=== PATIENT | male | born 1965 | race Hispanic/Latino ===

== ENCOUNTER 2024-10-16 14:11 | Inpatient (IN) | payer SELFPAY ==
[~2024-10-16] VITALS: Ht 177.8 cm; Wt 71.8 kg
[2024-10-16 16:45] VITALS: BP 117/76; PULSE 96; RESP 18; TEMP 100.4
[2024-10-16] MEDS: HEParin 25,000 UNITS/250ML D5W 250 ML IV ONE (16:57)
[2024-10-16] MEDS ORDERED: ondanSETRON 4MG INJ IVP PRN (17:30)
[2024-10-16] MEDS ORDERED: ALBUTEROL 0.083% 2.5 MG/3 ML INH IH PRN (18:00)
[2024-10-16 18:49] VITALS: O2SAT 92
[2024-10-16 19:17] VITALS: PULSE 97; RESP 18; O2SAT 94
[2024-10-16] MEDS: HEParin 25,000 UNITS/250ML D5W 250 ML IV SCH (19:33)
--- NOTE | 2024-10-16 19:49 | HP ---
[facility] HISTORY AND PHYSICAL Date of Service: Oct 16, 2024 Time of Service: 19:49 PCP: Jaci Jung HISTORY OF PRESENT ILLNESS: This is a 58-year-old Austrian-speaking male with past medical history of diabetes, hypertension and hyperlipidemia who was transferred from [facility] with NSTEMI and multivessel CAD for a possible surgical revascularization and patient is on heparin drip.Patient showed up at [facility] for complaints of shortness of breath and fatigue as per patient an he was found to have NSTEMI and underwent a left heart cath via right radial artery as per daughter where he was found to have multiple CAD.As per patient he stopped taking all his medications 1 month ago because he was feeling better already he said.Daughter Paula was at bedside during my evaluation and states patient smoke 2 packs per week and denies alcohol and recreational drug use. Seen and examined patient in room 203,awake,alert and coherent.Patient denies fever,chills,cough,chest pain,palpitation and shortness of breath. Latest vital signs temperature 98.4, heart rate 101, blood pressure 135/66 saturation 90% on 3 L nasal cannula. We will admit patient for further medical management. REVIEW OF SYSTEMS CONSTITUTIONAL: Denies fevers, chills, or night sweats. No unintentional weight loss reported. NEUROLOGICAL: Denies headache, amaurosis fugax, motor weakness, sensory deficit, vertigo/spinning sensation, gait abnormalities, or tremors. ENT: No hearing loss, otalgia, otorrhea, rhinitis, rhinorrhea, hoarseness, or sore throat. CARDIOVASCULAR: Denies any exertional angina, dyspnea on exertion, orthopnea, paroxysmal nocturnal dyspnea, palpitations, life-threatening arrhythmias, claudication. PULMONARY: Positive shortness of breaths Denies cough, phlegm/sputum, hemoptysis, pleuritic chest pain. SLEEP: Denies morning headaches, daytime somnolence or napping. Denies difficulty falling asleep, staying asleep, waking from sleep. Denies knowledge of snoring. GASTROINTESTINAL: Denies any type of dysphagia to either liquids or solids. Denies nausea, vomiting, pyrosis, early satiety, abdominal pain, diarrhea, constipation, or changes in stool consistency or caliber. Denies coffee-ground emesis, hematemesis, hematochezia, or melanotic stools. GENITOURINARY: Denies frequency, urgency, nocturia, hematuria or incontinence (Storage/Irritative symptoms.) Low urinary stream, straining to void, urinary intermittency or hesitancy, splitting of the voiding stream, terminal dribbling. ENDOCRINOLOGIC: Denies polyuria, polydipsia, polyphagia or heat/cold intolerances. HEMATOLOGIC: Denies thrombophilia/previous clots, or coagulopathy/bleeding disorders. ONCOLOGIC: Denies personal history of malignancy. DERMATOLOGIC: Denies rashes or pruritus. PSYCHIATRIC: Denies any suicidal or homicidal ideation. Denies hallucinations. PAST MEDICAL HISTORY: [Diabetes hypertension and hyperlipidemia ] PAST SURGICAL HISTORY: [Patient denies ] PAST SOCIAL HISTORY: [Patient admits to smoking two packs of cigarettes per every week. Denies alcohol and recreational drug use ] FAMILY HISTORY: [ Diabetes and cardiovascular disease ] Coded Allergies: No Known Drug Allergies (Unverified Allergy, Unknown, 10/16/24) PHYSICAL EXAM GENERAL APPEARANCE: The patient is awake, alert, and oriented, in no acute cardiopulmonary distress. NEUROLOGICAL: Cranial nerves II-XII grossly intact. Motor is 5/5 in bilateral upper and lower extremities proximal to distal. No sensory deficits. HEENT: Face is symmetric. Pupils are equal and reactive. Extraocular movements are intact. NECK: Supple. No JVD. No thyromegaly. No submental, submandibular, pre-/ postauricular, occipital or supraclavicular lymphadenopathy. CHEST: Normal chest expansion. No Telemetry. LUNGS: Absence of any rales, rhonchi or any wheezing. CARDIOVASCULAR: Regular. S1 and S2 normal. No appreciable rubs, murmurs or gallops. ABDOMEN: Soft, nontender, and nondistended. There is no rebound, voluntary guarding, or rigidity. : Deferred. No Henao. EXTREMITIES: Non-edematous and not cyanotic. No clubbing. Good capillary refill. SKIN: No skin breakdown. Vital Sign (Last 24 Hours) 10/16/24 10/16/24 10/16/24 16:45 18:49 19:17 Temp 100.4 Pulse 97 Resp 18 B/P (MAP) 117/76 Pulse Ox 92 O2 Delivery N/A Room Air O2 Flow Rate 0.0 FiO2 21 LABS: Laboratory: Test 10/16/24 18:24 Range/Units Activated Partial Thromboplast Time 39.5 H 26.3-35.5 SEC Current Medications Medications (Trade) Dose Ordered Sig/Meagan Route PRN Reason Start Time Stop Time Status Last Admin Dose Admin Acetaminophen (TYLenol 325MG TAB) 650 mg Q6H PRN PO MILD PAIN (1-3) 10/16/24 17:30 11/15/24 17:29 Albuterol Sulfate (Proventil 0.083% 2.5mg/3ml) 0.63 mg Q6H6 PRN IH SHORTNESS OF BREATH 10/16/24 18:00 11/15/24 17:59 Aspirin (Aspirin 81mg Ec Tab) 81 mg DAILY PO 10/17/24 09:00 11/16/24 08:59 Azithromycin 250 ml @ 250 mls/hr Q24H IVPB 10/16/24 21:00 10/26/24 20:59 Ceftriaxone Sodium (Rocephin 2gm Inj) 2 gm Q24H IVPB 10/17/24 09:30 10/27/24 09:29 Heparin Sodium (Porcine) (HEParin 5,000 UNIT VIAL) *calculation based on ACTUAL B... AD PRN IV HEPARIN PROTOCOL 10/16/24 18:00 11/15/24 17:59 Heparin Sodium/ Dextrose 250 ml @ 0 mls/hr Q6H IV 10/16/24 18:00 11/15/24 17:59 10/16/24 19:33 12.8 MLS/HR Hydroxyzine HCl (ATArax 25MG TAB) 12.5 mg TID PRN PO ITCHING 10/16/24 17:30 11/15/24 17:29 Insulin Glargine (LANtus 100 UNITS/ML 10 ML VIAL) 15 units HS SQ 10/16/24 21:00 11/15/24 20:59 Insulin Human Lispro (HumaLOG LISpro 100 UNIT/ML 3ML) 5 unit TIDAC SQ 10/17/24 07:30 11/16/24 07:29 Insulin Human Lispro (HumaLOG LISpro 100 UNIT/ML 3ML) INSULIN SLIDING SCAL... ACHS SQ 10/16/24 21:00 11/15/24 20:59 Lidocaine (Lidocaine Patch 4%) 1 each DAILY TP 10/17/24 09:00 11/16/24 08:59 Lisinopril (Prinivil 5mg) 5 mg DAILY PO 10/17/24 09:00 11/16/24 08:59 Metoprolol Tartrate (loprESSOR) 12.5 mg BID PO 10/16/24 21:00 11/15/24 20:59 Ondansetron HCl (zoFRAN 4MG INJ) 4 mg Q12H PRN IVP NAUSEA/VOMITING 10/16/24 17:30 11/15/24 17:29 DIAGNOSTICS / RADIOLOGY: [ ] ASSESSMENT: NSTEMI POA Multivessel Coronary artery disease POA Chronic pulmonary edema POA Acute respiratory failure POA Hypertension POA Uncontrolled diabetes POA Nicotine dependence POA Hyperlipidemia POA Obesity POA Bilateral pneumonia POA PLAN: We will admit patient in PCCU We will start on heart healthy diet and keep NPO post midnight Continue on heparin drip per ACS protocol Start on famotidine 20 mg IV daily for GI prophylaxis Continue on aspirin 81 mg p.o. daily and metoprolol 12.5 mg p.o. b.i.d. We will start patient on Rocephin 2 g IV and azithromycin IV for broad-spectrum coverage We will replace electrolytes as needed per protocol Continue oxygen supplementation to keep saturation above 92% Continue on DuoNeb treatment q.6 hours as needed for shortness of breaths We will start on insulin sliding scale AC & HS with hypoglycemia protocol We will add prn medication for fever,pain,cough and nausea We will reconcile home meds once medlist available Counseled on smoking cessation We will seek cardiovascular consultation We will seek Cardiology consultation We will request labs in am Further orders to follow depending on above results Case discussed with attending physician and came up with above treatment and plan of care. ADVANCED CARE PLANNING 1. Which of the following were discussed? Hospice Care - No Therapeutic options - Yes Advance Directives - No Other discussions - 2. Discussed with who? Patient and daughter Paula 3. Voluntary nature of this service was explained to the patient? Yes 4. Amount of time spent - 25 5. Reviewed by Physician? (if this service was performed by NPP) Yes ADDENDUM: ATTENDING PHYSICIAN ATTESTATION: I have reviewed the midlevel's plan. I have independently seen, reviewed the chart and made my own assessment of the patient. See my addendum for updates to the midlevel's medical plan MD MATTHEW Garrett [facility] Oct 16, 2024 19:49 FLAKITA BENNETT MD Oct 17, 2024 15:41
[2024-10-16 19:55] VITALS: BP 135/66; PULSE 101; RESP 18; TEMP 98.5
[2024-10-16] MEDS ORDERED: acetaMINOPHEN 325 MG TAB PO PRN ×2 (20:00)
[2024-10-16] MEDS ORDERED: ondanSETRON 4MG INJ IV PRN (20:00)
[2024-10-16] MEDS ORDERED: NITROGLYCERIN 0.4 MG SL TAB SL PRN (20:00)
[2024-10-16 20:30] VITALS: O2SAT 87
[2024-10-16] MEDS: AZITHROMYCIN 500MG+NS 250ML 250 ML IVPB SCH (20:43)
[2024-10-16] MEDS: metoPROLOL tartRATE 25 MG TAB PO SCH (20:44)
[2024-10-16] MEDS: INSULIN LISpro 100 UNIT/ML 3ML SQ SCH (20:45)
[2024-10-16] MEDS: INSULIN GLARgine 100 UNITS/ML 10 ML VIAL SQ SCH (20:47)
[2024-10-16] MEDS: LIDOCAINE 4% ADH..PATCH TP SCH (21:30)
[2024-10-16] MEDS: acetaMINOPHEN 325 MG TAB PO PRN (21:31)
[2024-10-16] MEDS: ceFAZolin SODIUM 2 GM VIAL IVP SCH (23:21)
[2024-10-16 23:51] VITALS: BP 95/51; PULSE 85; RESP 18; TEMP 99.5
[2024-10-17] VITALS (10 sets, daily range): BP systolic 111–128; BP diastolic 61–72; PULSE 67–99; RESP 18–21; TEMP 98–99; O2SAT 92–95
[2024-10-17 01:38] LABS: HEMOGLOBIN A1C 8.4 % (4.0-6.0)
[2024-10-17 04:20] LABS: ABG BASE EXCESS 4.6 mmol/L (-2.0-3.0); ABG HCO3 28.1 mmol/L (21.0-28.0); ABG OXYGEN SATURATION 88.1 % (94.0-98.0); ABG PCO2 38 mmHg (35-48); ABG PH 7.489 (7.350-7.450); CARBON MONOXIDE 0.3 % (0.5-1.5); HHb 11.8; VENT MODE, BG RA,21 (ROOM AIR)
[2024-10-17 04:57] LABS: BASOPHILS # (AUTO) 0.03 K/uL (0.00-0.20); BASOPHILS % (AUTO) 0.3 % (0.0-5.0); EOSINOPHILS # (AUTO) 0.25 K/uL (0.00-0.70); EOSINOPHILS % (AUTO) 2.8 % (0.0-8.0); IMMATURE GRANULOCYTE ABSOLUTE 0.06 K/uL (0-1); LYMPHOCYTES # (AUTO) 1.9 K/uL (1.0-4.8); LYMPHOCYTES % (AUTO) 20.6 % (21.0-51.0); MEAN CORPUSCULAR HEMOGLOBIN 28.9 pg (27.0-33.0); MEAN CORPUSCULAR HGB CONC 33.1 g/dL (32.0-36.0); MEAN CORPUSCULAR VOLUME 87.1 fL (79-99); MONOCYTES # (AUTO) 1.1 K/uL (0.1-1.0); NEUTROPHILS # (AUTO) 5.8 K/uL (1.8-7.7); NEUTROPHILS % (AUTO) 63.6 % (40.0-77.0); PLATELET COUNT (AUTO) 270 K/uL (130-400); RED BLOOD CELL COUNT(AUTO) 4.02 MIL/uL (4.50-6.20); RED CELL DISTRIBUTION WIDTH 12.6 % (11.0-15.5); WHITE BLOOD COUNT (AUTO) 9.1 K/uL (4.8-10.8)
[2024-10-17 05:06] LABS: INR 1.13 (0.85-1.15); PROTHROMBIN TIME 11.8 SEC (9.6-11.6)
[2024-10-17 05:07] LABS: CREATININE 0.8 mg/dL (0.5-1.3); PARTIAL THROMBOPLASTIN TIME 58.9 SEC (26.3-35.5)
[2024-10-17 05:11] LABS: ALBUMIN 2.2 g/dL (3.5-5.0); BILIRUBIN,TOTAL 0.5 mg/dL (0.2-1.0); TOTAL PROTEIN, SERUM 6.5 g/dL (6.0-8.3)
[2024-10-17 05:55] LABS: B-TYPE NATRIURETIC PEPTIDE 691 pg/mL (0-100)
--- NOTE | 2024-10-17 06:54 | EKG ---
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
[2024-10-17] MEDS ORDERED: aminoCAProic ACID 5,000MG VIAL 15,000 MG in 0.9% NACL 500ML IV.SOLN 420 ML IV PRN (07:00)
[2024-10-17] MEDS ORDERED: EPINEPHrine PF 1MG (1:1,000) 10 MG in 0.9% NACL 250ML 240 ML IV PRN (07:00)
[2024-10-17] MEDS ORDERED: NOREPINEPHRIN 8MG/250ML NS 250 ML IV PRN (07:00)
[2024-10-17] MEDS: INSULIN LISpro 100 UNIT/ML 3ML SQ SCH (07:30)
[2024-10-17 08:13] LABS: INR 1.09 (0.85-1.15); PROTHROMBIN TIME 11.5 SEC (9.6-11.6)
[2024-10-17 08:14] LABS: PARTIAL THROMBOPLASTIN TIME 41.2 SEC (26.3-35.5)
[2024-10-17] MEDS: ASPIRIN 81 MG EC TAB PO SCH (09:00)
[2024-10-17] MEDS: LISINOPRIL 5 MG TABLET PO SCH (09:00)
[2024-10-17] MEDS: FAMOTIDINE 20MG VIAL IV SCH (10:33)
[2024-10-17] MEDS: CEFTRIAXONE 2GM VIAL IVPB SCH (10:33)
--- NOTE | 2024-10-17 11:07 | HMCIMG ---
Exam Type: CHEST 1VW Clinical Information: preop CABG Comparison: None Findings: Ill-defined infiltrates of both lungs are seen consistent with bilateral pneumonia. . The heart is normal in size. The bony and soft tissue structures show no worrisome pathology. IMPRESSION: Findings consistent with pneumonia. Follow-up is advised.
--- NOTE | 2024-10-17 11:34 | HMCIMG ---
Exam Type: US CAROTID DUPLEX Clinical Information: preop CABG Comparison: None Findings: The right side shows plaque of carotid bulb and origin of internal carotid. There is stenosis of right internal carotid, over 70 %, by both size calculation and velocity criteria. The flow velocities are normal elsewhere on the right side. Antegrade flow of right vertebral artery is seen. The left side shows calcific plaque of carotid bulb and origin of internal carotid. There is stenosis of left internal carotid, over 70 %, by both size calculation and velocity criteria. The flow velocities are normal elsewhere on the left side. Antegrade flow left vertebral artery. Impression: Bilateral carotid plaques. Stenosis as noted above.
[2024-10-17] MEDS ORDERED: NITROGLYCERIN 50MG/D5W 250ML 1 BOT ONE (12:23)
--- NOTE | 2024-10-17 12:39 | CONS ---
Cardiology Consult Note Attending Archivist: Dr. Ketan Naylor Primary Archivist: Dr. Hilario Ward ([place], [place]) Consulting Physician: Hospitalist Date of Service: 10/17/2024 Reason for Consult: ACS-NSTEMI, pending CABG HPI: This is a 58y/o male with a past medical history of HTN, HLP, DM2, and tobacco abuse who was originally presented to [facility] on 10/13/2024 with shortness of breath. While on the inpatient service he was diagnosed with CAP and ACS-NSTEMI. He underwent an ischemic cardiac workup including a 2D echocardiogram (10/13/2024) which identified normal LV systolic function with an estimated LVEF of 60-65% and moderate MR. He also underwent a C/coronary angiogram on 10/16/2024 which identified severe 3V CAD (LAD, LCx, RCA). The decision was made to transfer the patient to [facility] for a higher level of care so he could be kirstie luated by CTS and undergo CABG. He has been evaluated by CT surgery, Dr. Vargas, and is tentatively scheduled to undergo CABG later today. Cardiology was consulted to assist in the patient's postoperative care. PMH: Listed above PSH: Listed above FH: Noncontributory. SH: Positive for tobacco abuse. Denies alcohol or illicit drug use. Allergies: Coded Allergies: No Known Drug Allergies (Unverified Allergy, Unknown, 10/16/24) Review of systems: General: Denies fever or chills HEENT: Denies changes in vision, earache or sore throat Neck: Denies pain or stiffness Cardio: Denies chest pain, chest pressure, palpitations, or edema. Pulm: As per the HPI GI: Denies abdominal pain, nausea, vomiting, diarrhea, or constipation. MSK: Denies decreased ROM or joint pain. Heme: Denies anemia, easy bruising, or bleeding. Neuro: Denies headache, dizziness, or syncope. Psyche: Denies anxiety, depression, or suicidal ideation. Physical Exam: Vital Signs Date Time Temp Pulse Resp B/P (MAP) Pulse Ox O2 Delivery O2 Flow Rate FiO2 10/17/24 08:00 99.0 94 18 121/64 94 Nasal Cannula 2.0 10/17/24 07:41 40 General: Alert and oriented x 3. NAD. Chronically ill appearing. HEENT: NC/AT. Oral mucosa is moist. Neck: No masses, JVD, or carotid bruits Lungs: NRD. SCM. Bilateral air entry. Cardio: Regular rate. Normal S1 and S2. +S4. PMI was not displaced. Abdomen: Soft. NT. ND. Normal active bowel sounds x 4 quadrants. Extremities: Diminished throughout. Neuro: CN II-XII were grossly intact. No focal deficits. Labs: Laboratory Tests Test 10/16/24 18:24 10/16/24 20:04 10/16/24 23:00 10/17/24 00:52 Range/Units Activated Partial Thromboplast Time 39.5 H 55.5 #H 26.3-35.5 SEC Whole Blood Glucose 297 H 70-110 MG/DL Hemoglobin A1c 8.4 H 4.0-6.0 % Estimated Average Glucose (eAG) 194 H 70-126 mg/dL Test 10/17/24 04:18 10/17/24 04:42 10/17/24 05:23 10/17/24 07:28 Range/Units Blood Gas Specimen Type Arterial Arterial Blood pH 7.489 H 7.350-7.450 Arterial Blood Partial Pressure CO2 38 35-48 mmHg Arterial Blood Partial Pressure O2 53.0 *L 83.0-108.0 mmHg Arterial Blood HCO3 28.1 H 21.0-28.0 mmol/L Arterial Blood Oxygen Saturation 88.1 L 94.0-98.0 % Arterial Blood Base Excess 4.6 H -2.0-3.0 mmol/L Hemoglobin (Blood Gas) 12.6 L 13.5-17.5 g/dL Sodium (Blood Gas) 133 L 136-145 MMOL/L Bedside Potassium (Blood Gas) 4.1 3.4-4.5 MMOL/L Bedside Chloride (Blood Gas) 99 98-107 MMOL/L Bedside Glucose (Blood Gas) 107 H 65-95 MG/DL Bedside Ionized Calcium (Blood Gas) 1.17 1.15-1.33 MMOL/L Bedside Lactic Acid (Blood Gas) 0.83 H 0.36-0.75 MMOL/L Blood Gas Temperature 37.0 35.5-37.0 CELSIUS Blood Gas Vent Mode RA,21 ROOM AIR FiO2 21.0 % Blood Gas Specimen Comment RR,RN POLY White Blood Count 9.1 4.8-10.8 K/uL Red Blood Count 4.02 L 4.50-6.20 MIL/uL Hemoglobin 11.6 L 14.0-18.0 g/dL Hematocrit 35.0 L 42-54 % Mean Corpuscular Volume 87.1 79-99 fL Mean Corpuscular Hemoglobin 28.9 27.0-33.0 pg Mean Corpuscular Hemoglobin Concent 33.1 32.0-36.0 g/dL Red Cell Distribution Width 12.6 11.0-15.5 % Platelet Count 270 130-400 K/uL Mean Platelet Volume 10.5 7.5-10.5 fL Immature Granulocyte % (Auto) 0.7 0-1 % Neutrophils (%) (Auto) 63.6 40.0-77.0 % Lymphocytes (%) (Auto) 20.6 L 21.0-51.0 % Monocytes (%) (Auto) 12.0 3.0-13.0 % Eosinophils (%) (Auto) 2.8 0.0-8.0 % Basophils (%) (Auto) 0.3 0.0-5.0 % Neutrophils # (Auto) 5.8 1.8-7.7 K/uL Lymphocytes # (Auto) 1.9 1.0-4.8 K/uL Monocytes # (Auto) 1.1 H 0.1-1.0 K/uL Eosinophils # (Auto) 0.25 0.00-0.70 K/uL Basophils # (Auto) 0.03 0.00-0.20 K/uL Absolute Immature Granulocyte (auto 0.06 0-1 K/uL Nucleated Red Blood Cells 0.0 0.0-0.19 % Prothrombin Time 11.8 H 11.5 9.6-11.6 SEC Prothromb Time International Ratio 1.13 1.09 0.85-1.15 Activated Partial Thromboplast Time 58.9 H 41.2 #H 26.3-35.5 SEC Sodium Level 135 L 136-145 mmol/L Potassium Level 4.0 3.5-5.1 mmol/L Chloride Level 99 L 101-111 mmol/L Carbon Dioxide Level 28 21-32 mmol/L Blood Urea Nitrogen 14 7-18 mg/dL Creatinine 0.8 0.5-1.3 mg/dL Glomerular Filtration Rate Calc 102 >90 mL/min Random Glucose 103 70-105 mg/dL Total Calcium 8.6 8.5-10.1 mg/dL Magnesium Level 2.00 1.80-2.40 mg/dL Total Bilirubin 0.5 0.2-1.0 mg/dL Aspartate Amino Transf (AST/SGOT) 30 10-37 U/L Alanine Aminotransferase (ALT/SGPT) 43 12-78 U/L Alkaline Phosphatase 187 H 50-136 U/L B-Type Natriuretic Peptide 691 H 0-100 pg/mL Total Protein 6.5 6.0-8.3 g/dL Albumin 2.2 L 3.5-5.0 g/dL Triglycerides Level 121 30-200 mg/dL Cholesterol Level 140 <200 mg/dL LDL Cholesterol 86 0-99 mg/dL HDL Cholesterol 37 29-71 mg/dL Whole Blood Glucose 102 # 70-110 MG/DL Test 10/17/24 11:46 Range/Units Whole Blood Glucose 104 70-110 MG/DL Assessment: -ACS-NSTEMI s/p LHC/coronary angiogram done on 10/16/[address] Hilario Ward which identified severe 3V CAD (LAD, LCx, RCA), pending CABG -HFpEF (LVEF: 60-65% by echo done 10/13/2024) -Moderate mitral regurgitation by echo done 10/13/2024 -Bilateral CAP -Bilateral ICA stenosis (>70% by Doppler done 10/17/2024) -HTN -HLP -DM2 -Tobacco abuse Plan: 1. ACS-NSTEMI s/p LHC/coronary angiogram done on 10/16/[address] Hilario Ward which identified severe 3V CAD (LAD, LCx, RCA), pending CABG -Stable -The patient has been evaluated by CT surgery, Dr. Vargas, and is tentatively pending CABG later today. -In the meantime, he will continue on conservative goal directed ACS therapy which includes aspirin 81 mg daily, IV heparin infusion (ACS protocol), metoprolol tartrate 12.5 mg BID, and atorvastatin 80 mg QHS. -Post CABG, once the patient's chest tubes and lines have been removed and his hemoglobin remains stable, he should be started on DAPT as per ACS guidelines. -Further management per CTS. 2. HFpEF (LVEF: 60-65% by echo done 10/13/2024) -Stable -BNP: 691 -In order to address the patient's volume status, we recommend starting the patient on furosemide 20 mg IV BID. -In the meantime, he will continue on metoprolol tartrate 12.5 mg BID and lisinopril 5 mg daily. -Please record strict I/O's, daily weights, and restrict fluids to less than 2.0L/day. Thank you for this interesting consult and allowing us to participate in the care of your patient. This consult was seen and discussed with my Supervising Physician, Dr. Ketan Naylor, and the above mentioned plan was formulated and agreed upon. -Consult Note written by Damaris Goncalves, MSN, [employer] SERVER, AGACNP-BC DAMARIS GONCALVES STORY READER Oct 17, 2024 12:39
--- NOTE | 2024-10-17 14:20 | NUR ---
DCP: home Pt claims to currently live alone in a trailer. Pt denies having any DME, provider, or home health services. Pt does not currently have DME. PCP is Jaci Oliver in [place] and uses the clinic for RX needs. For DC pt voiced wanting to go to a rehab however pt does not currently have insurance. Pt stated that he could also go home with his son Earnest Pantoja [phone]. Addendum: 10/17/24 at 1429 by RODO CHEW SS Amended: Links added.
--- NOTE | 2024-10-17 14:57 | NUR ---
PT held for surgery
--- NOTE | 2024-10-17 15:38 | PN ---
[facility] PROGRESS NOTE Date of Service: Oct 17, 2024 Time of Service: 15:30 SUBJECTIVE: 10/17 patient seen at bedside, no acute events overnight. He has been afebrile, hemodynamically stable saturating well on 5 L nasal cannula. Echocardiogram pending, we will follow up. Bilateral carotid Dopplers showing severe stenosis in both internal carotid arteries, we will follow up with CV surgery. Patient initially transferred for CABG, chest x-ray showing bilateral infiltrates, we will continue with diuresis and continue antibiotics to treat for possible underlying pneumonia. REVIEW OF SYSTEMS 12 point review of systems negative unless noted in HPI PHYSICAL EXAM GENERAL APPEARANCE: The patient is awake, alert, and oriented, in no acute cardiopulmonary distress. NEUROLOGICAL: Cranial nerves II-XII grossly intact. Motor is 5/5 in bilateral upper and lower extremities proximal to distal. No sensory deficits. HEENT: Face is symmetric. Pupils are equal and reactive. Extraocular movements are intact. NECK: Supple. No JVD. No thyromegaly. No submental, submandibular, pre- /postauricular, occipital or supraclavicular lymphadenopathy. CHEST: Normal chest expansion. No Telemetry. LUNGS: Absence of any rales, rhonchi or any wheezing. CARDIOVASCULAR: Regular. S1 and S2 normal. No appreciable rubs, murmurs or gallops. ABDOMEN: Soft, nontender, and nondistended. There is no rebound, voluntary guarding, or rigidity. : Deferred. No Henao. EXTREMITIES: Non-edematous and not cyanotic. No clubbing. Good capillary refill. SKIN: No skin breakdown. Vital Signs (last 8hr) Date Time Temp Pulse Resp B/P (MAP) Pulse Ox O2 Delivery O2 Flow Rate FiO2 10/17/24 12:00 98.4 89 18 128/61 95 Nasal Cannula 5.0 10/17/24 08:00 99.0 94 18 121/64 94 Nasal Cannula 2.0 10/17/24 08:00 95 Nasal Cannula* 3 32 10/17/24 07:41 72 20 N/Cannula Low lpm 5.0 40 LABS: Laboratory: Test 10/17/24 15:05 10/17/24 11:46 10/17/24 07:28 10/17/24 04:42 Range/Units Activated Partial Thromboplast Time 36.5 H 26.3-35.5 SEC Whole Blood Glucose 104 70-110 MG/DL Prothrombin Time 11.5 9.6-11.6 SEC Prothromb Time International Ratio 1.09 0.85-1.15 White Blood Count 9.1 4.8-10.8 K/uL Red Blood Count 4.02 L 4.50-6.20 MIL/uL Hemoglobin 11.6 L 14.0-18.0 g/dL Hematocrit 35.0 L 42-54 % Mean Corpuscular Volume 87.1 79-99 fL Mean Corpuscular Hemoglobin 28.9 27.0-33.0 pg Mean Corpuscular Hemoglobin Concent 33.1 32.0-36.0 g/dL Red Cell Distribution Width 12.6 11.0-15.5 % Platelet Count 270 130-400 K/uL Mean Platelet Volume 10.5 7.5-10.5 fL Immature Granulocyte % (Auto) 0.7 0-1 % Neutrophils (%) (Auto) 63.6 40.0-77.0 % Lymphocytes (%) (Auto) 20.6 L 21.0-51.0 % Monocytes (%) (Auto) 12.0 3.0-13.0 % Eosinophils (%) (Auto) 2.8 0.0-8.0 % Basophils (%) (Auto) 0.3 0.0-5.0 % Neutrophils # (Auto) 5.8 1.8-7.7 K/uL Lymphocytes # (Auto) 1.9 1.0-4.8 K/uL Monocytes # (Auto) 1.1 H 0.1-1.0 K/uL Eosinophils # (Auto) 0.25 0.00-0.70 K/uL Basophils # (Auto) 0.03 0.00-0.20 K/uL Absolute Immature Granulocyte (auto 0.06 0-1 K/uL Nucleated Red Blood Cells 0.0 0.0-0.19 % Sodium Level 135 L 136-145 mmol/L Potassium Level 4.0 3.5-5.1 mmol/L Chloride Level 99 L 101-111 mmol/L Carbon Dioxide Level 28 21-32 mmol/L Blood Urea Nitrogen 14 7-18 mg/dL Creatinine 0.8 0.5-1.3 mg/dL Glomerular Filtration Rate Calc 102 >90 mL/min Random Glucose 103 70-105 mg/dL Total Calcium 8.6 8.5-10.1 mg/dL Magnesium Level 2.00 1.80-2.40 mg/dL Total Bilirubin 0.5 0.2-1.0 mg/dL Aspartate Amino Transf (AST/SGOT) 30 10-37 U/L Alanine Aminotransferase (ALT/SGPT) 43 12-78 U/L Alkaline Phosphatase 187 H 50-136 U/L B-Type Natriuretic Peptide 691 H 0-100 pg/mL Total Protein 6.5 6.0-8.3 g/dL Albumin 2.2 L 3.5-5.0 g/dL Triglycerides Level 121 30-200 mg/dL Cholesterol Level 140 <200 mg/dL LDL Cholesterol 86 0-99 mg/dL HDL Cholesterol 37 29-71 mg/dL Test 10/17/24 04:18 10/16/24 23:00 Range/Units Blood Gas Specimen Type Arterial Arterial Blood pH 7.489 H 7.350-7.450 Arterial Blood Partial Pressure CO2 38 35-48 mmHg Arterial Blood Partial Pressure O2 53.0 *L 83.0-108.0 mmHg Arterial Blood HCO3 28.1 H 21.0-28.0 mmol/L Arterial Blood Oxygen Saturation 88.1 L 94.0-98.0 % Arterial Blood Base Excess 4.6 H -2.0-3.0 mmol/L Hemoglobin (Blood Gas) 12.6 L 13.5-17.5 g/dL Sodium (Blood Gas) 133 L 136-145 MMOL/L Bedside Potassium (Blood Gas) 4.1 3.4-4.5 MMOL/L Bedside Chloride (Blood Gas) 99 98-107 MMOL/L Bedside Glucose (Blood Gas) 107 H 65-95 MG/DL Bedside Ionized Calcium (Blood Gas) 1.17 1.15-1.33 MMOL/L Bedside Lactic Acid (Blood Gas) 0.83 H 0.36-0.75 MMOL/L Blood Gas Temperature 37.0 35.5-37.0 CELSIUS Blood Gas Vent Mode RA,21 ROOM AIR FiO2 21.0 % Blood Gas Specimen Comment RR,RN POLY Hemoglobin A1c 8.4 H 4.0-6.0 % Estimated Average Glucose (eAG) 194 H 70-126 mg/dL Current Medications Medications (Trade) Dose Ordered Sig/Meagan Route PRN Reason Start Time Stop Time Status Last Admin Dose Admin Acetaminophen (TYLenol 325MG TAB) 650 mg Q4H PRN PO MILD PAIN (1-3) 10/16/24 20:00 10/17/24 08:13 DC Acetaminophen (TYLenol 325MG TAB) 650 mg Q6H PRN PO MILD PAIN (1-3) 10/16/24 17:30 11/15/24 17:29 10/16/24 21:31 650 MG Acetaminophen (TYLenol 325MG TAB) 650 mg Q6H PRN PO TEMPERATURE GREATER THAN 101.5 10/16/24 20:00 11/15/24 19:59 Albuterol Sulfate (Proventil 0.083% 2.5mg/3ml) 0.63 mg Q6H6 PRN IH SHORTNESS OF BREATH 10/16/24 18:00 11/15/24 17:59 Aminocaproic Acid 05410 mg/Sodium Chloride 480 ml @ 0 mls/hr AD PRN IV BLEEDING CONTROL 10/17/24 07:00 11/16/24 06:59 Aspirin (Aspirin 81mg Ec Tab) 81 mg DAILY PO 10/17/24 09:00 11/16/24 08:59 Atorvastatin Calcium (LIPItor 40MG) 80 mg HS PO 10/17/24 21:00 11/16/24 20:59 Azithromycin 250 ml @ 250 mls/hr Q24H IVPB 10/16/24 21:00 10/26/24 20:59 10/16/24 20:43 250 MLS/HR Cefazolin Sodium (Ancef) 2 gm ONCALL IVP 10/16/24 23:00 10/18/24 22:59 10/16/24 23:21 2 GM Ceftriaxone Sodium (Rocephin 2gm Inj) 2 gm Q24H IVPB 10/17/24 09:30 10/27/24 09:29 10/17/24 10:33 2 GM Epinephrine HCl 10 mg/Sodium Chloride 250 ml @ 0 mls/hr AD PRN IV TITRATE 10/17/24 07:00 11/16/24 06:59 Famotidine (Pepcid 20mg Vial) 20 mg DAILY IV 10/17/24 09:00 11/16/24 08:59 10/17/24 10:33 20 MG Furosemide (LASix 20MG VIAL) 20 mg BID IV 10/17/24 13:00 11/16/24 12:59 Heparin Sodium (Porcine) (HEParin 5,000 UNIT VIAL) *calculation based on ACTUAL B... AD PRN IV HEPARIN PROTOCOL 10/16/24 18:00 11/15/24 17:59 Heparin Sodium/ Dextrose 250 ml @ 0 mls/hr Q6H IV 10/16/24 18:00 11/15/24 17:59 10/16/24 19:33 12.8 MLS/HR Hydroxyzine HCl (ATArax 25MG TAB) 12.5 mg TID PRN PO ITCHING 10/16/24 17:30 11/15/24 17:29 Insulin Glargine (LANtus 100 UNITS/ML 10 ML VIAL) 15 units HS SQ 10/16/24 21:00 11/15/24 20:59 10/16/24 20:47 15 UNITS Insulin Human Lispro (HumaLOG LISpro 100 UNIT/ML 3ML) 5 unit TIDAC SQ 10/17/24 07:30 11/16/24 07:29 Insulin Human Lispro (HumaLOG LISpro 100 UNIT/ML 3ML) INSULIN SLIDING SCAL... ACHS SQ 10/16/24 21:00 11/15/24 20:59 10/16/24 20:45 6 UNIT Lidocaine (Lidocaine Patch 4%) 1 each DAILY TP 10/16/24 21:20 11/15/24 21:19 10/17/24 10:33 1 EACH Lisinopril (Prinivil 5mg) 5 mg DAILY PO 10/17/24 09:00 11/16/24 08:59 Metoprolol Tartrate (loprESSOR) 12.5 mg BID PO 10/16/24 21:00 11/15/24 20:59 10/17/24 09:30 12.5 MG Nitroglycerin (Nitrostat) 0.4 mg PROTOCOL PRN SL CHEST PAIN 10/16/24 20:00 11/15/24 19:59 Norepinephrine Bitartrate 250 ml @ 0 mls/hr AD PRN IV TITRATE 10/17/24 07:00 11/16/24 06:59 Ondansetron HCl (zoFRAN 4MG INJ) 4 mg Q12H PRN IVP NAUSEA/VOMITING 10/16/24 17:30 10/17/24 08:13 DC Ondansetron HCl (zoFRAN 4MG INJ) 4 mg Q6H PRN IV NAUSEA/VOMITING 10/16/24 20:00 11/15/24 19:59 DIAGNOSTICS / RADIOLOGY: [ ] ASSESSMENT: NSTEMI POA Multivessel Coronary artery disease POA Chronic pulmonary edema POA Acute respiratory failure POA Bilateral carotid stenosis > 70%, POA Hypertension POA Uncontrolled diabetes POA Nicotine dependence POA Hyperlipidemia POA Obesity POA Bilateral pneumonia POA PLAN: Continue NPO Continue on heparin drip per ACS protocol Continue famotidine 20 mg IV daily for GI prophylaxis Continue aspirin 81 mg p.o. daily and metoprolol 12.5 mg p.o. b.i.d. Continue Rocephin 2 g IV and azithromycin IV for broad-spectrum coverage Continue oxygen supplementation to keep saturation between 88-92% Continue insulin sliding scale AC & HS with hypoglycemia protocol CV surgery consulted, appreciate recommendations Cardiology consulted, appreciate recommendations Disposition: Pending improvement in clinical status, CABG, possible endarterectomy FLAKITA BENNETT MD Oct 17, 2024 15:38
[2024-10-17] MEDS: HEParin 5,000 UNIT VIAL IV PRN (16:00)
[2024-10-17] MEDS: furoSEMIDE 20MG VIAL IV SCH (16:04)
--- NOTE | 2024-10-17 16:50 | NUR ---
CALL PLACED TO [facility] AND SPOKE WITH PHARMACY C[facility]TER [facility] AND HE STATED THIS PATIENT HASN'T FILLED ANY PRESCRIPTIONS SINCE MAY 2024. NO CURRENT MEDICATION LIST COULD BE PROVIDED. FAMILY WILL BRING BY MEDICATIONS FROM HOME IN [place], [place] TOMORROW.
[2024-10-17] MEDS: atorVAStatin 40 MG TABLET PO SCH (21:16)
--- NOTE | 2024-10-17 21:37 | HP ---
PREOPERATIVE EVALUATION HISTORY OF PRESENT ILLNESS: This is a 58-year-old gentleman who presents with previous coronary artery disease. I have had the opportunity to review the films and discussed the case with Dr. Silverio. We both agreed surgery as indicated and we have recommended. ASSESSMENT AND PLAN: I have also discussed the indications for surgery as well as the potential complications of the operation including, but not limited to postoperative bleeding, infection, stroke and/or . He understands this as well as associated morbidity and mortality of the procedure as it relates to external comorbidities and wishes to proceed with surgery. Plan for coronary revascularization by means of an off-pump CABG. TID: [id number] RECEIPT: [id number]
--- NOTE | 2024-10-17 23:17 | HMCSR ---
APPROVED REPORT EXAM: Two-dimensional and M-mode echocardiogram with Doppler and color Doppler. INDICATION ICD: Pre-OP CABG 2D Dimensions RVDd3.7 cmLVEF(%)55.7 (>50%)LVED Vol(simp.)103.0 mL IVSd1.1 (0.7-1.1cm)FS(%)29 %LVES Vol(simp.)51.0 mL LVDd5.2 (3.8-5.6cm)LA (2D)4.4 (1.6-4.0cm)LVEF(%, simp.)50 % PWd1.0 (0.7-1.1cm)Ao Root(2D)2.8 (2.0-3.7cm)LA ESV INDEX (BP)23.47 mL/m2 IVSs1.4 cmLVOT diam2.0 (1.8-2.4cm) LVDs3.6 (2.5-4.0cm)IVC diam1.5 cm PWs1.4 cm Deformation Strain Apical 4-14.2 % Apical 2-13.2 % Apical 3-12.2 % Global Strain-13.2 % M-Mode Dimensions EPSS0.8 cm LA (MM)4.2 (1.6-4.0cm) Ao Root(MM)2.8 (2.0-3.7cm) Aortic Valve AoV Vmax1.1 m/Alden Peak GR4.7 mmHgLVOT Vmax0.7 m/s AoV VTI0.2 mAo Mean GR2.8 mmHgLVOT VTI0.13 m MISAEL (VMAX)2.10 cm2AVA (VTI) 2.1 cm2 Mitral Valve MV E Vmax96.6 cm/sDECEL Cbbj223 ms MV A Vmax62.0 cm/sP 1/2 T40 ms E/A ratio1.6MVA (PHT)5.5 cm2 TDI E/E' Gtqajf00.6E/E' Pjbhvtl26.1 Medial E' Peak V4.94 cm/sLateral E' Peak V8.00 cm/s Pulmonary Valve PV Vmax0.9 m/sPV Mean GR2.4 mmHg PV Peak GR3.5 mmHg Tricuspid Valve RAP (EST) 3 mmHg Left Ventricle The left ventricle is normal size. The mid/apical anterolateral and inferolateral payton are akinetic. The basal/mid/apical septal, anterior and inferior payton are grossly normal in function. Mild concen tric left ventricular hypertrophy. Left ventricle systolic function is mildly depressed, estimated LV EF 45%. Grade 2 diastolic dysfunction. Right Ventricle The right ventricle is normal size. The right ventricular systolic function is normal. Atria The left atrium size is normal. The right atrium size is normal Aortic Valve Aortic valve is trileaflet. The leaflets are moderately thickened and calcified. Trace aortic regurgi tation. There is no aortic valvular stenosis. Mitral Valve Mild mitral annular calcification is noted. The leaflets are mildly thickened and calcified. Mild hermila ral regurgitation. There is no mitral valve stenosis. Tricuspid Valve The tricuspid valve is normal in structure. Trace tricuspid regurgitation. RVSP is normal. Pulmonic Valve Pulmonic valve is not well visualized. Great Vessels The aortic root is normal in size. The IVC is normal in size and collapses >50% with inspiration. Pericardium There is no pericardial effusion. Other Information Quality : Technically difficult study due to body habitus Conclusion The cardiac chambers are normal in size. Mild concentric left ventricular hypertrophy. The mid/apical anterolateral and inferolateral payton are akinetic. The basal/mid/apical septal, ante rior and inferior payton are grossly normal in function. Left ventricle systolic function is mildly depressed, estimated LVEF 45%. Grade 2 diastolic dysfunction. Trace aortic regurgitation. Mild mitral regurgitation. Trace tricuspid regurgitation. PASP is normal. There is no pericardial effusion.
[2024-10-18] VITALS (10 sets, daily range): BP systolic 100–125; BP diastolic 60–71; PULSE 74–94; RESP 18–21; TEMP 97.9–99.3; O2SAT 92–98
--- NOTE | 2024-10-18 10:07 | HMCIMG ---
Exam Type: CHEST 1VW Clinical Information: respiratory insufficiency Comparison : None Findings and impression: significant clearance of the lungs bilaterally when compared with prior examination. No other interval changes
--- NOTE | 2024-10-18 12:22 | PN ---
[facility] PROGRESS NOTE Date of Service: Oct 18, 2024 Time of Service: 12:18 SUBJECTIVE: 10/17 patient seen at bedside, no acute events overnight. He has been afebrile, hemodynamically stable saturating well on 5 L nasal cannula. Echocardiogram pending, we will follow up. Bilateral carotid Dopplers showing severe stenosis in both internal carotid arteries, we will follow up with CV surgery. Patient initially transferred for CABG, chest x-ray showing bilateral infiltrates, we will continue with diuresis and continue antibiotics to treat for possible underlying pneumonia. 10/18 patient seen at bedside, no acute events overnight. Patient has no complaints today at bedside. CABG is on hold while patient being treated for pneumonia. He was given a lab holiday today, we will repeat labs tomorrow . Repeat chest x-ray shows improvement in infiltrates bilaterally, we will continue with antibiotics and diuresis. Proximally 4 L urine output in the last 24 hours. REVIEW OF SYSTEMS 12 point review of systems negative unless noted in HPI PHYSICAL EXAM GENERAL APPEARANCE: The patient is awake, alert, and oriented, in no acute cardiopulmonary distress. NEUROLOGICAL: Cranial nerves II-XII grossly intact. Motor is 5/5 in bilateral upper and lower extremities proximal to distal. No sensory deficits. HEENT: Face is symmetric. Pupils are equal and reactive. Extraocular movements are intact. NECK: Supple. No JVD. No thyromegaly. No submental, submandibular, pre- /postauricular, occipital or supraclavicular lymphadenopathy. CHEST: Normal chest expansion. No Telemetry. LUNGS: Absence of any rales, rhonchi or any wheezing. CARDIOVASCULAR: Regular. S1 and S2 normal. No appreciable rubs, murmurs or gallops. ABDOMEN: Soft, nontender, and nondistended. There is no rebound, voluntary guarding, or rigidity. : Deferred. No Henao. EXTREMITIES: Non-edematous and not cyanotic. No clubbing. Good capillary refill. SKIN: No skin breakdown. Vital Signs (last 8hr) Date Time Temp Pulse Resp B/P (MAP) Pulse Ox O2 Delivery O2 Flow Rate FiO2 10/18/24 12:07 97.9 74 20 108/66 98 Nasal Cannula 4.0 10/18/24 10:06 85 125/71 10/18/24 07:50 98.8 78 20 112/60 98 Nasal Cannula 4.0 10/18/24 06:47 87 18 N/Cannula Low lpm 4.0 38 LABS: Laboratory: Test 10/18/24 11:42 10/18/24 03:45 10/17/24 07:28 10/17/24 04:42 Range/Units Whole Blood Glucose 137 H 70-110 MG/DL Activated Partial Thromboplast Time 62.2 #H 26.3-35.5 SEC Prothrombin Time 11.5 9.6-11.6 SEC Prothromb Time International Ratio 1.09 0.85-1.15 White Blood Count 9.1 4.8-10.8 K/uL Red Blood Count 4.02 L 4.50-6.20 MIL/uL Hemoglobin 11.6 L 14.0-18.0 g/dL Hematocrit 35.0 L 42-54 % Mean Corpuscular Volume 87.1 79-99 fL Mean Corpuscular Hemoglobin 28.9 27.0-33.0 pg Mean Corpuscular Hemoglobin Concent 33.1 32.0-36.0 g/dL Red Cell Distribution Width 12.6 11.0-15.5 % Platelet Count 270 130-400 K/uL Mean Platelet Volume 10.5 7.5-10.5 fL Immature Granulocyte % (Auto) 0.7 0-1 % Neutrophils (%) (Auto) 63.6 40.0-77.0 % Lymphocytes (%) (Auto) 20.6 L 21.0-51.0 % Monocytes (%) (Auto) 12.0 3.0-13.0 % Eosinophils (%) (Auto) 2.8 0.0-8.0 % Basophils (%) (Auto) 0.3 0.0-5.0 % Neutrophils # (Auto) 5.8 1.8-7.7 K/uL Lymphocytes # (Auto) 1.9 1.0-4.8 K/uL Monocytes # (Auto) 1.1 H 0.1-1.0 K/uL Eosinophils # (Auto) 0.25 0.00-0.70 K/uL Basophils # (Auto) 0.03 0.00-0.20 K/uL Absolute Immature Granulocyte (auto 0.06 0-1 K/uL Nucleated Red Blood Cells 0.0 0.0-0.19 % Sodium Level 135 L 136-145 mmol/L Potassium Level 4.0 3.5-5.1 mmol/L Chloride Level 99 L 101-111 mmol/L Carbon Dioxide Level 28 21-32 mmol/L Blood Urea Nitrogen 14 7-18 mg/dL Creatinine 0.8 0.5-1.3 mg/dL Glomerular Filtration Rate Calc 102 >90 mL/min Random Glucose 103 70-105 mg/dL Total Calcium 8.6 8.5-10.1 mg/dL Magnesium Level 2.00 1.80-2.40 mg/dL Total Bilirubin 0.5 0.2-1.0 mg/dL Aspartate Amino Transf (AST/SGOT) 30 10-37 U/L Alanine Aminotransferase (ALT/SGPT) 43 12-78 U/L Alkaline Phosphatase 187 H 50-136 U/L B-Type Natriuretic Peptide 691 H 0-100 pg/mL Total Protein 6.5 6.0-8.3 g/dL Albumin 2.2 L 3.5-5.0 g/dL Triglycerides Level 121 30-200 mg/dL Cholesterol Level 140 <200 mg/dL LDL Cholesterol 86 0-99 mg/dL HDL Cholesterol 37 29-71 mg/dL Test 10/17/24 04:18 10/16/24 23:00 Range/Units Blood Gas Specimen Type Arterial Arterial Blood pH 7.489 H 7.350-7.450 Arterial Blood Partial Pressure CO2 38 35-48 mmHg Arterial Blood Partial Pressure O2 53.0 *L 83.0-108.0 mmHg Arterial Blood HCO3 28.1 H 21.0-28.0 mmol/L Arterial Blood Oxygen Saturation 88.1 L 94.0-98.0 % Arterial Blood Base Excess 4.6 H -2.0-3.0 mmol/L Hemoglobin (Blood Gas) 12.6 L 13.5-17.5 g/dL Sodium (Blood Gas) 133 L 136-145 MMOL/L Bedside Potassium (Blood Gas) 4.1 3.4-4.5 MMOL/L Bedside Chloride (Blood Gas) 99 98-107 MMOL/L Bedside Glucose (Blood Gas) 107 H 65-95 MG/DL Bedside Ionized Calcium (Blood Gas) 1.17 1.15-1.33 MMOL/L Bedside Lactic Acid (Blood Gas) 0.83 H 0.36-0.75 MMOL/L Blood Gas Temperature 37.0 35.5-37.0 CELSIUS Blood Gas Vent Mode RA,21 ROOM AIR FiO2 21.0 % Blood Gas Specimen Comment RR,RN POLY Hemoglobin A1c 8.4 H 4.0-6.0 % Estimated Average Glucose (eAG) 194 H 70-126 mg/dL Current Medications Medications (Trade) Dose Ordered Sig/Meagan Route PRN Reason Start Time Stop Time Status Last Admin Dose Admin Acetaminophen (TYLenol 325MG TAB) 650 mg Q4H PRN PO MILD PAIN (1-3) 10/16/24 20:00 10/17/24 08:13 DC Acetaminophen (TYLenol 325MG TAB) 650 mg Q6H PRN PO MILD PAIN (1-3) 10/16/24 17:30 11/15/24 17:29 10/16/24 21:31 650 MG Acetaminophen (TYLenol 325MG TAB) 650 mg Q6H PRN PO TEMPERATURE GREATER THAN 101.5 10/16/24 20:00 11/15/24 19:59 Albuterol Sulfate (Proventil 0.083% 2.5mg/3ml) 0.63 mg Q6H6 PRN IH SHORTNESS OF BREATH 10/16/24 18:00 11/15/24 17:59 Aminocaproic Acid 27678 mg/Sodium Chloride 480 ml @ 0 mls/hr AD PRN IV BLEEDING CONTROL 10/17/24 07:00 11/16/24 06:59 Aspirin (Aspirin 81mg Ec Tab) 81 mg DAILY PO 10/17/24 09:00 11/16/24 08:59 10/18/24 08:15 81 MG Atorvastatin Calcium (LIPItor 40MG) 80 mg HS PO 10/17/24 21:00 11/16/24 20:59 10/17/24 21:16 80 MG Azithromycin 250 ml @ 250 mls/hr Q24H IVPB 10/16/24 21:00 10/26/24 20:59 10/17/24 21:16 250 MLS/HR Cefazolin Sodium (Ancef) 2 gm ONCALL IVP 10/16/24 23:00 10/18/24 22:59 10/16/24 23:21 2 GM Ceftriaxone Sodium (Rocephin 2gm Inj) 2 gm Q24H IVPB 10/17/24 09:30 10/27/24 09:29 10/18/24 10:07 2 GM Epinephrine HCl 10 mg/Sodium Chloride 250 ml @ 0 mls/hr AD PRN IV TITRATE 10/17/24 07:00 11/16/24 06:59 Famotidine (Pepcid 20mg Vial) 20 mg DAILY IV 10/17/24 09:00 11/16/24 08:59 10/18/24 08:16 20 MG Furosemide (LASix 20MG VIAL) 20 mg BID IV 10/17/24 13:00 11/16/24 12:59 10/18/24 08:15 20 MG Heparin Sodium (Porcine) (HEParin 5,000 UNIT VIAL) *calculation based on ACTUAL B... AD PRN IV HEPARIN PROTOCOL 10/16/24 18:00 11/15/24 17:59 10/17/24 16:00 3,000 UNIT Heparin Sodium/ Dextrose 250 ml @ 0 mls/hr Q6H IV 10/16/24 18:00 11/15/24 17:59 10/17/24 18:30 14.4 MLS/HR Hydroxyzine HCl (ATArax 25MG TAB) 12.5 mg TID PRN PO ITCHING 10/16/24 17:30 11/15/24 17:29 Insulin Glargine (LANtus 100 UNITS/ML 10 ML VIAL) 15 units HS SQ 10/16/24 21:00 11/15/24 20:59 10/17/24 21:31 15 UNITS Insulin Human Lispro (HumaLOG LISpro 100 UNIT/ML 3ML) 5 unit TIDAC SQ 10/17/24 07:30 11/16/24 07:29 10/18/24 08:16 5 UNIT Insulin Human Lispro (HumaLOG LISpro 100 UNIT/ML 3ML) INSULIN SLIDING SCAL... ACHS SQ 10/16/24 21:00 11/15/24 20:59 10/17/24 21:34 3 UNIT Lidocaine (Lidocaine Patch 4%) 1 each DAILY TP 10/16/24 21:20 11/15/24 21:19 10/18/24 08:17 1 EACH Lisinopril (Prinivil 5mg) 5 mg DAILY PO 10/17/24 09:00 11/16/24 08:59 10/18/24 10:07 5 MG Metoprolol Tartrate (loprESSOR) 12.5 mg BID PO 10/16/24 21:00 11/15/24 20:59 10/18/24 08:15 12.5 MG Nitroglycerin (Nitrostat) 0.4 mg PROTOCOL PRN SL CHEST PAIN 10/16/24 20:00 11/15/24 19:59 Norepinephrine Bitartrate 250 ml @ 0 mls/hr AD PRN IV TITRATE 10/17/24 07:00 11/16/24 06:59 Ondansetron HCl (zoFRAN 4MG INJ) 4 mg Q12H PRN IVP NAUSEA/VOMITING 10/16/24 17:30 10/17/24 08:13 DC Ondansetron HCl (zoFRAN 4MG INJ) 4 mg Q6H PRN IV NAUSEA/VOMITING 10/16/24 20:00 11/15/24 19:59 DIAGNOSTICS / RADIOLOGY: [ ] ASSESSMENT: NSTEMI POA Multivessel Coronary artery disease POA Chronic pulmonary edema POA Acute respiratory failure POA Bilateral carotid stenosis > 70%, POA Hypertension POA Uncontrolled diabetes POA Nicotine dependence POA Hyperlipidemia POA Obesity POA Bilateral pneumonia POA PLAN: Continue on heparin drip per ACS protocol Continue famotidine 20 mg IV daily for GI prophylaxis Continue aspirin 81 mg p.o. daily and metoprolol 12.5 mg p.o. b.i.d. Continue Rocephin 2 g IV and azithromycin IV for broad-spectrum coverage Continue furosemide 20mg BID Continue lisinopril 5mg q24h Continue oxygen supplementation to keep saturation between 88-92% Continue insulin sliding scale AC & HS with hypoglycemia protocol CV surgery consulted, appreciate recommendations Cardiology consulted, appreciate recommendations Disposition: Pending improvement in clinical status, CABG, possible endarterectomy FLAKITA BENNETT MD Oct 18, 2024 12:22
--- NOTE | 2024-10-18 12:53 | PN ---
Cardiology Progress Note Date of Service: 10/18/2024 Attending Billing Spec: Dr. Ketan Naylor Primary Billing Spec: Dr. Hilario Ward ([place], [place]) Reason for Consult: NSTEMI, pending CABG Problem List: -ACS-NSTEMI s/p LHC/coronary angiogram done on 10/16/[address] 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 The patient denies any active complaints including chest pain, chest pressure, palpitations, or shortness of breath. As per the nurse, there were no overnight events. Vitals/Labs Vital Signs Date Time Temp Pulse Resp B/P (MAP) Pulse Ox O2 Delivery O2 Flow Rate FiO2 10/18/24 12:07 97.9 74 20 108/66 98 Nasal Cannula 4.0 10/18/24 06:47 38 General: Alert and oriented x 3. NAD. Chronically ill appearing. HEENT: NC/AT. Oral mucosa is moist. Neck: No masses or JVD. Lungs: NRD. SCM. Bilateral air entry. Fine crackles noted to the bilateral lower lung shi. Cardio: Regular rate. Normal S1 and S2. +S4. No obvious murmurs, gallops, or rubs noted. Abdomen: Soft. NT. ND. Normal active bowel sounds x 4 quadrants. Extremities: Diminished throughout. No edema, clubbing, or cyanosis. Neuro: CN II-XII were grossly intact. No obvious focal deficits. Assessment: -ACS-NSTEMI s/p LHC/coronary angiogram done on 10/16/[address] Hilario Ward which identified severe 3V CAD (LAD, LCx, RCA), pending CABG -HFmrEF (LVEF: 45% by echo done 10/17/2024) -Bilateral CAP -Bilateral ICA stenosis (>70% by Doppler done 10/17/2024) -HTN -HLP -DM2 -Tobacco abuse Plan: 1. ACS-NSTEMI s/p LHC/coronary angiogram done on 10/16/[address] Hilario Ward which identified severe 3V CAD (LAD, LCx, RCA), pending CABG -Stable -The patient has been evaluated by CT surgery, Dr. Vargas, and is tentatively pending CABG later this week. -In the meantime, he will continue on conservative goal directed ACS therapy which includes aspirin 81 mg daily, IV heparin infusion (ACS protocol), metoprolol tartrate 12.5 mg BID, and atorvastatin 80 mg QHS. -Post CABG, once the patient's chest tubes and lines have been removed and his hemoglobin remains stable, he should be started on DAPT as per ACS guidelines. -Further management per CTS. 2. HFmrEF (LVEF: 45% by echo done 10/17/2024) -Stable -24H urine output: 4000 mL -The patient will continue on furosemide 20 mg IV BID in order to target a 2X increase in the BUN, 30% rise in the creatinine, or a BNP less than half of what it was upon admission. -In the meantime, he will continue on metoprolol tartrate 12.5 mg BID and lisinopril 5 mg daily. -Please record strict I/O's, daily weights, and restrict fluids to less than 2.0L/day. 3. Bilateral ICA stenosis (>70% by Doppler done 10/17/2024) -Continue aspirin 81 mg daily and atorvastatin 80 mg QHS. This consult was seen and discussed with my Supervising Physician, Dr. Ketan Naylor, and the above mentioned plan was formulated and agreed upon. -Progress Note written by Damaris Goncalves, MSN, HEAT TREATMENT TECHNICIAN, AGACNP-BC DAMARIS GONCALVES NP Oct 18, 2024 12:53
--- NOTE | 2024-10-18 14:50 | NUR ---
Order received for Sternal precautions training. Patient educated on post surgical sternal precautions. Pt presents with good verbal understanding and good return demonstration. Education completed with all questions answer to patient satisfaction. Addendum: 10/18/24 at 1457 by CHARLEE CERNA PT PT Amended: Links added.
--- NOTE | 2024-10-18 16:25 | NUR ---
PT eval pending clinical improvement or surgery >PT following
--- NOTE | 2024-10-18 20:37 | PN ---
SUBJECTIVE: This is a 58-year-old gentleman who was admitted to the hospital with coronary artery disease. He was transferred from Dr. Johnson for admission and he was scheduled for surgery. He was found to have some fever and further workup demonstrated beginnings of pneumonia, therefore, the patient was placed on antibiotics and the surgery is postponed. We have preop the patient and the patient is ready for surgical revascularization once he gets over the pneumonia. We will follow with you. TID: [id number] RECEIPT: [id number]
[2024-10-19] VITALS (11 sets, daily range): BP systolic 101–111; BP diastolic 57–71; PULSE 76–92; RESP 16–20; TEMP 98.5–99.3; O2SAT 93–96
[2024-10-19 03:42] LABS: BASOPHILS # (AUTO) 0.04 K/uL (0.00-0.20); BASOPHILS % (AUTO) 0.4 % (0.0-5.0); EOSINOPHILS # (AUTO) 0.34 K/uL (0.00-0.70); EOSINOPHILS % (AUTO) 3.6 % (0.0-8.0); HEMATOCRIT 39.1 % (42-54); IMMATURE GRANULOCYTE ABSOLUTE 0.05 K/uL (0-1); LYMPHOCYTES # (AUTO) 1.7 K/uL (1.0-4.8); MEAN CORPUSCULAR HEMOGLOBIN 28.6 pg (27.0-33.0); MEAN CORPUSCULAR HGB CONC 33.8 g/dL (32.0-36.0); MEAN CORPUSCULAR VOLUME 84.8 fL (79-99); MONOCYTES % (AUTO) 10.5 % (3.0-13.0); NEUTROPHILS # (AUTO) 6.3 K/uL (1.8-7.7); PLATELET COUNT (AUTO) 318 K/uL (130-400); RED BLOOD CELL COUNT(AUTO) 4.61 MIL/uL (4.50-6.20); RED CELL DISTRIBUTION WIDTH 12.6 % (11.0-15.5); WHITE BLOOD COUNT (AUTO) 9.4 K/uL (4.8-10.8)
[2024-10-19 03:59] LABS: MAGNESIUM 1.9 mg/dL (1.80-2.40); PHOSPHORUS 3.8 mg/dL (2.5-4.9); POTASSIUM 3.9 mmol/L (3.5-5.1)
[2024-10-19 04:26] LABS: B-TYPE NATRIURETIC PEPTIDE 644 pg/mL (0-100)
--- NOTE | 2024-10-19 09:35 | HMCIMG ---
CHEST 1VW HISTORY: Infiltrates COMPARISON: None FINDINGS: A frontal projection of the chest was obtained. There are bilateral pulmonary infiltrates suggestive of pulmonary vascular congestion with possible superimposed pneumonitis. The heart is borderline enlarged. Degenerative changes are seen. No evidence of aortic calcification is seen. IMPRESSION: 1. Bilateral pulmonary infiltrates are seen suggestive of pulmonary vascular congestion with possible superimposed pneumonitis. Mild interval worsening is seen.
--- NOTE | 2024-10-19 11:25 | PN ---
Cardiology Progress Note Date of Service: 10/19/2024 Attending Diplomatic Courier: Dr. Ketan Naylor Primary Diplomatic Courier: Dr. Hilario Ward ([place], [place]) Reason for Consult: NSTEMI, pending CABG Problem List: -ACS-NSTEMI s/p LHC/coronary angiogram done on 10/16/[address] 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 The patient denies any active complaints including chest pain, chest pressure, palpitations, or shortness of breath. As per the nurse, there were no overnight events. Vitals/Labs Vital Signs Date Time Temp Pulse Resp B/P (MAP) Pulse Ox O2 Delivery O2 Flow Rate FiO2 10/19/24 07:53 98.8 77 16 102/61 96 Nasal Cannula 4.0 10/19/24 07:28 38 General: Alert and oriented x 3. NAD. Chronically ill appearing. HEENT: NC/AT. Oral mucosa is moist. Neck: No masses or JVD. Lungs: NRD. SCM. Bilateral air entry. Diminished breath sounds noted to the bilateral lower lung shi. Cardio: Regular rate. Normal S1 and S2. +S4. No obvious murmurs, gallops, or rubs noted. Abdomen: Soft. NT. ND. Normal active bowel sounds x 4 quadrants. Extremities: Diminished throughout. No edema, clubbing, or cyanosis. Neuro: CN II-XII were grossly intact. No obvious focal deficits. Laboratory Tests 10/19/24 03:36 Assessment: -ACS-NSTEMI s/p LHC/coronary angiogram done on 10/16/[address] Hilario Ward which identified severe 3V CAD (LAD, LCx, RCA), pending CABG -HFmrEF (LVEF: 45% by echo done 10/17/2024) -Bilateral CAP -Bilateral ICA stenosis (>70% by Doppler done 10/17/2024) -HTN -HLP -DM2 -Tobacco abuse Plan: 1. ACS-NSTEMI s/p LHC/coronary angiogram done on 10/16/[address] Hilario Ward which identified severe 3V CAD (LAD, LCx, RCA), pending CABG -Stable -The patient has been evaluated by CT surgery, Dr. Vargas, and is tentatively pending CABG later this week. -Continue conservative goal directed ACS therapy which includes aspirin 81 mg daily, IV heparin infusion (ACS protocol), metoprolol tartrate 12.5 mg BID, and atorvastatin 80 mg QHS. -Post CABG, once the patient's chest tubes and lines have been removed and his hemoglobin remains stable, he should be started on DAPT as per ACS guidelines. -Further management per CTS. 2. HFmrEF (LVEF: 45% by echo done 10/17/2024) -Stable -Continue furosemide 20 mg IV BID in order to target a 2X increase in the BUN, 30% rise in the creatinine, or a BNP less than half of what it was upon admission. -In addition, he will continue on metoprolol tartrate 12.5 mg BID and lisinopril 5 mg daily. -Please record strict I/O's, daily weights, and restrict fluids to less than 2.0L/day. 3. Bilateral ICA stenosis (>70% by Doppler done 10/17/2024) -Continue aspirin 81 mg daily and atorvastatin 80 mg QHS. This consult was seen and discussed with my Supervising Physician, Dr. Ketan Naylor, and the above mentioned plan was formulated and agreed upon. -Progress Note written by Damaris Goncalves, MSN, MACHINE CARTON MARKER, AGACNP-BC DAMARIS GONCALVES NP Oct 19, 2024 11:24
--- NOTE | 2024-10-19 11:38 | PN ---
[facility] PROGRESS NOTE Date of Service: Oct 19, 2024 Time of Service: 11:22 SUBJECTIVE: 10/17 patient seen at bedside, no acute events overnight. He has been afebrile, hemodynamically stable saturating well on 5 L nasal cannula. Echocardiogram pending, we will follow up. Bilateral carotid Dopplers showing severe stenosis in both internal carotid arteries, we will follow up with CV surgery. Patient initially transferred for CABG, chest x-ray showing bilateral infiltrates, we will continue with diuresis and continue antibiotics to treat for possible underlying pneumonia. 10/18 patient seen at bedside, no acute events overnight. Patient has no complaints today at bedside. CABG is on hold while patient being treated for pneumonia. He was given a lab holiday today, we will repeat labs tomorrow . Repeat chest x-ray shows improvement in infiltrates bilaterally, we will continue with antibiotics and diuresis. Proximally 4 L urine output in the last 24 hours. 10/19 patient seen at bedside, no acute events overnight. His chest x-ray windows continue to improve with further diuresis. He has been afebrile, hemodynamically stable saturating 96% on 4 L nasal cannula. We will follow up with CV surgery on optimal timing for CABG. Proximally 2.9 L urine output in the last 24 hours. Labs are relatively unremarkable. REVIEW OF SYSTEMS 12 point review of systems negative unless noted in HPI PHYSICAL EXAM GENERAL APPEARANCE: The patient is awake, alert, and oriented, in no acute cardiopulmonary distress. NEUROLOGICAL: Cranial nerves II-XII grossly intact. Motor is 5/5 in bilateral upper and lower extremities proximal to distal. No sensory deficits. HEENT: Face is symmetric. Pupils are equal and reactive. Extraocular movements are intact. NECK: Supple. No JVD. No thyromegaly. No submental, submandibular, pre- /postauricular, occipital or supraclavicular lymphadenopathy. CHEST: Normal chest expansion. No Telemetry. LUNGS: Absence of any rales, rhonchi or any wheezing. CARDIOVASCULAR: Regular. S1 and S2 normal. No appreciable rubs, murmurs or gallops. ABDOMEN: Soft, nontender, and nondistended. There is no rebound, voluntary guarding, or rigidity. : Deferred. No [place]. EXTREMITIES: Non-edematous and not cyanotic. No clubbing. Good capillary refill. SKIN: No skin breakdown. Vital Signs (last 8hr) Date Time Temp Pulse Resp B/P (MAP) Pulse Ox O2 Delivery O2 Flow Rate FiO2 10/19/24 07:53 98.8 77 16 102/61 96 Nasal Cannula 4.0 10/19/24 07:28 81 18 N/Cannula Low lpm 4.0 38 10/19/24 03:39 99.0 81 20 109/61 96 Nasal Cannula LABS: Laboratory: Test 10/19/24 11:09 10/19/24 03:36 Range/Units Whole Blood Glucose 312 #H 70-110 MG/DL White Blood Count 9.4 4.8-10.8 K/uL Red Blood Count 4.61 4.50-6.20 MIL/uL Hemoglobin 13.2 L 14.0-18.0 g/dL Hematocrit 39.1 L 42-54 % Mean Corpuscular Volume 84.8 79-99 fL Mean Corpuscular Hemoglobin 28.6 27.0-33.0 pg Mean Corpuscular Hemoglobin Concent 33.8 32.0-36.0 g/dL Red Cell Distribution Width 12.6 11.0-15.5 % Platelet Count 318 130-400 K/uL Mean Platelet Volume 9.6 7.5-10.5 fL Immature Granulocyte % (Auto) 0.5 0-1 % Neutrophils (%) (Auto) 67.0 40.0-77.0 % Lymphocytes (%) (Auto) 18.0 L 21.0-51.0 % Monocytes (%) (Auto) 10.5 3.0-13.0 % Eosinophils (%) (Auto) 3.6 0.0-8.0 % Basophils (%) (Auto) 0.4 0.0-5.0 % Neutrophils # (Auto) 6.3 1.8-7.7 K/uL Lymphocytes # (Auto) 1.7 1.0-4.8 K/uL Monocytes # (Auto) 1.0 0.1-1.0 K/uL Eosinophils # (Auto) 0.34 0.00-0.70 K/uL Basophils # (Auto) 0.04 0.00-0.20 K/uL Absolute Immature Granulocyte (auto 0.05 0-1 K/uL Nucleated Red Blood Cells 0.0 0.0-0.19 % Activated Partial Thromboplast Time 68.4 H 26.3-35.5 SEC Sodium Level 130 L 136-145 mmol/L Potassium Level 3.9 3.5-5.1 mmol/L Chloride Level 95 L 101-111 mmol/L Carbon Dioxide Level 33 H 21-32 mmol/L Blood Urea Nitrogen 18 7-18 mg/dL Creatinine 1.0 0.5-1.3 mg/dL Glomerular Filtration Rate Calc 87 >90 mL/min Random Glucose 156 H 70-105 mg/dL Total Calcium 9.1 8.5-10.1 mg/dL Phosphorus Level 3.8 2.5-4.9 mg/dL Magnesium Level 1.90 1.80-2.40 mg/dL B-Type Natriuretic Peptide 644 H 0-100 pg/mL Current Medications Medications (Trade) Dose Ordered Sig/Meagan Route PRN Reason Start Time Stop Time Status Last Admin Dose Admin Acetaminophen (TYLenol 325MG TAB) 650 mg Q4H PRN PO MILD PAIN (1-3) 10/16/24 20:00 10/17/24 08:13 DC Acetaminophen (TYLenol 325MG TAB) 650 mg Q6H PRN PO MILD PAIN (1-3) 10/16/24 17:30 11/15/24 17:29 10/16/24 21:31 650 MG Acetaminophen (TYLenol 325MG TAB) 650 mg Q6H PRN PO TEMPERATURE GREATER THAN 101.5 10/16/24 20:00 11/15/24 19:59 Albuterol Sulfate (Proventil 0.083% 2.5mg/3ml) 0.63 mg Q6H6 PRN IH SHORTNESS OF BREATH 10/16/24 18:00 11/15/24 17:59 Aminocaproic Acid 13396 mg/Sodium Chloride 480 ml @ 0 mls/hr AD PRN IV BLEEDING CONTROL 10/17/24 07:00 11/16/24 06:59 Aspirin (Aspirin 81mg Ec Tab) 81 mg DAILY PO 10/17/24 09:00 11/16/24 08:59 10/19/24 10:22 81 MG Atorvastatin Calcium (LIPItor 40MG) 80 mg HS PO 10/17/24 21:00 11/16/24 20:59 10/18/24 22:00 80 MG Azithromycin 250 ml @ 250 mls/hr Q24H IVPB 10/16/24 21:00 10/26/24 20:59 10/18/24 22:00 250 MLS/HR Cefazolin Sodium (Ancef) 2 gm ONCALL IVP 10/16/24 23:00 10/18/24 22:59 DC 10/16/24 23:21 2 GM Ceftriaxone Sodium (Rocephin 2gm Inj) 2 gm Q24H IVPB 10/17/24 09:30 10/27/24 09:29 10/19/24 10:23 2 GM Epinephrine HCl 10 mg/Sodium Chloride 250 ml @ 0 mls/hr AD PRN IV TITRATE 10/17/24 07:00 11/16/24 06:59 Famotidine (Pepcid 20mg Vial) 20 mg DAILY IV 10/17/24 09:00 11/16/24 08:59 10/19/24 10:23 20 MG Furosemide (LASix 20MG VIAL) 20 mg BID IV 10/17/24 13:00 11/16/24 12:59 10/19/24 10:23 20 MG Heparin Sodium (Porcine) (HEParin 5,000 UNIT VIAL) *calculation based on ACTUAL B... AD PRN IV HEPARIN PROTOCOL 10/16/24 18:00 11/15/24 17:59 10/17/24 16:00 3,000 UNIT Heparin Sodium/ Dextrose 250 ml @ 0 mls/hr Q6H IV 10/16/24 18:00 11/15/24 17:59 10/19/24 06:56 15.7 MLS/HR Hydroxyzine HCl (ATArax 25MG TAB) 12.5 mg TID PRN PO ITCHING 10/16/24 17:30 11/15/24 17:29 Insulin Glargine (LANtus 100 UNITS/ML 10 ML VIAL) 15 units HS SQ 10/16/24 21:00 11/15/24 20:59 10/18/24 22:55 15 UNITS Insulin Human Lispro (HumaLOG LISpro 100 UNIT/ML 3ML) 5 unit TIDAC SQ 10/17/24 07:30 11/16/24 07:29 10/19/24 10:26 5 UNIT Insulin Human Lispro (HumaLOG LISpro 100 UNIT/ML 3ML) INSULIN SLIDING SCAL... ACHS SQ 10/16/24 21:00 11/15/24 20:59 10/18/24 16:32 4 UNIT Lidocaine (Lidocaine Patch 4%) 1 each DAILY TP 10/16/24 21:20 11/15/24 21:19 10/19/24 10:23 1 EACH Lisinopril (Prinivil 5mg) 5 mg DAILY PO 10/17/24 09:00 11/16/24 08:59 10/19/24 10:23 5 MG Metoprolol Tartrate (loprESSOR) 12.5 mg BID PO 10/16/24 21:00 11/15/24 20:59 10/19/24 10:23 12.5 MG Nitroglycerin (Nitrostat) 0.4 mg PROTOCOL PRN SL CHEST PAIN 10/16/24 20:00 11/15/24 19:59 Norepinephrine Bitartrate 250 ml @ 0 mls/hr AD PRN IV TITRATE 10/17/24 07:00 11/16/24 06:59 Ondansetron HCl (zoFRAN 4MG INJ) 4 mg Q12H PRN IVP NAUSEA/VOMITING 10/16/24 17:30 10/17/24 08:13 DC Ondansetron HCl (zoFRAN 4MG INJ) 4 mg Q6H PRN IV NAUSEA/VOMITING 10/16/24 20:00 11/15/24 19:59 DIAGNOSTICS / RADIOLOGY: [ ] ASSESSMENT: NSTEMI POA Multivessel Coronary artery disease POA Chronic pulmonary edema POA Acute respiratory failure POA Bilateral carotid stenosis > 70%, POA Hypertension POA Uncontrolled diabetes POA Nicotine dependence POA Hyperlipidemia POA Obesity POA Bilateral pneumonia POA PLAN: Continue on heparin drip per ACS protocol Continue famotidine 20 mg IV daily for GI prophylaxis Continue aspirin 81 mg p.o. daily and metoprolol 12.5 mg p.o. b.i.d. Continue Rocephin 2 g IV and azithromycin IV for broad-spectrum coverage Continue furosemide 20mg BID Continue lisinopril 5mg q24h Continue oxygen supplementation to keep saturation between 88-92% Continue insulin sliding scale AC & HS with hypoglycemia protocol CV surgery consulted, appreciate recommendations Cardiology consulted, appreciate recommendations Disposition: Pending improvement in clinical status, CABG, possible endarterectomy FLAKITA BENNETT MD Oct 19, 2024 11:38
[2024-10-19] MEDS: hydrOXYzine 25 MG TABLET PO PRN (21:18)
[2024-10-20] VITALS (10 sets, daily range): BP systolic 104–131; BP diastolic 56–64; PULSE 78–93; RESP 16–18; TEMP 98.7–99.6; O2SAT 93–98
[2024-10-20 04:13] LABS: BASOPHILS # (AUTO) 0.04 K/uL (0.00-0.20); BASOPHILS % (AUTO) 0.4 % (0.0-5.0); EOSINOPHILS # (AUTO) 0.36 K/uL (0.00-0.70); EOSINOPHILS % (AUTO) 3.9 % (0.0-8.0); HEMATOCRIT 35.7 % (42-54); IMMATURE GRANULOCYTE ABSOLUTE 0.06 K/uL (0-1); LYMPHOCYTES # (AUTO) 2.1 K/uL (1.0-4.8); LYMPHOCYTES % (AUTO) 22.7 % (21.0-51.0); MEAN CORPUSCULAR HEMOGLOBIN 28.6 pg (27.0-33.0); MEAN CORPUSCULAR HGB CONC 33.9 g/dL (32.0-36.0); MEAN CORPUSCULAR VOLUME 84.4 fL (79-99); MONOCYTES % (AUTO) 10.7 % (3.0-13.0); NEUTROPHILS # (AUTO) 5.7 K/uL (1.8-7.7); NEUTROPHILS % (AUTO) 61.7 % (40.0-77.0); PLATELET COUNT (AUTO) 370 K/uL (130-400); RED BLOOD CELL COUNT(AUTO) 4.23 MIL/uL (4.50-6.20); RED CELL DISTRIBUTION WIDTH 12.6 % (11.0-15.5); WHITE BLOOD COUNT (AUTO) 9.2 K/uL (4.8-10.8)
[2024-10-20 04:25] LABS: POTASSIUM 3.7 mmol/L (3.5-5.1)
--- NOTE | 2024-10-20 12:16 | PN ---
Cardiology Progress Note Date of Service: 10/20/2024 Attending [employer] Sales Consultant: Dr. Ketan Naylor Primary [employer] Sales Consultant: Dr. Hilario Ward ([place], [place]) Reason for Consult: NSTEMI, pending CABG Problem List: -ACS-NSTEMI s/p LHC/coronary angiogram done on 10/16/[address] 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 The patient continues denies any active complaints including chest pain, chest pressure, palpitations, or shortness of breath. As per the nurse, there were no overnight events. Vitals/Labs Vital Signs Date Time Temp Pulse Resp B/P (MAP) Pulse Ox O2 Delivery O2 Flow Rate FiO2 10/20/24 08:20 80 18 N/Cannula Low lpm 1.0 24 10/20/24 08:00 99.0 106/57 95 General: Alert and oriented x 3. NAD. Chronically ill appearing. HEENT: NC/AT. Oral mucosa is moist. Neck: No masses or JVD. Lungs: NRD. SCM. Bilateral air entry. Clear breath sounds noted throughout. No obvious wheezing, rales, or rhonchi noted. Cardio: Regular rate. Normal S1 and S2. +S4. No obvious murmurs, gallops, or rubs noted. Abdomen: Soft. NT. ND. Normal active bowel sounds x 4 quadrants. Extremities: Diminished throughout. No edema, clubbing, or cyanosis. Neuro: CN II-XII were grossly intact. No obvious focal deficits. Laboratory Tests 10/20/24 03:40 Assessment: -ACS-NSTEMI s/p LHC/coronary angiogram done on 10/16/[address] Hilario Ward which identified severe 3V CAD (LAD, LCx, RCA), pending CABG -HFmrEF (LVEF: 45% by echo done 10/17/2024) -Bilateral CAP -Bilateral ICA stenosis (>70% by Doppler done 10/17/2024) -HTN -HLP -DM2 -Tobacco abuse Plan: 1. ACS-NSTEMI s/p LHC/coronary angiogram done on 10/16/[address] Hilario Ward which identified severe 3V CAD (LAD, LCx, RCA), pending CABG -Stable -The patient has been evaluated by CT surgery, Dr. Vargas, and is tentatively pending CABG later this week. -Continue conservative goal directed ACS therapy which includes aspirin 81 mg daily, IV heparin infusion (ACS protocol), metoprolol tartrate 12.5 mg BID, and atorvastatin 80 mg QHS. -Post CABG, once the patient's chest tubes and lines have been removed and his hemoglobin remains stable, he should be started on DAPT as per ACS guidelines. -Further management per CTS. 2. HFmrEF (LVEF: 45% by echo done 10/17/2024) -Stable -Continue furosemide 20 mg IV BID in order to target a 2X increase in the BUN, 30% rise in the creatinine, or a BNP less than half of what it was upon admission. -In the meantime, he will continue on metoprolol tartrate 12.5 mg BID and lisinopril 5 mg daily. -Please record strict I/O's, daily weights, and restrict fluids to less than 2.0L/day. 3. Bilateral ICA stenosis (>70% by Doppler done 10/17/2024) -Continue aspirin 81 mg daily and atorvastatin 80 mg QHS. This consult was seen and discussed with my Supervising Physician, Dr. Ketan Naylor, and the above mentioned plan was formulated and agreed upon. -Progress Note written by Damaris Goncalves, MSN, ASSISTANT COMMUNITY DIRECTOR, AGACNP-BC DAMARIS GONCALVES NP Oct 20, 2024 12:16
--- NOTE | 2024-10-20 14:58 | PN ---
[facility] PROGRESS NOTE Date of Service: Oct 20, 2024 Time of Service: 14:57 SUBJECTIVE: 10/17 patient seen at bedside, no acute events overnight. He has been afebrile, hemodynamically stable saturating well on 5 L nasal cannula. Echocardiogram pending, we will follow up. Bilateral carotid Dopplers showing severe stenosis in both internal carotid arteries, we will follow up with CV surgery. Patient initially transferred for CABG, chest x-ray showing bilateral infiltrates, we will continue with diuresis and continue antibiotics to treat for possible underlying pneumonia. 10/18 patient seen at bedside, no acute events overnight. Patient has no complaints today at bedside. CABG is on hold while patient being treated for pneumonia. He was given a lab holiday today, we will repeat labs tomorrow . Repeat chest x-ray shows improvement in infiltrates bilaterally, we will continue with antibiotics and diuresis. Proximally 4 L urine output in the last 24 hours. 10/19 patient seen at bedside, no acute events overnight. His chest x-ray windows continue to improve with further diuresis. He has been afebrile, hemodynamically stable saturating 96% on 4 L nasal cannula. We will follow up with CV surgery on optimal timing for CABG. Proximally 2.9 L urine output in the last 24 hours. Labs are relatively unremarkable. 10/20 patient seen at bedside, no acute events overnight. CABG is still pending, we will follow up with CV surgery on timing. Vitals and labs relatively unremarkable. REVIEW OF SYSTEMS 12 point review of systems negative unless noted in HPI PHYSICAL EXAM GENERAL APPEARANCE: The patient is awake, alert, and oriented, in no acute cardiopulmonary distress. NEUROLOGICAL: Cranial nerves II-XII grossly intact. Motor is 5/5 in bilateral upper and lower extremities proximal to distal. No sensory deficits. HEENT: Face is symmetric. Pupils are equal and reactive. Extraocular movements are intact. NECK: Supple. No JVD. No thyromegaly. No submental, submandibular, pre- /postauricular, occipital or supraclavicular lymphadenopathy. CHEST: Normal chest expansion. No Telemetry. LUNGS: Absence of any rales, rhonchi or any wheezing. CARDIOVASCULAR: Regular. S1 and S2 normal. No appreciable rubs, murmurs or gallops. ABDOMEN: Soft, nontender, and nondistended. There is no rebound, voluntary guarding, or rigidity. : Deferred. No Henao. EXTREMITIES: Non-edematous and not cyanotic. No clubbing. Good capillary refill. SKIN: No skin breakdown. Vital Signs (last 8hr) Date Time Temp Pulse Resp B/P (MAP) Pulse Ox O2 Delivery O2 Flow Rate FiO2 10/20/24 11:58 99.7 78 16 104/63 98 Room Air 10/20/24 09:00 93 Nasal Cannula* 1 10/20/24 08:20 80 18 N/Cannula Low lpm 1.0 10/20/24 08:00 99.0 82 18 106/57 95 Room Air LABS: Laboratory: Test 10/20/24 11:29 10/20/24 10:16 10/20/24 03:40 10/19/24 03:36 Range/Units Whole Blood Glucose 185 #H 70-110 MG/DL Activated Partial Thromboplast Time 68.0 H 26.3-35.5 SEC Magnesium Level 2.20 1.80-2.40 mg/dL White Blood Count 9.2 4.8-10.8 K/uL Red Blood Count 4.23 L 4.50-6.20 MIL/uL Hemoglobin 12.1 L 14.0-18.0 g/dL Hematocrit 35.7 L 42-54 % Mean Corpuscular Volume 84.4 79-99 fL Mean Corpuscular Hemoglobin 28.6 27.0-33.0 pg Mean Corpuscular Hemoglobin Concent 33.9 32.0-36.0 g/dL Red Cell Distribution Width 12.6 11.0-15.5 % Platelet Count 370 130-400 K/uL Mean Platelet Volume 10.2 7.5-10.5 fL Immature Granulocyte % (Auto) 0.6 0-1 % Neutrophils (%) (Auto) 61.7 40.0-77.0 % Lymphocytes (%) (Auto) 22.7 21.0-51.0 % Monocytes (%) (Auto) 10.7 3.0-13.0 % Eosinophils (%) (Auto) 3.9 0.0-8.0 % Basophils (%) (Auto) 0.4 0.0-5.0 % Neutrophils # (Auto) 5.7 1.8-7.7 K/uL Lymphocytes # (Auto) 2.1 1.0-4.8 K/uL Monocytes # (Auto) 1.0 0.1-1.0 K/uL Eosinophils # (Auto) 0.36 0.00-0.70 K/uL Basophils # (Auto) 0.04 0.00-0.20 K/uL Absolute Immature Granulocyte (auto 0.06 0-1 K/uL Nucleated Red Blood Cells 0.0 0.0-0.19 % Sodium Level 133 L 136-145 mmol/L Potassium Level 3.7 3.5-5.1 mmol/L Chloride Level 96 L 101-111 mmol/L Carbon Dioxide Level 33 H 21-32 mmol/L Blood Urea Nitrogen 19 H 7-18 mg/dL Creatinine 1.0 0.5-1.3 mg/dL Glomerular Filtration Rate Calc 87 >90 mL/min Random Glucose 120 H 70-105 mg/dL Total Calcium 8.8 8.5-10.1 mg/dL B-Type Natriuretic Peptide 620 H 0-100 pg/mL Phosphorus Level 3.8 2.5-4.9 mg/dL Current Medications Medications (Trade) Dose Ordered Sig/Meagan Route PRN Reason Start Time Stop Time Status Last Admin Dose Admin Acetaminophen (TYLenol 325MG TAB) 650 mg Q4H PRN PO MILD PAIN (1-3) 10/16/24 20:00 10/17/24 08:13 DC Acetaminophen (TYLenol 325MG TAB) 650 mg Q6H PRN PO MILD PAIN (1-3) 10/16/24 17:30 11/15/24 17:29 10/16/24 21:31 650 MG Acetaminophen (TYLenol 325MG TAB) 650 mg Q6H PRN PO TEMPERATURE GREATER THAN 101.5 10/16/24 20:00 11/15/24 19:59 Albuterol Sulfate (Proventil 0.083% 2.5mg/3ml) 0.63 mg Q6H6 PRN IH SHORTNESS OF BREATH 10/16/24 18:00 11/15/24 17:59 Aminocaproic Acid 73851 mg/Sodium Chloride 480 ml @ 0 mls/hr AD PRN IV BLEEDING CONTROL 10/17/24 07:00 11/16/24 06:59 Aspirin (Aspirin 81mg Ec Tab) 81 mg DAILY PO 10/17/24 09:00 11/16/24 08:59 10/20/24 09:33 81 MG Atorvastatin Calcium (LIPItor 40MG) 80 mg HS PO 10/17/24 21:00 11/16/24 20:59 10/19/24 21:01 80 MG Azithromycin 250 ml @ 250 mls/hr Q24H IVPB 10/16/24 21:00 10/26/24 20:59 10/19/24 21:03 250 MLS/HR Cefazolin Sodium (Ancef) 2 gm ONCALL IVP 10/16/24 23:00 10/18/24 22:59 DC 10/16/24 23:21 2 GM Ceftriaxone Sodium (Rocephin 2gm Inj) 2 gm Q24H IVPB 10/17/24 09:30 10/27/24 09:29 10/20/24 09:33 2 GM Epinephrine HCl 10 mg/Sodium Chloride 250 ml @ 0 mls/hr AD PRN IV TITRATE 10/17/24 07:00 11/16/24 06:59 Famotidine (Pepcid 20mg Vial) 20 mg DAILY IV 10/17/24 09:00 11/16/24 08:59 10/20/24 09:33 20 MG Furosemide (LASix 20MG VIAL) 20 mg BID IV 10/17/24 13:00 11/16/24 12:59 10/20/24 09:37 20 MG Heparin Sodium (Porcine) (HEParin 5,000 UNIT VIAL) *calculation based on ACTUAL B... AD PRN IV HEPARIN PROTOCOL 10/16/24 18:00 11/15/24 17:59 10/17/24 16:00 3,000 UNIT Heparin Sodium/ Dextrose 250 ml @ 0 mls/hr Q6H IV 10/16/24 18:00 11/15/24 17:59 10/19/24 23:59 15.7 MLS/HR Hydroxyzine HCl (ATArax 25MG TAB) 12.5 mg TID PRN PO ITCHING 10/16/24 17:30 11/15/24 17:29 10/19/24 21:18 12.5 MG Insulin Glargine (LANtus 100 UNITS/ML 10 ML VIAL) 15 units HS SQ 10/16/24 21:00 11/15/24 20:59 10/19/24 21:03 15 UNITS Insulin Human Lispro (HumaLOG LISpro 100 UNIT/ML 3ML) 5 unit TIDAC SQ 10/17/24 07:30 11/16/24 07:29 10/20/24 11:56 5 UNIT Insulin Human Lispro (HumaLOG LISpro 100 UNIT/ML 3ML) INSULIN SLIDING SCAL... ACHS SQ 10/16/24 21:00 11/15/24 20:59 10/20/24 12:04 2 UNIT Lidocaine (Lidocaine Patch 4%) 1 each DAILY TP 10/16/24 21:20 11/15/24 21:19 10/20/24 09:33 1 EACH Lisinopril (Prinivil 5mg) 5 mg DAILY PO 10/17/24 09:00 11/16/24 08:59 10/19/24 10:23 5 MG Metoprolol Tartrate (loprESSOR) 12.5 mg BID PO 10/16/24 21:00 11/15/24 20:59 10/20/24 09:33 12.5 MG Nitroglycerin (Nitrostat) 0.4 mg PROTOCOL PRN SL CHEST PAIN 10/16/24 20:00 11/15/24 19:59 Norepinephrine Bitartrate 250 ml @ 0 mls/hr AD PRN IV TITRATE 10/17/24 07:00 11/16/24 06:59 Ondansetron HCl (zoFRAN 4MG INJ) 4 mg Q12H PRN IVP NAUSEA/VOMITING 10/16/24 17:30 10/17/24 08:13 DC Ondansetron HCl (zoFRAN 4MG INJ) 4 mg Q6H PRN IV NAUSEA/VOMITING 10/16/24 20:00 11/15/24 19:59 DIAGNOSTICS / RADIOLOGY: [ ] ASSESSMENT: NSTEMI POA Multivessel Coronary artery disease POA Chronic pulmonary edema, resolved POA Acute respiratory failure, resolved POA Bilateral carotid stenosis > 70%, POA Hypertension POA Uncontrolled diabetes POA Nicotine dependence POA Hyperlipidemia POA Obesity POA Bilateral pneumonia POA PLAN: Continue on heparin drip per ACS protocol Continue famotidine 20 mg IV daily for GI prophylaxis Continue aspirin 81 mg p.o. daily and metoprolol 12.5 mg p.o. b.i.d. Continue Rocephin 2 g IV and azithromycin IV for broad-spectrum coverage Continue furosemide 20mg BID Continue lisinopril 5mg q24h Continue oxygen supplementation to keep saturation between 88-92% Continue insulin sliding scale AC & HS with hypoglycemia protocol CV surgery consulted, appreciate recommendations Cardiology consulted, appreciate recommendations Disposition: Pending improvement in clinical status, CABG, possible endarterectomy FLAKITA BENNETT MD Oct 20, 2024 14:58
[2024-10-20] MEDS: furoSEMIDE 20MG VIAL IV SCH (20:56)
[2024-10-21] VITALS (8 sets, daily range): BP systolic 105–138; BP diastolic 56–73; PULSE 78–90; RESP 17–18; TEMP 98.6–99; O2SAT 95–97
--- NOTE | 2024-10-21 02:35 | PN ---
SUBJECTIVE: This gentleman is 58 years of age who was admitted to the hospital with coronary artery disease, non-Q-wave myocardial infarction, referred for surgery. He was scheduled for surgery and he was noted to have a subacute pneumonia. He has been under treatment for 3-4 days. We will continue to treat over the weekend and plan for surgery next week. TID: [id number] RECEIPT: [id number]
[2024-10-21 04:32] LABS: BASOPHILS # (AUTO) 0.06 K/uL (0.00-0.20); BASOPHILS % (AUTO) 0.7 % (0.0-5.0); EOSINOPHILS # (AUTO) 0.41 K/uL (0.00-0.70); EOSINOPHILS % (AUTO) 4.7 % (0.0-8.0); HEMATOCRIT 36.2 % (42-54); IMMATURE GRANULOCYTE ABSOLUTE 0.06 K/uL (0-1); LYMPHOCYTES # (AUTO) 1.9 K/uL (1.0-4.8); LYMPHOCYTES % (AUTO) 21.8 % (21.0-51.0); MEAN CORPUSCULAR HEMOGLOBIN 28.7 pg (27.0-33.0); MEAN CORPUSCULAR VOLUME 84.6 fL (79-99); MONOCYTES # (AUTO) 0.8 K/uL (0.1-1.0); MONOCYTES % (AUTO) 8.6 % (3.0-13.0); NEUTROPHILS # (AUTO) 5.6 K/uL (1.8-7.7); NEUTROPHILS % (AUTO) 63.5 % (40.0-77.0); PLATELET COUNT (AUTO) 391 K/uL (130-400); RED BLOOD CELL COUNT(AUTO) 4.28 MIL/uL (4.50-6.20); RED CELL DISTRIBUTION WIDTH 12.4 % (11.0-15.5); WHITE BLOOD COUNT (AUTO) 8.8 K/uL (4.8-10.8)
--- NOTE | 2024-10-21 14:37 | PN ---
[facility] PROGRESS NOTE Date of Service: Oct 21, 2024 Time of Service: 14:34 SUBJECTIVE: 10/17 patient seen at bedside, no acute events overnight. He has been afebrile, hemodynamically stable saturating well on 5 L nasal cannula. Echocardiogram pending, we will follow up. Bilateral carotid Dopplers showing severe stenosis in both internal carotid arteries, we will follow up with CV surgery. Patient initially transferred for CABG, chest x-ray showing bilateral infiltrates, we will continue with diuresis and continue antibiotics to treat for possible underlying pneumonia. 10/18 patient seen at bedside, no acute events overnight. Patient has no complaints today at bedside. CABG is on hold while patient being treated for pneumonia. He was given a lab holiday today, we will repeat labs tomorrow . Repeat chest x-ray shows improvement in infiltrates bilaterally, we will continue with antibiotics and diuresis. Proximally 4 L urine output in the last 24 hours. 10/19 patient seen at bedside, no acute events overnight. His chest x-ray windows continue to improve with further diuresis. He has been afebrile, hemodynamically stable saturating 96% on 4 L nasal cannula. We will follow up with CV surgery on optimal timing for CABG. Proximally 2.9 L urine output in the last 24 hours. Labs are relatively unremarkable. 10/20 patient seen at bedside, no acute events overnight. CABG is still pending, we will follow up with CV surgery on timing. Vitals and labs relatively unremarkable. 10/21 patient seen at bedside, no acute events overnight. CABG is still pending, CV surgery planning on next week. Vitals and labs relatively unremarkable. REVIEW OF SYSTEMS 12 point review of systems negative unless noted in HPI PHYSICAL EXAM GENERAL APPEARANCE: The patient is awake, alert, and oriented, in no acute cardiopulmonary distress. NEUROLOGICAL: Cranial nerves II-XII grossly intact. Motor is 5/5 in bilateral upper and lower extremities proximal to distal. No sensory deficits. HEENT: Face is symmetric. Pupils are equal and reactive. Extraocular movements are intact. NECK: Supple. No JVD. No thyromegaly. No submental, submandibular, pre- /postauricular, occipital or supraclavicular lymphadenopathy. CHEST: Normal chest expansion. No Telemetry. LUNGS: Absence of any rales, rhonchi or any wheezing. CARDIOVASCULAR: Regular. S1 and S2 normal. No appreciable rubs, murmurs or gallops. ABDOMEN: Soft, nontender, and nondistended. There is no rebound, voluntary guarding, or rigidity. : Deferred. No Henao. EXTREMITIES: Non-edematous and not cyanotic. No clubbing. Good capillary refill. SKIN: No skin breakdown. Vital Signs (last 8hr) Date Time Temp Pulse Resp B/P (MAP) Pulse Ox O2 Delivery O2 Flow Rate FiO2 10/21/24 11:00 99.0 89 18 111/62 95 Room Air 10/21/24 08:16 80 18 N/Cannula Low lpm 21 10/21/24 08:00 95 Room Air* 0 21 10/21/24 07:00 99.0 78 17 105/59 95 Room Air LABS: Laboratory: Test 10/21/24 11:09 10/21/24 04:15 10/20/24 16:15 10/20/24 10:16 Range/Units Whole Blood Glucose 161 H 70-110 MG/DL White Blood Count 8.8 4.8-10.8 K/uL Red Blood Count 4.28 L 4.50-6.20 MIL/uL Hemoglobin 12.3 L 14.0-18.0 g/dL Hematocrit 36.2 L 42-54 % Mean Corpuscular Volume 84.6 79-99 fL Mean Corpuscular Hemoglobin 28.7 27.0-33.0 pg Mean Corpuscular Hemoglobin Concent 34.0 32.0-36.0 g/dL Red Cell Distribution Width 12.4 11.0-15.5 % Platelet Count 391 130-400 K/uL Mean Platelet Volume 10.0 7.5-10.5 fL Immature Granulocyte % (Auto) 0.7 0-1 % Neutrophils (%) (Auto) 63.5 40.0-77.0 % Lymphocytes (%) (Auto) 21.8 21.0-51.0 % Monocytes (%) (Auto) 8.6 3.0-13.0 % Eosinophils (%) (Auto) 4.7 0.0-8.0 % Basophils (%) (Auto) 0.7 0.0-5.0 % Neutrophils # (Auto) 5.6 1.8-7.7 K/uL Lymphocytes # (Auto) 1.9 1.0-4.8 K/uL Monocytes # (Auto) 0.8 0.1-1.0 K/uL Eosinophils # (Auto) 0.41 0.00-0.70 K/uL Basophils # (Auto) 0.06 0.00-0.20 K/uL Absolute Immature Granulocyte (auto 0.06 0-1 K/uL Nucleated Red Blood Cells 0.0 0.0-0.19 % Sodium Level 132 L 136-145 mmol/L Potassium Level 4.0 3.5-5.1 mmol/L Chloride Level 95 L 101-111 mmol/L Carbon Dioxide Level 31 21-32 mmol/L Blood Urea Nitrogen 19 H 7-18 mg/dL Creatinine 1.0 0.5-1.3 mg/dL Glomerular Filtration Rate Calc 87 >90 mL/min Random Glucose 129 H 70-105 mg/dL Total Calcium 8.9 8.5-10.1 mg/dL Activated Partial Thromboplast Time 58.3 H 26.3-35.5 SEC Magnesium Level 2.20 1.80-2.40 mg/dL Test 10/20/24 03:40 Range/Units B-Type Natriuretic Peptide 620 H 0-100 pg/mL Current Medications Medications (Trade) Dose Ordered Sig/Emagan Route PRN Reason Start Time Stop Time Status Last Admin Dose Admin Acetaminophen (TYLenol 325MG TAB) 650 mg Q4H PRN PO MILD PAIN (1-3) 10/16/24 20:00 10/17/24 08:13 DC Acetaminophen (TYLenol 325MG TAB) 650 mg Q6H PRN PO MILD PAIN (1-3) 10/16/24 17:30 11/15/24 17:29 10/16/24 21:31 650 MG Acetaminophen (TYLenol 325MG TAB) 650 mg Q6H PRN PO TEMPERATURE GREATER THAN 101.5 10/16/24 20:00 11/15/24 19:59 Albuterol Sulfate (Proventil 0.083% 2.5mg/3ml) 0.63 mg Q6H6 PRN IH SHORTNESS OF BREATH 10/16/24 18:00 11/15/24 17:59 Aminocaproic Acid 84448 mg/Sodium Chloride 480 ml @ 0 mls/hr AD PRN IV BLEEDING CONTROL 10/17/24 07:00 11/16/24 06:59 Aspirin (Aspirin 81mg Ec Tab) 81 mg DAILY PO 10/17/24 09:00 11/16/24 08:59 10/21/24 08:05 81 MG Atorvastatin Calcium (LIPItor 40MG) 80 mg HS PO 10/17/24 21:00 11/16/24 20:59 10/20/24 20:53 80 MG Azithromycin 250 ml @ 250 mls/hr Q24H IVPB 10/16/24 21:00 10/26/24 20:59 10/20/24 20:57 250 MLS/HR Cefazolin Sodium (Ancef) 2 gm ONCALL IVP 10/16/24 23:00 10/18/24 22:59 DC 10/16/24 23:21 2 GM Ceftriaxone Sodium (Rocephin 2gm Inj) 2 gm Q24H IVPB 10/17/24 09:30 10/27/24 09:29 10/21/24 08:04 2 GM Epinephrine HCl 10 mg/Sodium Chloride 250 ml @ 0 mls/hr AD PRN IV TITRATE 10/17/24 07:00 11/16/24 06:59 Famotidine (Pepcid 20mg Vial) 20 mg DAILY IV 10/17/24 09:00 11/16/24 08:59 10/21/24 08:05 20 MG Furosemide (LASix 20MG VIAL) 20 mg BID IV 10/17/24 13:00 10/20/24 15:34 DC 10/20/24 09:37 20 MG Furosemide (LASix 20MG VIAL) 40 mg BID IV 10/20/24 21:00 11/19/24 20:59 10/21/24 08:05 40 MG Heparin Sodium (Porcine) (HEParin 5,000 UNIT VIAL) *calculation based on ACTUAL B... AD PRN IV HEPARIN PROTOCOL 10/16/24 18:00 11/15/24 17:59 10/17/24 16:00 3,000 UNIT Heparin Sodium/ Dextrose 250 ml @ 0 mls/hr Q6H IV 10/16/24 18:00 11/15/24 17:59 10/21/24 11:49 14.19 MLS/HR Hydroxyzine HCl (ATArax 25MG TAB) 12.5 mg TID PRN PO ITCHING 10/16/24 17:30 11/15/24 17:29 10/20/24 20:54 12.5 MG Insulin Glargine (LANtus 100 UNITS/ML 10 ML VIAL) 15 units HS SQ 10/16/24 21:00 11/15/24 20:59 10/20/24 20:59 15 UNITS Insulin Human Lispro (HumaLOG LISpro 100 UNIT/ML 3ML) 5 unit TIDAC SQ 10/17/24 07:30 11/16/24 07:29 10/21/24 11:46 5 UNIT Insulin Human Lispro (HumaLOG LISpro 100 UNIT/ML 3ML) INSULIN SLIDING SCAL... ACHS SQ 10/16/24 21:00 11/15/24 20:59 10/20/24 20:58 3 UNIT Lidocaine (Lidocaine Patch 4%) 1 each DAILY TP 10/16/24 21:20 11/15/24 21:19 10/21/24 08:05 1 EACH Lisinopril (Prinivil 5mg) 5 mg DAILY PO 10/17/24 09:00 11/16/24 08:59 10/19/24 10:23 5 MG Metoprolol Tartrate (loprESSOR) 12.5 mg BID PO 10/16/24 21:00 11/15/24 20:59 10/21/24 08:05 12.5 MG Nitroglycerin (Nitrostat) 0.4 mg PROTOCOL PRN SL CHEST PAIN 10/16/24 20:00 11/15/24 19:59 Norepinephrine Bitartrate 250 ml @ 0 mls/hr AD PRN IV TITRATE 10/17/24 07:00 11/16/24 06:59 Ondansetron HCl (zoFRAN 4MG INJ) 4 mg Q12H PRN IVP NAUSEA/VOMITING 10/16/24 17:30 10/17/24 08:13 DC Ondansetron HCl (zoFRAN 4MG INJ) 4 mg Q6H PRN IV NAUSEA/VOMITING 10/16/24 20:00 11/15/24 19:59 DIAGNOSTICS / RADIOLOGY: [ ] ASSESSMENT: NSTEMI POA Multivessel Coronary artery disease POA Chronic pulmonary edema, resolved POA Acute respiratory failure, resolved POA Bilateral carotid stenosis > 70%, POA Hypertension POA Uncontrolled diabetes POA Nicotine dependence POA Hyperlipidemia POA Obesity POA Bilateral pneumonia POA PLAN: Continue on heparin drip per ACS protocol Continue famotidine 20 mg IV daily for GI prophylaxis Continue aspirin 81 mg p.o. daily and metoprolol 12.5 mg p.o. b.i.d. Continue Rocephin 2 g IV and azithromycin IV for broad-spectrum coverage Continue furosemide 20mg BID Continue lisinopril 5mg q24h Continue oxygen supplementation to keep saturation between 88-92% Continue insulin sliding scale AC & HS with hypoglycemia protocol CV surgery consulted, appreciate recommendations Cardiology consulted, appreciate recommendations Disposition: Pending improvement in clinical status, CABG, possible endarterectomy FLAKITA BENNETT MD Oct 21, 2024 14:37
--- NOTE | 2024-10-21 16:20 | PN ---
Cardiology Progress Note Date of Service: 10/21/2024 Problem list: -ACS-NSTEMI s/p LHC/coronary angiogram done on 10/16/[address] 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 The patient denies any active complaints including chest pain, chest pressure, palpitations, or shortness for breath. As per the nurse the patient was seen by CT surgery yesterday in the ER planning on performing CABG early next week. Vitals/Labs Vital Signs Date Time Temp Pulse Resp B/P (MAP) Pulse Ox O2 Delivery O2 Flow Rate FiO2 10/21/24 11:00 99.0 89 18 111/62 95 Room Air 10/21/24 08:16 21 10/21/24 08:00 0 General: Alert and oriented x 3. NAD. Chronically ill appearing. HEENT: NC/AT. Oral mucosa is moist. Neck: No masses or JVD. Lungs: NRD. SCM. Bilateral air entry. Clear breath sounds noted throughout. No obvious wheezing, rales, or rhonchi noted. Cardio: Regular rate. Normal S1 and S2. +S4. No obvious murmurs, gallops, or rubs noted. Abdomen: Soft. NT. ND. Normal active bowel sounds x 4 quadrants. Extremities: Diminished throughout. No edema, clubbing, or cyanosis. Neuro: CN II-XII were grossly intact. No obvious focal deficits. Laboratory Tests 10/21/24 04:15 Assessment: -ACS-NSTEMI s/p LHC/coronary angiogram done on 10/16/[address] Hilario Ward which identified severe 3V CAD (LAD, LCx, RCA), pending CABG -HFmrEF (LVEF: 45% by echo done 10/17/2024) -Bilateral CAP -Bilateral ICA stenosis (>70% by Doppler done 10/17/2024) -HTN -HLP -DM2 -Tobacco abuse Plan: 1. ACS-NSTEMI s/p LHC/coronary angiogram done on 10/16/[address] Hilario Ward which identified severe 3V CAD (LAD, LCx, RCA), pending CABG -Stable -The patient has been evaluated by CT surgery, Dr. Vargas, and is tentatively s cheduled to undergo CABG early next week -in the meantime we will continue goal directed ACS therapy which includes aspirin 81 mg daily, IV heparin infusion (ACS protocol), metoprolol tartrate 12.5 mg BID, and atorvastatin 80 mg QHS. -Post CABG, once the patient's chest tubes and lines have been removed and his hemoglobin remains stable, we will start him on DAPT. -Further management per CTS. 2. 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 -In the meantime, he will continue on metoprolol tartrate 12.5 mg BID and lisinopril 5 mg daily. -Please record strict I/O's, daily weights, and restrict fluids to less than 2.0L/day. 3. Bilateral ICA stenosis (>70% by Doppler done 10/17/2024) -Continue aspirin 81 mg daily and atorvastatin 80 mg QHS. RYAN PATRICK MD Oct 21, 2024 16:20
[2024-10-22] VITALS (12 sets, daily range): BP systolic 99–121; BP diastolic 55–90; PULSE 76–97; RESP 16–20; TEMP 98.2–99.7; O2SAT 76–99
--- NOTE | 2024-10-22 10:00 | NUR ---
LAST BM ON 10/18/24, GIVEN LACTULOSE 30 MLS PO. WILL CONTINUE TO MONITOR.
[2024-10-22] MEDS: LACTULOSE 20 GM/30 ML UDCUP PO PRN (11:41)
--- NOTE | 2024-10-22 12:08 | PN ---
[facility] PROGRESS NOTE Date of Service: Oct 22, 2024 Time of Service: 12:08 SUBJECTIVE: 10/17 patient seen at bedside, no acute events overnight. He has been afebrile, hemodynamically stable saturating well on 5 L nasal cannula. Echocardiogram pending, we will follow up. Bilateral carotid Dopplers showing severe stenosis in both internal carotid arteries, we will follow up with CV surgery. Patient initially transferred for CABG, chest x-ray showing bilateral infiltrates, we will continue with diuresis and continue antibiotics to treat for possible underlying pneumonia. 10/18 patient seen at bedside, no acute events overnight. Patient has no complaints today at bedside. CABG is on hold while patient being treated for pneumonia. He was given a lab holiday today, we will repeat labs tomorrow . Repeat chest x-ray shows improvement in infiltrates bilaterally, we will continue with antibiotics and diuresis. Proximally 4 L urine output in the last 24 hours. 10/19 patient seen at bedside, no acute events overnight. His chest x-ray windows continue to improve with further diuresis. He has been afebrile, hemodynamically stable saturating 96% on 4 L nasal cannula. We will follow up with CV surgery on optimal timing for CABG. Proximally 2.9 L urine output in the last 24 hours. Labs are relatively unremarkable. 10/20 patient seen at bedside, no acute events overnight. CABG is still pending, we will follow up with CV surgery on timing. Vitals and labs relatively unremarkable. 10/21 patient seen at bedside, no acute events overnight. CABG is still pending, CV surgery planning on next week. Vitals and labs relatively unremarkable. 10/22 patient seen at bedside, no acute events overnight. CABG is still pending, CV surgery planning on next week. Vitals and labs relatively unremarkable. REVIEW OF SYSTEMS 12 point review of systems negative unless noted in HPI PHYSICAL EXAM GENERAL APPEARANCE: The patient is awake, alert, and oriented, in no acute cardiopulmonary distress. NEUROLOGICAL: Cranial nerves II-XII grossly intact. Motor is 5/5 in bilateral upper and lower extremities proximal to distal. No sensory deficits. HEENT: Face is symmetric. Pupils are equal and reactive. Extraocular movements are intact. NECK: Supple. No JVD. No thyromegaly. No submental, submandibular, pre- /postauricular, occipital or supraclavicular lymphadenopathy. CHEST: Normal chest expansion. No Telemetry. LUNGS: Absence of any rales, rhonchi or any wheezing. CARDIOVASCULAR: Regular. S1 and S2 normal. No appreciable rubs, murmurs or gallops. ABDOMEN: Soft, nontender, and nondistended. There is no rebound, voluntary guarding, or rigidity. : Deferred. No H[place]o. EXTREMITIES: Non-edematous and not cyanotic. No clubbing. Good capillary refill. SKIN: No skin breakdown. Vital Signs (last 8hr) Date Time Temp Pulse Resp B/P (MAP) Pulse Ox O2 Delivery O2 Flow Rate FiO2 10/22/24 11:00 99.7 80 20 103/58 96 Room Air 10/22/24 07:27 77 18 N/Cannula Low lpm 21 10/22/24 07:00 98.8 77 16 121/65 97 Room Air 10/22/24 05:03 97 18 N/Cannula Low lpm 21 10/22/24 04:15 98.4 76 18 105/67 97 Room Air LABS: Laboratory: Test 10/22/24 11:06 10/21/24 16:03 10/21/24 04:15 Range/Units Whole Blood Glucose 293 #H 70-110 MG/DL Bedside Glucose Comment Notified Nurse Activated Partial Thromboplast Time 59.5 H 26.3-35.5 SEC White Blood Count 8.8 4.8-10.8 K/uL Red Blood Count 4.28 L 4.50-6.20 MIL/uL Hemoglobin 12.3 L 14.0-18.0 g/dL Hematocrit 36.2 L 42-54 % Mean Corpuscular Volume 84.6 79-99 fL Mean Corpuscular Hemoglobin 28.7 27.0-33.0 pg Mean Corpuscular Hemoglobin Concent 34.0 32.0-36.0 g/dL Red Cell Distribution Width 12.4 11.0-15.5 % Platelet Count 391 130-400 K/uL Mean Platelet Volume 10.0 7.5-10.5 fL Immature Granulocyte % (Auto) 0.7 0-1 % Neutrophils (%) (Auto) 63.5 40.0-77.0 % Lymphocytes (%) (Auto) 21.8 21.0-51.0 % Monocytes (%) (Auto) 8.6 3.0-13.0 % Eosinophils (%) (Auto) 4.7 0.0-8.0 % Basophils (%) (Auto) 0.7 0.0-5.0 % Neutrophils # (Auto) 5.6 1.8-7.7 K/uL Lymphocytes # (Auto) 1.9 1.0-4.8 K/uL Monocytes # (Auto) 0.8 0.1-1.0 K/uL Eosinophils # (Auto) 0.41 0.00-0.70 K/uL Basophils # (Auto) 0.06 0.00-0.20 K/uL Absolute Immature Granulocyte (auto 0.06 0-1 K/uL Nucleated Red Blood Cells 0.0 0.0-0.19 % Sodium Level 132 L 136-145 mmol/L Potassium Level 4.0 3.5-5.1 mmol/L Chloride Level 95 L 101-111 mmol/L Carbon Dioxide Level 31 21-32 mmol/L Blood Urea Nitrogen 19 H 7-18 mg/dL Creatinine 1.0 0.5-1.3 mg/dL Glomerular Filtration Rate Calc 87 >90 mL/min Random Glucose 129 H 70-105 mg/dL Total Calcium 8.9 8.5-10.1 mg/dL Current Medications Medications (Trade) Dose Ordered Sig/Meagan Route PRN Reason Start Time Stop Time Status Last Admin Dose Admin Acetaminophen (TYLenol 325MG TAB) 650 mg Q4H PRN PO MILD PAIN (1-3) 10/16/24 20:00 10/17/24 08:13 DC Acetaminophen (TYLenol 325MG TAB) 650 mg Q6H PRN PO MILD PAIN (1-3) 10/16/24 17:30 11/15/24 17:29 10/16/24 21:31 650 MG Acetaminophen (TYLenol 325MG TAB) 650 mg Q6H PRN PO TEMPERATURE GREATER THAN 101.5 10/16/24 20:00 11/15/24 19:59 Albuterol Sulfate (Proventil 0.083% 2.5mg/3ml) 0.63 mg Q6H6 PRN IH SHORTNESS OF BREATH 10/16/24 18:00 11/15/24 17:59 Aminocaproic Acid 49924 mg/Sodium Chloride 480 ml @ 0 mls/hr AD PRN IV BLEEDING CONTROL 10/17/24 07:00 11/16/24 06:59 Aspirin (Aspirin 81mg Ec Tab) 81 mg DAILY PO 10/17/24 09:00 11/16/24 08:59 10/22/24 09:48 81 MG Atorvastatin Calcium (LIPItor 40MG) 80 mg HS PO 10/17/24 21:00 11/16/24 20:59 10/21/24 21:28 80 MG Azithromycin 250 ml @ 250 mls/hr Q24H IVPB 10/16/24 21:00 10/26/24 20:59 10/21/24 21:29 250 MLS/HR Cefazolin Sodium (Ancef) 2 gm ONCALL IVP 10/16/24 23:00 10/18/24 22:59 DC 10/16/24 23:21 2 GM Ceftriaxone Sodium (Rocephin 2gm Inj) 2 gm Q24H IVPB 10/17/24 09:30 10/27/24 09:29 10/22/24 09:49 2 GM Epinephrine HCl 10 mg/Sodium Chloride 250 ml @ 0 mls/hr AD PRN IV TITRATE 10/17/24 07:00 11/16/24 06:59 Famotidine (Pepcid 20mg Vial) 20 mg DAILY IV 10/17/24 09:00 11/16/24 08:59 10/22/24 09:48 20 MG Furosemide (LASix 20MG VIAL) 20 mg BID IV 10/17/24 13:00 10/20/24 15:34 DC 10/20/24 09:37 20 MG Furosemide (LASix 20MG VIAL) 40 mg BID IV 10/20/24 21:00 11/19/24 20:59 10/22/24 09:49 40 MG Heparin Sodium (Porcine) (HEParin 5,000 UNIT VIAL) *calculation based on ACTUAL B... AD PRN IV HEPARIN PROTOCOL 10/16/24 18:00 11/15/24 17:59 10/17/24 16:00 3,000 UNIT Heparin Sodium/ Dextrose 250 ml @ 0 mls/hr Q6H IV 10/16/24 18:00 11/15/24 17:59 10/22/24 11:41 14.9 MLS/HR Hydroxyzine HCl (ATArax 25MG TAB) 12.5 mg TID PRN PO ITCHING 10/16/24 17:30 11/15/24 17:29 10/20/24 20:54 12.5 MG Insulin Glargine (LANtus 100 UNITS/ML 10 ML VIAL) 15 units HS SQ 10/16/24 21:00 11/15/24 20:59 10/21/24 21:34 15 UNITS Insulin Human Lispro (HumaLOG LISpro 100 UNIT/ML 3ML) 5 unit TIDAC SQ 10/17/24 07:30 11/16/24 07:29 10/22/24 11:40 5 UNIT Insulin Human Lispro (HumaLOG LISpro 100 UNIT/ML 3ML) INSULIN SLIDING SCAL... ACHS SQ 10/16/24 21:00 11/15/24 20:59 10/22/24 11:41 6 UNIT Lactulose (Constulose 20gm/ 30ml Udcup) 20 gm BID PRN PO CONSTIPATION 10/22/24 10:00 11/21/24 09:59 10/22/24 11:41 20 GM Lidocaine (Lidocaine Patch 4%) 1 each DAILY TP 10/16/24 21:20 11/15/24 21:19 10/22/24 09:49 1 EACH Lisinopril (Prinivil 5mg) 5 mg DAILY PO 10/17/24 09:00 11/16/24 08:59 10/22/24 09:48 5 MG Metoprolol Tartrate (loprESSOR) 12.5 mg BID PO 10/16/24 21:00 11/15/24 20:59 10/22/24 09:49 12.5 MG Nitroglycerin (Nitrostat) 0.4 mg PROTOCOL PRN SL CHEST PAIN 10/16/24 20:00 11/15/24 19:59 Norepinephrine Bitartrate 250 ml @ 0 mls/hr AD PRN IV TITRATE 10/17/24 07:00 11/16/24 06:59 Ondansetron HCl (zoFRAN 4MG INJ) 4 mg Q12H PRN IVP NAUSEA/VOMITING 10/16/24 17:30 10/17/24 08:13 DC Ondansetron HCl (zoFRAN 4MG INJ) 4 mg Q6H PRN IV NAUSEA/VOMITING 10/16/24 20:00 11/15/24 19:59 DIAGNOSTICS / RADIOLOGY: [ ] ASSESSMENT: NSTEMI POA Multivessel Coronary artery disease POA Chronic pulmonary edema, resolved POA Acute respiratory failure, resolved POA Bilateral carotid stenosis > 70%, POA Hypertension POA Uncontrolled diabetes POA Nicotine dependence POA Hyperlipidemia POA Obesity POA Bilateral pneumonia POA PLAN: Continue on heparin drip per ACS protocol Continue famotidine 20 mg IV daily for GI prophylaxis Continue aspirin 81 mg p.o. daily and metoprolol 12.5 mg p.o. b.i.d. Continue Rocephin 2 g IV and azithromycin IV for broad-spectrum coverage Continue furosemide 20mg BID Continue lisinopril 5mg q24h Continue oxygen supplementation to keep saturation between 88-92% Continue insulin sliding scale AC & HS with hypoglycemia protocol CV surgery consulted, appreciate recommendations Cardiology consulted, appreciate recommendations Disposition: Pending improvement in clinical status, CABG, possible endarterectomy FLAKITA BENNETT MD Oct 22, 2024 12:08
[2024-10-22] MEDS: CALCIUM CARB 500MG CHEW TAB PO SCH (12:56)
--- NOTE | 2024-10-22 14:00 | NUR ---
GIVEN PRE AND POST HEART SURGERY BOOKLETS IN [place]. STATES HE WILL READ THEM. WILL FOLLOW UP.
--- NOTE | 2024-10-22 15:00 | NUR ---
HAD BOWEL MOVEMENT AFTER LACTULOSE GIVEN EARLIER.
--- NOTE | 2024-10-22 15:40 | PN ---
Cardiology Progress Note Date of Service: 10/22/2024 Problem list: -ACS-NSTEMI s/p LHC/coronary angiogram done on 10/16/[address] 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 The patient denies any active complaints including chest pain, chest pressure, palpitations, or shortness for breath. As per the nurse there were no overnight events. Vitals/Labs Vital Signs Date Time Temp Pulse Resp B/P (MAP) Pulse Ox O2 Delivery O2 Flow Rate FiO2 10/22/24 11:00 99.7 80 20 103/58 96 Room Air 10/22/24 08:00 0 21 General: Alert and oriented x 3. NAD. Chronically ill appearing. HEENT: NC/AT. Oral mucosa is moist. Neck: No masses or JVD. Lungs: NRD. SCM. Bilateral air entry. Clear breath sounds noted throughout. No obvious wheezing, rales, or rhonchi noted. Cardio: Regular rate. Normal S1 and S2. +S4. No obvious murmurs, gallops, or rubs noted. Abdomen: Soft. NT. ND. Normal active bowel sounds x 4 quadrants. Extremities: Diminished throughout. No edema, clubbing, or cyanosis. Neuro: CN II-XII were grossly intact. No obvious focal deficits. Assessment: -ACS-NSTEMI s/p LHC/coronary angiogram done on 10/16/[address] Hilario Ward which identified severe 3V CAD (LAD, LCx, RCA), pending CABG -HFmrEF (LVEF: 45% by echo done 10/17/2024) -Bilateral CAP -Bilateral ICA stenosis (>70% by Doppler done 10/17/2024) -HTN -HLP -DM2 -Tobacco abuse Plan: 1. ACS-NSTEMI s/p LHC/coronary angiogram done on 10/16/[address] Hilario Ward which identified severe 3V CAD (LAD, LCx, RCA), pending CABG -Stable -The patient has been evaluated by CT surgery, Dr. Vargas, and is tentatively scheduled to undergo CABG early next week -in the meantime we will continue goal directed ACS therapy which includes aspirin 81 mg daily, IV heparin infusion (ACS protocol), metoprolol tartrate 12.5 mg BID, and atorvastatin 80 mg QHS. -Post CABG, once the patient's chest tubes and lines have been removed and his hemoglobin remains stable, we will start him on DAPT. -Further management per CTS. 2. 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 Additionally the patient will continue on metoprolol tartrate 12.5 mg BID and lisinopril 5 mg daily. -Please record strict I/O's, daily weights, and restrict fluids to less than 2.0L/day. 3. Bilateral ICA stenosis (>70% by Doppler done 10/17/2024) -Continue aspirin 81 mg daily and atorvastatin 80 mg QHS. RYAN PATRICK MD Oct 22, 2024 15:40
--- NOTE | 2024-10-22 16:37 | NUR ---
STATES HE TAKE "MEDICATION FOR DIABETES. MY FAMILY CANNOT FIND BOTTLE SO I CANNOT TELL YOU WHAT IT IS." REACHED OUT TO DAUGHTER, ADRIANA, SHE STATED SHE WILL ATTEMPT TO RETRIEVE MED BOTTLE.
[2024-10-22] MEDS ORDERED: CALCIUM CARB 500MG CHEW TAB PO SCH (17:00)
[2024-10-22] MEDS: ceFAZolin SODIUM 2 GM VIAL IVP SCH (21:30)
[2024-10-23] VITALS (28 sets, daily range): BP systolic 69–187; BP diastolic 29–92; PULSE 70–134; RESP 11–18; TEMP 96–98.7; O2SAT 96–100
[2024-10-23 01:30] LABS: BASOPHILS # (AUTO) 0.06 K/uL (0.00-0.20); BASOPHILS % (AUTO) 0.6 % (0.0-5.0); EOSINOPHILS # (AUTO) 0.34 K/uL (0.00-0.70); EOSINOPHILS % (AUTO) 3.2 % (0.0-8.0); HEMATOCRIT 39.5 % (42-54); IMMATURE GRANULOCYTE ABSOLUTE 0.07 K/uL (0-1); LYMPHOCYTES # (AUTO) 2.2 K/uL (1.0-4.8); LYMPHOCYTES % (AUTO) 20.4 % (21.0-51.0); MEAN CORPUSCULAR HEMOGLOBIN 28.9 pg (27.0-33.0); MEAN CORPUSCULAR HGB CONC 33.7 g/dL (32.0-36.0); MEAN CORPUSCULAR VOLUME 85.9 fL (79-99); MONOCYTES # (AUTO) 0.8 K/uL (0.1-1.0); MONOCYTES % (AUTO) 7.8 % (3.0-13.0); NEUTROPHILS # (AUTO) 7.2 K/uL (1.8-7.7); NEUTROPHILS % (AUTO) 67.3 % (40.0-77.0); PLATELET COUNT (AUTO) 476 K/uL (130-400); RED CELL DISTRIBUTION WIDTH 12.5 % (11.0-15.5); WHITE BLOOD COUNT (AUTO) 10.7 K/uL (4.8-10.8)
[2024-10-23 01:41] LABS: CREATININE 1.2 mg/dL (0.5-1.3); POTASSIUM 3.7 mmol/L (3.5-5.1)
[2024-10-23 01:42] LABS: INR 1.13 (0.85-1.15); PROTHROMBIN TIME 11.8 SEC (9.6-11.6)
[2024-10-23 01:43] LABS: PARTIAL THROMBOPLASTIN TIME 55.5 SEC (26.3-35.5)
[2024-10-23 01:45] LABS: ALBUMIN 3.2 g/dL (3.5-5.0); BILIRUBIN,TOTAL 0.4 mg/dL (0.2-1.0); MAGNESIUM 2.1 mg/dL (1.80-2.40); PHOSPHORUS 4.5 mg/dL (2.5-4.9); TOTAL PROTEIN, SERUM 8.3 g/dL (6.0-8.3)
[2024-10-23 02:03] LABS: B-TYPE NATRIURETIC PEPTIDE 383 pg/mL (0-100)
--- NOTE | 2024-10-23 06:50 | EKG ---
[facility] Test Date: 2024-10-23 Test Time: 05:07:33 Pat Name: ADEEL CASPER Department: 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
--- NOTE | 2024-10-23 07:27 | CONS ---
PREOPERATIVE EVALUATION HISTORY OF PRESENT ILLNESS: The patient is gentleman who was admitted to the hospital last week from Dr. Johnson with previous coronary artery disease. The patient was found to have a pneumonic infiltrate. He was treated for pneumonia. Now that he is cleared from this, he is being cleared by Pulmonary for surgical revascularization. I have had the opportunity to review the case and discussed the case with Dr. Johnson, his care and Cardiology. We both agreed surgery as indicated and we have recommended. The patient understands the indications of the procedure as well as the potential complications of the operation including but not limited to postoperative bleeding, infection, stroke, and/or . He understands this as well as associated morbidity and mortality of the procedure as it relates to external comorbidities and wishes to proceed with surgery. Plan for surgery on Wednesday. TID: [id number] RECEIPT: [id number]
--- NOTE | 2024-10-23 08:16 | PN ---
[facility] CARDIOLOGY PROGRESS NOTE Date Patient Seen: Oct 23, 2024 Time of Visit: 08:15 Problem List: ACS NSTEMI MVCAD Interval History: Seen this AM, NPO pending surgery later today No acute complaints No overnight events per RN Physical Examination: GENERAL: [No acute distress.] HEAD: [Normal with no signs of head trauma.] LUNGS: [Clear breath sounds bilaterally. on room air. No wheezes, or rhonchi.] HEART: [Normal rate and rhythm. Normal S1 and S2 without murmurs, gallop or rub.] VASC: [Peripheral pulses +2 bilaterally.] EXT: [No clubbing, cyanosis or edema.] SKIN: [No rashes or lesions noted.] NEURO: [Awake, alert, and oriented x3. No focal sensory or strength deficits noted.] Laboratory: [ ] Hematology Labs: Test 10/23/24 01:04 Range/Units White Blood Count 10.7 4.8-10.8 K/uL Red Blood Count 4.60 4.50-6.20 MIL/uL Hemoglobin 13.3 L 14.0-18.0 g/dL Hematocrit 39.5 L 42-54 % Mean Corpuscular Volume 85.9 79-99 fL Mean Corpuscular Hemoglobin 28.9 27.0-33.0 pg Mean Corpuscular Hemoglobin Concent 33.7 32.0-36.0 g/dL Red Cell Distribution Width 12.5 11.0-15.5 % Platelet Count 476 H 130-400 K/uL Mean Platelet Volume 9.5 7.5-10.5 fL Immature Granulocyte % (Auto) 0.7 0-1 % Neutrophils (%) (Auto) 67.3 40.0-77.0 % Lymphocytes (%) (Auto) 20.4 L 21.0-51.0 % Monocytes (%) (Auto) 7.8 3.0-13.0 % Eosinophils (%) (Auto) 3.2 0.0-8.0 % Basophils (%) (Auto) 0.6 0.0-5.0 % Neutrophils # (Auto) 7.2 1.8-7.7 K/uL Lymphocytes # (Auto) 2.2 1.0-4.8 K/uL Monocytes # (Auto) 0.8 0.1-1.0 K/uL Eosinophils # (Auto) 0.34 0.00-0.70 K/uL Basophils # (Auto) 0.06 0.00-0.20 K/uL Absolute Immature Granulocyte (auto 0.07 0-1 K/uL Nucleated Red Blood Cells 0.0 0.0-0.19 % Chemistry Labs: Test 10/23/24 05:39 10/23/24 01:04 10/22/24 16:17 Range/Units Whole Blood Glucose 97 # 70-110 MG/DL Sodium Level 131 L 136-145 mmol/L Potassium Level 3.7 3.5-5.1 mmol/L Chloride Level 93 L 101-111 mmol/L Carbon Dioxide Level 32 21-32 mmol/L Blood Urea Nitrogen 28 H 7-18 mg/dL Creatinine 1.2 0.5-1.3 mg/dL Glomerular Filtration Rate Calc 70 >90 mL/min Random Glucose 75 70-105 mg/dL Total Calcium 9.4 8.5-10.1 mg/dL Phosphorus Level 4.5 2.5-4.9 mg/dL Magnesium Level 2.10 1.80-2.40 mg/dL Total Bilirubin 0.4 0.2-1.0 mg/dL Aspartate Amino Transf (AST/SGOT) 51 H 10-37 U/L Alanine Aminotransferase (ALT/SGPT) 88 H 12-78 U/L Alkaline Phosphatase 159 H 50-136 U/L B-Type Natriuretic Peptide 383 H 0-100 pg/mL Total Protein 8.3 6.0-8.3 g/dL Albumin 3.2 L 3.5-5.0 g/dL Bedside Glucose Comment Notified Nurse Coagulation Labs: Test 10/23/24 01:04 Range/Units Prothrombin Time 11.8 H 9.6-11.6 SEC Prothromb Time International Ratio 1.13 0.85-1.15 Activated Partial Thromboplast Time 55.5 H 26.3-35.5 SEC Impression and Plan: -ACS-NSTEMI s/p LHC/coronary angiogram done on 10/16/[address] 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
--- NOTE | 2024-10-23 09:00 | NUR ---
STOP HEPARIN DRIP AT 0900, CABG AT 1500 TODAY 0900 HEPARIN GTT STOPPED
[2024-10-23] MEDS ORDERED: NOREPINEPHRIN 8MG/250ML NS 250 ML IV PRN (10:30)
[2024-10-23] MEDS ORDERED: aminoCAProic ACID 5,000MG VIAL 15,000 MG in 0.9% NACL 500ML IV.SOLN 420 ML IV PRN (10:30)
[2024-10-23] MEDS ORDERED: EPINEPHrine PF 1MG (1:1,000) 10 MG in 0.9% NACL 250ML 240 ML IV PRN ×2 (10:30→17:00)
[2024-10-23] MEDS ORDERED: PAPAVERINE HCL 30 MG/ML 2ML VIAL ONE (11:25)
[2024-10-23] MEDS ORDERED: HEParin-NS 1,000 UNIT/500 ML 500 ML IV ONE (11:25)
[2024-10-23] MEDS ORDERED: NITROGLYCERIN 50MG/D5W 250ML 1 BOT ONE (12:35)
[2024-10-23] MEDS ORDERED: LIDOCAINE 2G/250ML 250 ML IV ONE (12:35)
--- NOTE | 2024-10-23 13:02 | HMCIMG ---
CHEST 1VW HISTORY: Preop CABG COMPARISON: 10/19/2024 FINDINGS: A frontal projection of the chest was obtained. Mild bilateral pulmonary infiltrates are seen may be related to mild pulmonary vascular congestion with possible superimposed pneumonitis. The heart is borderline enlarged. Degenerative changes are seen. No evidence of aortic calcification is seen. IMPRESSION: 1. Mild bilateral pulmonary infiltrates are seen may be related to mild pulmonary vascular congestion with possible superimposed pneumonitis. Slight interval improvement is seen.
[2024-10-23] MEDS ORDERED: proPOFol 10 MG/ML 20ML VIAL IV ONE ×2 (13:20→19:00)
[2024-10-23] MEDS ORDERED: LIDOCAINE PF 100MG/5ML (2%) SYRINGE 5ML ONE (13:20)
[2024-10-23] MEDS ORDERED: MIDAZOLAM HCL 1 MG/ML 2ML VIAL ONE (13:20)
[2024-10-23] MEDS ORDERED: FENTanyl CITRate PF 50 MCG/1 ML 20ML VIAL IJ ONE (13:20)
[2024-10-23] MEDS ORDERED: rocuRONium bROMide 10MG/1ML 5ML VL ONE ×2 (13:20→17:00)
--- NOTE | 2024-10-23 13:21 | PN ---
[facility] PROGRESS NOTE Date of Service: Oct 23, 2024 Time of Service: 13:19 SUBJECTIVE: 10/17 patient seen at bedside, no acute events overnight. He has been afebrile, hemodynamically stable saturating well on 5 L nasal cannula. Echocardiogram pending, we will follow up. Bilateral carotid Dopplers showing severe stenosis in both internal carotid arteries, we will follow up with CV surgery. Patient initially transferred for CABG, chest x-ray showing bilateral infiltrates, we will continue with diuresis and continue antibiotics to treat for possible underlying pneumonia. 10/18 patient seen at bedside, no acute events overnight. Patient has no complaints today at bedside. CABG is on hold while patient being treated for pneumonia. He was given a lab holiday today, we will repeat labs tomorrow . Repeat chest x-ray shows improvement in infiltrates bilaterally, we will continue with antibiotics and diuresis. Proximally 4 L urine output in the last 24 hours. 10/19 patient seen at bedside, no acute events overnight. His chest x-ray windows continue to improve with further diuresis. He has been afebrile, hemodynamically stable saturating 96% on 4 L nasal cannula. We will follow up with CV surgery on optimal timing for CABG. Proximally 2.9 L urine output in the last 24 hours. Labs are relatively unremarkable. 10/20 patient seen at bedside, no acute events overnight. CABG is still pending, we will follow up with CV surgery on timing. Vitals and labs relatively unremarkable. 10/21 patient seen at bedside, no acute events overnight. CABG is still pending, CV surgery planning on next week. Vitals and labs relatively unremarkable. 10/22 patient seen at bedside, no acute events overnight. CABG is still pending, CV surgery planning on next week. Vitals and labs relatively unremarkable. 10/23 patient seen at bedside, no acute events overnight. CABG is still pending, likely later tdoay. LFT mildly elevated, remainder of his labs are relatively unremarkable. REVIEW OF SYSTEMS 12 point review of systems negative unless noted in HPI PHYSICAL EXAM GENERAL APPEARANCE: The patient is awake, alert, and oriented, in no acute cardiopulmonary distress. NEUROLOGICAL: Cranial nerves II-XII grossly intact. Motor is 5/5 in bilateral upper and lower extremities proximal to distal. No sensory deficits. HEENT: Face is symmetric. Pupils are equal and reactive. Extraocular movements are intact. NECK: Supple. No JVD. No thyromegaly. No submental, submandibular, pre- /postauricular, occipital or supraclavicular lymphadenopathy. CHEST: Normal chest expansion. No Telemetry. LUNGS: Absence of any rales, rhonchi or any wheezing. CARDIOVASCULAR: Regular. S1 and S2 normal. No appreciable rubs, murmurs or gallops. ABDOMEN: Soft, nontender, and nondistended. There is no rebound, voluntary guarding, or rigidity. : Deferred. No Henao. EXTREMITIES: Non-edematous and not cyanotic. No clubbing. Good capillary refill. SKIN: No skin breakdown. Vital Signs (last 8hr) Date Time Temp Pulse Resp B/P (MAP) Pulse Ox O2 Delivery O2 Flow Rate FiO2 10/23/24 12:24 98.2 70 16 117/68 99 Room Air 10/23/24 08:00 98 Room Air* 0 21 10/23/24 07:51 98.8 73 16 114/62 96 Room Air 10/23/24 07:34 78 16 N/A Room Air 21 LABS: Laboratory: Test 10/23/24 11:54 10/23/24 01:04 10/22/24 16:17 Range/Units Whole Blood Glucose 113 H 70-110 MG/DL White Blood Count 10.7 4.8-10.8 K/uL Red Blood Count 4.60 4.50-6.20 MIL/uL Hemoglobin 13.3 L 14.0-18.0 g/dL Hematocrit 39.5 L 42-54 % Mean Corpuscular Volume 85.9 79-99 fL Mean Corpuscular Hemoglobin 28.9 27.0-33.0 pg Mean Corpuscular Hemoglobin Concent 33.7 32.0-36.0 g/dL Red Cell Distribution Width 12.5 11.0-15.5 % Platelet Count 476 H 130-400 K/uL Mean Platelet Volume 9.5 7.5-10.5 fL Immature Granulocyte % (Auto) 0.7 0-1 % Neutrophils (%) (Auto) 67.3 40.0-77.0 % Lymphocytes (%) (Auto) 20.4 L 21.0-51.0 % Monocytes (%) (Auto) 7.8 3.0-13.0 % Eosinophils (%) (Auto) 3.2 0.0-8.0 % Basophils (%) (Auto) 0.6 0.0-5.0 % Neutrophils # (Auto) 7.2 1.8-7.7 K/uL Lymphocytes # (Auto) 2.2 1.0-4.8 K/uL Monocytes # (Auto) 0.8 0.1-1.0 K/uL Eosinophils # (Auto) 0.34 0.00-0.70 K/uL Basophils # (Auto) 0.06 0.00-0.20 K/uL Absolute Immature Granulocyte (auto 0.07 0-1 K/uL Nucleated Red Blood Cells 0.0 0.0-0.19 % Prothrombin Time 11.8 H 9.6-11.6 SEC Prothromb Time International Ratio 1.13 0.85-1.15 Activated Partial Thromboplast Time 55.5 H 26.3-35.5 SEC Sodium Level 131 L 136-145 mmol/L Potassium Level 3.7 3.5-5.1 mmol/L Chloride Level 93 L 101-111 mmol/L Carbon Dioxide Level 32 21-32 mmol/L Blood Urea Nitrogen 28 H 7-18 mg/dL Creatinine 1.2 0.5-1.3 mg/dL Glomerular Filtration Rate Calc 70 >90 mL/min Random Glucose 75 70-105 mg/dL Total Calcium 9.4 8.5-10.1 mg/dL Phosphorus Level 4.5 2.5-4.9 mg/dL Magnesium Level 2.10 1.80-2.40 mg/dL Total Bilirubin 0.4 0.2-1.0 mg/dL Aspartate Amino Transf (AST/SGOT) 51 H 10-37 U/L Alanine Aminotransferase (ALT/SGPT) 88 H 12-78 U/L Alkaline Phosphatase 159 H 50-136 U/L B-Type Natriuretic Peptide 383 H 0-100 pg/mL Total Protein 8.3 6.0-8.3 g/dL Albumin 3.2 L 3.5-5.0 g/dL Bedside Glucose Comment Notified Nurse Current Medications Medications (Trade) Dose Ordered Sig/Meagan Route PRN Reason Start Time Stop Time Status Last Admin Dose Admin Acetaminophen (TYLenol 325MG TAB) 650 mg Q4H PRN PO MILD PAIN (1-3) 10/16/24 20:00 10/17/24 08:13 DC Acetaminophen (TYLenol 325MG TAB) 650 mg Q6H PRN PO MILD PAIN (1-3) 10/16/24 17:30 11/15/24 17:29 10/16/24 21:31 650 MG Acetaminophen (TYLenol 325MG TAB) 650 mg Q6H PRN PO TEMPERATURE GREATER THAN 101.5 10/16/24 20:00 11/15/24 19:59 Albuterol Sulfate (Proventil 0.083% 2.5mg/3ml) 0.63 mg Q6H6 PRN IH SHORTNESS OF BREATH 10/16/24 18:00 11/15/24 17:59 Aminocaproic Acid 77282 mg/Sodium Chloride 480 ml @ 0 mls/hr AD PRN IV BLEEDING CONTROL 10/17/24 07:00 10/23/24 10:13 DC Aminocaproic Acid 67335 mg/Sodium Chloride 480 ml @ 0 mls/hr AD PRN IV BLEEDING CONTROL 10/23/24 10:30 11/22/24 10:29 Aspirin (Aspirin 81mg Ec Tab) 81 mg DAILY PO 10/17/24 09:00 11/16/24 08:59 10/22/24 09:48 81 MG Atorvastatin Calcium (LIPItor 40MG) 80 mg HS PO 10/17/24 21:00 11/16/24 20:59 10/22/24 22:05 80 MG Azithromycin 250 ml @ 250 mls/hr Q24H IVPB 10/16/24 21:00 10/26/24 20:59 10/22/24 22:05 250 MLS/HR Calcium Carbonate (Tums 500 Mg Chew Tab) 500 tab ONCE PO 10/22/24 13:00 11/21/24 12:59 10/22/24 12:56 500 TAB Calcium Carbonate (Tums 500 Mg Chew Tab) 500 tab TIDAC PO 10/22/24 17:00 10/22/24 12:57 DC Cefazolin Sodium (Ancef) 2 gm ONCALL IVP 10/16/24 23:00 10/18/24 22:59 DC 10/16/24 23:21 2 GM Cefazolin Sodium (Ancef) 2 gm ONCALL IVP 10/22/24 21:30 10/24/24 21:29 Ceftriaxone Sodium (Rocephin 2gm Inj) 2 gm Q24H IVPB 10/17/24 09:30 10/27/24 09:29 10/23/24 09:43 2 GM Epinephrine HCl 10 mg/Sodium Chloride 250 ml @ 0 mls/hr AD PRN IV TITRATE 10/17/24 07:00 10/23/24 10:13 DC Epinephrine HCl 10 mg/Sodium Chloride 250 ml @ 0 mls/hr AD PRN IV TITRATE 10/23/24 10:30 11/22/24 10:29 Famotidine (Pepcid 20mg Vial) 20 mg DAILY IV 10/17/24 09:00 11/16/24 08:59 10/23/24 11:19 20 MG Furosemide (LASix 20MG VIAL) 20 mg BID IV 10/17/24 13:00 10/20/24 15:34 DC 10/20/24 09:37 20 MG Furosemide (LASix 20MG VIAL) 40 mg BID IV 10/20/24 21:00 10/23/24 09:51 DC 10/22/24 22:06 40 MG Furosemide (LASix 40MG VIAL) 40 mg BID IV 10/23/24 21:00 11/19/24 20:59 Heparin Sodium (Porcine) (HEParin 5,000 UNIT VIAL) *calculation based on ACTUAL B... AD PRN IV HEPARIN PROTOCOL 10/16/24 18:00 11/15/24 17:59 10/17/24 16:00 3,000 UNIT Heparin Sodium/ Dextrose 250 ml @ 0 mls/hr Q6H IV 10/16/24 18:00 10/23/24 09:45 DC 10/22/24 11:41 14.9 MLS/HR Hydroxyzine HCl (ATArax 25MG TAB) 12.5 mg TID PRN PO ITCHING 10/16/24 17:30 11/15/24 17:29 10/20/24 20:54 12.5 MG Insulin Glargine (LANtus 100 UNITS/ML 10 ML VIAL) 15 units HS SQ 10/16/24 21:00 11/15/24 20:59 10/22/24 22:09 15 UNITS Insulin Human Lispro (HumaLOG LISpro 100 UNIT/ML 3ML) 5 unit TIDAC SQ 10/17/24 07:30 11/16/24 07:29 10/22/24 16:47 5 UNIT Insulin Human Lispro (HumaLOG LISpro 100 UNIT/ML 3ML) INSULIN SLIDING SCAL... ACHS SQ 10/16/24 21:00 11/15/24 20:59 10/22/24 22:08 5 UNIT Lactulose (Constulose 20gm/ 30ml Udcup) 20 gm BID PRN PO CONSTIPATION 10/22/24 10:00 11/21/24 09:59 10/22/24 11:41 20 GM Lidocaine (Lidocaine Patch 4%) 1 each DAILY TP 10/16/24 21:20 11/15/24 21:19 10/23/24 11:19 1 EACH Lisinopril (Prinivil 5mg) 5 mg DAILY PO 10/17/24 09:00 11/16/24 08:59 10/22/24 09:48 5 MG Metoprolol Tartrate (loprESSOR) 12.5 mg BID PO 10/16/24 21:00 11/15/24 20:59 10/23/24 09:43 12.5 MG Nitroglycerin (Nitrostat) 0.4 mg PROTOCOL PRN SL CHEST PAIN 10/16/24 20:00 11/15/24 19:59 Norepinephrine Bitartrate 250 ml @ 0 mls/hr AD PRN IV TITRATE 10/17/24 07:00 10/23/24 10:13 DC Norepinephrine Bitartrate 250 ml @ 0 mls/hr AD PRN IV TITRATE 10/23/24 10:30 11/22/24 10:29 Ondansetron HCl (zoFRAN 4MG INJ) 4 mg Q12H PRN IVP NAUSEA/VOMITING 10/16/24 17:30 10/17/24 08:13 DC Ondansetron HCl (zoFRAN 4MG INJ) 4 mg Q6H PRN IV NAUSEA/VOMITING 10/16/24 20:00 11/15/24 19:59 DIAGNOSTICS / RADIOLOGY: [ ] ASSESSMENT: NSTEMI POA Multivessel Coronary artery disease POA Chronic pulmonary edema, resolved POA Acute respiratory failure, resolved POA Bilateral carotid stenosis > 70%, POA Hypertension POA Uncontrolled diabetes POA Nicotine dependence POA Hyperlipidemia POA Obesity POA Bilateral pneumonia POA PLAN: Continue on heparin drip per ACS protocol Continue famotidine 20 mg IV daily for GI prophylaxis Continue aspirin 81 mg p.o. daily and metoprolol 12.5 mg p.o. b.i.d. Continue Rocephin 2 g IV and azithromycin IV for broad-spectrum coverage Continue furosemide 20mg BID Continue lisinopril 5mg q24h Continue oxygen supplementation to keep saturation between 88-92% Continue insulin sliding scale AC & HS with hypoglycemia protocol CV surgery consulted, appreciate recommendations Cardiology consulted, appreciate recommendations Disposition: Pending CABG and post op course FLAKITA BENNETT MD Oct 23, 2024 13:21
--- NOTE | 2024-10-23 14:08 | NUR ---
PATIENT OFF THE FLOOR FOR CABG SURGERY
[2024-10-23] MEDS: 0.9%NACL 1000ML 1,000 ML IV ONE (14:18)
[2024-10-23] MEDS: ceFAZolin SODIUM 2 GM VIAL ONE (14:18)
[2024-10-23] MEDS: ceFAZolin SODIUM 2 GM VIAL IVPB ONE (15:57)
[2024-10-23 16:35] LABS: ABG BASE EXCESS -0.6 mmol/L (-2.0-3.0); ABG HCO3 24.5 mmol/L (21.0-28.0); ABG OXYGEN SATURATION 99.8 % (94.0-98.0); ABG PCO2 42 mmHg (35-48); ABG PH 7.385 (7.350-7.450); CARBON MONOXIDE 0.3 % (0.5-1.5); DEVICE COMMENT 1; HHb 0.2; PO2, ARTERIAL BG > 500.0 mmHg (83.0-108.0)
[2024-10-23] MEDS ORDERED: HEParin 10,000 UNIT/10ML (1,000 UNIT/ML) VIAL ONE ×4 (16:58→18:18)
[2024-10-23] MEDS ORDERED: GLUCAGON 1MG KIT 1 MG ML IM PRN (17:00)
[2024-10-23] MEDS ORDERED: proPOFol 1000 MG/100 ML 100 ML IV PRN (17:00)
[2024-10-23] MEDS ORDERED: acetaMINOPHEN 325 MG TAB PO PRN (17:00)
[2024-10-23] MEDS ORDERED: MAGNESIUM HYDROXIDE 30 ML/UDCUP PO PRN (17:00)
[2024-10-23] MEDS ORDERED: morPHINE 2 MG SYG IV PRN ×2 (17:00)
[2024-10-23] MEDS ORDERED: aminoCAProic ACID 5,000MG VIAL 15,000 MG in 0.9% NACL 250ML 250 ML IV SCH (17:00)
[2024-10-23] MEDS ORDERED: 0.9% NACL 500ML IV.SOLN 500 ML IV SCH (17:00)
[2024-10-23] MEDS ORDERED: dexmedeTOMIDine 400MCG/NS100ML IV SCH (17:00)
[2024-10-23] MEDS ORDERED: traMADol HCL 50 MG TABLET PO PRN (17:00)
[2024-10-23] MEDS ORDERED: NITROGLYCERIN 50MG/D5W 250ML 250 BOT IV SCH (17:00)
[2024-10-23] MEDS ORDERED: NOREPINEPHRINE BITARTRATE 8 MG in DEXTROSE 5%-WATER 250 ML IV PRN (17:00)
[2024-10-23] MEDS ORDERED: CALCIUM GLUC 1GM 1 GM in 0.9%NACL 50ML 50 ML IV PRN (17:00)
[2024-10-23] MEDS ORDERED: acetaMINOPHEN 650 MG SUPPOSITORY RC PRN (17:00)
[2024-10-23] MEDS ORDERED: DEXTROSE 50%-WATER 50 ML DISP.SYRIN IV PRN (17:00)
[2024-10-23] MEDS ORDERED: 0.9%NACL 10ML VIAL IVP PRN (17:00)
[2024-10-23 17:16] LABS: ABG BASE EXCESS 0.2 mmol/L (-2.0-3.0); ABG HCO3 25.6 mmol/L (21.0-28.0); ABG OXYGEN SATURATION 99.8 % (94.0-98.0); ABG PCO2 44 mmHg (35-48); ABG PH 7.379 (7.350-7.450); CARBON MONOXIDE 0.3 % (0.5-1.5); DEVICE COMMENT 2; HHb 0.2; PO2, ARTERIAL BG 475.8 mmHg (83.0-108.0)
[2024-10-23 17:55] LABS: ABG BASE EXCESS -2.2 mmol/L (-2.0-3.0); ABG HCO3 21.4 mmol/L (21.0-28.0); ABG OXYGEN SATURATION 99.6 % (94.0-98.0); ABG PCO2 33 mmHg (35-48); ABG PH 7.431 (7.350-7.450); CARBON MONOXIDE 0.3 % (0.5-1.5); DEVICE COMMENT 2; HHb 0.4; PO2, ARTERIAL BG 449.5 mmHg (83.0-108.0)
[2024-10-23] MEDS ORDERED: COMPOUND IV MISC 1 EACH IVSOLN MISC PRN (18:00)
[2024-10-23] MEDS ORDERED: PROTamine SULFate 10 MG/ML 25ML VIAL IV ONE (18:18)
[2024-10-23] MEDS ORDERED: MAGNESIUM SULFATE 4.06 MEQ/ML ***TPN USE ONLY IJ ONE (18:18)
[2024-10-23 18:23] LABS: ABG BASE EXCESS 0.4 mmol/L (-2.0-3.0); ABG HCO3 23.7 mmol/L (21.0-28.0); ABG OXYGEN SATURATION 99.6 % (94.0-98.0); ABG PCO2 34 mmHg (35-48); ABG PH 7.468 (7.350-7.450); CARBON MONOXIDE 0.3 % (0.5-1.5); DEVICE COMMENT 4; HHb 0.4
[2024-10-23 19:16] LABS: ABG BASE EXCESS -0.8 mmol/L (-2.0-3.0); ABG OXYGEN SATURATION 99.1 % (94.0-98.0); ABG PCO2 35 mmHg (35-48); ABG PH 7.435 (7.350-7.450); CARBON MONOXIDE 0.3 % (0.5-1.5); HHb 0.9; PO2, ARTERIAL BG 241.1 mmHg (83.0-108.0); VENT MODE, BG SIMV PS 10 (ROOM AIR)
[2024-10-23] MEDS: INSULIN REGULAR, HUMAN 3ML 100 UNIT in 0.9%NACL 100ML 99 ML IV SCH (19:16)
[2024-10-23] MEDS: 0.9%NACL 1000ML 1,000 ML IV SCH (19:36)
[2024-10-23] MEDS: FAMOTIDINE 20MG VIAL IV SCH (19:39)
[2024-10-23] MEDS: ASPIRIN 81MG CHEW TAB NG ONE (19:39)
[2024-10-23] MEDS: doCUSate SODIUM 100 MG CAP PO SCH (19:39)
[2024-10-23] MEDS: acetaMINOPHEN 1,000 MG/100 ML VIAL IV SCH (19:40)
[2024-10-23 19:49] LABS: HEMATOCRIT 32.6 % (42-54); MEAN CORPUSCULAR HEMOGLOBIN 28.8 pg (27.0-33.0); MEAN CORPUSCULAR HGB CONC 33.1 g/dL (32.0-36.0); MEAN CORPUSCULAR VOLUME 86.9 fL (79-99); RED BLOOD CELL COUNT(AUTO) 3.75 MIL/uL (4.50-6.20); RED CELL DISTRIBUTION WIDTH 12.5 % (11.0-15.5)
--- NOTE | 2024-10-23 19:51 | HMCIMG ---
CHEST 1VW HISTORY: Post CABG COMPARISON: 10/23/2024 FINDINGS: A frontal projection of the chest was obtained. Mild bilateral pulmonary infiltrates are seen may be related to mild pulmonary vascular congestion with possible superimposed pneumonitis. Poststernotomy changes are seen. The heart is enlarged. Degenerative changes of the thoracolumbar spine are present. All the lines and tubes are again seen in place. No evidence of aortic calcification is seen. IMPRESSION: 1. Mild bilateral pulmonary infiltrates are seen may be related to mild pulmonary vascular congestion with possible superimposed pneumonitis. No change is seen.
[2024-10-23 19:56] LABS: INR 1.34 (0.85-1.15); PROTHROMBIN TIME 13.8 SEC (9.6-11.6)
[2024-10-23 19:58] LABS: PARTIAL THROMBOPLASTIN TIME 29.3 SEC (26.3-35.5)
[2024-10-23 19:59] LABS: MAGNESIUM 2.6 mg/dL (1.80-2.40)
[2024-10-23 20:11] LABS: ABG BASE EXCESS -3.6 mmol/L (-2.0-3.0); ABG HCO3 20.8 mmol/L (21.0-28.0); ABG OXYGEN SATURATION 97.6 % (94.0-98.0); ABG PCO2 35 mmHg (35-48); ABG PH 7.389 (7.350-7.450); CARBON MONOXIDE 0.3 % (0.5-1.5); DEVICE COMMENT CARLA RN ,AL; HHb 2.4; PO2, ARTERIAL BG 112.5 mmHg (83.0-108.0); VENT MODE, BG SIMV PS 10 (ROOM AIR)
[2024-10-23] MEDS: SODIUM BICARB 50MEQ 50ML VIAL IV PRN (20:17)
[2024-10-23] MEDS: PoTASSium chloRIDE 20MEQ/100ML 100 ML IV PRN (20:17)
[2024-10-23] MEDS: ALBUMIN (HUMAN) 5% 250 ML IV PRN (20:24)
[2024-10-23] MEDS ORDERED: furoSEMIDE 40MG VIAL IV SCH (21:00)
--- NOTE | 2024-10-23 21:31 | OP ---
DATE OF PROCEDURE: 10/23/2024 PREOPERATIVE DIAGNOSIS: Three-system coronary artery disease. POSTOPERATIVE DIAGNOSIS: Three-system coronary artery disease. PROCEDURES PERFORMED: * Off-pump coronary artery bypass grafting x 3 vessels (left internal mammary artery to the LAD, reverse saphenous vein graft from the aorta to the obtuse marginal artery, reverse saphenous vein graft from the aorta to the posterior descending artery). * Placement of a left atrial clip. * Rigid sternal fixation with the VIVIENNE sternal plating system. OPERATING SURGEON: Hesham Caballero MD CHEMICAL SUPERVISOR: Huong Luna. ANESTHESIOLOGIST: Dr. Persaud. TYPE OF ANESTHESIA: General endotracheal anesthesia. BRIEF HISTORY: The patient is a 58-year-old male with a history of diabetes mellitus, hypertension and hyperlipidemia, who had been complaining of shortness of breath. He was evaluated at [facility] and ruled in for a non-ST elevation MS. He underwent a workup by Cardiology including a heart catheterization, which revealed 3-system coronary artery disease. The patient presents now for surgical revascularization. FINDINGS: The patient did not have any clot in his left atrial appendage. His left anterior descending artery was small to moderate in size. He had multiple skip lesions within his coronary arteries. He did tolerate the procedure being performed off-pump. DESCRIPTION OF PROCEDURE: The patient was brought to the operating room and placed on the operating room table in the supine position. He was given general endotracheal anesthesia. After placing lines and catheters, his chest, abdomen and legs were prepped and draped in the usual sterile fashion. His left greater saphenous vein was harvested endoscopically and simultaneously, a median sternotomy was performed and the left internal mammary artery was taken down. The patient was given a total of 25,000 units of IV heparin. The left internal mammary artery was clamped and pulled out proximally and divided distally. The pericardium was opened in the midline and the distal LAD was stabilized with an Acrobat EpiCardial retractor. A 5-0 plain snare was placed proximal to the target site, which was opened longitudinally. The distal end of the left internal mammary artery was anastomosed to the side of the LAD over a 1-mm shunt using a running 7-0 Prolene suture. The Bulldog clamp and the snares were released and the LAD was perfused for maintenance procedure. We then turned our attention to clipping the left atrial appendage. This received a 45-mm AtriCure clip. Transesophageal echocardiogram revealed complete exclusion of the left atrial appendage. We then returned to the bypass procedure and the next vessel will be bypassed was second obtuse marginal coronary artery. This received the distal end of a reverse saphenous vein graft. An end-to-side anastomosis was performed over a 1-mm shunt using running 7-0 Prolene suture. This vein graft was draped under the left internal mammary artery and cut to appropriate length through each aorta. The final target was the posterior descending artery. This received the distal end of a second segment of the reverse saphenous vein graft. An end-to-side anastomosis was performed over a 1-mm shunt using running 7-0 Prolene suture and this vein graft was draped along the right side of the heart and cut to appropriate length through each aorta. A partial occlusion clamp was placed on the ascending aorta and two 4.0-mm aortotomy holes were made in the proximal ends of the vein grafts were anastomosed to the side of the aorta using a running 6-0 Prolene suture. The vein grafts were de-aired. Partial occlusion clamp removed and all three systems were revascularized. The patient was given protamine. The mediastinal and left chest were drained with a 24-Polish Benjamin drain, secured to the skin with silk sutures. The pericardium was loosely approximated to the heart and graft with several separate Ethibond sutures. The sternum was reapproximated with a combination of stainless sterile wires and VIVIENNE sternal plating system. The presternal fascia and subcutaneous tissues were closed with running layers of Vicryl suture. The skin was closed using a running intracuticular Monocryl stitch. The wounds were cleaned and dried, covered with bandages and the patient was undraped and taken intubated to the ICU in critical but stable condition. TID: [id number] RECEIPT: [id number] cc: COLUMBA GIBSON MD(User), Huong Luna,
[2024-10-23 21:46] LABS: ABG BASE EXCESS -5.6 mmol/L (-2.0-3.0); ABG HCO3 20.4 mmol/L (21.0-28.0); ABG OXYGEN SATURATION 98.2 % (94.0-98.0); ABG PCO2 42 mmHg (35-48); ABG PH 7.306 (7.350-7.450); CARBON MONOXIDE 0.3 % (0.5-1.5); DEVICE COMMENT ALINE ISAMAR; HHb 1.8; PO2, ARTERIAL BG 145.8 mmHg (83.0-108.0); VENT MODE, BG SIMV PS10 (ROOM AIR)
[2024-10-23] MEDS: ondanSETRON 4MG INJ IV PRN (22:07)
[2024-10-23] MEDS: ceFAZolin SODIUM 2 GM VIAL IVPB SCH (22:50)
[2024-10-23 22:57] LABS: ABG BASE EXCESS 0.8 mmol/L (-2.0-3.0); ABG HCO3 25.4 mmol/L (21.0-28.0); ABG PCO2 40 mmHg (35-48); ABG PH 7.419 (7.350-7.450); CARBON MONOXIDE 0.2 % (0.5-1.5); PO2, ARTERIAL BG 143.9 mmHg (83.0-108.0); VENT MODE, BG SIMV PS 10 (ROOM AIR)
[2024-10-24] VITALS (104 sets, daily range): BP systolic 97–163; BP diastolic 36–89; PULSE 92–126; RESP 11–42; TEMP 98.1–100.1; O2SAT 95–100
[2024-10-24 00:08] LABS: ABG BASE EXCESS -0.1 mmol/L (-2.0-3.0); ABG HCO3 24.4 mmol/L (21.0-28.0); ABG OXYGEN SATURATION 98.4 % (94.0-98.0); ABG PCO2 39 mmHg (35-48); ABG PH 7.415 (7.350-7.450); CARBON MONOXIDE 0.3 % (0.5-1.5); HHb 1.6; PO2, ARTERIAL BG 144.9 mmHg (83.0-108.0); VENT MODE, BG AC (ROOM AIR)
[2024-10-24 01:07] LABS: ABG HCO3 24.5 mmol/L (21.0-28.0); ABG OXYGEN SATURATION 97.9 % (94.0-98.0); ABG PCO2 39 mmHg (35-48); ABG PH 7.415 (7.350-7.450); CARBON MONOXIDE 0.2 % (0.5-1.5); HHb 2.1; PO2, ARTERIAL BG 139.7 mmHg (83.0-108.0); VENT MODE, BG SIMV PS 10 (ROOM AIR)
[2024-10-24 02:14] LABS: ABG BASE EXCESS 1.6 mmol/L (-2.0-3.0); ABG OXYGEN SATURATION 97.5 % (94.0-98.0); ABG PCO2 40 mmHg (35-48); CARBON MONOXIDE 0.2 % (0.5-1.5); HHb 2.5; PO2, ARTERIAL BG 122.7 mmHg (83.0-108.0); VENT MODE, BG CAFM (ROOM AIR)
[2024-10-24 04:22] LABS: BASOPHILS # (AUTO) 0.03 K/uL (0.00-0.20); BASOPHILS % (AUTO) 0.2 % (0.0-5.0); HEMATOCRIT 27.6 % (42-54); IMMATURE GRANULOCYTE ABSOLUTE 0.14 K/uL (0-1); LYMPHOCYTES # (AUTO) 0.4 K/uL (1.0-4.8); LYMPHOCYTES % (AUTO) 2.5 % (21.0-51.0); MEAN CORPUSCULAR HEMOGLOBIN 28.5 pg (27.0-33.0); MEAN CORPUSCULAR HGB CONC 32.6 g/dL (32.0-36.0); MEAN CORPUSCULAR VOLUME 87.3 fL (79-99); MONOCYTES # (AUTO) 1.4 K/uL (0.1-1.0); NEUTROPHILS # (AUTO) 13.7 K/uL (1.8-7.7); NEUTROPHILS % (AUTO) 87.4 % (40.0-77.0); PLATELET COUNT (AUTO) 469 K/uL (130-400); RED BLOOD CELL COUNT(AUTO) 3.16 MIL/uL (4.50-6.20); RED CELL DISTRIBUTION WIDTH 12.5 % (11.0-15.5); WHITE BLOOD COUNT (AUTO) 15.7 K/uL (4.8-10.8)
[2024-10-24 04:34] LABS: INR 1.25 (0.85-1.15)
[2024-10-24 04:36] LABS: PARTIAL THROMBOPLASTIN TIME 30.2 SEC (26.3-35.5)
[2024-10-24 04:38] LABS: CREATININE 1.3 mg/dL (0.5-1.3); MAGNESIUM 1.8 mg/dL (1.80-2.40); PHOSPHORUS 1.4 mg/dL (2.5-4.9); POTASSIUM 4.1 mmol/L (3.5-5.1)
[2024-10-24] MEDS: MAGNESIUM 2GM PREMIX 50ML 50 ML IV PRN (04:52)
[2024-10-24] MEDS: poTASSium PHOS 15 mMOL+NS250ML 250 ML IV PRN (04:58)
[2024-10-24 05:11] LABS: ABG BASE EXCESS 4.1 mmol/L (-2.0-3.0); ABG HCO3 28.1 mmol/L (21.0-28.0); ABG OXYGEN SATURATION 97.6 % (94.0-98.0); ABG PCO2 40 mmHg (35-48); ABG PH 7.462 (7.350-7.450); CARBON MONOXIDE 0.3 % (0.5-1.5); HHb 2.4; PO2, ARTERIAL BG 112.9 mmHg (83.0-108.0); VENT MODE, BG NC (ROOM AIR)
--- NOTE | 2024-10-24 07:34 | EKG ---
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 : 1965 Requested By: AICHA SALGADO Order Number: [id number] Reading MD: Syed Balderrama Measurements Intervals [place] Rate: 87 P: 82 W[place]: 147 QRS: 233 QRSD: 103 T: -58 QT: 406 QTc: 489 Interpretive Statements Sinus rhythm Low voltage with right axis deviation Posterior infarct, old Compared to ECG 10/23/2024 05:07:33 Right-axis deviation now present Low QRS voltage now present Myocardial infarct finding now present Left anterior fascicular block no longer present Incomplete right bundle-branch block no longer present Right bundle-branch block no longer present T-wave abnormality no longer present Possible ischemia no longer present Electronically Signed On 10-24-2024 13:38:30 CDT by Syed Balderrama Please click the below link to view image of tracing.
--- NOTE | 2024-10-24 08:26 | PN ---
[facility] CARDIOLOGY PROGRESS NOTE Date Patient Seen: Oct 24, 2024 Time of Visit: 08:25 Problem List: ACS NSTEMI MVCAD Interval History: POD 1 CABG with LA clipping Physical Examination: GENERAL: [No acute distress.] HEAD: [Normal with no signs of head trauma.] LUNGS: [Clear breath sounds bilaterally. diminished inspiraotry effort. on room air. No wheezes, or rhonchi.] HEART: [Normal rate and rhythm. Normal S1 and S2 without murmurs, gallop or rub.] VASC: [Peripheral pulses +2 bilaterally.] EXT: [No clubbing, cyanosis or edema.] SKIN: [No rashes or lesions noted.] NEURO: [Awake, alert, and oriented x3. No focal sensory or strength deficits noted.] Laboratory: [ ] Hematology Labs: Test 10/24/24 04:02 Range/Units White Blood Count 15.7 #H 4.8-10.8 K/uL Red Blood Count 3.16 L 4.50-6.20 MIL/uL Hemoglobin 9.0 L 14.0-18.0 g/dL Hematocrit 27.6 L 42-54 % Mean Corpuscular Volume 87.3 79-99 fL Mean Corpuscular Hemoglobin 28.5 27.0-33.0 pg Mean Corpuscular Hemoglobin Concent 32.6 32.0-36.0 g/dL Red Cell Distribution Width 12.5 11.0-15.5 % Platelet Count 469 H 130-400 K/uL Mean Platelet Volume 10.2 7.5-10.5 fL Immature Granulocyte % (Auto) 0.9 0-1 % Neutrophils (%) (Auto) 87.4 H 40.0-77.0 % Lymphocytes (%) (Auto) 2.5 L 21.0-51.0 % Monocytes (%) (Auto) 9.0 3.0-13.0 % Eosinophils (%) (Auto) 0.0 0.0-8.0 % Basophils (%) (Auto) 0.2 0.0-5.0 % Neutrophils # (Auto) 13.7 H 1.8-7.7 K/uL Lymphocytes # (Auto) 0.4 L 1.0-4.8 K/uL Monocytes # (Auto) 1.4 H 0.1-1.0 K/uL Eosinophils # (Auto) 0.00 0.00-0.70 K/uL Basophils # (Auto) 0.03 0.00-0.20 K/uL Absolute Immature Granulocyte (auto 0.14 0-1 K/uL Nucleated Red Blood Cells 0.0 0.0-0.19 % White Cell Morphology Comment See comments Chemistry Labs: Test 10/24/24 06:58 10/24/24 04:02 10/23/24 01:04 10/22/24 16:17 Range/Units Whole Blood Glucose 145 H 70-110 MG/DL Sodium Level 141 136-145 mmol/L Potassium Level 4.1 3.5-5.1 mmol/L Chloride Level 105 101-111 mmol/L Carbon Dioxide Level 31 21-32 mmol/L Blood Urea Nitrogen 19 H 7-18 mg/dL Creatinine 1.3 0.5-1.3 mg/dL Glomerular Filtration Rate Calc 63 >90 mL/min Random Glucose 176 H 70-105 mg/dL Total Calcium 9.9 8.5-10.1 mg/dL Ionized Calcium 1.28 1.15-1.33 MMOL/L Phosphorus Level 1.4 #L 2.5-4.9 mg/dL Magnesium Level 1.80 1.80-2.40 mg/dL Total Bilirubin 0.4 0.2-1.0 mg/dL Aspartate Amino Transf (AST/SGOT) 51 H 10-37 U/L Alanine Aminotransferase (ALT/SGPT) 88 H 12-78 U/L Alkaline Phosphatase 159 H 50-136 U/L B-Type Natriuretic Peptide 383 H 0-100 pg/mL Total Protein 8.3 6.0-8.3 g/dL Albumin 3.2 L 3.5-5.0 g/dL Bedside Glucose Comment Notified Nurse Coagulation Labs: Test 10/24/24 04:02 Range/Units Prothrombin Time 13.0 H 9.6-11.6 SEC Prothromb Time International Ratio 1.25 H 0.85-1.15 Activated Partial Thromboplast Time 30.2 26.3-35.5 SEC Impression and Plan: -ACS-NSTEMI s/p LHC/coronary angiogram done on 10/16/[address] Hilario Ward which identified severe 3V CAD (LAD, LCx, RCA) * Off-pump coronary artery bypass grafting x 3 vessels (left internal mammary artery to the LAD, reverse saphenous vein graft from the aorta to the obtuse marginal artery, reverse saphenous vein graft from the aorta to the posterior descending artery). * Placement of a left atrial clip. with Dr Caballero -[facility] (LVEF: 45% by echo done 10/17/2024) -Bilateral CAP -Bilateral ICA stenosis (>70% by Doppler done 10/17/2024) -HTN -HLP -DM2 -Tobacco abuse ASA, statin. Hold beta juanita while patient on vasopressor support Will plan for DAPT prior to discharge due to NSTEMI on presentation on lidocaine gtt for reported ectopy - patient NSR with sinus tach overnight. ALBANIA HAMEED DO Oct 24, 2024 08:26
[2024-10-24] MEDS: furoSEMIDE 20MG VIAL IV SCH (08:42)
--- NOTE | 2024-10-24 09:10 | HMCIMG ---
CHEST 1VW HISTORY: Post CABG COMPARISON: 10/23/2024 FINDINGS: A frontal projection of the chest was obtained. Mild bilateral pulmonary infiltrates are seen may be related to mild pulmonary vascular congestion with possible superimposed pneumonitis. Poststernotomy changes are seen. The heart is enlarged. Degenerative changes of the thoracolumbar spine are present. Degenerative changes are seen. No evidence of aortic calcification is seen. IMPRESSION: 1. Mild bilateral pulmonary infiltrates are seen may be related to mild pulmonary vascular congestion with possible superimposed pneumonitis.
--- NOTE | 2024-10-24 13:15 | NUR ---
REPORT REPORT GIVEN TO LYUBOV NINO.
--- NOTE | 2024-10-24 16:58 | PN ---
[facility] PROGRESS NOTE Date of Service: Oct 24, 2024 Time of Service: 16:54 SUBJECTIVE: 10/17 patient seen at bedside, no acute events overnight. He has been afebrile, hemodynamically stable saturating well on 5 L nasal cannula. Echocardiogram pending, we will follow up. Bilateral carotid Dopplers showing severe stenosis in both internal carotid arteries, we will follow up with CV surgery. Patient initially transferred for CABG, chest x-ray showing bilateral infiltrates, we will continue with diuresis and continue antibiotics to treat for possible underlying pneumonia. 10/18 patient seen at bedside, no acute events overnight. Patient has no complaints today at bedside. CABG is on hold while patient being treated for pneumonia. He was given a lab holiday today, we will repeat labs tomorrow . Repeat chest x-ray shows improvement in infiltrates bilaterally, we will continue with antibiotics and diuresis. Proximally 4 L urine output in the last 24 hours. 10/19 patient seen at bedside, no acute events overnight. His chest x-ray windows continue to improve with further diuresis. He has been afebrile, hemodynamically stable saturating 96% on 4 L nasal cannula. We will follow up with CV surgery on optimal timing for CABG. Proximally 2.9 L urine output in the last 24 hours. Labs are relatively unremarkable. 10/20 patient seen at bedside, no acute events overnight. CABG is still pending, we will follow up with CV surgery on timing. Vitals and labs relatively unremarkable. 10/21 patient seen at bedside, no acute events overnight. CABG is still pending, CV surgery planning on next week. Vitals and labs relatively unremarkable. 10/22 patient seen at bedside, no acute events overnight. CABG is still pending, CV surgery planning on next week. Vitals and labs relatively unremarkable. 10/23 patient seen at bedside, no acute events overnight. CABG is still pending, likely later tdoay. LFT mildly elevated, remainder of his labs are relatively unremarkable. 10/24 patient seen at bedside, no acute events overnight. Status post CABG postop day one, he has been extubated. Cordis and chest tubes are in place, to be managed by CV surgery. Start aggressive incentive spirometry. Mildly tachycardic, heart rate ranging between 103 up to 126, WBC improved from 25.0 down to 15.7, hemoglobin decreased from 10.8 down to 9.0, platelets improved from 535 down to 469, remainder of his labs are relatively unremarkable. REVIEW OF SYSTEMS 12 point review of systems negative unless noted in HPI PHYSICAL EXAM GENERAL APPEARANCE: The patient is awake, alert, and oriented, in no acute cardiopulmonary distress. NEUROLOGICAL: Cranial nerves II-XII grossly intact. Motor is 5/5 in bilateral upper and lower extremities proximal to distal. No sensory deficits. HEENT: Face is symmetric. Pupils are equal and reactive. Extraocular movements are intact. NECK: Supple. No JVD. No thyromegaly. No submental, submandibular, pre- /postauricular, occipital or supraclavicular lymphadenopathy. CHEST: Normal chest expansion. No Telemetry. LUNGS: Absence of any rales, rhonchi or any wheezing. CARDIOVASCULAR: Regular. S1 and S2 normal. No appreciable rubs, murmurs or gallops. ABDOMEN: Soft, nontender, and nondistended. There is no rebound, voluntary guarding, or rigidity. : Deferred. No Henao. EXTREMITIES: Non-edematous and not cyanotic. No clubbing. Good capillary refill. SKIN: No skin breakdown. Vital Signs (last 8hr) Date Time Temp Pulse Resp B/P (MAP) Pulse Ox O2 Delivery O2 Flow Rate FiO2 10/24/24 16:00 96 Nasal Cannula* 3 32 10/24/24 14:45 103 34 133/55 (81) 96 120/70 (87) 10/24/24 14:30 104 35 146/57 (86) 95 125/68 (87) 10/24/24 14:15 104 35 146/57 (86) 95 125/68 (87) 10/24/24 14:00 104 42 144/59 (87) 96 130/76 (94) 10/24/24 13:45 126 31 163/89 (113) 94 138/73 (94) 10/24/24 13:30 101 24 128/49 (75) 96 118/61 (80) 10/24/24 13:15 101 24 128/49 (75) 96 118/61 (80) 10/24/24 13:00 100 27 128/48 (74) 95 117/59 (78) 10/24/24 12:45 102 26 147/54 (85) 97 125/66 (85) 10/24/24 12:30 103 29 131/53 (79) 97 112/66 (81) 10/24/24 12:15 102 27 138/53 (81) 95 112/66 (81) 10/24/24 12:00 98.1 105 32 131/53 (79) 93 117/60 (79) 10/24/24 12:00 98.1 10/24/24 12:00 95 Nasal Cannula* 3 32 10/24/24 11:45 103 22 139/56 (83) 94 10/24/24 11:30 104 28 150/56 (87) 97 132/65 (87) 10/24/24 11:15 101 28 138/54 (82) 97 131/68 (89) 10/24/24 11:00 100 26 142/52 (82) 98 129/64 (85) 10/24/24 10:45 99 17 124/48 (73) 96 110/60 (77) 10/24/24 10:30 99 28 138/52 (80) 97 114/63 (80) 10/24/24 10:15 98 24 125/49 (74) 97 120/56 (77) 10/24/24 10:00 98 24 125/49 (74) 98 119/62 (81) 10/24/24 09:45 97 11 122/47 (72) 98 106/58 (74) 10/24/24 09:30 98 25 140/50 (80) 97 119/59 (79) 10/24/24 09:15 96 28 132/51 (78) 98 10/24/24 09:00 101 28 162/57 (92) 96 130/70 (90) LABS: Laboratory: Test 10/24/24 16:14 10/24/24 05:09 10/24/24 04:02 10/24/24 01:05 Range/Units Whole Blood Glucose 110 70-110 MG/DL Blood Gas Specimen Type Arterial Arterial Blood pH 7.462 H 7.350-7.450 Arterial Blood Partial Pressure CO2 40 35-48 mmHg Arterial Blood Partial Pressure O2 112.9 H 83.0-108.0 mmHg Arterial Blood HCO3 28.1 H 21.0-28.0 mmol/L Arterial Blood Oxygen Saturation 97.6 94.0-98.0 % Arterial Blood Base Excess 4.1 H -2.0-3.0 mmol/L Hemoglobin (Blood Gas) 10.1 L 13.5-17.5 g/dL Sodium (Blood Gas) 140 136-145 MMOL/L Bedside Potassium (Blood Gas) 4.4 3.4-4.5 MMOL/L Bedside Chloride (Blood Gas) 106 98-107 MMOL/L Bedside Glucose (Blood Gas) 172 H 65-95 MG/DL Bedside Ionized Calcium (Blood Gas) 1.31 1.15-1.33 MMOL/L Bedside Lactic Acid (Blood Gas) 3.49 *H 0.36-0.75 MMOL/L Blood Gas Temperature 37.0 35.5-37.0 CELSIUS Blood Gas Flow-by 3.00 0.00-15.00 L/min Blood Gas Vent Mode NC ROOM AIR FiO2 32.0 % Blood Gas Specimen Comment WINSTON NINO,AL White Blood Count 15.7 #H 4.8-10.8 K/uL Red Blood Count 3.16 L 4.50-6.20 MIL/uL Hemoglobin 9.0 L 14.0-18.0 g/dL Hematocrit 27.6 L 42-54 % Mean Corpuscular Volume 87.3 79-99 fL Mean Corpuscular Hemoglobin 28.5 27.0-33.0 pg Mean Corpuscular Hemoglobin Concent 32.6 32.0-36.0 g/dL Red Cell Distribution Width 12.5 11.0-15.5 % Platelet Count 469 H 130-400 K/uL Mean Platelet Volume 10.2 7.5-10.5 fL Immature Granulocyte % (Auto) 0.9 0-1 % Neutrophils (%) (Auto) 87.4 H 40.0-77.0 % Lymphocytes (%) (Auto) 2.5 L 21.0-51.0 % Monocytes (%) (Auto) 9.0 3.0-13.0 % Eosinophils (%) (Auto) 0.0 0.0-8.0 % Basophils (%) (Auto) 0.2 0.0-5.0 % Neutrophils # (Auto) 13.7 H 1.8-7.7 K/uL Lymphocytes # (Auto) 0.4 L 1.0-4.8 K/uL Monocytes # (Auto) 1.4 H 0.1-1.0 K/uL Eosinophils # (Auto) 0.00 0.00-0.70 K/uL Basophils # (Auto) 0.03 0.00-0.20 K/uL Absolute Immature Granulocyte (auto 0.14 0-1 K/uL Nucleated Red Blood Cells 0.0 0.0-0.19 % White Cell Morphology Comment See comments Prothrombin Time 13.0 H 9.6-11.6 SEC Prothromb Time International Ratio 1.25 H 0.85-1.15 Activated Partial Thromboplast Time 30.2 26.3-35.5 SEC Sodium Level 141 136-145 mmol/L Potassium Level 4.1 3.5-5.1 mmol/L Chloride Level 105 101-111 mmol/L Carbon Dioxide Level 31 21-32 mmol/L Blood Urea Nitrogen 19 H 7-18 mg/dL Creatinine 1.3 0.5-1.3 mg/dL Glomerular Filtration Rate Calc 63 >90 mL/min Random Glucose 176 H 70-105 mg/dL Total Calcium 9.9 8.5-10.1 mg/dL Ionized Calcium 1.28 1.15-1.33 MMOL/L Phosphorus Level 1.4 #L 2.5-4.9 mg/dL Magnesium Level 1.80 1.80-2.40 mg/dL Blood Gas Respiration Rate 4.0 min. Blood Gas Tidal Volume 750 ml Blood Gas PEEP 5 cm H2O Test 10/23/24 01:04 Range/Units Total Bilirubin 0.4 0.2-1.0 mg/dL Aspartate Amino Transf (AST/SGOT) 51 H 10-37 U/L Alanine Aminotransferase (ALT/SGPT) 88 H 12-78 U/L Alkaline Phosphatase 159 H 50-136 U/L B-Type Natriuretic Peptide 383 H 0-100 pg/mL Total Protein 8.3 6.0-8.3 g/dL Albumin 3.2 L 3.5-5.0 g/dL Current Medications Medications (Trade) Dose Ordered Sig/Meagan Route PRN Reason Start Time Stop Time Status Last Admin Dose Admin Acetaminophen (TYLenol 325MG TAB) 650 mg Q4H PRN PO MILD PAIN (1-3) 10/16/24 20:00 10/17/24 08:13 DC Acetaminophen (TYLenol 325MG TAB) 650 mg Q4H PRN PO Temp >38.3C(AFTER EXTUBATION) 10/23/24 17:00 11/22/24 16:59 Acetaminophen (TYLenol 325MG TAB) 650 mg Q6H PRN PO MILD PAIN (1-3) 10/16/24 17:30 10/24/24 14:21 DC 10/16/24 21:31 650 MG Acetaminophen (TYLenol 325MG TAB) 650 mg Q6H PRN PO TEMPERATURE GREATER THAN 101.5 10/16/24 20:00 10/24/24 14:21 DC Acetaminophen (TYLenol 325MG TAB) 650 mg Q6H PRN PO MILD PAIN (1-3) 10/23/24 17:00 11/22/24 16:59 Acetaminophen (TYLenol 650MG SUPPOSITORY) 650 mg Q4H PRN RC Temp >38.3C WHILE INTUBATED 10/23/24 17:00 11/22/24 16:59 Acetaminophen (acetaMINOPHEN) 1,000 mg Q6H6 IV 10/23/24 20:00 10/24/24 19:59 10/24/24 14:43 1,000 MG Albumin Human 250 ml @ 0 mls/hr AD PRN IV IF HEMODYNAMICALLY UNSTABLE 10/23/24 17:00 10/23/24 20:25 DC 10/23/24 20:24 250 MLS/HR Albuterol Sulfate (Proventil 0.083% 2.5mg/3ml) 0.63 mg Q6H6 PRN IH SHORTNESS OF BREATH 10/16/24 18:00 11/15/24 17:59 Aminocaproic Acid 42893 mg/Sodium Chloride 310 ml @ 25 mls/hr AD IV 10/23/24 17:00 10/23/24 17:33 DC Aminocaproic Acid 85053 mg/Sodium Chloride 480 ml @ 0 mls/hr AD PRN IV BLEEDING CONTROL 10/17/24 07:00 10/23/24 10:13 DC Aminocaproic Acid 57525 mg/Sodium Chloride 480 ml @ 0 mls/hr AD PRN IV BLEEDING CONTROL 10/23/24 10:30 11/22/24 10:29 Aspirin (Aspirin 81mg Ec Tab) 81 mg DAILY PO 10/17/24 09:00 11/16/24 08:59 10/24/24 08:42 81 MG Atorvastatin Calcium (LIPItor 40MG) 80 mg HS PO 10/17/24 21:00 11/16/24 20:59 10/23/24 19:39 80 MG Azithromycin 250 ml @ 250 mls/hr Q24H IVPB 10/16/24 21:00 10/26/24 20:59 10/23/24 20:06 250 MLS/HR Calcium Carbonate (Tums 500 Mg Chew Tab) 500 tab ONCE PO 10/22/24 13:00 10/23/24 17:00 DC 10/22/24 12:56 500 TAB Calcium Carbonate (Tums 500 Mg Chew Tab) 500 tab TIDAC PO 10/22/24 17:00 10/22/24 12:57 DC Calcium Gluconate 1 gm/Sodium Chloride 60 ml @ 200 mls/hr AD PRN IV HYPOCALCEMIA 10/23/24 17:00 11/22/24 16:59 Cefazolin Sodium (Ancef) 2 gm ONCALL IVP 10/16/24 23:00 10/18/24 22:59 DC 10/16/24 23:21 2 GM Cefazolin Sodium (Ancef) 2 gm ONCALL IVP 10/22/24 21:30 10/24/24 09:22 DC Cefazolin Sodium (Ancef) 2 gm Q8H IVPB 10/23/24 22:00 10/24/24 14:01 DC 10/24/24 14:33 2 GM Ceftriaxone Sodium (Rocephin 2gm Inj) 2 gm Q24H IVPB 10/17/24 09:30 10/27/24 09:29 10/24/24 08:47 2 GM Dexmedetomidine/ Sodium Chloride (PRECEdex 400MCG/ 100ML-NS) 400 mcg PROTOCOL IV 10/23/24 17:00 10/24/24 16:59 Dextrose (D50w) 50 ml AD PRN IV HYPOGLYCEMIA PROTOCOL 10/23/24 17:00 11/22/24 16:59 Docusate Sodium (COLace 100MG CAP) 100 mg BID PO 10/23/24 21:00 11/22/24 20:59 10/24/24 08:42 100 MG Epinephrine HCl 10 mg/Sodium Chloride 250 ml @ 0 mls/hr AD PRN IV TITRATE 10/17/24 07:00 10/23/24 10:13 DC Epinephrine HCl 10 mg/Sodium Chloride 250 ml @ 0 mls/hr AD PRN IV TITRATE 10/23/24 10:30 11/22/24 10:29 Epinephrine HCl 10 mg/Sodium Chloride 250 ml @ 0 mls/hr AD PRN IV POST-OP CARDIOVASCULAR ORDERS 10/23/24 17:00 10/23/24 17:33 DC Famotidine (Pepcid 20mg Vial) 20 mg BID IV 10/23/24 21:00 11/22/24 20:59 10/24/24 08:42 20 MG Famotidine (Pepcid 20mg Vial) 20 mg DAILY IV 10/17/24 09:00 10/23/24 17:00 DC 10/23/24 11:19 20 MG Furosemide (LASix 20MG TAB) 20 mg Q12H PO 10/25/24 09:00 11/24/24 08:59 Furosemide (LASix 20MG VIAL) 20 mg BID IV 10/17/24 13:00 10/20/24 15:34 DC 10/20/24 09:37 20 MG Furosemide (LASix 20MG VIAL) 20 mg Q12H IV 10/24/24 09:00 10/25/24 08:59 10/24/24 08:42 20 MG Furosemide (LASix 20MG VIAL) 40 mg BID IV 10/20/24 21:00 10/23/24 09:51 DC 10/22/24 22:06 40 MG Furosemide (LASix 40MG VIAL) 40 mg BID IV 10/23/24 21:00 10/23/24 17:00 DC Glucagon (Glucagon 1mg Kit) 1 mg AD PRN IM HYPOGLYCEMIA PROTOCOL 10/23/24 17:00 11/22/24 16:59 Heparin Sodium (Porcine) (HEParin 5,000 UNIT VIAL) *calculation based on ACTUAL B... AD PRN IV HEPARIN PROTOCOL 10/16/24 18:00 10/23/24 17:00 DC 10/17/24 16:00 3,000 UNIT Heparin Sodium/ Dextrose 250 ml @ 0 mls/hr Q6H IV 10/16/24 18:00 10/23/24 09:45 DC 10/22/24 11:41 14.9 MLS/HR Hydroxyzine HCl (ATArax 25MG TAB) 12.5 mg TID PRN PO ITCHING 10/16/24 17:30 10/23/24 17:00 DC 10/20/24 20:54 12.5 MG Insulin Glargine (LANtus 100 UNITS/ML 10 ML VIAL) 15 units HS SQ 10/16/24 21:00 10/23/24 17:00 DC 10/22/24 22:09 15 UNITS Insulin Human Lispro (HumaLOG LISpro 100 UNIT/ML 3ML) 5 unit TIDAC SQ 10/17/24 07:30 10/23/24 17:00 DC 10/22/24 16:47 5 UNIT Insulin Human Lispro (HumaLOG LISpro 100 UNIT/ML 3ML) INSULIN SLIDING SCAL... ACHS SQ 10/16/24 21:00 10/23/24 17:00 DC 10/22/24 22:08 5 UNIT Insulin Human Regular 100 unit/ Sodium Chloride 100 ml @ 0 mls/hr AD IV 10/23/24 17:00 10/25/24 16:59 Lactulose (Constulose 20gm/ 30ml Udcup) 20 gm BID PRN PO CONSTIPATION 10/22/24 10:00 10/23/24 17:00 DC 10/22/24 11:41 20 GM Lactulose (Constulose 20gm/ 30ml Udcup) 20 gm BID PRN PO CONSTIPATION 10/23/24 17:00 11/22/24 16:59 Lidocaine (Lidocaine Patch 4%) 1 each DAILY TP 10/16/24 21:20 11/15/24 21:19 10/24/24 08:42 1 EACH Lisinopril (Prinivil 5mg) 5 mg DAILY PO 10/17/24 09:00 10/23/24 17:00 DC 10/22/24 09:48 5 MG Magnesium Hydroxide (Milk Of Magnesium 30ml) 30 ml DAILY PRN PO CONSTIPATION 10/23/24 17:00 11/22/24 16:59 Magnesium Sulfate 50 ml @ 12.5 mls/hr AD PRN IV MAG LEVEL LESS THAN 2.0 10/23/24 17:00 11/22/24 16:59 10/24/24 04:52 12.5 MLS/HR Metoprolol Tartrate (loprESSOR) 12.5 mg BID PO 10/16/24 21:00 10/23/24 17:00 DC 10/23/24 09:43 12.5 MG Morphine Sulfate (morPHINE 2MG SYG) 0.5 mg Q2H PRN IV MODERATE PAIN (4-6) 10/23/24 17:00 10/24/24 16:59 Morphine Sulfate (morPHINE 2MG SYG) 1 mg Q2H PRN IV SEVERE PAIN (7-10) 10/23/24 17:00 10/24/24 16:59 Nitroglycerin (Nitrostat) 0.4 mg PROTOCOL PRN SL CHEST PAIN 10/16/24 20:00 10/23/24 17:00 DC Nitroglycerin/ Dextrose 0 ml @ 0 mls/hr AD IV 10/23/24 17:00 10/26/24 16:59 Norepinephrine Bitartrate 250 ml @ 0 mls/hr AD PRN IV TITRATE 10/17/24 07:00 10/23/24 10:13 DC Norepinephrine Bitartrate 250 ml @ 0 mls/hr AD PRN IV TITRATE 10/23/24 10:30 11/22/24 10:29 Norepinephrine Bitartrate 8 mg/ Dextrose 250 ml @ 0 mls/hr AD PRN IV POST-OP CARDIOVASCULAR ORDERS 10/23/24 17:00 10/23/24 17:33 DC Ondansetron HCl (zoFRAN 4MG INJ) 4 mg Q12H PRN IVP NAUSEA/VOMITING 10/16/24 17:30 10/17/24 08:13 DC Ondansetron HCl (zoFRAN 4MG INJ) 4 mg Q6H PRN IV NAUSEA/VOMITING 10/16/24 20:00 10/23/24 17:00 DC Ondansetron HCl (zoFRAN 4MG INJ) 4 mg Q6H PRN IV NAUSEA/VOMITING 10/23/24 17:00 11/22/24 16:59 10/24/24 08:42 4 MG Potassium Phosphate 250 ml @ 42 mls/hr AD PRN IV LOW PHOS LEVEL 10/23/24 17:00 11/22/24 16:59 10/24/24 04:58 42 MLS/HR Potassium Chloride 100 ml @ 100 mls/hr AD PRN IV HYPOKALEMIA 10/23/24 17:00 11/22/24 16:59 10/24/24 00:12 100 MLS/HR Propofol 100 ml @ 0 mls/hr AD PRN IV SEDATION 10/23/24 17:00 10/27/24 16:59 Sodium Bicarbonate (Sodium Bicarb 50meq 50ml Vial) 50 meq AD PRN IV OTHER[SEE DOSING INSTRUCTIONS] 10/23/24 17:00 10/26/24 16:59 10/23/24 22:14 50 MEQ Sodium Chloride 500 ml @ 0 mls/hr AD IV 10/23/24 17:00 11/22/24 16:59 Sodium Chloride 1,000 ml @ 10 mls/hr ONCE IV 10/23/24 17:00 10/24/24 16:59 10/23/24 19:36 10 MLS/HR Sodium Chloride (NS Flush 10ml) 10 ml Q8H PRN IVP IV LINE FLUSH 10/23/24 17:00 11/22/24 16:59 Tramadol HCl (UltRAM) 25 mg Q6H PRN PO MODERATE PAIN (4-6) 10/23/24 17:00 10/28/24 16:59 Tramadol HCl (UltRAM) 50 mg Q6H PRN PO SEVERE PAIN (7-10) 10/23/24 17:00 10/28/24 16:59 DIAGNOSTICS / RADIOLOGY: [ ] ASSESSMENT: NSTEMI POA Multivessel Coronary artery disease, status post CABG (10/23/24) POA Chronic pulmonary edema, resolved POA Acute respiratory failure, resolved POA Bilateral carotid stenosis > 70%, POA Hypertension POA Uncontrolled diabetes POA Nicotine dependence POA Hyperlipidemia POA Obesity POA Bilateral pneumonia POA PLAN: Continue chest tube, management per CV surgery Continue famotidine 20 mg IV daily for GI prophylaxis Continue aspirin 81 mg p.o. daily and metoprolol 12.5 mg p.o. b.i.d. Continue Rocephin 2 g IV and azithromycin IV for broad-spectrum coverage Continue furosemide 20mg BID Continue lisinopril 5mg q24h Continue oxygen supplementation to keep saturation between 88-92% Continue insulin sliding scale AC & HS with hypoglycemia protocol CV surgery consulted, appreciate recommendations Cardiology consulted, appreciate recommendations Disposition: Pending post op course FLAKITA BENNETT MD Oct 24, 2024 16:58
[2024-10-25] VITALS (42 sets, daily range): BP systolic 95–147; BP diastolic 41–92; PULSE 94–109; RESP 16–34; TEMP 97.6–98.5; O2SAT 93–98
--- NOTE | 2024-10-25 00:06 | PN ---
SUBJECTIVE: The patient is postop day #1 from coronary artery bypass grafting. The patient is extubated and sitting up in a bedside chair. He is on a low dose of epinephrine and on a lidocaine drip at 1 mg/min. He has had no further arrhythmias. OBJECTIVE: VITAL SIGNS: Temperature 98.1, blood pressure 112/66, pulse 103, respirations 29, and oxygen saturation 97%. HEENT: Reveals normocephalic, atraumatic. Extraocular movements intact. HEART: S1 and S2 and tachycardic. CHEST: His sternal wound is bandaged. His chest tubes are in place with 330 mL of total output since the time of surgery yesterday. He has right cervical [place]-Trevor catheter reading a cardiac index of 4.9 beats per minute on an epinephrine drip at 0.04 mcg per kilo per minute. He is also wearing nasal cannula oxygen prongs under his nose. ABDOMEN: Reveals positive bowel sounds. GENITOURINARY: He has Henao catheter in his bladder. EXTREMITIES: He has SCDs and MITCHELL stockings on his lower extremities. He has left radial art line. LABORATORY DATA: Hemoglobin is 9.0, BUN is 19, and creatinine is 1.3. ASSESSMENT AND PLAN: * Status post coronary bypass grafting. We will discontinue his lidocaine drip. Wean off from the epinephrine drip. Once he is off the epinephrine drip, his [place]-Trevor catheter as outlined to be discontinued. Begin aspirin and Lasix. * Postoperative acute pulmonary insufficiency. Wean nasal cannula oxygen, maintain oxygen saturations greater than 90%. Encouraged incentive spirometry. * Hypercholesterolemia. Begin Lipitor 80 mg p.o. at bedtime and low cholesterol cardiac diet. * DVT prophylaxis. SCDs to lower extremities. TID: [id number] RECEIPT: [id number]
[2024-10-25 04:11] LABS: BASOPHILS # (AUTO) 0.03 K/uL (0.00-0.20); BASOPHILS % (AUTO) 0.2 % (0.0-5.0); EOSINOPHILS # (AUTO) 0.01 K/uL (0.00-0.70); EOSINOPHILS % (AUTO) 0.1 % (0.0-8.0); HEMATOCRIT 26.7 % (42-54); IMMATURE GRANULOCYTE ABSOLUTE 0.15 K/uL (0-1); LYMPHOCYTES % (AUTO) 6.7 % (21.0-51.0); MEAN CORPUSCULAR HEMOGLOBIN 28.8 pg (27.0-33.0); MEAN CORPUSCULAR HGB CONC 32.2 g/dL (32.0-36.0); MEAN CORPUSCULAR VOLUME 89.3 fL (79-99); MONOCYTES # (AUTO) 1.3 K/uL (0.1-1.0); MONOCYTES % (AUTO) 8.4 % (3.0-13.0); NEUTROPHILS # (AUTO) 12.7 K/uL (1.8-7.7); NEUTROPHILS % (AUTO) 83.6 % (40.0-77.0); PLATELET COUNT (AUTO) 324 K/uL (130-400); RED BLOOD CELL COUNT(AUTO) 2.99 MIL/uL (4.50-6.20); RED CELL DISTRIBUTION WIDTH 13.2 % (11.0-15.5); WHITE BLOOD COUNT (AUTO) 15.2 K/uL (4.8-10.8)
[2024-10-25 04:23] LABS: CREATININE 0.9 mg/dL (0.5-1.3); POTASSIUM 4.2 mmol/L (3.5-5.1)
[2024-10-25] MEDS: INSULIN humuLIN R 100 UNIT/ML 3ML SQ SCH (07:30)
[2024-10-25] MEDS: furoSEMIDE 20 MG TABLET PO SCH (08:33)
[2024-10-25] MEDS: acetaMINOPHEN 325 MG TAB PO PRN (08:57)
--- NOTE | 2024-10-25 11:53 | HMCIMG ---
CHEST 1VW HISTORY: Post CABG COMPARISON: 10/24/2024 FINDINGS: A frontal projection of the chest was obtained. Mild bilateral pulmonary infiltrates are seen may be related to mild pulmonary vascular congestion with possible superimposed pneumonitis. Poststernotomy changes are seen. The heart is enlarged. Degenerative changes of the thoracolumbar spine are present. All the lines and tubes are again seen in place. No evidence of aortic calcification is seen. IMPRESSION: 1. Mild bilateral pulmonary infiltrates are seen may be related to mild pulmonary vascular congestion with possible superimposed pneumonitis.
--- NOTE | 2024-10-25 14:33 | PN ---
[facility] PROGRESS NOTE Date of Service: Oct 25, 2024 Time of Service: 14:28 SUBJECTIVE: 10/17 patient seen at bedside, no acute events overnight. He has been afebrile, hemodynamically stable saturating well on 5 L nasal cannula. Echocardiogram pending, we will follow up. Bilateral carotid Dopplers showing severe stenosis in both internal carotid arteries, we will follow up with CV surgery. Patient initially transferred for CABG, chest x-ray showing bilateral infiltrates, we will continue with diuresis and continue antibiotics to treat for possible underlying pneumonia. 10/18 patient seen at bedside, no acute events overnight. Patient has no complaints today at bedside. CABG is on hold while patient being treated for pneumonia. He was given a lab holiday today, we will repeat labs tomorrow . Repeat chest x-ray shows improvement in infiltrates bilaterally, we will continue with antibiotics and diuresis. Proximally 4 L urine output in the last 24 hours. 10/19 patient seen at bedside, no acute events overnight. His chest x-ray windows continue to improve with further diuresis. He has been afebrile, hemodynamically stable saturating 96% on 4 L nasal cannula. We will follow up with CV surgery on optimal timing for CABG. Proximally 2.9 L urine output in the last 24 hours. Labs are relatively unremarkable. 10/20 patient seen at bedside, no acute events overnight. CABG is still pending, we will follow up with CV surgery on timing. Vitals and labs relatively unremarkable. 10/21 patient seen at bedside, no acute events overnight. CABG is still pending, CV surgery planning on next week. Vitals and labs relatively unremarkable. 10/22 patient seen at bedside, no acute events overnight. CABG is still pending, CV surgery planning on next week. Vitals and labs relatively unremarkable. 10/23 patient seen at bedside, no acute events overnight. CABG is still pending, likely later tdoay. LFT mildly elevated, remainder of his labs are relatively unremarkable. 10/24 patient seen at bedside, no acute events overnight. Status post CABG postop day one, he has been extubated. Cordis and chest tubes are in place, to be managed by CV surgery. Start aggressive incentive spirometry. Mildly tachycardic, heart rate ranging between 103 up to 126, WBC improved from 25.0 down to 15.7, hemoglobin decreased from 10.8 down to 9.0, platelets improved from 535 down to 469, remainder of his labs are relatively unremarkable. 10/25 patient seen at bedside, no acute events overnight. He is status post CABG postop day two, Cordis and chest tube are still in place, we will defer to CV surgery for management. Patient's only complaint is some nick-incisional pain, well controlled with current pain management. He has been mildly tachycardic with heart rate ranging from 101 up to 104, hemodynamically stable saturating well on 2 L nasal cannula. WBC improved from 15.7 down to 15.2, hemoglobin decreased from 9.0 down to 8.6, platelets decreased from 469 down to 324, remainder of his labs are relatively unremarkable. Continue with spirometry and physical therapy REVIEW OF SYSTEMS 12 point review of systems negative unless noted in HPI PHYSICAL EXAM GENERAL APPEARANCE: The patient is awake, alert, and oriented, in no acute cardiopulmonary distress. NEUROLOGICAL: Cranial nerves II-XII grossly intact. Motor is 5/5 in bilateral upper and lower extremities proximal to distal. No sensory deficits. HEENT: Face is symmetric. Pupils are equal and reactive. Extraocular movements are intact. NECK: Supple. No JVD. No thyromegaly. No submental, submandibular, pre- /postauricular, occipital or supraclavicular lymphadenopathy. CHEST: Normal chest expansion. No Telemetry. LUNGS: Absence of any rales, rhonchi or any wheezing. CARDIOVASCULAR: Regular. S1 and S2 normal. No appreciable rubs, murmurs or gallops. ABDOMEN: Soft, nontender, and nondistended. There is no rebound, voluntary guarding, or rigidity. : Deferred. No Henao. EXTREMITIES: Non-edematous and not cyanotic. No clubbing. Good capillary refill. SKIN: No skin breakdown. Vital Signs (last 8hr) Date Time Temp Pulse Resp B/P (MAP) Pulse Ox O2 Delivery O2 Flow Rate FiO2 10/25/24 14:00 102 31 112/61 95 Nasal Cannula 2.0 10/25/24 13:00 101 28 114/59 96 Nasal Cannula 2.0 10/25/24 12:04 93 Nasal Cannula* 2 28 10/25/24 12:00 104 22 126/67 94 Nasal Cannula 2.0 10/25/24 11:28 93 Nasal Cannula 2.0 10/25/24 11:23 85 Room Air 10/25/24 11:00 97.5 100 29 130/65 91 Room Air 10/25/24 10:25 97 Room Air 10/25/24 10:00 102 28 111/57 96 Nasal Cannula 3.0 10/25/24 09:00 104 34 115/60 95 Nasal Cannula 3.0 10/25/24 08:00 105 26 115/54 94 Nasal Cannula 3.0 10/25/24 07:00 102 26 115/59 97 Nasal Cannula 3.0 10/25/24 06:45 100 23 121/62 (81) 93 10/25/24 06:44 100 16 N/Cannula Low lpm 3.0 32 10/25/24 06:30 106 21 120/71 (87) 95 LABS: Laboratory: Test 10/25/24 11:48 10/25/24 03:46 10/24/24 05:09 10/24/24 04:02 Range/Units Whole Blood Glucose 141 H 70-110 MG/DL White Blood Count 15.2 H 4.8-10.8 K/uL Red Blood Count 2.99 L 4.50-6.20 MIL/uL Hemoglobin 8.6 L 14.0-18.0 g/dL Hematocrit 26.7 L 42-54 % Mean Corpuscular Volume 89.3 79-99 fL Mean Corpuscular Hemoglobin 28.8 27.0-33.0 pg Mean Corpuscular Hemoglobin Concent 32.2 32.0-36.0 g/dL Red Cell Distribution Width 13.2 11.0-15.5 % Platelet Count 324 # 130-400 K/uL Mean Platelet Volume 10.1 7.5-10.5 fL Immature Granulocyte % (Auto) 1.0 0-1 % Neutrophils (%) (Auto) 83.6 H 40.0-77.0 % Lymphocytes (%) (Auto) 6.7 L 21.0-51.0 % Monocytes (%) (Auto) 8.4 3.0-13.0 % Eosinophils (%) (Auto) 0.1 0.0-8.0 % Basophils (%) (Auto) 0.2 0.0-5.0 % Neutrophils # (Auto) 12.7 H 1.8-7.7 K/uL Lymphocytes # (Auto) 1.0 1.0-4.8 K/uL Monocytes # (Auto) 1.3 H 0.1-1.0 K/uL Eosinophils # (Auto) 0.01 0.00-0.70 K/uL Basophils # (Auto) 0.03 0.00-0.20 K/uL Absolute Immature Granulocyte (auto 0.15 0-1 K/uL Nucleated Red Blood Cells 0.0 0.0-0.19 % Sodium Level 138 136-145 mmol/L Potassium Level 4.2 3.5-5.1 mmol/L Chloride Level 103 101-111 mmol/L Carbon Dioxide Level 31 21-32 mmol/L Blood Urea Nitrogen 18 7-18 mg/dL Creatinine 0.9 0.5-1.3 mg/dL Glomerular Filtration Rate Calc 98 >90 mL/min Random Glucose 88 70-105 mg/dL Total Calcium 9.0 8.5-10.1 mg/dL Blood Gas Specimen Type Arterial Arterial Blood pH 7.462 H 7.350-7.450 Arterial Blood Partial Pressure CO2 40 35-48 mmHg Arterial Blood Partial Pressure O2 112.9 H 83.0-108.0 mmHg Arterial Blood HCO3 28.1 H 21.0-28.0 mmol/L Arterial Blood Oxygen Saturation 97.6 94.0-98.0 % Arterial Blood Base Excess 4.1 H -2.0-3.0 mmol/L Hemoglobin (Blood Gas) 10.1 L 13.5-17.5 g/dL Sodium (Blood Gas) 140 136-145 MMOL/L Bedside Potassium (Blood Gas) 4.4 3.4-4.5 MMOL/L Bedside Chloride (Blood Gas) 106 98-107 MMOL/L Bedside Glucose (Blood Gas) 172 H 65-95 MG/DL Bedside Ionized Calcium (Blood Gas) 1.31 1.15-1.33 MMOL/L Bedside Lactic Acid (Blood Gas) 3.49 *H 0.36-0.75 MMOL/L Blood Gas Temperature 37.0 35.5-37.0 CELSIUS Blood Gas Flow-by 3.00 0.00-15.00 L/min Blood Gas Vent Mode NC ROOM AIR FiO2 32.0 % Blood Gas Specimen Comment WINSTON NINO,AL White Cell Morphology Comment See comments Prothrombin Time 13.0 H 9.6-11.6 SEC Prothromb Time International Ratio 1.25 H 0.85-1.15 Activated Partial Thromboplast Time 30.2 26.3-35.5 SEC Ionized Calcium 1.28 1.15-1.33 MMOL/L Phosphorus Level 1.4 #L 2.5-4.9 mg/dL Magnesium Level 1.80 1.80-2.40 mg/dL Test 10/24/24 01:05 Range/Units Blood Gas Respiration Rate 4.0 min. Blood Gas Tidal Volume 750 ml Blood Gas PEEP 5 cm H2O Current Medications Medications (Trade) Dose Ordered Sig/Meagan Route PRN Reason Start Time Stop Time Status Last Admin Dose Admin Acetaminophen (TYLenol 325MG TAB) 650 mg Q4H PRN PO MILD PAIN (1-3) 10/16/24 20:00 10/17/24 08:13 DC Acetaminophen (TYLenol 325MG TAB) 650 mg Q4H PRN PO Temp >38.3C(AFTER EXTUBATION) 10/23/24 17:00 11/22/24 16:59 Acetaminophen (TYLenol 325MG TAB) 650 mg Q6H PRN PO MILD PAIN (1-3) 10/16/24 17:30 10/24/24 14:21 DC 10/16/24 21:31 650 MG Acetaminophen (TYLenol 325MG TAB) 650 mg Q6H PRN PO TEMPERATURE GREATER THAN 101.5 10/16/24 20:00 10/24/24 14:21 DC Acetaminophen (TYLenol 325MG TAB) 650 mg Q6H PRN PO MILD PAIN (1-3) 10/23/24 17:00 11/22/24 16:59 10/25/24 08:57 650 MG Acetaminophen (TYLenol 650MG SUPPOSITORY) 650 mg Q4H PRN RC Temp >38.3C WHILE INTUBATED 10/23/24 17:00 10/25/24 08:09 DC Acetaminophen (acetaMINOPHEN) 1,000 mg Q6H6 IV 10/23/24 20:00 10/24/24 19:59 DC 10/24/24 20:22 1,000 MG Albumin Human 250 ml @ 0 mls/hr AD PRN IV IF HEMODYNAMICALLY UNSTABLE 10/23/24 17:00 10/23/24 20:25 DC 10/23/24 20:24 250 MLS/HR Albuterol Sulfate (Proventil 0.083% 2.5mg/3ml) 0.63 mg Q6H6 PRN IH SHORTNESS OF BREATH 10/16/24 18:00 11/15/24 17:59 Aminocaproic Acid 28452 mg/Sodium Chloride 310 ml @ 25 mls/hr AD IV 10/23/24 17:00 10/23/24 17:33 DC Aminocaproic Acid 08592 mg/Sodium Chloride 480 ml @ 0 mls/hr AD PRN IV BLEEDING CONTROL 10/17/24 07:00 10/23/24 10:13 DC Aminocaproic Acid 76798 mg/Sodium Chloride 480 ml @ 0 mls/hr AD PRN IV BLEEDING CONTROL 10/23/24 10:30 10/25/24 08:09 DC Aspirin (Aspirin 81mg Ec Tab) 81 mg DAILY PO 10/17/24 09:00 11/16/24 08:59 10/25/24 08:33 81 MG Atorvastatin Calcium (LIPItor 40MG) 80 mg HS PO 10/17/24 21:00 11/16/24 20:59 10/24/24 20:23 80 MG Azithromycin 250 ml @ 250 mls/hr Q24H IVPB 10/16/24 21:00 10/26/24 20:59 10/24/24 20:23 250 MLS/HR Calcium Carbonate (Tums 500 Mg Chew Tab) 500 tab ONCE PO 10/22/24 13:00 10/23/24 17:00 DC 10/22/24 12:56 500 TAB Calcium Carbonate (Tums 500 Mg Chew Tab) 500 tab TIDAC PO 10/22/24 17:00 10/22/24 12:57 DC Calcium Gluconate 1 gm/Sodium Chloride 60 ml @ 200 mls/hr AD PRN IV HYPOCALCEMIA 10/23/24 17:00 11/22/24 16:59 Cefazolin Sodium (Ancef) 2 gm ONCALL IVP 10/16/24 23:00 10/18/24 22:59 DC 10/16/24 23:21 2 GM Cefazolin Sodium (Ancef) 2 gm ONCALL IVP 10/22/24 21:30 10/24/24 09:22 DC Cefazolin Sodium (Ancef) 2 gm Q8H IVPB 10/23/24 22:00 10/24/24 14:01 DC 10/24/24 14:33 2 GM Ceftriaxone Sodium (Rocephin 2gm Inj) 2 gm Q24H IVPB 10/17/24 09:30 10/27/24 09:29 10/25/24 08:33 2 GM Dexmedetomidine/ Sodium Chloride (PRECEdex 400MCG/ 100ML-NS) 400 mcg PROTOCOL IV 10/23/24 17:00 10/24/24 16:59 DC Dextrose (D50w) 50 ml AD PRN IV HYPOGLYCEMIA PROTOCOL 10/23/24 17:00 11/22/24 16:59 Docusate Sodium (COLace 100MG CAP) 100 mg BID PO 10/23/24 21:00 11/22/24 20:59 10/25/24 08:33 100 MG Epinephrine HCl 10 mg/Sodium Chloride 250 ml @ 0 mls/hr AD PRN IV TITRATE 10/17/24 07:00 10/23/24 10:13 DC Epinephrine HCl 10 mg/Sodium Chloride 250 ml @ 0 mls/hr AD PRN IV TITRATE 10/23/24 10:30 11/22/24 10:29 Epinephrine HCl 10 mg/Sodium Chloride 250 ml @ 0 mls/hr AD PRN IV POST-OP CARDIOVASCULAR ORDERS 10/23/24 17:00 10/23/24 17:33 DC Famotidine (Pepcid 20mg Vial) 20 mg BID IV 10/23/24 21:00 10/25/24 08:09 DC 10/24/24 20:23 20 MG Famotidine (Pepcid 20mg Vial) 20 mg DAILY IV 10/17/24 09:00 10/23/24 17:00 DC 10/23/24 11:19 20 MG Famotidine (Pepcid 20mg Tab) 20 mg HS PO 10/25/24 21:00 11/24/24 20:59 Furosemide (LASix 20MG TAB) 20 mg Q12H PO 10/25/24 09:00 11/24/24 08:59 10/25/24 08:33 20 MG Furosemide (LASix 20MG VIAL) 20 mg BID IV 10/17/24 13:00 10/20/24 15:34 DC 10/20/24 09:37 20 MG Furosemide (LASix 20MG VIAL) 20 mg Q12H IV 10/24/24 09:00 10/25/24 08:59 DC 10/24/24 20:23 20 MG Furosemide (LASix 20MG VIAL) 40 mg BID IV 10/20/24 21:00 10/23/24 09:51 DC 10/22/24 22:06 40 MG Furosemide (LASix 40MG VIAL) 40 mg BID IV 10/23/24 21:00 10/23/24 17:00 DC Glucagon (Glucagon 1mg Kit) 1 mg AD PRN IM HYPOGLYCEMIA PROTOCOL 10/23/24 17:00 11/22/24 16:59 Heparin Sodium (Porcine) (HEParin 5,000 UNIT VIAL) *calculation based on ACTUAL B... AD PRN IV HEPARIN PROTOCOL 10/16/24 18:00 10/23/24 17:00 DC 10/17/24 16:00 3,000 UNIT Heparin Sodium/ Dextrose 250 ml @ 0 mls/hr Q6H IV 10/16/24 18:00 10/23/24 09:45 DC 10/22/24 11:41 14.9 MLS/HR Hydroxyzine HCl (ATArax 25MG TAB) 12.5 mg TID PRN PO ITCHING 10/16/24 17:30 10/23/24 17:00 DC 10/20/24 20:54 12.5 MG Insulin Glargine (LANtus 100 UNITS/ML 10 ML VIAL) 15 units HS SQ 10/16/24 21:00 10/23/24 17:00 DC 10/22/24 22:09 15 UNITS Insulin Human Lispro (HumaLOG LISpro 100 UNIT/ML 3ML) 5 unit TIDAC SQ 10/17/24 07:30 10/23/24 17:00 DC 10/22/24 16:47 5 UNIT Insulin Human Lispro (HumaLOG LISpro 100 UNIT/ML 3ML) INSULIN SLIDING SCAL... ACHS SQ 10/16/24 21:00 10/23/24 17:00 DC 10/22/24 22:08 5 UNIT Insulin Human Regular (humuLIN R 100 UNIT/ML 3ML) INSULIN SLIDING SCAL... ACHS SQ 10/25/24 07:30 11/24/24 07:29 Insulin Human Regular 100 unit/ Sodium Chloride 100 ml @ 0 mls/hr AD IV 10/23/24 17:00 10/25/24 06:45 DC 10/23/24 19:16 5 MLS/HR Lactulose (Constulose 20gm/ 30ml Udcup) 20 gm BID PRN PO CONSTIPATION 10/22/24 10:00 10/23/24 17:00 DC 10/22/24 11:41 20 GM Lactulose (Constulose 20gm/ 30ml Udcup) 20 gm BID PRN PO CONSTIPATION 10/23/24 17:00 11/22/24 16:59 Lidocaine (Lidocaine Patch 4%) 1 each DAILY TP 10/16/24 21:20 11/15/24 21:19 10/25/24 08:33 1 EACH Lisinopril (Prinivil 5mg) 5 mg DAILY PO 10/17/24 09:00 10/23/24 17:00 DC 10/22/24 09:48 5 MG Magnesium Hydroxide (Milk Of Magnesium 30ml) 30 ml DAILY PRN PO CONSTIPATION 10/23/24 17:00 11/22/24 16:59 Magnesium Sulfate 50 ml @ 12.5 mls/hr AD PRN IV MAG LEVEL LESS THAN 2.0 10/23/24 17:00 11/22/24 16:59 10/24/24 04:52 12.5 MLS/HR Metoprolol Tartrate (loprESSOR) 12.5 mg BID PO 10/16/24 21:00 10/23/24 17:00 DC 10/23/24 09:43 12.5 MG Morphine Sulfate (morPHINE 2MG SYG) 0.5 mg Q2H PRN IV MODERATE PAIN (4-6) 10/23/24 17:00 10/24/24 16:59 DC Morphine Sulfate (morPHINE 2MG SYG) 1 mg Q2H PRN IV SEVERE PAIN (7-10) 10/23/24 17:00 10/24/24 16:59 DC Nitroglycerin (Nitrostat) 0.4 mg PROTOCOL PRN SL CHEST PAIN 10/16/24 20:00 10/23/24 17:00 DC Nitroglycerin/ Dextrose 0 ml @ 0 mls/hr AD IV 10/23/24 17:00 10/26/24 16:59 Norepinephrine Bitartrate 250 ml @ 0 mls/hr AD PRN IV TITRATE 10/17/24 07:00 10/23/24 10:13 DC Norepinephrine Bitartrate 250 ml @ 0 mls/hr AD PRN IV TITRATE 10/23/24 10:30 11/22/24 10:29 Norepinephrine Bitartrate 8 mg/ Dextrose 250 ml @ 0 mls/hr AD PRN IV POST-OP CARDIOVASCULAR ORDERS 10/23/24 17:00 10/23/24 17:33 DC Ondansetron HCl (zoFRAN 4MG INJ) 4 mg Q12H PRN IVP NAUSEA/VOMITING 10/16/24 17:30 10/17/24 08:13 DC Ondansetron HCl (zoFRAN 4MG INJ) 4 mg Q6H PRN IV NAUSEA/VOMITING 10/16/24 20:00 10/23/24 17:00 DC Ondansetron HCl (zoFRAN 4MG INJ) 4 mg Q6H PRN IV NAUSEA/VOMITING 10/23/24 17:00 11/22/24 16:59 10/24/24 08:42 4 MG Potassium Phosphate 250 ml @ 42 mls/hr AD PRN IV LOW PHOS LEVEL 10/23/24 17:00 11/22/24 16:59 10/24/24 04:58 42 MLS/HR Potassium Chloride 100 ml @ 100 mls/hr AD PRN IV HYPOKALEMIA 10/23/24 17:00 11/22/24 16:59 10/24/24 00:12 100 MLS/HR Propofol 100 ml @ 0 mls/hr AD PRN IV SEDATION 10/23/24 17:00 10/25/24 08:09 DC Sodium Bicarbonate (Sodium Bicarb 50meq 50ml Vial) 50 meq AD PRN IV OTHER[SEE DOSING INSTRUCTIONS] 10/23/24 17:00 10/26/24 16:59 10/23/24 22:14 50 MEQ Sodium Chloride 500 ml @ 0 mls/hr AD IV 10/23/24 17:00 11/22/24 16:59 Sodium Chloride 1,000 ml @ 10 mls/hr ONCE IV 10/23/24 17:00 10/24/24 16:59 DC 10/23/24 19:36 10 MLS/HR Sodium Chloride (NS Flush 10ml) 10 ml Q8H PRN IVP IV LINE FLUSH 10/23/24 17:00 11/22/24 16:59 Tramadol HCl (UltRAM) 25 mg Q6H PRN PO MODERATE PAIN (4-6) 10/23/24 17:00 5/3/25 16:59 Tramadol HCl (UltRAM) 50 mg Q6H PRN PO SEVERE PAIN (7-10) 10/23/24 17:00 10/28/24 16:59 DIAGNOSTICS / RADIOLOGY: [ ] ASSESSMENT: NSTEMI POA Multivessel Coronary artery disease, status post CABG (10/23/24) POA Chronic pulmonary edema, resolved POA Acute respiratory failure, resolved POA Bilateral carotid stenosis > 70%, POA Hypertension POA Uncontrolled diabetes last A1C 8.4, POA Nicotine dependence POA Hyperlipidemia POA Obesity POA Bilateral pneumonia POA PLAN: Continue chest tube, management per CV surgery Continue famotidine 20 mg IV daily for GI prophylaxis Continue aspirin 81 mg p.o. daily and metoprolol 12.5 mg p.o. b.i.d. Continue Rocephin 2 g IV and azithromycin IV for broad-spectrum coverage Continue furosemide 20mg BID Continue lisinopril 5mg q24h Continue oxygen supplementation to keep saturation between 88-92% Continue insulin sliding scale AC & HS with hypoglycemia protocol CV surgery consulted, appreciate recommendations Cardiology consulted, appreciate recommendations Disposition: Pending post op course Greater than 35 minutes ICU time spent in care of patient FLAKITA BENNETT MD Oct 25, 2024 14:33
--- NOTE | 2024-10-25 15:02 | PN ---
[facility] [address] CARDIOLOGY PROGRESS NOTE Date Patient Seen: Oct 25, 2024 Time of Visit: 15:02 Problem List: ACS NSTEMI MVCAD Interval History: POD 1 from CAB/CHRISTIAN clipping Patient denies pain Using IS however with resultant cough No significant ectopy Physical Examination: GENERAL: [No acute distress.] HEAD: [Normal with no signs of head trauma.] LUNGS: [Clear breath sounds bilaterally. diminished inspiratory effort. on room air. No wheezes, or rhonchi.] HEART: [Normal rate and rhythm. Normal S1 and S2 without murmurs, gallop or rub.] VASC: [Peripheral pulses +2 bilaterally.] EXT: [No clubbing, cyanosis or edema.] SKIN: [No rashes or lesions noted.] NEURO: [Awake, alert, and oriented x3. No focal sensory or strength deficits noted.] Laboratory: [ ] Hematology Labs: Test 10/25/24 03:46 10/24/24 04:02 Range/Units White Blood Count 15.2 H 4.8-10.8 K/uL Red Blood Count 2.99 L 4.50-6.20 MIL/uL Hemoglobin 8.6 L 14.0-18.0 g/dL Hematocrit 26.7 L 42-54 % Mean Corpuscular Volume 89.3 79-99 fL Mean Corpuscular Hemoglobin 28.8 27.0-33.0 pg Mean Corpuscular Hemoglobin Concent 32.2 32.0-36.0 g/dL Red Cell Distribution Width 13.2 11.0-15.5 % Platelet Count 324 # 130-400 K/uL Mean Platelet Volume 10.1 7.5-10.5 fL Immature Granulocyte % (Auto) 1.0 0-1 % Neutrophils (%) (Auto) 83.6 H 40.0-77.0 % Lymphocytes (%) (Auto) 6.7 L 21.0-51.0 % Monocytes (%) (Auto) 8.4 3.0-13.0 % Eosinophils (%) (Auto) 0.1 0.0-8.0 % Basophils (%) (Auto) 0.2 0.0-5.0 % Neutrophils # (Auto) 12.7 H 1.8-7.7 K/uL Lymphocytes # (Auto) 1.0 1.0-4.8 K/uL Monocytes # (Auto) 1.3 H 0.1-1.0 K/uL Eosinophils # (Auto) 0.01 0.00-0.70 K/uL Basophils # (Auto) 0.03 0.00-0.20 K/uL Absolute Immature Granulocyte (auto 0.15 0-1 K/uL Nucleated Red Blood Cells 0.0 0.0-0.19 % White Cell Morphology Comment See comments Chemistry Labs: Test 10/25/24 11:48 10/25/24 03:46 10/24/24 04:02 Range/Units Whole Blood Glucose 141 H 70-110 MG/DL Sodium Level 138 136-145 mmol/L Potassium Level 4.2 3.5-5.1 mmol/L Chloride Level 103 101-111 mmol/L Carbon Dioxide Level 31 21-32 mmol/L Blood Urea Nitrogen 18 7-18 mg/dL Creatinine 0.9 0.5-1.3 mg/dL Glomerular Filtration Rate Calc 98 >90 mL/min Random Glucose 88 70-105 mg/dL Total Calcium 9.0 8.5-10.1 mg/dL Ionized Calcium 1.28 1.15-1.33 MMOL/L Phosphorus Level 1.4 #L 2.5-4.9 mg/dL Magnesium Level 1.80 1.80-2.40 mg/dL Coagulation Labs: Test 10/24/24 04:02 Range/Units Prothrombin Time 13.0 H 9.6-11.6 SEC Prothromb Time International Ratio 1.25 H 0.85-1.15 Activated Partial Thromboplast Time 30.2 26.3-35.5 SEC Impression and Plan: -ACS-NSTEMI s/p C/coronary angiogram done on 10/16/[address] Hilario Ward which identified severe 3V CAD (LAD, LCx, RCA) * Off-pump coronary artery bypass grafting x 3 vessels (left internal mammary artery to the LAD, reverse saphenous vein graft from the aorta to the obtuse marginal artery, reverse saphenous vein graft from the aorta to the posterior descending artery). * Placement of a left atrial clip. with Dr Caballero [facility] (LVEF: 45% by echo done 10/17/2024) -Bilateral CAP -Bilateral ICA stenosis (>70% by Doppler done 10/17/2024) -HTN -HLP -DM2 -Tobacco abuse ASA, high intensity statin. Resume beta juanita when hemodynamics stable Will plan for DAPT prior to discharge due to NSTEMI on presentation [place] HAMEED DO Oct 25, 2024 15:02
--- NOTE | 2024-10-25 18:20 | NUR ---
PT CARE 1820 - 1850 Henao catheter discontinued. Pt assisted back to bed - positioned for comfort. CT's x2 discontinued per routine. Dry gauze drsg applied to CT sites. Right IJ CVP line discontinued per routine. Pressure applied x10 minutes - hemostasis achieved and dry gauze/tegaderm drsg applied to site. HOB maintained at 45-degrees. Pt to be maintained on bedrest for a minimum of one hour - explained to pt who voiced understanding. Pt tolerated above care with minimal discomfort. Pt positioned for comfort. Needed items, call light, urinal all placed within reach. Pt instructed to call for assistance - voiced understanding. Bed alarm remains active.
[2024-10-25] MEDS ORDERED: PoTASSium chl 10% ELIXIR 20MEQ 20 MEQ/15 ML UDCUP PO PRN (19:30)
[2024-10-25] MEDS: FAMOTIDINE 20MG TAB PO SCH (20:38)
[2024-10-25] MEDS: traMADol HCL 50 MG TABLET PO PRN (20:39)
--- NOTE | 2024-10-25 23:08 | PN ---
SUBJECTIVE: The patient is postop day #2 from a coronary artery bypass grafting. The patient remains in the ICU. OBJECTIVE: VITAL SIGNS: Reveal a pulse of 104, sinus tachycardia. Blood pressure is 121/62, respirations are 31 and oxygen saturation 97% on nasal cannula oxygen. HEENT: Normocephalic, atraumatic. Extraocular movements intact. He has nasal cannula oxygen prongs under his nose. He has a right cervical central venous line but is off of all pressors. HEART: S1 and S2 and tachycardic. LUNGS: Unlabored at rest on oxygen. CHEST: His sternum is bandaged. His chest tubes are in place with 140 mL of output over the last 24 hours. GENITOURINARY: He has a Henao catheter in his bladder. EXTREMITIES: He has SCDs on his lower extremities. ASSESSMENT AND PLAN: * Status post coronary artery bypass grafting. Continue aspirin and Lasix. We will discontinue his chest tubes, Henao catheter, and central venous line. Transfer the patient out of ICU to telemetry. Continue cardiac rehab. * Postoperative acute pulmonary insufficiency secondary to thoracic surgery. Encouraged incentive spirometry. Wean nasal cannula oxygen. Maintain oxygen saturations greater than 90% on room air. * Hypercholesterolemia. Lipitor 40 mg p.o. at bedtime, low cholesterol cardiac diet. * Anemia. We will continue to trend. Do not transfuse unless hemoglobin is less than 7. * DVT prophylaxis. We will begin Lovenox 30 mg subcutaneous daily. Time spent 30 minutes. The patient is critically ill in the ICU. TID: [id number] RECEIPT: [id number]
[2024-10-26] VITALS (9 sets, daily range): BP systolic 91–124; BP diastolic 48–70; PULSE 99–114; RESP 18; TEMP 98–99.3; O2SAT 96
[2024-10-26 04:58] LABS: HEMATOCRIT 26.8 % (42-54); MEAN CORPUSCULAR HGB CONC 31.3 g/dL (32.0-36.0); MEAN CORPUSCULAR VOLUME 92.4 fL (79-99); RED BLOOD CELL COUNT(AUTO) 2.9 MIL/uL (4.50-6.20); RED CELL DISTRIBUTION WIDTH 13.1 % (11.0-15.5); WHITE BLOOD COUNT (AUTO) 16.1 K/uL (4.8-10.8)
[2024-10-26 05:14] LABS: CREATININE 0.9 mg/dL (0.5-1.3); POTASSIUM 4.1 mmol/L (3.5-5.1)
[2024-10-26] MEDS: ENOXAPARIN SODIUM 30 MG/0.3 ML SQ ONE (09:18)
[2024-10-26] MEDS: metoPROLOL tartRATE 25 MG TAB ONE (09:18)
[2024-10-26] MEDS: ENOXAPARIN SODIUM 30 MG/0.3 ML SQ SCH (09:21)
[2024-10-26] MEDS: metoPROLOL tartRATE 25 MG TAB PO SCH (09:22)
[2024-10-26] MEDS: LACTULOSE 20 GM/30 ML UDCUP PO PRN (09:28)
--- NOTE | 2024-10-26 09:35 | PN ---
SUBJECTIVE: The patient is postop day #3 from coronary artery bypass grafting. The patient is doing well on the telemetry unit. He was transferred out of the ICU yesterday. OBJECTIVE: HEENT: Normocephalic and atraumatic. He has nasal cannula oxygen prongs under his nose. HEART: S1, S2, and regular. CHEST: Sternal wound is bandaged. His chest tubes are out. ABDOMEN: Nontender and soft. EXTREMITIES: He has MITCHELL stockings on his lower extremities. ASSESSMENT AND PLAN: * Status post coronary artery bypass grafting. Continue aspirin. Begin metoprolol and continue Lasix. Sternal precautions and cardiac rehab. * Postoperative acute pulmonary insufficiency secondary to thoracic surgery. Wean nasal cannula oxygen and maintain oxygen saturation greater than 90%. * Hypercholesterolemia. Lipitor at bedtime and low cholesterol cardiac diet. * DVT prophylaxis. Lovenox 30 mg subcutaneous daily. TID: [id number] RECEIPT: [id number]
--- NOTE | 2024-10-26 09:39 | HMCIMG ---
CHEST 1VW HISTORY: Post CABG COMPARISON: 10/25/2024 FINDINGS: A frontal projection of the chest was obtained. Left lung infiltrates and left pleural effusion are seen. Minimal right lower lung infiltrates are seen with no atelectasis. Poststernotomy changes are seen. The heart is enlarged. Degenerative changes of the thoracolumbar spine are present. Breast No evidence of aortic calcification is seen. IMPRESSION: 1. Mild left lung infiltrates and left pleural effusion. Minimal right lower lung infiltrates.
--- NOTE | 2024-10-26 10:43 | PN ---
[facility] CARDIOLOGY PROGRESS NOTE Cardiology progress note dictated for Pastora Arias MD Date Patient Seen: October 26, 2024 Problem List: ACS NSTEMI MVCAD Interval History: POD 3 from CAB/CHRISTIAN clipping Patient denies pain Using IS however with resultant cough Telemetry revealing NSR with hr in the 90's H/H 8.4/26.8 Physical Examination: GENERAL: No acute distress. HEAD: Normal with no signs of head trauma. EYES: PERRLA, EOMI, conjunctiva and sclera normal. NECK: Supple without JVD. There is no tenderness, lymphadenopathy, or masses. No thyromegaly. Normal carotid upstrokes without bruits. LUNGS: Diminished breath sounds bilaterally likely due to poor inspiratory effort. HEART: Normal rate and rhythm. Normal S1 and S2 without murmurs, gallop or rub. VASC: Peripheral pulses +2 bilaterally. BUE with trace edema EXT: No clubbing or cyanosis. Mediastinal incision is open to air. NEURO: Awake, alert, and oriented x3. No focal neurological deficits noted. Laboratory: Hematology Labs: Test 10/26/24 04:40 10/25/24 03:46 Range/Units White Blood Count 16.1 H 4.8-10.8 K/uL Red Blood Count 2.90 L 4.50-6.20 MIL/uL Hemoglobin 8.4 L 14.0-18.0 g/dL Hematocrit 26.8 L 42-54 % Mean Corpuscular Volume 92.4 79-99 fL Mean Corpuscular Hemoglobin 29.0 27.0-33.0 pg Mean Corpuscular Hemoglobin Concent 31.3 L 32.0-36.0 g/dL Red Cell Distribution Width 13.1 11.0-15.5 % Platelet Count 335 130-400 K/uL Mean Platelet Volume 10.0 7.5-10.5 fL Nucleated Red Blood Cells 0.0 0.0-0.19 % Immature Granulocyte % (Auto) 1.0 0-1 % Neutrophils (%) (Auto) 83.6 H 40.0-77.0 % Lymphocytes (%) (Auto) 6.7 L 21.0-51.0 % Monocytes (%) (Auto) 8.4 3.0-13.0 % Eosinophils (%) (Auto) 0.1 0.0-8.0 % Basophils (%) (Auto) 0.2 0.0-5.0 % Neutrophils # (Auto) 12.7 H 1.8-7.7 K/uL Lymphocytes # (Auto) 1.0 1.0-4.8 K/uL Monocytes # (Auto) 1.3 H 0.1-1.0 K/uL Eosinophils # (Auto) 0.01 0.00-0.70 K/uL Basophils # (Auto) 0.03 0.00-0.20 K/uL Absolute Immature Granulocyte (auto 0.15 0-1 K/uL Chemistry Labs: Test 10/26/24 05:28 10/26/24 04:40 Range/Units Whole Blood Glucose 139 H 70-110 MG/DL Sodium Level 136 136-145 mmol/L Potassium Level 4.1 3.5-5.1 mmol/L Chloride Level 98 L 101-111 mmol/L Carbon Dioxide Level 33 H 21-32 mmol/L Blood Urea Nitrogen 23 H 7-18 mg/dL Creatinine 0.9 0.5-1.3 mg/dL Glomerular Filtration Rate Calc 98 >90 mL/min Random Glucose 136 H 70-105 mg/dL Total Calcium 8.6 8.5-10.1 mg/dL Diagnostics / Radiology: Impression and Plan: -ACS-NSTEMI s/p LHC/coronary angiogram done on 10/16/[address] Hilario Ward which identified severe 3V CAD (LAD, LCx, RCA) * Off-pump coronary artery bypass grafting x 3 vessels (left internal mammary artery to the LAD, reverse saphenous vein graft from the aorta to the obtuse marginal artery, reverse saphenous vein graft from the aorta to the posterior descending artery). 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
--- NOTE | 2024-10-26 14:19 | PN ---
[facility] PROGRESS NOTE Date of Service: October 26, 2024 Time of Service: 14:16 SUBJECTIVE: 10/17 patient seen at bedside, no acute events overnight. He has been afebrile, hemodynamically stable saturating well on 5 L nasal cannula. Echocardiogram pending, we will follow up. Bilateral carotid Dopplers showing severe stenosis in both internal carotid arteries, we will follow up with CV surgery. Patient initially transferred for CABG, chest x-ray showing bilateral infiltrates, we will continue with diuresis and continue antibiotics to treat for possible underlying pneumonia. 10/18 patient seen at bedside, no acute events overnight. Patient has no complaints today at bedside. CABG is on hold while patient being treated for pneumonia. He was given a lab holiday today, we will repeat labs tomorrow . Repeat chest x-ray shows improvement in infiltrates bilaterally, we will continue with antibiotics and diuresis. Proximally 4 L urine output in the last 24 hours. 10/19 patient seen at bedside, no acute events overnight. His chest x-ray windows continue to improve with further diuresis. He has been afebrile, hemodynamically stable saturating 96% on 4 L nasal cannula. We will follow up with CV surgery on optimal timing for CABG. Proximally 2.9 L urine output in the last 24 hours. Labs are relatively unremarkable. 10/20 patient seen at bedside, no acute events overnight. CABG is still pending, we will follow up with CV surgery on timing. Vitals and labs relatively unremarkable. 10/21 patient seen at bedside, no acute events overnight. CABG is still pending, CV surgery planning on next week. Vitals and labs relatively unremarkable. 10/22 patient seen at bedside, no acute events overnight. CABG is still pending, CV surgery planning on next week. Vitals and labs relatively unremarkable. 10/23 patient seen at bedside, no acute events overnight. CABG is still pending, likely later tdoay. LFT mildly elevated, remainder of his labs are relatively unremarkable. 10/24 patient seen at bedside, no acute events overnight. Status post CABG postop day one, he has been extubated. Cordis and chest tubes are in place, to be managed by CV surgery. Start aggressive incentive spirometry. Mildly tachycardic, heart rate ranging between 103 up to 126, WBC improved from 25.0 down to 15.7, hemoglobin decreased from 10.8 down to 9.0, platelets improved from 535 down to 469, remainder of his labs are relatively unremarkable. 10/25 patient seen at bedside, no acute events overnight. He is status post CABG postop day two, Cordis and chest tube are still in place, we will defer to CV surgery for management. Patient's only complaint is some nick-incisional pain, well controlled with current pain management. He has been mildly tachycardic with heart rate ranging from 101 up to 104, hemodynamically stable saturating well on 2 L nasal cannula. WBC improved from 15.7 down to 15.2, hemoglobin decreased from 9.0 down to 8.6, platelets decreased from 469 down to 324, remainder of his labs are relatively unremarkable. Continue with spirometry and physical therapy 10/26 patient seen at bedside, no acute events overnight. He is status post CABG postop day three, chest tube and Cordis have been removed. CV surgery recommending transitioned to rehab, case management has been consulted for assistance. WBC increased from 15.2 up to 16.1, hemoglobin decreased from 8.6 down to 8.4, remainder of his labs are relatively unremarkable. Patient showing poor inspiratory effort with IS, he has been drained once again and encouraged to increase his use of the spirometry. He will continue to work with physical therapy. REVIEW OF SYSTEMS 12 point review of systems negative unless noted in HPI PHYSICAL EXAM GENERAL APPEARANCE: The patient is awake, alert, and oriented, in no acute cardiopulmonary distress. NEUROLOGICAL: Cranial nerves II-XII grossly intact. Motor is 5/5 in bilateral upper and lower extremities proximal to distal. No sensory deficits. HEENT: Face is symmetric. Pupils are equal and reactive. Extraocular movements are intact. NECK: Supple. No JVD. No thyromegaly. No submental, submandibular, pre- /postauricular, occipital or supraclavicular lymphadenopathy. CHEST: Normal chest expansion. No Telemetry. LUNGS: Absence of any rales, rhonchi or any wheezing. CARDIOVASCULAR: Regular. S1 and S2 normal. No appreciable rubs, murmurs or gallops. ABDOMEN: Soft, nontender, and nondistended. There is no rebound, voluntary guarding, or rigidity. : Deferred. No Henao. EXTREMITIES: Non-edematous and not cyanotic. No clubbing. Good capillary refill. SKIN: No skin breakdown. Vital Signs (last 8hr) Date Time Temp Pulse Resp B/P (MAP) Pulse Ox O2 Delivery O2 Flow Rate FiO2 10/26/24 12:00 98.8 100 18 111/64 96 Room Air 10/26/24 10:24 96 Nasal Cannula* 1 10/26/24 10:00 101 18 N/Cannula Low lpm 2.0 28 10/26/24 08:00 99.0 99 18 91/59 96 Room Air LABS: Laboratory: Test 10/26/24 11:27 10/26/24 04:40 10/25/24 03:46 Range/Units Whole Blood Glucose 204 H 70-110 MG/DL White Blood Count 16.1 H 4.8-10.8 K/uL Red Blood Count 2.90 L 4.50-6.20 MIL/uL Hemoglobin 8.4 L 14.0-18.0 g/dL Hematocrit 26.8 L 42-54 % Mean Corpuscular Volume 92.4 79-99 fL Mean Corpuscular Hemoglobin 29.0 27.0-33.0 pg Mean Corpuscular Hemoglobin Concent 31.3 L 32.0-36.0 g/dL Red Cell Distribution Width 13.1 11.0-15.5 % Platelet Count 335 130-400 K/uL Mean Platelet Volume 10.0 7.5-10.5 fL Nucleated Red Blood Cells 0.0 0.0-0.19 % Sodium Level 136 136-145 mmol/L Potassium Level 4.1 3.5-5.1 mmol/L Chloride Level 98 L 101-111 mmol/L Carbon Dioxide Level 33 H 21-32 mmol/L Blood Urea Nitrogen 23 H 7-18 mg/dL Creatinine 0.9 0.5-1.3 mg/dL Glomerular Filtration Rate Calc 98 >90 mL/min Random Glucose 136 H 70-105 mg/dL Total Calcium 8.6 8.5-10.1 mg/dL Immature Granulocyte % (Auto) 1.0 0-1 % Neutrophils (%) (Auto) 83.6 H 40.0-77.0 % Lymphocytes (%) (Auto) 6.7 L 21.0-51.0 % Monocytes (%) (Auto) 8.4 3.0-13.0 % Eosinophils (%) (Auto) 0.1 0.0-8.0 % Basophils (%) (Auto) 0.2 0.0-5.0 % Neutrophils # (Auto) 12.7 H 1.8-7.7 K/uL Lymphocytes # (Auto) 1.0 1.0-4.8 K/uL Monocytes # (Auto) 1.3 H 0.1-1.0 K/uL Eosinophils # (Auto) 0.01 0.00-0.70 K/uL Basophils # (Auto) 0.03 0.00-0.20 K/uL Absolute Immature Granulocyte (auto 0.15 0-1 K/uL Current Medications Medications (Trade) Dose Ordered Sig/Meagan Route PRN Reason Start Time Stop Time Status Last Admin Dose Admin Acetaminophen (TYLenol 325MG TAB) 650 mg Q4H PRN PO MILD PAIN (1-3) 10/16/24 20:00 10/17/24 08:13 DC Acetaminophen (TYLenol 325MG TAB) 650 mg Q4H PRN PO Temp >38.3C(AFTER EXTUBATION) 10/23/24 17:00 11/22/24 16:59 Acetaminophen (TYLenol 325MG TAB) 650 mg Q6H PRN PO MILD PAIN (1-3) 10/16/24 17:30 10/24/24 14:21 DC 10/16/24 21:31 650 MG Acetaminophen (TYLenol 325MG TAB) 650 mg Q6H PRN PO TEMPERATURE GREATER THAN 101.5 10/16/24 20:00 10/24/24 14:21 DC Acetaminophen (TYLenol 325MG TAB) 650 mg Q6H PRN PO MILD PAIN (1-3) 10/23/24 17:00 11/22/24 16:59 10/25/24 08:57 650 MG Acetaminophen (TYLenol 650MG SUPPOSITORY) 650 mg Q4H PRN RC Temp >38.3C WHILE INTUBATED 10/23/24 17:00 10/25/24 08:09 DC Acetaminophen (acetaMINOPHEN) 1,000 mg Q6H6 IV 10/23/24 20:00 10/24/24 19:59 DC 10/24/24 20:22 1,000 MG Albumin Human 250 ml @ 0 mls/hr AD PRN IV IF HEMODYNAMICALLY UNSTABLE 10/23/24 17:00 10/23/24 20:25 DC 10/23/24 20:24 250 MLS/HR Albuterol Sulfate (Proventil 0.083% 2.5mg/3ml) 0.63 mg Q6H6 PRN IH SHORTNESS OF BREATH 10/16/24 18:00 11/15/24 17:59 Aminocaproic Acid 16195 mg/Sodium Chloride 310 ml @ 25 mls/hr AD IV 10/23/24 17:00 10/23/24 17:33 DC Aminocaproic Acid 57944 mg/Sodium Chloride 480 ml @ 0 mls/hr AD PRN IV BLEEDING CONTROL 10/17/24 07:00 10/23/24 10:13 DC Aminocaproic Acid 62975 mg/Sodium Chloride 480 ml @ 0 mls/hr AD PRN IV BLEEDING CONTROL 10/23/24 10:30 10/25/24 08:09 DC Aspirin (Aspirin 81mg Ec Tab) 81 mg DAILY PO 10/17/24 09:00 11/16/24 08:59 10/26/24 09:21 81 MG Atorvastatin Calcium (LIPItor 40MG) 80 mg HS PO 10/17/24 21:00 11/16/24 20:59 10/25/24 20:39 80 MG Azithromycin 250 ml @ 250 mls/hr Q24H IVPB 10/16/24 21:00 10/25/24 23:59 DC 10/25/24 20:39 250 MLS/HR Calcium Carbonate (Tums 500 Mg Chew Tab) 500 tab ONCE PO 10/22/24 13:00 10/23/24 17:00 DC 10/22/24 12:56 500 TAB Calcium Carbonate (Tums 500 Mg Chew Tab) 500 tab TIDAC PO 10/22/24 17:00 10/22/24 12:57 DC Calcium Gluconate 1 gm/Sodium Chloride 60 ml @ 200 mls/hr AD PRN IV HYPOCALCEMIA 10/23/24 17:00 10/25/24 19:25 DC Cefazolin Sodium (Ancef) 2 gm ONCALL IVP 10/16/24 23:00 10/18/24 22:59 DC 10/16/24 23:21 2 GM Cefazolin Sodium (Ancef) 2 gm ONCALL IVP 10/22/24 21:30 10/24/24 09:22 DC Cefazolin Sodium (Ancef) 2 gm Q8H IVPB 10/23/24 22:00 10/24/24 14:01 DC 10/24/24 14:33 2 GM Ceftriaxone Sodium (Rocephin 2gm Inj) 2 gm Q24H IVPB 10/17/24 09:30 10/26/24 12:29 DC 10/26/24 09:23 2 GM Dexmedetomidine/ Sodium Chloride (PRECEdex 400MCG/ 100ML-NS) 400 mcg PROTOCOL IV 10/23/24 17:00 10/24/24 16:59 DC Dextrose (D50w) 50 ml AD PRN IV HYPOGLYCEMIA PROTOCOL 10/23/24 17:00 11/22/24 16:59 Docusate Sodium (COLace 100MG CAP) 100 mg BID PO 10/23/24 21:00 11/22/24 20:59 10/26/24 09:28 100 MG Enoxaparin Sodium (Lovenox) 30 mg DAILY SQ 10/26/24 09:00 11/25/24 08:59 10/26/24 09:21 30 MG Epinephrine HCl 10 mg/Sodium Chloride 250 ml @ 0 mls/hr AD PRN IV TITRATE 10/17/24 07:00 10/23/24 10:13 DC Epinephrine HCl 10 mg/Sodium Chloride 250 ml @ 0 mls/hr AD PRN IV TITRATE 10/23/24 10:30 10/25/24 19:25 DC Epinephrine HCl 10 mg/Sodium Chloride 250 ml @ 0 mls/hr AD PRN IV POST-OP CARDIOVASCULAR ORDERS 10/23/24 17:00 10/23/24 17:33 DC Famotidine (Pepcid 20mg Vial) 20 mg BID IV 10/23/24 21:00 10/25/24 08:09 DC 10/24/24 20:23 20 MG Famotidine (Pepcid 20mg Vial) 20 mg DAILY IV 10/17/24 09:00 10/23/24 17:00 DC 10/23/24 11:19 20 MG Famotidine (Pepcid 20mg Tab) 20 mg HS PO 10/25/24 21:00 11/24/24 20:59 10/25/24 20:38 20 MG Furosemide (LASix 20MG TAB) 20 mg Q12H PO 10/25/24 09:00 11/24/24 08:59 10/26/24 09:21 20 MG Furosemide (LASix 20MG VIAL) 20 mg BID IV 10/17/24 13:00 10/20/24 15:34 DC 10/20/24 09:37 20 MG Furosemide (LASix 20MG VIAL) 20 mg Q12H IV 10/24/24 09:00 10/25/24 08:59 DC 10/24/24 20:23 20 MG Furosemide (LASix 20MG VIAL) 40 mg BID IV 10/20/24 21:00 10/23/24 09:51 DC 10/22/24 22:06 40 MG Furosemide (LASix 40MG VIAL) 40 mg BID IV 10/23/24 21:00 10/23/24 17:00 DC Glucagon (Glucagon 1mg Kit) 1 mg AD PRN IM HYPOGLYCEMIA PROTOCOL 10/23/24 17:00 11/22/24 16:59 Heparin Sodium (Porcine) (HEParin 5,000 UNIT VIAL) *calculation based on ACTUAL B... AD PRN IV HEPARIN PROTOCOL 10/16/24 18:00 10/23/24 17:00 DC 10/17/24 16:00 3,000 UNIT Heparin Sodium/ Dextrose 250 ml @ 0 mls/hr Q6H IV 10/16/24 18:00 10/23/24 09:45 DC 10/22/24 11:41 14.9 MLS/HR Hydroxyzine HCl (ATArax 25MG TAB) 12.5 mg TID PRN PO ITCHING 10/16/24 17:30 10/23/24 17:00 DC 10/20/24 20:54 12.5 MG Insulin Glargine (LANtus 100 UNITS/ML 10 ML VIAL) 15 units HS SQ 10/16/24 21:00 10/23/24 17:00 DC 10/22/24 22:09 15 UNITS Insulin Human Lispro (HumaLOG LISpro 100 UNIT/ML 3ML) 5 unit TIDAC SQ 10/17/24 07:30 10/23/24 17:00 DC 10/22/24 16:47 5 UNIT Insulin Human Lispro (HumaLOG LISpro 100 UNIT/ML 3ML) INSULIN SLIDING SCAL... ACHS SQ 10/16/24 21:00 10/23/24 17:00 DC 10/22/24 22:08 5 UNIT Insulin Human Regular (humuLIN R 100 UNIT/ML 3ML) INSULIN SLIDING SCAL... ACHS SQ 10/25/24 07:30 11/24/24 07:29 10/26/24 12:48 3 UNIT Insulin Human Regular 100 unit/ Sodium Chloride 100 ml @ 0 mls/hr AD IV 10/23/24 17:00 10/25/24 06:45 DC 10/23/24 19:16 5 MLS/HR Lactulose (Constulose 20gm/ 30ml Udcup) 20 gm BID PRN PO CONSTIPATION 10/22/24 10:00 10/23/24 17:00 DC 10/22/24 11:41 20 GM Lactulose (Constulose 20gm/ 30ml Udcup) 20 gm BID PRN PO CONSTIPATION 10/23/24 17:00 11/22/24 16:59 10/26/24 09:28 20 GM Lidocaine (Lidocaine Patch 4%) 1 each DAILY TP 10/16/24 21:20 11/15/24 21:19 10/26/24 09:22 1 EACH Lisinopril (Prinivil 5mg) 5 mg DAILY PO 10/17/24 09:00 10/23/24 17:00 DC 10/22/24 09:48 5 MG Magnesium Hydroxide (Milk Of Magnesium 30ml) 30 ml DAILY PRN PO CONSTIPATION 10/23/24 17:00 11/22/24 16:59 Magnesium Sulfate 50 ml @ 12.5 mls/hr AD PRN IV MAG LEVEL LESS THAN 2.0 10/23/24 17:00 11/22/24 16:59 10/24/24 04:52 12.5 MLS/HR Metoprolol Tartrate (loprESSOR) 12.5 mg BID PO 10/16/24 21:00 10/23/24 17:00 DC 10/23/24 09:43 12.5 MG Metoprolol Tartrate (loprESSOR) 12.5 mg BID PO 10/26/24 09:00 11/25/24 08:59 10/26/24 09:22 12.5 MG Morphine Sulfate (morPHINE 2MG SYG) 0.5 mg Q2H PRN IV MODERATE PAIN (4-6) 10/23/24 17:00 10/24/24 16:59 DC Morphine Sulfate (morPHINE 2MG SYG) 1 mg Q2H PRN IV SEVERE PAIN (7-10) 10/23/24 17:00 10/24/24 16:59 DC Nitroglycerin (Nitrostat) 0.4 mg PROTOCOL PRN SL CHEST PAIN 10/16/24 20:00 10/23/24 17:00 DC Nitroglycerin/ Dextrose 0 ml @ 0 mls/hr AD IV 10/23/24 17:00 10/25/24 19:25 DC Norepinephrine Bitartrate 250 ml @ 0 mls/hr AD PRN IV TITRATE 10/17/24 07:00 10/23/24 10:13 DC Norepinephrine Bitartrate 250 ml @ 0 mls/hr AD PRN IV TITRATE 10/23/24 10:30 10/25/24 19:25 DC Norepinephrine Bitartrate 8 mg/ Dextrose 250 ml @ 0 mls/hr AD PRN IV POST-OP CARDIOVASCULAR ORDERS 10/23/24 17:00 10/23/24 17:33 DC Ondansetron HCl (zoFRAN 4MG INJ) 4 mg Q12H PRN IVP NAUSEA/VOMITING 10/16/24 17:30 10/17/24 08:13 DC Ondansetron HCl (zoFRAN 4MG INJ) 4 mg Q6H PRN IV NAUSEA/VOMITING 10/16/24 20:00 10/23/24 17:00 DC Ondansetron HCl (zoFRAN 4MG INJ) 4 mg Q6H PRN IV NAUSEA/VOMITING 10/23/24 17:00 11/22/24 16:59 10/24/24 08:42 4 MG Potassium Phosphate 250 ml @ 42 mls/hr AD PRN IV LOW PHOS LEVEL 10/23/24 17:00 11/22/24 16:59 10/24/24 04:58 42 MLS/HR Potassium Chloride 100 ml @ 100 mls/hr AD PRN IV HYPOKALEMIA 10/23/24 17:00 11/22/24 16:59 10/24/24 00:12 100 MLS/HR Potassium Chloride (K-Dur/Klor-Con 20meq) 20 meq AD PRN PO POTASSIUM PROTOCOL 10/25/24 19:30 11/24/24 19:29 Potassium Chloride (KCl 10% Elixir 20meq/15ml) 20 meq AD PRN PO POTASSIUM PROTOCOL 10/25/24 19:30 11/24/24 19:29 Propofol 100 ml @ 0 mls/hr AD PRN IV SEDATION 10/23/24 17:00 10/25/24 08:09 DC Sodium Bicarbonate (Sodium Bicarb 50meq 50ml Vial) 50 meq AD PRN IV OTHER[SEE DOSING INSTRUCTIONS] 10/23/24 17:00 10/26/24 16:59 10/23/24 22:14 50 MEQ Sodium Chloride 500 ml @ 0 mls/hr AD IV 10/23/24 17:00 10/25/24 19:25 DC Sodium Chloride 1,000 ml @ 10 mls/hr ONCE IV 10/23/24 17:00 10/24/24 16:59 DC 10/23/24 19:36 10 MLS/HR Sodium Chloride (NS Flush 10ml) 10 ml Q8H PRN IVP IV LINE FLUSH 10/23/24 17:00 11/22/24 16:59 Tramadol HCl (UltRAM) 25 mg Q6H PRN PO MODERATE PAIN (4-6) 10/23/24 17:00 10/28/24 16:59 Tramadol HCl (UltRAM) 50 mg Q6H PRN PO SEVERE PAIN (7-10) 10/23/24 17:00 10/28/24 16:59 10/26/24 12:27 50 MG DIAGNOSTICS / RADIOLOGY: [ ] ASSESSMENT: NSTEMI POA Multivessel Coronary artery disease, status post CABG (10/23/24) POA Chronic pulmonary edema, resolved POA Acute respiratory failure, resolved POA Bilateral carotid stenosis > 70%, POA Hypertension POA Uncontrolled diabetes last A1C 8.4, POA Nicotine dependence POA Hyperlipidemia POA Obesity POA Bilateral pneumonia POA PLAN: Continue famotidine 20 mg IV daily for GI prophylaxis Continue aspirin 81 mg p.o. daily and metoprolol 12.5 mg p.o. b.i.d. Continue Rocephin 2 g IV and azithromycin IV for broad-spectrum coverage Continue furosemide 20mg BID Continue lisinopril 5mg q24h Continue metoprolol 12.5 mg twice daily Continue Lovenox 30 mg Q 24 hours Aggressive incentive spirometry Physical therapy to work with the patient daily Continue oxygen supplementation to keep saturation between 88-92% Continue insulin sliding scale AC & HS with hypoglycemia protocol CV surgery consulted, appreciate recommendations Cardiology consulted, appreciate recommendations Disposition: Pending post op course, placement FLAKITA BENNETT MD October 26, 2024 14:19
[2024-10-27] VITALS (13 sets, daily range): BP systolic 96–127; BP diastolic 6–70; PULSE 64–110; RESP 18–20; TEMP 97.5–100; O2SAT 92–97
[2024-10-27 04:15] LABS: HEMATOCRIT 25.2 % (42-54); MEAN CORPUSCULAR HEMOGLOBIN 28.4 pg (27.0-33.0); MEAN CORPUSCULAR HGB CONC 31.7 g/dL (32.0-36.0); MEAN CORPUSCULAR VOLUME 89.4 fL (79-99); RED BLOOD CELL COUNT(AUTO) 2.82 MIL/uL (4.50-6.20); RED CELL DISTRIBUTION WIDTH 12.7 % (11.0-15.5); WHITE BLOOD COUNT (AUTO) 14.4 K/uL (4.8-10.8)
[2024-10-27 04:33] LABS: CREATININE 0.9 mg/dL (0.5-1.3); POTASSIUM 3.3 mmol/L (3.5-5.1)
[2024-10-27] MEDS: PoTASSium chloRIDE 20MEQ ER 20 MEQ ERTAB PO PRN (06:26)
--- NOTE | 2024-10-27 10:21 | NUR ---
RE: LEFT THORACENTESIS BY IR PATIENT RECEIVED LOVENOX 30MG THIS AM. DR Jennifer WHITE NOTIFIED AND RESCHEDULED PROCEDURE FOR WEDNESDAY. Sirena TIMMONS RN NOTIFIED OF PROCEDURE OUTCOME.
--- NOTE | 2024-10-27 10:30 | PN ---
[facility] CARDIOLOGY PROGRESS NOTE Date Patient Seen: October 27, 2024 Time of Visit: 10:30 Problem List: ACS NSTEMI MVCAD Interval History: No acute events overnight per primary RN Patient denies comlpaints. Physical Examination: GENERAL: [No acute distress.] HEAD: [Normal with no signs of head trauma.] LUNGS: [Clear breath sounds bilaterally. diminished inspiratory effort. on room air. No wheezes, or rhonchi.] HEART: [Normal rate and rhythm. Normal S1 and S2 without murmurs, gallop or rub.] VASC: [Peripheral pulses +2 bilaterally.] EXT: [No clubbing, cyanosis or edema.] SKIN: [No rashes or lesions noted.] NEURO: [Awake, alert, and oriented x3. No focal sensory or strength deficits noted.] Laboratory: [ ] Hematology Labs: Test 10/27/24 03:46 Range/Units White Blood Count 14.4 H 4.8-10.8 K/uL Red Blood Count 2.82 L 4.50-6.20 MIL/uL Hemoglobin 8.0 L 14.0-18.0 g/dL Hematocrit 25.2 L 42-54 % Mean Corpuscular Volume 89.4 79-99 fL Mean Corpuscular Hemoglobin 28.4 27.0-33.0 pg Mean Corpuscular Hemoglobin Concent 31.7 L 32.0-36.0 g/dL Red Cell Distribution Width 12.7 11.0-15.5 % Platelet Count 398 130-400 K/uL Mean Platelet Volume 10.2 7.5-10.5 fL Nucleated Red Blood Cells 0.0 0.0-0.19 % Chemistry Labs: Test 10/27/24 05:26 10/27/24 03:46 Range/Units Whole Blood Glucose 140 H 70-110 MG/DL Sodium Level 135 L 136-145 mmol/L Potassium Level 3.3 L 3.5-5.1 mmol/L Chloride Level 97 L 101-111 mmol/L Carbon Dioxide Level 36 H 21-32 mmol/L Blood Urea Nitrogen 20 H 7-18 mg/dL Creatinine 0.9 0.5-1.3 mg/dL Glomerular Filtration Rate Calc 98 >90 mL/min Random Glucose 136 H 70-105 mg/dL Total Calcium 8.3 L 8.5-10.1 mg/dL Impression and Plan: -ACS-NSTEMI s/p LHC/coronary angiogram done on 10/16/[address] Hilario Ward which identified severe 3V CAD (LAD, LCx, RCA) * Off-pump coronary artery bypass grafting x 3 vessels (left internal mammary artery to the LAD, reverse saphenous vein graft from the aorta to the obtuse marginal artery, reverse saphenous vein graft from the aorta to the posterior descending artery). * Placement of a left atrial clip. 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 [place]BAN[place] HAMEED DO October 27, 2024 10:30
--- NOTE | 2024-10-27 12:24 | HMCIMG ---
CHEST 1VW HISTORY: Post CABG COMPARISON: 10/26/2024 FINDINGS: A frontal projection of the chest was obtained. Bilateral pulmonary infiltrates are seen with left more than right with left pleural effusion grossly unchanged. Poststernotomy changes are seen. The heart is enlarged. Degenerative changes of the thoracolumbar spine are present. No evidence of aortic calcification is seen. IMPRESSION: 1. No interval change is seen.
--- NOTE | 2024-10-27 14:33 | PN ---
SUBJECTIVE: The patient's postop day #4 from a coronary artery bypass grafting. The patient has been doing well on telemetry. He was just taken off a nasal cannula oxygen this morning. Generally, he appears comfortable in bedside chair. OBJECTIVE: VITAL SIGNS: Reveal temperature 98.1. Blood pressure is 140/56, pulse 73, respirations 15, oxygen saturation 97%. CHEST: Sternal wound is clean, dry, and intact. Chest tubes are out. HEART: S1, S2 and tachycardic. LUNGS: Unlabored at rest with decreased breath sounds in the left base. ABDOMEN: Positive bowel sounds in the soft. EXTREMITIES: He has MITCHELL stockings on his lower extremities. LABORATORY DATA: Hemoglobin is 8.0, BUN 20, creatinine 0.9. IMAGING STUDIES: Chest x-ray shows a moderate-sized left-sided effusion. ASSESSMENT AND PLAN: * Status post coronary artery bypass grafting postop day #4. Continue aspirin ____ metoprolol, and Lasix. We will increase the metoprolol to 25 twice a day. * Left-sided effusion. We will ask Interventional Radiology to perform a thoracentesis. Continue Lasix to prevent recurrence. * Hypercholesterolemia. Lipitor at bedtime, low cholesterol cardiac diet. * DVT prophylaxis. Continue Lovenox subcutaneous daily. TID: [id number] RECEIPT: [id number]
--- NOTE | 2024-10-27 14:53 | PN ---
[facility] PROGRESS NOTE Date of Service: October 27, 2024 Time of Service: 14:50 SUBJECTIVE: 10/17 patient seen at bedside, no acute events overnight. He has been afebrile, hemodynamically stable saturating well on 5 L nasal cannula. Echocardiogram pending, we will follow up. Bilateral carotid Dopplers showing severe stenosis in both internal carotid arteries, we will follow up with CV surgery. Patient initially transferred for CABG, chest x-ray showing bilateral infiltrates, we will continue with diuresis and continue antibiotics to treat for possible underlying pneumonia. 10/18 patient seen at bedside, no acute events overnight. Patient has no complaints today at bedside. CABG is on hold while patient being treated for pneumonia. He was given a lab holiday today, we will repeat labs tomorrow . Repeat chest x-ray shows improvement in infiltrates bilaterally, we will continue with antibiotics and diuresis. Proximally 4 L urine output in the last 24 hours. 10/19 patient seen at bedside, no acute events overnight. His chest x-ray windows continue to improve with further diuresis. He has been afebrile, hemodynamically stable saturating 96% on 4 L nasal cannula. We will follow up with CV surgery on optimal timing for CABG. Proximally 2.9 L urine output in the last 24 hours. Labs are relatively unremarkable. 10/20 patient seen at bedside, no acute events overnight. CABG is still pending, we will follow up with CV surgery on timing. Vitals and labs relatively unremarkable. 10/21 patient seen at bedside, no acute events overnight. CABG is still pending, CV surgery planning on next week. Vitals and labs relatively unremarkable. 10/22 patient seen at bedside, no acute events overnight. CABG is still pending, CV surgery planning on next week. Vitals and labs relatively unremarkable. 10/23 patient seen at bedside, no acute events overnight. CABG is still pending, likely later tdoay. LFT mildly elevated, remainder of his labs are relatively unremarkable. 10/24 patient seen at bedside, no acute events overnight. Status post CABG postop day one, he has been extubated. Cordis and chest tubes are in place, to be managed by CV surgery. Start aggressive incentive spirometry. Mildly tachycardic, heart rate ranging between 103 up to 126, WBC improved from 25.0 down to 15.7, hemoglobin decreased from 10.8 down to 9.0, platelets improved from 535 down to 469, remainder of his labs are relatively unremarkable. 10/25 patient seen at bedside, no acute events overnight. He is status post CABG postop day two, Cordis and chest tube are still in place, we will defer to CV surgery for management. Patient's only complaint is some nick-incisional pain, well controlled with current pain management. He has been mildly tachycardic with heart rate ranging from 101 up to 104, hemodynamically stable saturating well on 2 L nasal cannula. WBC improved from 15.7 down to 15.2, hemoglobin decreased from 9.0 down to 8.6, platelets decreased from 469 down to 324, remainder of his labs are relatively unremarkable. Continue with spirometry and physical therapy 10/26 patient seen at bedside, no acute events overnight. He is status post CABG postop day three, chest tube and Cordis have been removed. CV surgery recommending transitioned to rehab, case management has been consulted for assistance. WBC increased from 15.2 up to 16.1, hemoglobin decreased from 8.6 down to 8.4, remainder of his labs are relatively unremarkable. Patient showing poor inspiratory effort with IS, he has been drained once again and encouraged to increase his use of the spirometry. He will continue to work with physical therapy. 10/27 patient seen at bedside, no acute events overnight. He is status post CABG postop day four, she is showing better effort with incentive spirometry. Patient has been scheduled for left-sided thoracentesis, it has been rescheduled to Wednesday by IR so that any blood thinners can be held for the procedure. WBC decreased from 16.1 down to 14.4, hemoglobin decreased from 8.4 down to 8.0, CO2 mildly elevated at 36, patient has been encouraged to increase his usage of spirometry, remainder of his labs are relatively unremarkable. Patient is pending placement once he has been optimized. REVIEW OF SYSTEMS 12 point review of systems negative unless noted in HPI PHYSICAL EXAM GENERAL APPEARANCE: The patient is awake, alert, and oriented, in no acute cardiopulmonary distress. NEUROLOGICAL: Cranial nerves II-XII grossly intact. Motor is 5/5 in bilateral upper and lower extremities proximal to distal. No sensory deficits. HEENT: Face is symmetric. Pupils are equal and reactive. Extraocular movements are intact. NECK: Supple. No JVD. No thyromegaly. No submental, submandibular, pre- /postauricular, occipital or supraclavicular lymphadenopathy. CHEST: Normal chest expansion. No Telemetry. LUNGS: Absence of any rales, rhonchi or any wheezing. CARDIOVASCULAR: Regular. S1 and S2 normal. No appreciable rubs, murmurs or gallops. ABDOMEN: Soft, nontender, and nondistended. There is no rebound, voluntary guarding, or rigidity. : Deferred. No Henao. EXTREMITIES: Non-edematous and not cyanotic. No clubbing. Good capillary refill. SKIN: No skin breakdown. Vital Signs (last 8hr) Date Time Temp Pulse Resp B/P (MAP) Pulse Ox O2 Delivery O2 Flow Rate FiO2 10/27/24 11:00 99.1 104 18 127/70 93 Room Air 10/27/24 09:02 92 Room Air* 0 21 10/27/24 07:00 97.5 105 18 105/43 99 Room Air 10/27/24 06:54 105 18 N/Cannula Low lpm 2.0 28 LABS: Laboratory: Test 10/27/24 11:20 10/27/24 03:46 Range/Units Whole Blood Glucose 210 H 70-110 MG/DL Bedside Glucose Comment Notified Nurse White Blood Count 14.4 H 4.8-10.8 K/uL Red Blood Count 2.82 L 4.50-6.20 MIL/uL Hemoglobin 8.0 L 14.0-18.0 g/dL Hematocrit 25.2 L 42-54 % Mean Corpuscular Volume 89.4 79-99 fL Mean Corpuscular Hemoglobin 28.4 27.0-33.0 pg Mean Corpuscular Hemoglobin Concent 31.7 L 32.0-36.0 g/dL Red Cell Distribution Width 12.7 11.0-15.5 % Platelet Count 398 130-400 K/uL Mean Platelet Volume 10.2 7.5-10.5 fL Nucleated Red Blood Cells 0.0 0.0-0.19 % Sodium Level 135 L 136-145 mmol/L Potassium Level 3.3 L 3.5-5.1 mmol/L Chloride Level 97 L 101-111 mmol/L Carbon Dioxide Level 36 H 21-32 mmol/L Blood Urea Nitrogen 20 H 7-18 mg/dL Creatinine 0.9 0.5-1.3 mg/dL Glomerular Filtration Rate Calc 98 >90 mL/min Random Glucose 136 H 70-105 mg/dL Total Calcium 8.3 L 8.5-10.1 mg/dL Current Medications Medications (Trade) Dose Ordered Sig/Meagan Route PRN Reason Start Time Stop Time Status Last Admin Dose Admin Acetaminophen (TYLenol 325MG TAB) 650 mg Q4H PRN PO MILD PAIN (1-3) 10/16/24 20:00 10/17/24 08:13 DC Acetaminophen (TYLenol 325MG TAB) 650 mg Q4H PRN PO Temp >38.3C(AFTER EXTUBATION) 10/23/24 17:00 11/22/24 16:59 Acetaminophen (TYLenol 325MG TAB) 650 mg Q6H PRN PO MILD PAIN (1-3) 10/16/24 17:30 10/24/24 14:21 DC 10/16/24 21:31 650 MG Acetaminophen (TYLenol 325MG TAB) 650 mg Q6H PRN PO TEMPERATURE GREATER THAN 101.5 10/16/24 20:00 10/24/24 14:21 DC Acetaminophen (TYLenol 325MG TAB) 650 mg Q6H PRN PO MILD PAIN (1-3) 10/23/24 17:00 11/22/24 16:59 10/25/24 08:57 650 MG Acetaminophen (TYLenol 650MG SUPPOSITORY) 650 mg Q4H PRN RC Temp >38.3C WHILE INTUBATED 10/23/24 17:00 10/25/24 08:09 DC Acetaminophen (acetaMINOPHEN) 1,000 mg Q6H6 IV 10/23/24 20:00 10/24/24 19:59 DC 10/24/24 20:22 1,000 MG Albumin Human 250 ml @ 0 mls/hr AD PRN IV IF HEMODYNAMICALLY UNSTABLE 10/23/24 17:00 10/23/24 20:25 DC 10/23/24 20:24 250 MLS/HR Albuterol Sulfate (Proventil 0.083% 2.5mg/3ml) 0.63 mg Q6H6 PRN IH SHORTNESS OF BREATH 10/16/24 18:00 11/15/24 17:59 Aminocaproic Acid 96085 mg/Sodium Chloride 310 ml @ 25 mls/hr AD IV 10/23/24 17:00 10/23/24 17:33 DC Aminocaproic Acid 42887 mg/Sodium Chloride 480 ml @ 0 mls/hr AD PRN IV BLEEDING CONTROL 10/17/24 07:00 10/23/24 10:13 DC Aminocaproic Acid 41527 mg/Sodium Chloride 480 ml @ 0 mls/hr AD PRN IV BLEEDING CONTROL 10/23/24 10:30 10/25/24 08:09 DC Aspirin (Aspirin 81mg Ec Tab) 81 mg DAILY PO 10/17/24 09:00 11/16/24 08:59 10/27/24 08:32 81 MG Atorvastatin Calcium (LIPItor 40MG) 80 mg HS PO 10/17/24 21:00 11/16/24 20:59 10/26/24 20:44 80 MG Azithromycin 250 ml @ 250 mls/hr Q24H IVPB 10/16/24 21:00 10/25/24 23:59 DC 10/25/24 20:39 250 MLS/HR Calcium Carbonate (Tums 500 Mg Chew Tab) 500 tab ONCE PO 10/22/24 13:00 10/23/24 17:00 DC 10/22/24 12:56 500 TAB Calcium Carbonate (Tums 500 Mg Chew Tab) 500 tab TIDAC PO 10/22/24 17:00 10/22/24 12:57 DC Calcium Gluconate 1 gm/Sodium Chloride 60 ml @ 200 mls/hr AD PRN IV HYPOCALCEMIA 10/23/24 17:00 10/25/24 19:25 DC Cefazolin Sodium (Ancef) 2 gm ONCALL IVP 10/16/24 23:00 10/18/24 22:59 DC 10/16/24 23:21 2 GM Cefazolin Sodium (Ancef) 2 gm ONCALL IVP 10/22/24 21:30 10/24/24 09:22 DC Cefazolin Sodium (Ancef) 2 gm Q8H IVPB 10/23/24 22:00 10/24/24 14:01 DC 10/24/24 14:33 2 GM Ceftriaxone Sodium (Rocephin 2gm Inj) 2 gm Q24H IVPB 10/17/24 09:30 10/26/24 12:29 DC 10/26/24 09:23 2 GM Dexmedetomidine/ Sodium Chloride (PRECEdex 400MCG/ 100ML-NS) 400 mcg PROTOCOL IV 10/23/24 17:00 10/24/24 16:59 DC Dextrose (D50w) 50 ml AD PRN IV HYPOGLYCEMIA PROTOCOL 10/23/24 17:00 11/22/24 16:59 Docusate Sodium (COLace 100MG CAP) 100 mg BID PO 10/23/24 21:00 11/22/24 20:59 10/27/24 08:32 100 MG Enoxaparin Sodium (Lovenox) 30 mg DAILY SQ 10/26/24 09:00 11/25/24 08:59 10/27/24 08:32 30 MG Epinephrine HCl 10 mg/Sodium Chloride 250 ml @ 0 mls/hr AD PRN IV TITRATE 10/17/24 07:00 10/23/24 10:13 DC Epinephrine HCl 10 mg/Sodium Chloride 250 ml @ 0 mls/hr AD PRN IV TITRATE 10/23/24 10:30 10/25/24 19:25 DC Epinephrine HCl 10 mg/Sodium Chloride 250 ml @ 0 mls/hr AD PRN IV POST-OP CARDIOVASCULAR ORDERS 10/23/24 17:00 10/23/24 17:33 DC Famotidine (Pepcid 20mg Vial) 20 mg BID IV 10/23/24 21:00 10/25/24 08:09 DC 10/24/24 20:23 20 MG Famotidine (Pepcid 20mg Vial) 20 mg DAILY IV 10/17/24 09:00 10/23/24 17:00 DC 10/23/24 11:19 20 MG Famotidine (Pepcid 20mg Tab) 20 mg HS PO 10/25/24 21:00 11/24/24 20:59 10/26/24 20:43 20 MG Furosemide (LASix 20MG TAB) 20 mg Q12H PO 10/25/24 09:00 10/27/24 13:45 DC 10/27/24 08:32 20 MG Furosemide (LASix 20MG VIAL) 20 mg BID IV 10/17/24 13:00 10/20/24 15:34 DC 10/20/24 09:37 20 MG Furosemide (LASix 20MG VIAL) 20 mg Q12H IV 10/24/24 09:00 10/25/24 08:59 DC 10/24/24 20:23 20 MG Furosemide (LASix 20MG VIAL) 40 mg BID IV 10/20/24 21:00 10/23/24 09:51 DC 10/22/24 22:06 40 MG Furosemide (LASix 40MG TAB) 40 mg Q12H PO 10/27/24 21:00 11/26/24 20:59 Furosemide (LASix 40MG VIAL) 40 mg BID IV 10/23/24 21:00 10/23/24 17:00 DC Glucagon (Glucagon 1mg Kit) 1 mg AD PRN IM HYPOGLYCEMIA PROTOCOL 10/23/24 17:00 11/22/24 16:59 Heparin Sodium (Porcine) (HEParin 5,000 UNIT VIAL) *calculation based on ACTUAL B... AD PRN IV HEPARIN PROTOCOL 10/16/24 18:00 10/23/24 17:00 DC 10/17/24 16:00 3,000 UNIT Heparin Sodium/ Dextrose 250 ml @ 0 mls/hr Q6H IV 10/16/24 18:00 10/23/24 09:45 DC 10/22/24 11:41 14.9 MLS/HR Hydroxyzine HCl (ATArax 25MG TAB) 12.5 mg TID PRN PO ITCHING 10/16/24 17:30 10/23/24 17:00 DC 10/20/24 20:54 12.5 MG Insulin Glargine (LANtus 100 UNITS/ML 10 ML VIAL) 15 units HS SQ 10/16/24 21:00 10/23/24 17:00 DC 10/22/24 22:09 15 UNITS Insulin Human Lispro (HumaLOG LISpro 100 UNIT/ML 3ML) 5 unit TIDAC SQ 10/17/24 07:30 10/23/24 17:00 DC 10/22/24 16:47 5 UNIT Insulin Human Lispro (HumaLOG LISpro 100 UNIT/ML 3ML) INSULIN SLIDING SCAL... ACHS SQ 10/16/24 21:00 10/23/24 17:00 DC 10/22/24 22:08 5 UNIT Insulin Human Regular (humuLIN R 100 UNIT/ML 3ML) INSULIN SLIDING SCAL... ACHS SQ 10/25/24 07:30 11/24/24 07:29 10/27/24 12:04 3 UNIT Insulin Human Regular 100 unit/ Sodium Chloride 100 ml @ 0 mls/hr AD IV 10/23/24 17:00 10/25/24 06:45 DC 10/23/24 19:16 5 MLS/HR Lactulose (Constulose 20gm/ 30ml Udcup) 20 gm BID PRN PO CONSTIPATION 10/22/24 10:00 10/23/24 17:00 DC 10/22/24 11:41 20 GM Lactulose (Constulose 20gm/ 30ml Udcup) 20 gm BID PRN PO CONSTIPATION 10/23/24 17:00 11/22/24 16:59 10/26/24 19:01 20 GM Lidocaine (Lidocaine Patch 4%) 1 each DAILY TP 10/16/24 21:20 11/15/24 21:19 10/26/24 09:22 1 EACH Lisinopril (Prinivil 5mg) 5 mg DAILY PO 10/17/24 09:00 10/23/24 17:00 DC 10/22/24 09:48 5 MG Magnesium Hydroxide (Milk Of Magnesium 30ml) 30 ml DAILY PRN PO CONSTIPATION 10/23/24 17:00 11/22/24 16:59 Magnesium Sulfate 50 ml @ 12.5 mls/hr AD PRN IV MAG LEVEL LESS THAN 2.0 10/23/24 17:00 11/22/24 16:59 10/24/24 04:52 12.5 MLS/HR Metoprolol Tartrate (loprESSOR) 12.5 mg BID PO 10/16/24 21:00 10/23/24 17:00 DC 10/23/24 09:43 12.5 MG Metoprolol Tartrate (loprESSOR) 12.5 mg BID PO 10/26/24 09:00 10/27/24 09:12 DC 10/27/24 08:32 12.5 MG Metoprolol Tartrate (loprESSOR) 25 mg BID PO 10/27/24 21:00 11/26/24 20:59 Morphine Sulfate (morPHINE 2MG SYG) 0.5 mg Q2H PRN IV MODERATE PAIN (4-6) 10/23/24 17:00 10/24/24 16:59 DC Morphine Sulfate (morPHINE 2MG SYG) 1 mg Q2H PRN IV SEVERE PAIN (7-10) 10/23/24 17:00 10/24/24 16:59 DC Nitroglycerin (Nitrostat) 0.4 mg PROTOCOL PRN SL CHEST PAIN 10/16/24 20:00 10/23/24 17:00 DC Nitroglycerin/ Dextrose 0 ml @ 0 mls/hr AD IV 10/23/24 17:00 10/25/24 19:25 DC Norepinephrine Bitartrate 250 ml @ 0 mls/hr AD PRN IV TITRATE 10/17/24 07:00 10/23/24 10:13 DC Norepinephrine Bitartrate 250 ml @ 0 mls/hr AD PRN IV TITRATE 10/23/24 10:30 10/25/24 19:25 DC Norepinephrine Bitartrate 8 mg/ Dextrose 250 ml @ 0 mls/hr AD PRN IV POST-OP CARDIOVASCULAR ORDERS 10/23/24 17:00 10/23/24 17:33 DC Ondansetron HCl (zoFRAN 4MG INJ) 4 mg Q12H PRN IVP NAUSEA/VOMITING 10/16/24 17:30 10/17/24 08:13 DC Ondansetron HCl (zoFRAN 4MG INJ) 4 mg Q6H PRN IV NAUSEA/VOMITING 10/16/24 20:00 10/23/24 17:00 DC Ondansetron HCl (zoFRAN 4MG INJ) 4 mg Q6H PRN IV NAUSEA/VOMITING 10/23/24 17:00 11/22/24 16:59 10/24/24 08:42 4 MG Potassium Phosphate 250 ml @ 42 mls/hr AD PRN IV LOW PHOS LEVEL 10/23/24 17:00 11/22/24 16:59 10/24/24 04:58 42 MLS/HR Potassium Chloride 100 ml @ 100 mls/hr AD PRN IV HYPOKALEMIA 10/23/24 17:00 11/22/24 16:59 10/24/24 00:12 100 MLS/HR Potassium Chloride (K-Dur/Klor-Con 20meq) 20 meq AD PRN PO POTASSIUM PROTOCOL 10/25/24 19:30 11/24/24 19:29 10/27/24 08:37 20 MEQ Potassium Chloride (KCl 10% Elixir 20meq/15ml) 20 meq AD PRN PO POTASSIUM PROTOCOL 10/25/24 19:30 11/24/24 19:29 Propofol 100 ml @ 0 mls/hr AD PRN IV SEDATION 10/23/24 17:00 10/25/24 08:09 DC Sodium Bicarbonate (Sodium Bicarb 50meq 50ml Vial) 50 meq AD PRN IV OTHER[SEE DOSING INSTRUCTIONS] 10/23/24 17:00 10/26/24 16:59 DC 10/23/24 22:14 50 MEQ Sodium Chloride 500 ml @ 0 mls/hr AD IV 10/23/24 17:00 10/25/24 19:25 DC Sodium Chloride 1,000 ml @ 10 mls/hr ONCE IV 10/23/24 17:00 10/24/24 16:59 DC 10/23/24 19:36 10 MLS/HR Sodium Chloride (NS Flush 10ml) 10 ml Q8H PRN IVP IV LINE FLUSH 10/23/24 17:00 11/22/24 16:59 Tramadol HCl (UltRAM) 25 mg Q6H PRN PO MODERATE PAIN (4-6) 10/23/24 17:00 10/28/24 16:59 Tramadol HCl (UltRAM) 50 mg Q6H PRN PO SEVERE PAIN (7-10) 10/23/24 17:00 10/28/24 16:59 10/26/24 20:48 50 MG DIAGNOSTICS / RADIOLOGY: [ ] ASSESSMENT: NSTEMI POA Multivessel Coronary artery disease, status post CABG (10/23/24) POA Chronic pulmonary edema, resolved POA Acute respiratory failure, resolved POA Bilateral carotid stenosis > 70%, POA Hypertension POA Uncontrolled diabetes last A1C 8.4, POA Nicotine dependence POA Hyperlipidemia POA Obesity POA Bilateral pneumonia POA PLAN: Continue famotidine 20 mg IV daily for GI prophylaxis Continue aspirin 81 mg p.o. daily and metoprolol 12.5 mg p.o. b.i.d. Continue Rocephin 2 g IV and azithromycin IV for broad-spectrum coverage Continue furosemide 20mg BID Continue lisinopril 5mg q24h Continue metoprolol 12.5 mg twice daily Continue Lovenox 30 mg Q 24 hours Aggressive incentive spirometry Physical therapy to work with the patient daily Continue oxygen supplementation to keep saturation between 88-92% Continue insulin sliding scale AC & HS with hypoglycemia protocol IR thoracentesis on Wednesday CV surgery consulted, appreciate recommendations Cardiology consulted, appreciate recommendations Disposition: Pending post op course, IR thoracentesis, PT/OT, placement FLAKITA BENNETT MD October 27, 2024 14:53
[2024-10-27] MEDS: BENZOCAINE/MENTH/CETYLPYRD CL 1 EACH LOZENGE MM PRN (15:44)
[2024-10-27] MEDS: BENZONATATE 100 MG CAPSULE PO PRN (18:48)
[2024-10-27] MEDS: metoPROLOL tartRATE 25 MG TAB PO SCH (20:40)
[2024-10-27] MEDS: furoSEMIDE 40 MG TABLET PO SCH (20:40)
--- NOTE | 2024-10-27 22:23 | CONS ---
[facility] CONSULTATION NOTE Date Patient Seen: October 27, 2024 Time of Visit: 22:19 Supervising Physician: Dr. Shaw Reason for Consultation: Left pleural effusion Primary Care Physician: Self referred Outpatient Specialists: [ ] Inpatient Consults: [ ] PROBLEM LIST: NSTEMI/multivessel CAD s/p LHC/coronary angiogram done on 10/16/[address] 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 Bilateral ICA stenosis (>70% by Doppler done 10/17/2024) POA. Concern for left-sided pleural effusion, no need for thoracentesis Hypertension POA Uncontrolled diabetes last A1C 8.4, POA Hyperlipidemia POA Bilateral pneumonia POA Tobacco abuse POA Obesity POA HPI: This is a 58-year-old Indonesian-speaking male with past medical history of diabetes, hypertension and hyperlipidemia who was transferred from [facility] with NSTEMI and multivessel CAD for a possible surgical revascularization and patient is on heparin drip. The patient initially presented to [facility] with complaint of shortness of breaths and fatigue. Per the patient report, about a month prior to come into the hospital he discontinued taking all his medications for chronic disease management as he was feeling much better. Of note, the patient is a two pack per week smoker and denies any recreational drugs or alcohol use. The patient was initially workup at [facility] where he underwent a heart catheterization radial access and was found to have multivessel CAD. Upon arrival to [facility], Cardiothoracic surgery evaluated the patient and on 10/23/2024, the patient underwent Off-pump coronary artery bypass grafting x 3 vessels, left internal mammary artery to the LAD, reverse saphenous vein graft from the aorta to the obtuse marginal artery, reverse saphenous vein graft from the aorta to the posterior descending artery and placement of a left atrial clip. with Dr Caballero. Chest imaging obtained today, showed concern for a left thoracentesis. IR was consulted for thoracentesis, but considering the patient was on prophylaxis dose Lovenox the procedure was deferred till Wednesday. Subsequently, pulmonology was consulted to carry out at bedside left thoracentesis. At the time my visit, the patient had no complaint. PAST MEDICAL HX: see above PAST SURGICAL HX: noncontributory SOCIAL HISTORY: No tobacco, ETOH, or illicit drug use Coded Allergies: No Known Drug Allergies (Unverified Allergy, Unknown, 10/16/24) REVIEW OF SYSTEMS: 12 point ROS reviewed with patient. Pertinent positives mentioned above. Otherw ise negative. PHYSICAL EXAM: GENERAL: alert, weak, awake oriented x 3 HEENT: EOMI, Sclera non icteric, moist mucosa NECK: Supple, no JVD, trachea midline LUNGS: Diminished breath sounds bilaterally. No wheezes HEART: Regular rate and rhythm. Normal S1 and S2, without murmurs ABD: Abdomen soft, nontender. Bowel sounds present EXT: No clubbing cyanosis or edema NEURO: Alert and oriented to person, follows commands Vital Signs (last 8hr) Date Time Temp Pulse Resp B/P (MAP) Pulse Ox O2 Delivery O2 Flow Rate FiO2 10/27/24 19:23 97 20 N/Cannula Low lpm 2.0 28 10/27/24 19:20 97 Nasal Cannula* 2 28 10/27/24 19:19 99.1 110 18 127/64 97 Nasal Cannula 2.0 10/27/24 16:38 99.0 10/27/24 15:30 100.0 110 18 127/64 92 Room Air LABS: Hematology Labs: Test 10/27/24 03:46 Range/Units White Blood Count 14.4 H 4.8-10.8 K/uL Red Blood Count 2.82 L 4.50-6.20 MIL/uL Hemoglobin 8.0 L 14.0-18.0 g/dL Hematocrit 25.2 L 42-54 % Mean Corpuscular Volume 89.4 79-99 fL Mean Corpuscular Hemoglobin 28.4 27.0-33.0 pg Mean Corpuscular Hemoglobin Concent 31.7 L 32.0-36.0 g/dL Red Cell Distribution Width 12.7 11.0-15.5 % Platelet Count 398 130-400 K/uL Mean Platelet Volume 10.2 7.5-10.5 fL Nucleated Red Blood Cells 0.0 0.0-0.19 % Chemistry Labs: Test 10/27/24 19:42 10/27/24 11:20 10/27/24 03:46 Range/Units Whole Blood Glucose 228 #H 70-110 MG/DL Bedside Glucose Comment Notified Nurse Sodium Level 135 L 136-145 mmol/L Potassium Level 3.3 L 3.5-5.1 mmol/L Chloride Level 97 L 101-111 mmol/L Carbon Dioxide Level 36 H 21-32 mmol/L Blood Urea Nitrogen 20 H 7-18 mg/dL Creatinine 0.9 0.5-1.3 mg/dL Glomerular Filtration Rate Calc 98 >90 mL/min Random Glucose 136 H 70-105 mg/dL Total Calcium 8.3 L 8.5-10.1 mg/dL DIAGNOSTICS / RADIOLOGY RESULTS: [ ] PLAN Pulmonology was consulted for assistance in the management of left pleural effusion and possible thoracentesis. POCUS was performed and minimal fluid was seen and with no safe window for thoracentesis. Recommend to continue with diuresis. We will continue following the patient with you and repeat chest imaging in a.m.. I appreciate the opportunity provided to participate in patient care. We will continue to provide general supportive care, GI and DVT prophylaxis. Further orders per attending MD and hospital course. NEURO: Minimize central acting medications as possible. Maintain fall precautions, adequate lighting during the day PULMONARY: Supplemental 02 as needed. Maintain aspiration precautions at all times CARDIOVASCULAR: Follow hemodynamics. Vital signs per facility protocol GI & NUTRITION: Continue with nutritional support. Continue stool softeners and laxatives as needed. KIDNEYS & ELECTROLYTES: Strict monitoring of intake, output and overall fluid balance. Avoid nephrotoxic medications to the extent possible. Medications to be dosed according to renal function. Monitor electrolytes and replace as needed ENDOCRINE: Maintain blood glucose between 100-180 at all times. Hypoglycemia protocol in place INFECTIOUS DISEASE: Trend temperature, WBC and procalcitonin level Follow cultures, deescalate antibiotics as soon as possible. Panculture if new onset fever ONCOLOGY/HEMATOLOGY/COAGULATION: Monitor for s/s of bleeding Monitor hemoglobin, coagulation studies as needed SKIN: Pressure ulcer prevention per facility protocol Specialty mattress ORTHO/REHAB: Continue PT/OT Prophylaxis: Continue GI and DVT prophylaxis Code Status: Full Resuscitation Disposition: TBD Other: Total patient care time exceeds 35 minutes excluding all procedures. IRAIDA ROQUE NP October 27, 2024 22:23
[2024-10-28] VITALS (10 sets, daily range): BP systolic 97–119; BP diastolic 55–68; PULSE 79–105; RESP 18–21; TEMP 98.1–99.6; O2SAT 93–94
[2024-10-28 05:32] LABS: HEMATOCRIT 26.9 % (42-54); MEAN CORPUSCULAR HEMOGLOBIN 28.8 pg (27.0-33.0); MEAN CORPUSCULAR HGB CONC 32.3 g/dL (32.0-36.0); MEAN CORPUSCULAR VOLUME 89.1 fL (79-99); RED BLOOD CELL COUNT(AUTO) 3.02 MIL/uL (4.50-6.20); RED CELL DISTRIBUTION WIDTH 12.4 % (11.0-15.5); WHITE BLOOD COUNT (AUTO) 10.2 K/uL (4.8-10.8)
[2024-10-28 05:38] LABS: CREATININE 0.8 mg/dL (0.5-1.3); POTASSIUM 3.5 mmol/L (3.5-5.1)
--- NOTE | 2024-10-28 08:30 | HMCIMG ---
CHEST 1VW HISTORY: Post CABG COMPARISON: None FINDINGS: A frontal projection of the chest was obtained. Left lung infiltrates and left pleural effusion are seen. Linear radiopaque density is seen in the plane of the mid thorax at midline of questionable etiology. The heart is borderline enlarged. Degenerative changes are seen. No evidence of aortic calcification is seen. IMPRESSION: 1. Left lung infiltrates with left pleural effusion.
[2024-10-28] MEDS: ASPIRIN 81 MG EC TAB PO ONE (12:01)
--- NOTE | 2024-10-28 12:26 | PN ---
SUBJECTIVE: The patient is postop day #5 from a coronary artery bypass grafting. He underwent an attempted thoracentesis yesterday; however, this was called off when the pre-procedure ultrasound did not show a significant enough effusion. The patient was off of oxygen yesterday, but this morning, I find him on nasal cannula oxygen. He does not appear short of breath. OBJECTIVE: VITAL SIGNS: Stable. Temperature 98.1, blood pressure 116/61, pulse 97, respirations 18, oxygen saturation 92% on nasal cannula oxygen prongs. HEENT: Reveals normocephalic and atraumatic. He has nasal cannula oxygen prongs under his nose. CHEST: His sternal wound is healing well. Chest tubes are out. HEART: S1 and S2 and regular. LUNGS: Unlabored at rest while sitting up in a chair. ABDOMEN: Reveals positive bowel sounds. IMAGING STUDIES: His chest x-ray shows a left moderate effusion. ASSESSMENT AND PLAN: * Status post coronary artery bypass grafting. Continue aspirin, metoprolol and Lasix 40 mg twice a day. * Postoperative acute pulmonary insufficiency secondary to effusion. We will attempt to wean off of nasal cannula as long as oxygen saturations are greater than or equal to 90%. Continue 40 mg of Lasix twice a day and trend x-rays. * Hypercholesterolemia. Lipitor at bedtime and low cholesterol, cardiac diet. * Deep venous thrombosis prophylaxis. Continue Lovenox subcutaneous daily. TID: [id number] RECEIPT: [id number]
--- NOTE | 2024-10-28 12:35 | PN ---
This is a 59-year-old male with a history of type 2 diabetes mellitus, hypertension, hyperlipidemia and tobacco use. He was transferred to [facility] 10/16/2024 due to a non-STEMI and community-acquired pneumonia. He underwent left heart catheterization 10/16/2024 which revealed severe three- vessel coronary artery disease. He is status post CABG x3 with COBOS to LAD, reverse saphenous vein graft to OM and reverse saphenous vein graft to PDA with left atrial clip on 10/23/2024. Echocardiogram performed 10/13/2024 showed an ejection fraction of 60-65% with moderate mitral valve regurgitation. Preop echocardiogram 10/17/2024 showed an ejection fraction of 45% with mid/apical anterolateral and inferolateral wall akinesis, normal function basal/mid/apical septal, anterior and inferior payton, normal-sized left atrium and mild mitral valve regurgitation. Chest x-ray 10/28/2024 shows left pulmonary infiltrates with marginal improvement from yesterday. Left thoracocentesis was attempted yesterday due to left pulmonary infiltrates, however this was not performed due to not having a safe window. He is currently in sinus rhythm with heart rates in the 90s. His most recent blood pressure is 116/61. White blood count 10.2, hemoglobin 8.7, hematocrit 26.9, platelets 534, creatinine 0.8, potassium 3.5. He reports irritation to his throat when he swallows. He denies chest pain, shortness of breath, weakness or palpitations. On exam, he is in no acute distress, regular rate and rhythm, crackles noted in the left lung field, no lower extremity edema is noted. Assessment: 1. Non-STEMI. 2. Severe three-vessel coronary artery disease status post CABG x3 with left atrial clip on 10/23/2024. 3. Community-acquired pneumonia. 4. Ischemic cardiomyopathy. 5. Postop anemia. 6. Type 2 diabetes mellitus. 7. Hypertension. 8. Hyperlipidemia. 9. Tobacco use. Plan: 1. He presented with a non-STEMI and underwent left heart catheterization revealing three-vessel coronary artery disease. He is status post CABG x3 with left atrial clip on 10/23/2024. 2. Presumably, aspirin was held due to thoracocentesis. We will restart aspirin 81 mg once daily, as well as clopidogrel 75 mcg once daily. 3. Continue atorvastatin 80 mg once daily, metoprolol tartrate 25 mg twice daily and furosemide 40 mg twice daily. 4. We will follow the patient. Vitals/Labs Vital Signs Date Time Temp Pulse Resp B/P (MAP) Pulse Ox O2 Delivery O2 Flow Rate FiO2 10/28/24 11:40 98.4 86 18 106/55 93 Room Air 10/28/24 06:31 1.0 24 Laboratory Tests 10/28/24 04:49 NURIS VAZQUEZ October 28, 2024 12:35
[2024-10-28] MEDS: ASPIRIN 81MG CHEW TAB PO ONE (12:45)
--- NOTE | 2024-10-28 15:50 | PN ---
[facility] PROGRESS NOTE Date of Service: October 28, 2024 Time of Service: 15:45 SUBJECTIVE: 10/17 patient seen at bedside, no acute events overnight. He has been afebrile, hemodynamically stable saturating well on 5 L nasal cannula. Echocardiogram pending, we will follow up. Bilateral carotid Dopplers showing severe stenosis in both internal carotid arteries, we will follow up with CV surgery. Patient initially transferred for CABG, chest x-ray showing bilateral infiltrates, we will continue with diuresis and continue antibiotics to treat for possible underlying pneumonia. 10/18 patient seen at bedside, no acute events overnight. Patient has no complaints today at bedside. CABG is on hold while patient being treated for pneumonia. He was given a lab holiday today, we will repeat labs tomorrow . Repeat chest x-ray shows improvement in infiltrates bilaterally, we will continue with antibiotics and diuresis. Proximally 4 L urine output in the last 24 hours. 10/19 patient seen at bedside, no acute events overnight. His chest x-ray windows continue to improve with further diuresis. He has been afebrile, hemodynamically stable saturating 96% on 4 L nasal cannula. We will follow up with CV surgery on optimal timing for CABG. Proximally 2.9 L urine output in the last 24 hours. Labs are relatively unremarkable. 10/20 patient seen at bedside, no acute events overnight. CABG is still pending, we will follow up with CV surgery on timing. Vitals and labs relatively unremarkable. 10/21 patient seen at bedside, no acute events overnight. CABG is still pending, CV surgery planning on next week. Vitals and labs relatively unremarkable. 10/22 patient seen at bedside, no acute events overnight. CABG is still pending, CV surgery planning on next week. Vitals and labs relatively unremarkable. 10/23 patient seen at bedside, no acute events overnight. CABG is still pending, likely later tdoay. LFT mildly elevated, remainder of his labs are relatively unremarkable. 10/24 patient seen at bedside, no acute events overnight. Status post CABG postop day one, he has been extubated. Cordis and chest tubes are in place, to be managed by CV surgery. Start aggressive incentive spirometry. Mildly tachycardic, heart rate ranging between 103 up to 126, WBC improved from 25.0 down to 15.7, hemoglobin decreased from 10.8 down to 9.0, platelets improved from 535 down to 469, remainder of his labs are relatively unremarkable. 10/25 patient seen at bedside, no acute events overnight. He is status post CABG postop day two, Cordis and chest tube are still in place, we will defer to CV surgery for management. Patient's only complaint is some nick-incisional pain, well controlled with current pain management. He has been mildly tachycardic with heart rate ranging from 101 up to 104, hemodynamically stable saturating well on 2 L nasal cannula. WBC improved from 15.7 down to 15.2, hemoglobin decreased from 9.0 down to 8.6, platelets decreased from 469 down to 324, remainder of his labs are relatively unremarkable. Continue with spirometry and physical therapy 10/26 patient seen at bedside, no acute events overnight. He is status post CABG postop day three, chest tube and Cordis have been removed. CV surgery recommending transitioned to rehab, case management has been consulted for assistance. WBC increased from 15.2 up to 16.1, hemoglobin decreased from 8.6 down to 8.4, remainder of his labs are relatively unremarkable. Patient showing poor inspiratory effort with IS, he has been drained once again and encouraged to increase his use of the spirometry. He will continue to work with physical therapy. 10/27 patient seen at bedside, no acute events overnight. He is status post CABG postop day four, she is showing better effort with incentive spirometry. Patient has been scheduled for left-sided thoracentesis, it has been rescheduled to Wednesday by IR so that any blood thinners can be held for the procedure. WBC decreased from 16.1 down to 14.4, hemoglobin decreased from 8.4 down to 8.0, CO2 mildly elevated at 36, patient has been encouraged to increase his usage of spirometry, remainder of his labs are relatively unremarkable. Patient is pending placement once he has been optimized. 10/28 patient seen at bedside, no acute events overnight. He is status post CABG postop day five, he continues to practice incentive spirometry. Left-sided thoracentesis has been scheduled for Wednesday, currently holding aspirin in anticipation. We will defer to the pulmonology, if no enough fluid for the procedure we will resume aspirin. Continue with PT/OT REVIEW OF SYSTEMS 12 point review of systems negative unless noted in HPI PHYSICAL EXAM GENERAL APPEARANCE: The patient is awake, alert, and oriented, in no acute cardiopulmonary distress. NEUROLOGICAL: Cranial nerves II-XII grossly intact. Motor is 5/5 in bilateral upper and lower extremities proximal to distal. No sensory deficits. HEENT: Face is symmetric. Pupils are equal and reactive. Extraocular movements are intact. NECK: Supple. No JVD. No thyromegaly. No submental, submandibular, pre- /postauricular, occipital or supraclavicular lymphadenopathy. CHEST: Normal chest expansion. No Telemetry. LUNGS: Absence of any rales, rhonchi or any wheezing. CARDIOVASCULAR: Regular. S1 and S2 normal. No appreciable rubs, murmurs or gallops. ABDOMEN: Soft, nontender, and nondistended. There is no rebound, voluntary guarding, or rigidity. : Deferred. No Henao. EXTREMITIES: Non-edematous and not cyanotic. No clubbing. Good capillary refill. SKIN: No skin breakdown. Vital Signs (last 8hr) Date Time Temp Pulse Resp B/P (MAP) Pulse Ox O2 Delivery O2 Flow Rate FiO2 10/28/24 11:40 98.4 86 18 106/55 93 Room Air 10/28/24 08:11 93 Nasal Cannula* 2 28 LABS: Laboratory: Test 10/28/24 11:44 10/28/24 04:49 10/27/24 11:20 Range/Units Whole Blood Glucose 242 #H 70-110 MG/DL White Blood Count 10.2 4.8-10.8 K/uL Red Blood Count 3.02 L 4.50-6.20 MIL/uL Hemoglobin 8.7 L 14.0-18.0 g/dL Hematocrit 26.9 L 42-54 % Mean Corpuscular Volume 89.1 79-99 fL Mean Corpuscular Hemoglobin 28.8 27.0-33.0 pg Mean Corpuscular Hemoglobin Concent 32.3 32.0-36.0 g/dL Red Cell Distribution Width 12.4 11.0-15.5 % Platelet Count 534 #H 130-400 K/uL Mean Platelet Volume 9.8 7.5-10.5 fL Nucleated Red Blood Cells 0.0 0.0-0.19 % Sodium Level 131 L 136-145 mmol/L Potassium Level 3.5 3.5-5.1 mmol/L Chloride Level 95 L 101-111 mmol/L Carbon Dioxide Level 35 H 21-32 mmol/L Blood Urea Nitrogen 17 7-18 mg/dL Creatinine 0.8 0.5-1.3 mg/dL Glomerular Filtration Rate Calc 101 >90 mL/min Random Glucose 132 H 70-105 mg/dL Total Calcium 8.3 L 8.5-10.1 mg/dL Bedside Glucose Comment Notified Nurse Current Medications Medications (Trade) Dose Ordered Sig/Meagan Route PRN Reason Start Time Stop Time Status Last Admin Dose Admin Acetaminophen (TYLenol 325MG TAB) 650 mg Q4H PRN PO MILD PAIN (1-3) 10/16/24 20:00 10/17/24 08:13 DC Acetaminophen (TYLenol 325MG TAB) 650 mg Q4H PRN PO Temp >38.3C(AFTER EXTUBATION) 10/23/24 17:00 11/22/24 16:59 Acetaminophen (TYLenol 325MG TAB) 650 mg Q6H PRN PO MILD PAIN (1-3) 10/16/24 17:30 10/24/24 14:21 DC 10/16/24 21:31 650 MG Acetaminophen (TYLenol 325MG TAB) 650 mg Q6H PRN PO TEMPERATURE GREATER THAN 101.5 10/16/24 20:00 10/24/24 14:21 DC Acetaminophen (TYLenol 325MG TAB) 650 mg Q6H PRN PO MILD PAIN (1-3) 10/23/24 17:00 11/22/24 16:59 10/25/24 08:57 650 MG Acetaminophen (TYLenol 650MG SUPPOSITORY) 650 mg Q4H PRN RC Temp >38.3C WHILE INTUBATED 10/23/24 17:00 10/25/24 08:09 DC Acetaminophen (acetaMINOPHEN) 1,000 mg Q6H6 IV 10/23/24 20:00 10/24/24 19:59 DC 10/24/24 20:22 1,000 MG Albumin Human 250 ml @ 0 mls/hr AD PRN IV IF HEMODYNAMICALLY UNSTABLE 10/23/24 17:00 10/23/24 20:25 DC 10/23/24 20:24 250 MLS/HR Albuterol Sulfate (Proventil 0.083% 2.5mg/3ml) 0.63 mg Q6H6 PRN IH SHORTNESS OF BREATH 10/16/24 18:00 11/15/24 17:59 Aminocaproic Acid 60403 mg/Sodium Chloride 310 ml @ 25 mls/hr AD IV 10/23/24 17:00 10/23/24 17:33 DC Aminocaproic Acid 08857 mg/Sodium Chloride 480 ml @ 0 mls/hr AD PRN IV BLEEDING CONTROL 10/17/24 07:00 10/23/24 10:13 DC Aminocaproic Acid 18194 mg/Sodium Chloride 480 ml @ 0 mls/hr AD PRN IV BLEEDING CONTROL 10/23/24 10:30 10/25/24 08:09 DC Aspirin (Aspirin 81mg Chew Tab) 81 mg DAILY PO 10/29/24 09:00 10/28/24 12:38 DC Aspirin (Aspirin 81mg Ec Tab) 81 mg DAILY PO 10/17/24 09:00 10/28/24 06:55 DC 10/27/24 08:32 81 MG Aspirin (Aspirin 81mg Ec Tab) 81 mg DAILY PO 10/29/24 09:00 11/28/24 08:59 Atorvastatin Calcium (LIPItor 40MG) 80 mg HS PO 10/17/24 21:00 11/16/24 20:59 10/27/24 20:40 80 MG Azithromycin 250 ml @ 250 mls/hr Q24H IVPB 10/16/24 21:00 10/25/24 23:59 DC 10/25/24 20:39 250 MLS/HR Benzocaine (Cepacol Sore Throat Lozenge) 1 each Q4H PRN MM SORE THROAT 10/27/24 15:00 11/26/24 14:59 10/27/24 20:40 1 EACH Benzonatate (Tessalon 100mg Caps) 100 mg Q8H PRN PO COUGH/COLD SYMPTOMS 10/27/24 15:00 11/26/24 14:59 10/27/24 18:48 100 MG Calcium Carbonate (Tums 500 Mg Chew Tab) 500 tab ONCE PO 10/22/24 13:00 10/23/24 17:00 DC 10/22/24 12:56 500 TAB Calcium Carbonate (Tums 500 Mg Chew Tab) 500 tab TIDAC PO 10/22/24 17:00 10/22/24 12:57 DC Calcium Gluconate 1 gm/Sodium Chloride 60 ml @ 200 mls/hr AD PRN IV HYPOCALCEMIA 10/23/24 17:00 10/25/24 19:25 DC Cefazolin Sodium (Ancef) 2 gm ONCALL IVP 10/16/24 23:00 10/18/24 22:59 DC 10/16/24 23:21 2 GM Cefazolin Sodium (Ancef) 2 gm ONCALL IVP 10/22/24 21:30 10/24/24 09:22 DC Cefazolin Sodium (Ancef) 2 gm Q8H IVPB 10/23/24 22:00 10/24/24 14:01 DC 10/24/24 14:33 2 GM Ceftriaxone Sodium (Rocephin 2gm Inj) 2 gm Q24H IVPB 10/17/24 09:30 10/26/24 12:29 DC 10/26/24 09:23 2 GM Clopidogrel Bisulfate (plaVIX 75MG) 75 mg DAILY PO 10/28/24 21:00 11/27/24 20:59 Dexmedetomidine/ Sodium Chloride (PRECEdex 400MCG/ 100ML-NS) 400 mcg PROTOCOL IV 10/23/24 17:00 10/24/24 16:59 DC Dextrose (D50w) 50 ml AD PRN IV HYPOGLYCEMIA PROTOCOL 10/23/24 17:00 11/22/24 16:59 Docusate Sodium (COLace 100MG CAP) 100 mg BID PO 10/23/24 21:00 11/22/24 20:59 10/28/24 09:14 100 MG Enoxaparin Sodium (Lovenox) 30 mg DAILY SQ 10/26/24 09:00 11/25/24 08:59 10/28/24 09:15 30 MG Epinephrine HCl 10 mg/Sodium Chloride 250 ml @ 0 mls/hr AD PRN IV TITRATE 10/17/24 07:00 10/23/24 10:13 DC Epinephrine HCl 10 mg/Sodium Chloride 250 ml @ 0 mls/hr AD PRN IV TITRATE 10/23/24 10:30 10/25/24 19:25 DC Epinephrine HCl 10 mg/Sodium Chloride 250 ml @ 0 mls/hr AD PRN IV POST-OP CARDIOVASCULAR ORDERS 10/23/24 17:00 10/23/24 17:33 DC Famotidine (Pepcid 20mg Vial) 20 mg BID IV 10/23/24 21:00 10/25/24 08:09 DC 10/24/24 20:23 20 MG Famotidine (Pepcid 20mg Vial) 20 mg DAILY IV 10/17/24 09:00 10/23/24 17:00 DC 10/23/24 11:19 20 MG Famotidine (Pepcid 20mg Tab) 20 mg HS PO 10/25/24 21:00 11/24/24 20:59 10/27/24 20:40 20 MG Furosemide (LASix 20MG TAB) 20 mg Q12H PO 10/25/24 09:00 10/27/24 13:45 DC 10/27/24 08:32 20 MG Furosemide (LASix 20MG VIAL) 20 mg BID IV 10/17/24 13:00 10/20/24 15:34 DC 10/20/24 09:37 20 MG Furosemide (LASix 20MG VIAL) 20 mg Q12H IV 10/24/24 09:00 10/25/24 08:59 DC 10/24/24 20:23 20 MG Furosemide (LASix 20MG VIAL) 40 mg BID IV 10/20/24 21:00 10/23/24 09:51 DC 10/22/24 22:06 40 MG Furosemide (LASix 40MG TAB) 40 mg Q12H PO 10/27/24 21:00 11/26/24 20:59 10/28/24 09:14 40 MG Furosemide (LASix 40MG VIAL) 40 mg BID IV 10/23/24 21:00 10/23/24 17:00 DC Glucagon (Glucagon 1mg Kit) 1 mg AD PRN IM HYPOGLYCEMIA PROTOCOL 10/23/24 17:00 11/22/24 16:59 Heparin Sodium (Porcine) (HEParin 5,000 UNIT VIAL) *calculation based on ACTUAL B... AD PRN IV HEPARIN PROTOCOL 10/16/24 18:00 10/23/24 17:00 DC 10/17/24 16:00 3,000 UNIT Heparin Sodium/ Dextrose 250 ml @ 0 mls/hr Q6H IV 10/16/24 18:00 10/23/24 09:45 DC 10/22/24 11:41 14.9 MLS/HR Hydroxyzine HCl (ATArax 25MG TAB) 12.5 mg TID PRN PO ITCHING 10/16/24 17:30 10/23/24 17:00 DC 10/20/24 20:54 12.5 MG Insulin Glargine (LANtus 100 UNITS/ML 10 ML VIAL) 15 units HS SQ 10/16/24 21:00 10/23/24 17:00 DC 10/22/24 22:09 15 UNITS Insulin Human Lispro (HumaLOG LISpro 100 UNIT/ML 3ML) 5 unit TIDAC SQ 10/17/24 07:30 10/23/24 17:00 DC 10/22/24 16:47 5 UNIT Insulin Human Lispro (HumaLOG LISpro 100 UNIT/ML 3ML) INSULIN SLIDING SCAL... ACHS SQ 10/16/24 21:00 10/23/24 17:00 DC 10/22/24 22:08 5 UNIT Insulin Human Regular (humuLIN R 100 UNIT/ML 3ML) INSULIN SLIDING SCAL... ACHS SQ 10/25/24 07:30 11/24/24 07:29 10/28/24 12:06 4 UNIT Insulin Human Regular 100 unit/ Sodium Chloride 100 ml @ 0 mls/hr AD IV 10/23/24 17:00 10/25/24 06:45 DC 10/23/24 19:16 5 MLS/HR Lactulose (Constulose 20gm/ 30ml Udcup) 20 gm BID PRN PO CONSTIPATION 10/22/24 10:00 10/23/24 17:00 DC 10/22/24 11:41 20 GM Lactulose (Constulose 20gm/ 30ml Udcup) 20 gm BID PRN PO CONSTIPATION 10/23/24 17:00 11/22/24 16:59 10/26/24 19:01 20 GM Lidocaine (Lidocaine Patch 4%) 1 each DAILY TP 10/16/24 21:20 11/15/24 21:19 10/28/24 09:14 1 EACH Lisinopril (Prinivil 5mg) 5 mg DAILY PO 10/17/24 09:00 10/23/24 17:00 DC 10/22/24 09:48 5 MG Magnesium Hydroxide (Milk Of Magnesium 30ml) 30 ml DAILY PRN PO CONSTIPATION 10/23/24 17:00 11/22/24 16:59 Magnesium Sulfate 50 ml @ 12.5 mls/hr AD PRN IV MAG LEVEL LESS THAN 2.0 10/23/24 17:00 11/22/24 16:59 10/24/24 04:52 12.5 MLS/HR Metoprolol Tartrate (loprESSOR) 12.5 mg BID PO 10/16/24 21:00 10/23/24 17:00 DC 10/23/24 09:43 12.5 MG Metoprolol Tartrate (loprESSOR) 12.5 mg BID PO 10/26/24 09:00 10/27/24 09:12 DC 10/27/24 08:32 12.5 MG Metoprolol Tartrate (loprESSOR) 25 mg BID PO 10/27/24 21:00 11/26/24 20:59 10/28/24 09:13 25 MG Morphine Sulfate (morPHINE 2MG SYG) 0.5 mg Q2H PRN IV MODERATE PAIN (4-6) 10/23/24 17:00 10/24/24 16:59 DC Morphine Sulfate (morPHINE 2MG SYG) 1 mg Q2H PRN IV SEVERE PAIN (7-10) 10/23/24 17:00 10/24/24 16:59 DC Nitroglycerin (Nitrostat) 0.4 mg PROTOCOL PRN SL CHEST PAIN 10/16/24 20:00 10/23/24 17:00 DC Nitroglycerin/ Dextrose 0 ml @ 0 mls/hr AD IV 10/23/24 17:00 10/25/24 19:25 DC Norepinephrine Bitartrate 250 ml @ 0 mls/hr AD PRN IV TITRATE 10/17/24 07:00 10/23/24 10:13 DC Norepinephrine Bitartrate 250 ml @ 0 mls/hr AD PRN IV TITRATE 10/23/24 10:30 10/25/24 19:25 DC Norepinephrine Bitartrate 8 mg/ Dextrose 250 ml @ 0 mls/hr AD PRN IV POST-OP CARDIOVASCULAR ORDERS 10/23/24 17:00 10/23/24 17:33 DC Ondansetron HCl (zoFRAN 4MG INJ) 4 mg Q12H PRN IVP NAUSEA/VOMITING 10/16/24 17:30 10/17/24 08:13 DC Ondansetron HCl (zoFRAN 4MG INJ) 4 mg Q6H PRN IV NAUSEA/VOMITING 10/16/24 20:00 10/23/24 17:00 DC Ondansetron HCl (zoFRAN 4MG INJ) 4 mg Q6H PRN IV NAUSEA/VOMITING 10/23/24 17:00 11/22/24 16:59 10/24/24 08:42 4 MG Potassium Phosphate 250 ml @ 42 mls/hr AD PRN IV LOW PHOS LEVEL 10/23/24 17:00 11/22/24 16:59 10/24/24 04:58 42 MLS/HR Potassium Chloride 100 ml @ 100 mls/hr AD PRN IV HYPOKALEMIA 10/23/24 17:00 11/22/24 16:59 10/24/24 00:12 100 MLS/HR Potassium Chloride (K-Dur/Klor-Con 20meq) 20 meq AD PRN PO POTASSIUM PROTOCOL 10/25/24 19:30 11/24/24 19:29 10/28/24 09:13 20 MEQ Potassium Chloride (KCl 10% Elixir 20meq/15ml) 20 meq AD PRN PO POTASSIUM PROTOCOL 10/25/24 19:30 11/24/24 19:29 Propofol 100 ml @ 0 mls/hr AD PRN IV SEDATION 10/23/24 17:00 10/25/24 08:09 DC Sodium Bicarbonate (Sodium Bicarb 50meq 50ml Vial) 50 meq AD PRN IV OTHER[SEE DOSING INSTRUCTIONS] 10/23/24 17:00 10/26/24 16:59 DC 10/23/24 22:14 50 MEQ Sodium Chloride 500 ml @ 0 mls/hr AD IV 10/23/24 17:00 10/25/24 19:25 DC Sodium Chloride 1,000 ml @ 10 mls/hr ONCE IV 10/23/24 17:00 10/24/24 16:59 DC 10/23/24 19:36 10 MLS/HR Sodium Chloride (NS Flush 10ml) 10 ml Q8H PRN IVP IV LINE FLUSH 10/23/24 17:00 11/22/24 16:59 Tramadol HCl (UltRAM) 25 mg Q6H PRN PO MODERATE PAIN (4-6) 10/23/24 17:00 10/28/24 16:59 Tramadol HCl (UltRAM) 50 mg Q6H PRN PO SEVERE PAIN (7-10) 10/23/24 17:00 10/28/24 16:59 10/27/24 20:41 50 MG DIAGNOSTICS / RADIOLOGY: [ ] ASSESSMENT: NSTEMI POA Multivessel Coronary artery disease, status post CABG (10/23/24) POA Chronic pulmonary edema, resolved POA Acute respiratory failure, resolved POA Bilateral carotid stenosis > 70%, POA Hypertension POA Uncontrolled diabetes last A1C 8.4, POA Nicotine dependence POA Hyperlipidemia POA Obesity POA Bilateral pneumonia POA PLAN: Continue famotidine 20 mg IV daily for GI prophylaxis Hold aspirin 81 mg p.o. daily Continue metoprolol 12.5 mg p.o. b.i.d. Continue Rocephin 2 g IV and azithromycin IV for broad-spectrum coverage Continue furosemide 20mg BID Continue lisinopril 5mg q24h Continue metoprolol 12.5 mg twice daily Continue Lovenox 30 mg Q 24 hours Aggressive incentive spirometry Physical therapy to work with the patient daily Continue oxygen supplementation to keep saturation between 88-92% Continue insulin sliding scale AC & HS with hypoglycemia protocol IR thoracentesis on Wednesday CV surgery consulted, appreciate recommendations Cardiology consulted, appreciate recommendations Disposition: Pending post op course, IR thoracentesis, PT/OT, placement FLAKITA BENNETT MD October 28, 2024 15:50
[2024-10-28] MEDS: cloPIDOgrel 75MG TAB PO SCH (20:26)
--- NOTE | 2024-10-28 21:27 | PN ---
[facility] PROGRESS NOTE Date Patient Seen: October 28, 2024 Time of Visit: 21:26 Supervising Physician: Dr. Shaw Primary Care Physician: Self referred Outpatient Specialists: [ ] Inpatient Consults: [ ] PROBLEM LIST: NSTEMI/multivessel CAD s/p LHC/coronary angiogram done on 10/16/[address] 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 Bilateral ICA stenosis (>70% by Doppler done 10/17/2024) POA. Concern for left-sided pleural effusion, no need for thoracentesis Hypertension POA Uncontrolled diabetes last A1C 8.4, POA Hyperlipidemia POA Bilateral pneumonia POA Tobacco abuse POA Obesity POA INTERVAL HISTORY: 10/28/2024: At the time of my evaluation, the patient was lying bed. His main complaint is cough. On the monitor, the patient is hemodynamically stable. Laboratory data showed improved WBC count now 10.2 H&H and platelet count is stable. History showed no changes of concern. Imaging shows a chest x-ray with small left pleural effusion. Complaint. REVIEW OF SYSTEMS: 12 point ROS reviewed with patient. Pertinent positives mentioned above. Otherwise negative. PHYSICAL EXAM: GENERAL: alert, weak, awake oriented x 3 HEENT: EOMI, Sclera non icteric, moist mucosa NECK: Supple, no JVD, trachea midline LUNGS: Diminished breath sounds bilaterally. No wheezes HEART: Regular rate and rhythm. Normal S1 and S2, without murmurs ABD: Abdomen soft, nontender. Bowel sounds present EXT: No clubbing cyanosis or edema NEURO: Alert and oriented to person, follows commands Vital Signs (last 8hr) Date Time Temp Pulse Resp B/P (MAP) Pulse Ox O2 Delivery O2 Flow Rate FiO2 10/28/24 19:00 99.7 105 18 119/60 94 Room Air 10/28/24 16:24 98.4 97 18 97/68 93 Room Air 10/28/24 16:08 20 N/Cannula Low lpm 21 LABS: Hematology Labs: Test 10/28/24 04:49 Range/Units White Blood Count 10.2 4.8-10.8 K/uL Red Blood Count 3.02 L 4.50-6.20 MIL/uL Hemoglobin 8.7 L 14.0-18.0 g/dL Hematocrit 26.9 L 42-54 % Mean Corpuscular Volume 89.1 79-99 fL Mean Corpuscular Hemoglobin 28.8 27.0-33.0 pg Mean Corpuscular Hemoglobin Concent 32.3 32.0-36.0 g/dL Red Cell Distribution Width 12.4 11.0-15.5 % Platelet Count 534 #H 130-400 K/uL Mean Platelet Volume 9.8 7.5-10.5 fL Nucleated Red Blood Cells 0.0 0.0-0.19 % Chemistry Labs: Test 10/28/24 19:33 10/28/24 04:49 10/27/24 11:20 Range/Units Whole Blood Glucose 227 #H 70-110 MG/DL Sodium Level 131 L 136-145 mmol/L Potassium Level 3.5 3.5-5.1 mmol/L Chloride Level 95 L 101-111 mmol/L Carbon Dioxide Level 35 H 21-32 mmol/L Blood Urea Nitrogen 17 7-18 mg/dL Creatinine 0.8 0.5-1.3 mg/dL Glomerular Filtration Rate Calc 101 >90 mL/min Random Glucose 132 H 70-105 mg/dL Total Calcium 8.3 L 8.5-10.1 mg/dL Bedside Glucose Comment Notified Nurse DIAGNOSTICS / RADIOLOGY RESULTS: [ ] PLAN Pulmonology was consulted for assistance in the management of left pleural effusion and possible thoracentesis. POCUS was performed and minimal fluid was seen and with no safe window for thoracentesis. Recommend to continue with diuresis. We will continue following the patient with you and repeat chest imaging in a.m.. I appreciate the opportunity provided to participate in patient care. We will continue to provide general supportive care, GI and DVT prophylaxis. Further orders per attending MD and hospital course. 10/28/2024: For now, we are going to continue current management for the patient. We will continue diuretic therapy as ordered. We will monitor the respiratory events and we will adjust as necessary. Patient will continue on cardiac management per the Cardiology team/[facility]. We will repeat surveillance labs in morning. We will follow the recommendation of the CTS and we will intervene if necessary. We will continue to provide general supportive care, GI and DVT prophylaxis. Further orders per attending MD and hospital course. NEURO: Minimize central acting medications as possible. Maintain fall precautions, adequate lighting during the day PULMONARY: Supplemental 02 as needed. Maintain aspiration precautions at all times CARDIOVASCULAR: Follow hemodynamics. Vital signs per facility protocol GI & NUTRITION: Continue with nutritional support. Continue stool softeners and laxatives as needed. KIDNEYS & ELECTROLYTES: Strict monitoring of intake, output and overall fluid balance. Avoid nephrotoxic medications to the extent possible. Medications to be dosed according to renal function. Monitor electrolytes and replace as needed ENDOCRINE: Maintain blood glucose between 100-180 at all times. Hypoglycemia protocol in place INFECTIOUS DISEASE: Trend temperature, WBC and procalcitonin level Follow cultures, deescalate antibiotics as soon as possible. Panculture if new onset fever ONCOLOGY/HEMATOLOGY/COAGULATION: Monitor for s/s of bleeding Monitor hemoglobin, coagulation studies as needed SKIN: Pressure ulcer prevention per facility protocol Specialty mattress ORTHO/REHAB: Continue PT/OT Prophylaxis: Continue GI and DVT prophylaxis Code Status: Full Resuscitation Disposition: TBD Other: Patient was seen and case discussed with river LOZANO. The plan of care was discussed and agreed upon. IRAIDA ROQUE NP October 28, 2024 21:27
[2024-10-29] VITALS (9 sets, daily range): BP systolic 106–122; BP diastolic 63–71; PULSE 87–109; RESP 17–20; TEMP 98–98.7; O2SAT 94–96
[2024-10-29 03:41] LABS: BASOPHILS # (AUTO) 0.06 K/uL (0.00-0.20); BASOPHILS % (AUTO) 0.6 % (0.0-5.0); EOSINOPHILS # (AUTO) 0.12 K/uL (0.00-0.70); EOSINOPHILS % (AUTO) 1.1 % (0.0-8.0); IMMATURE GRANULOCYTE ABSOLUTE 0.31 K/uL (0-1); LYMPHOCYTES # (AUTO) 1.7 K/uL (1.0-4.8); LYMPHOCYTES % (AUTO) 16.1 % (21.0-51.0); MEAN CORPUSCULAR HEMOGLOBIN 28.4 pg (27.0-33.0); MEAN CORPUSCULAR HGB CONC 32.9 g/dL (32.0-36.0); MEAN CORPUSCULAR VOLUME 86.4 fL (79-99); MONOCYTES # (AUTO) 1.6 K/uL (0.1-1.0); MONOCYTES % (AUTO) 14.8 % (3.0-13.0); NEUTROPHILS # (AUTO) 6.8 K/uL (1.8-7.7); NEUTROPHILS % (AUTO) 64.5 % (40.0-77.0); NUCLEATED RED BLOOD CELLS 0.2 % (0.0-0.19); PLATELET COUNT (AUTO) 537 K/uL (130-400); RED BLOOD CELL COUNT(AUTO) 3.24 MIL/uL (4.50-6.20); RED CELL DISTRIBUTION WIDTH 12.4 % (11.0-15.5); WHITE BLOOD COUNT (AUTO) 10.6 K/uL (4.8-10.8)
[2024-10-29 03:54] LABS: CREATININE 0.8 mg/dL (0.5-1.3); POTASSIUM 3.5 mmol/L (3.5-5.1)
[2024-10-29] MEDS ORDERED: ASPIRIN 81MG CHEW TAB PO SCH (09:00)
[2024-10-29] MEDS: ASPIRIN 81 MG EC TAB PO SCH (09:23)
--- NOTE | 2024-10-29 09:26 | PN ---
This is a 59-year-old male with a history of type 2 diabetes mellitus, hypertension, hyperlipidemia and tobacco use. He was transferred to [facility] 10/16/2024 due to a non-STEMI and community-acquired pneumonia. He underwent left heart catheterization 10/16/2024 which revealed severe three- vessel coronary artery disease. He is status post CABG x3 with COBOS to LAD, reverse saphenous vein graft to OM and reverse saphenous vein graft to PDA with left atrial clip on 10/23/2024. Echocardiogram performed 10/13/2024 showed an ejection fraction of 60-65% with moderate mitral valve regurgitation. Preop echocardiogram 10/17/2024 showed an ejection fraction of 45% with mid/apical anterolateral and inferolateral wall akinesis, normal function basal/mid/apical septal, anterior and inferior payton, normal-sized left atrium and mild mitral valve regurgitation. He has a left pleural effusion which is being managed with diuresis. Thoracocentesis was attempted two days ago, however there was not a sufficient effusion present. He is currently in sinus rhythm with heart rates in the 90s- 100s. His most recent blood pressure is 110/66. White blood count 10.6, hemoglobin 9.2, hematocrit 28.0, platelets 537, creatinine 0.8, potassium 3.5. He reports irritation to his throat when he swallows. He denies chest pain, shortness of breath, weakness or palpitations. On exam, he is in no acute distress, regular rate and rhythm, crackles noted in the left lung field, no lower extremity edema is noted. Assessment: 1. Non-STEMI. 2. Severe three-vessel coronary artery disease status post CABG x3 with left atrial clip on 10/23/2024. 3. Community-acquired pneumonia. 4. Ischemic cardiomyopathy. 5. Postop anemia. 6. Type 2 diabetes mellitus. 7. Hypertension. 8. Hyperlipidemia. 9. Tobacco use. Plan: 1. He presented with a non-STEMI and underwent left heart catheterization revealing three-vessel coronary artery disease. He is status post CABG x3 with left atrial clip on 10/23/2024. 2. Continue clopidogrel 75 mg once daily, aspirin 81 mg once daily and atorvastatin 80 mg once daily. 3. Titrate metoprolol tartrate to 50 mg twice daily due to sinus tachycardia. Consider adding low-dose all caps MARY LOU/ARB if blood pressure tolerates. 4. Continue furosemide 40 mg twice daily for management of the left pleural effusion. 5. We will follow the patient. Vitals/Labs Vital Signs Date Time Temp Pulse Resp B/P (MAP) Pulse Ox O2 Delivery O2 Flow Rate FiO2 10/29/24 08:00 98.4 103 17 110/66 96 Room Air 10/29/24 07:29 21 10/28/24 20:00 0 Laboratory Tests 10/29/24 03:10 NURIS VAZQUEZ October 29, 2024 09:26
--- NOTE | 2024-10-29 13:05 | PN ---
SUBJECTIVE: The patient is postop day #5 from a coronary artery bypass grafting. The patient is doing well, awaiting placement in a [facility]. He offers no complaints. OBJECTIVE: VITAL SIGNS: Reveal temperature 98.4, blood pressure is 110/66, pulse 103, respirations 17, oxygen saturation 96% on room air, laying flat. HEENT: Reveals normocephalic, atraumatic. He is off of nasal cannula oxygen. HEART: S1 and S2 and slightly tachycardic. LUNGS: Unlabored at rest, laying flat, weaned off of oxygen. CHEST: Sternal wound is healing well. Chest tubes have been removed. ABDOMEN: Soft and nontender. ASSESSMENT AND PLAN: * Status post coronary artery bypass grafting. Continue aspirin, metoprolol and Lasix. Begin Plavix 75 mg daily. Plan to discharge to retirement facility once bed is available. * Hypercholesterolemia. Lipitor at bedtime, low cholesterol, cardiac diet. * DVT prophylaxis, Lovenox subcutaneous daily. TID: [id number] RECEIPT: [id number]
--- NOTE | 2024-10-29 14:35 | PN ---
[facility] PROGRESS NOTE Date of Service: October 29, 2024 Time of Service: 14:34 SUBJECTIVE: 10/17 patient seen at bedside, no acute events overnight. He has been afebrile, hemodynamically stable saturating well on 5 L nasal cannula. Echocardiogram pending, we will follow up. Bilateral carotid Dopplers showing severe stenosis in both internal carotid arteries, we will follow up with CV surgery. Patient initially transferred for CABG, chest x-ray showing bilateral infiltrates, we will continue with diuresis and continue antibiotics to treat for possible underlying pneumonia. 10/18 patient seen at bedside, no acute events overnight. Patient has no complaints today at bedside. CABG is on hold while patient being treated for pneumonia. He was given a lab holiday today, we will repeat labs tomorrow . Repeat chest x-ray shows improvement in infiltrates bilaterally, we will continue with antibiotics and diuresis. Proximally 4 L urine output in the last 24 hours. 10/19 patient seen at bedside, no acute events overnight. His chest x-ray windows continue to improve with further diuresis. He has been afebrile, hemodynamically stable saturating 96% on 4 L nasal cannula. We will follow up with CV surgery on optimal timing for CABG. Proximally 2.9 L urine output in the last 24 hours. Labs are relatively unremarkable. 10/20 patient seen at bedside, no acute events overnight. CABG is still pending, we will follow up with CV surgery on timing. Vitals and labs relatively unremarkable. 10/21 patient seen at bedside, no acute events overnight. CABG is still pending, CV surgery planning on next week. Vitals and labs relatively unremarkable. 10/22 patient seen at bedside, no acute events overnight. CABG is still pending, CV surgery planning on next week. Vitals and labs relatively unremarkable. 10/23 patient seen at bedside, no acute events overnight. CABG is still pending, likely later tdoay. LFT mildly elevated, remainder of his labs are relatively unremarkable. 10/24 patient seen at bedside, no acute events overnight. Status post CABG postop day one, he has been extubated. Cordis and chest tubes are in place, to be managed by CV surgery. Start aggressive incentive spirometry. Mildly tachycardic, heart rate ranging between 103 up to 126, WBC improved from 25.0 down to 15.7, hemoglobin decreased from 10.8 down to 9.0, platelets improved from 535 down to 469, remainder of his labs are relatively unremarkable. 10/25 patient seen at bedside, no acute events overnight. He is status post CABG postop day two, Cordis and chest tube are still in place, we will defer to CV surgery for management. Patient's only complaint is some nick-incisional pain, well controlled with current pain management. He has been mildly tachycardic with heart rate ranging from 101 up to 104, hemodynamically stable saturating well on 2 L nasal cannula. WBC improved from 15.7 down to 15.2, hemoglobin decreased from 9.0 down to 8.6, platelets decreased from 469 down to 324, remainder of his labs are relatively unremarkable. Continue with spirometry and physical therapy 10/26 patient seen at bedside, no acute events overnight. He is status post CABG postop day three, chest tube and Cordis have been removed. CV surgery recommending transitioned to rehab, case management has been consulted for assistance. WBC increased from 15.2 up to 16.1, hemoglobin decreased from 8.6 down to 8.4, remainder of his labs are relatively unremarkable. Patient showing poor inspiratory effort with IS, he has been drained once again and encouraged to increase his use of the spirometry. He will continue to work with physical therapy. 10/27 patient seen at bedside, no acute events overnight. He is status post CABG postop day four, she is showing better effort with incentive spirometry. Patient has been scheduled for left-sided thoracentesis, it has been rescheduled to Wednesday by IR so that any blood thinners can be held for the procedure. WBC decreased from 16.1 down to 14.4, hemoglobin decreased from 8.4 down to 8.0, CO2 mildly elevated at 36, patient has been encouraged to increase his usage of spirometry, remainder of his labs are relatively unremarkable. Patient is pending placement once he has been optimized. 10/28 patient seen at bedside, no acute events overnight. He is status post CABG postop day five, he continues to practice incentive spirometry. Left-sided thoracentesis has been scheduled for Wednesday, currently holding aspirin in anticipation. We will defer to the pulmonology, if no enough fluid for the procedure we will resume aspirin. Continue with PT/OT 10/29 patient seen at bedside, no acute events overnight. He is status post CABG postop day six, he continues to practice incentive spirometry. Left-sided thoracentesis canceled by pulmonology, not enough fluid appreciate for procedure, aspirin and plavix resumed. Pending rehab placement REVIEW OF SYSTEMS 12 point review of systems negative unless noted in HPI PHYSICAL EXAM GENERAL APPEARANCE: The patient is awake, alert, and oriented, in no acute cardiopulmonary distress. NEUROLOGICAL: Cranial nerves II-XII grossly intact. Motor is 5/5 in bilateral upper and lower extremities proximal to distal. No sensory deficits. HEENT: Face is symmetric. Pupils are equal and reactive. Extraocular movements are intact. NECK: Supple. No JVD. No thyromegaly. No submental, submandibular, pre- /postauricular, occipital or supraclavicular lymphadenopathy. CHEST: Normal chest expansion. No Telemetry. LUNGS: Absence of any rales, rhonchi or any wheezing. CARDIOVASCULAR: Regular. S1 and S2 normal. No appreciable rubs, murmurs or gallops. ABDOMEN: Soft, nontender, and nondistended. There is no rebound, voluntary guarding, or rigidity. : Deferred. No Henao. EXTREMITIES: Non-edematous and not cyanotic. No clubbing. Good capillary refill. SKIN: No skin breakdown. Vital Signs (last 8hr) Date Time Temp Pulse Resp B/P (MAP) Pulse Ox O2 Delivery O2 Flow Rate FiO2 10/29/24 12:00 98.1 87 17 106/64 97 Room Air 10/29/24 08:00 98.4 103 17 110/66 96 Room Air 10/29/24 08:00 96 Room Air* 0 21 10/29/24 07:29 101 20 N/Cannula Low lpm 21 LABS: Laboratory: Test 10/29/24 11:26 10/29/24 03:10 Range/Units Whole Blood Glucose 218 H 70-110 MG/DL White Blood Count 10.6 4.8-10.8 K/uL Red Blood Count 3.24 L 4.50-6.20 MIL/uL Hemoglobin 9.2 L 14.0-18.0 g/dL Hematocrit 28.0 L 42-54 % Mean Corpuscular Volume 86.4 79-99 fL Mean Corpuscular Hemoglobin 28.4 27.0-33.0 pg Mean Corpuscular Hemoglobin Concent 32.9 32.0-36.0 g/dL Red Cell Distribution Width 12.4 11.0-15.5 % Platelet Count 537 H 130-400 K/uL Mean Platelet Volume 9.3 7.5-10.5 fL Immature Granulocyte % (Auto) 2.9 H 0-1 % Neutrophils (%) (Auto) 64.5 40.0-77.0 % Lymphocytes (%) (Auto) 16.1 L 21.0-51.0 % Monocytes (%) (Auto) 14.8 H 3.0-13.0 % Eosinophils (%) (Auto) 1.1 0.0-8.0 % Basophils (%) (Auto) 0.6 0.0-5.0 % Neutrophils # (Auto) 6.8 1.8-7.7 K/uL Lymphocytes # (Auto) 1.7 1.0-4.8 K/uL Monocytes # (Auto) 1.6 H 0.1-1.0 K/uL Eosinophils # (Auto) 0.12 0.00-0.70 K/uL Basophils # (Auto) 0.06 0.00-0.20 K/uL Absolute Immature Granulocyte (auto 0.31 0-1 K/uL Nucleated Red Blood Cells 0.2 H 0.0-0.19 % Sodium Level 133 L 136-145 mmol/L Potassium Level 3.5 3.5-5.1 mmol/L Chloride Level 96 L 101-111 mmol/L Carbon Dioxide Level 35 H 21-32 mmol/L Blood Urea Nitrogen 14 7-18 mg/dL Creatinine 0.8 0.5-1.3 mg/dL Glomerular Filtration Rate Calc 101 >90 mL/min Random Glucose 139 H 70-105 mg/dL Total Calcium 8.6 8.5-10.1 mg/dL Current Medications Medications (Trade) Dose Ordered Sig/Meagan Route PRN Reason Start Time Stop Time Status Last Admin Dose Admin Acetaminophen (TYLenol 325MG TAB) 650 mg Q4H PRN PO MILD PAIN (1-3) 10/16/24 20:00 10/17/24 08:13 DC Acetaminophen (TYLenol 325MG TAB) 650 mg Q4H PRN PO Temp >38.3C(AFTER EXTUBATION) 10/23/24 17:00 11/22/24 16:59 Acetaminophen (TYLenol 325MG TAB) 650 mg Q6H PRN PO MILD PAIN (1-3) 10/16/24 17:30 10/24/24 14:21 DC 10/16/24 21:31 650 MG Acetaminophen (TYLenol 325MG TAB) 650 mg Q6H PRN PO TEMPERATURE GREATER THAN 101.5 10/16/24 20:00 10/24/24 14:21 DC Acetaminophen (TYLenol 325MG TAB) 650 mg Q6H PRN PO MILD PAIN (1-3) 10/23/24 17:00 11/22/24 16:59 10/28/24 19:15 650 MG Acetaminophen (TYLenol 650MG SUPPOSITORY) 650 mg Q4H PRN RC Temp >38.3C WHILE INTUBATED 10/23/24 17:00 10/25/24 08:09 DC Acetaminophen (acetaMINOPHEN) 1,000 mg Q6H6 IV 10/23/24 20:00 10/24/24 19:59 DC 10/24/24 20:22 1,000 MG Albumin Human 250 ml @ 0 mls/hr AD PRN IV IF HEMODYNAMICALLY UNSTABLE 10/23/24 17:00 10/23/24 20:25 DC 10/23/24 20:24 250 MLS/HR Albuterol Sulfate (Proventil 0.083% 2.5mg/3ml) 0.63 mg Q6H6 PRN IH SHORTNESS OF BREATH 10/16/24 18:00 11/15/24 17:59 Aminocaproic Acid 35463 mg/Sodium Chloride 310 ml @ 25 mls/hr AD IV 10/23/24 17:00 10/23/24 17:33 DC Aminocaproic Acid 12632 mg/Sodium Chloride 480 ml @ 0 mls/hr AD PRN IV BLEEDING CONTROL 10/17/24 07:00 10/23/24 10:13 DC Aminocaproic Acid 27190 mg/Sodium Chloride 480 ml @ 0 mls/hr AD PRN IV BLEEDING CONTROL 10/23/24 10:30 10/25/24 08:09 DC Aspirin (Aspirin 81mg Chew Tab) 81 mg DAILY PO 10/29/24 09:00 10/28/24 12:38 DC Aspirin (Aspirin 81mg Ec Tab) 81 mg DAILY PO 10/17/24 09:00 10/28/24 06:55 DC 10/27/24 08:32 81 MG Aspirin (Aspirin 81mg Ec Tab) 81 mg DAILY PO 10/29/24 09:00 11/28/24 08:59 10/29/24 09:23 81 MG Atorvastatin Calcium (LIPItor 40MG) 80 mg HS PO 10/17/24 21:00 11/16/24 20:59 10/28/24 20:26 80 MG Azithromycin 250 ml @ 250 mls/hr Q24H IVPB 10/16/24 21:00 10/25/24 23:59 DC 10/25/24 20:39 250 MLS/HR Benzocaine (Cepacol Sore Throat Lozenge) 1 each Q4H PRN MM SORE THROAT 10/27/24 15:00 11/26/24 14:59 10/27/24 20:40 1 EACH Benzonatate (Tessalon 100mg Caps) 100 mg Q8H PRN PO COUGH/COLD SYMPTOMS 10/27/24 15:00 11/26/24 14:59 10/28/24 20:36 100 MG Calcium Carbonate (Tums 500 Mg Chew Tab) 500 tab ONCE PO 10/22/24 13:00 10/23/24 17:00 DC 10/22/24 12:56 500 TAB Calcium Carbonate (Tums 500 Mg Chew Tab) 500 tab TIDAC PO 10/22/24 17:00 10/22/24 12:57 DC Calcium Gluconate 1 gm/Sodium Chloride 60 ml @ 200 mls/hr AD PRN IV HYPOCALCEMIA 10/23/24 17:00 10/25/24 19:25 DC Cefazolin Sodium (Ancef) 2 gm ONCALL IVP 10/16/24 23:00 10/18/24 22:59 DC 10/16/24 23:21 2 GM Cefazolin Sodium (Ancef) 2 gm ONCALL IVP 10/22/24 21:30 10/24/24 09:22 DC Cefazolin Sodium (Ancef) 2 gm Q8H IVPB 10/23/24 22:00 10/24/24 14:01 DC 10/24/24 14:33 2 GM Ceftriaxone Sodium (Rocephin 2gm Inj) 2 gm Q24H IVPB 10/17/24 09:30 10/26/24 12:29 DC 10/26/24 09:23 2 GM Clopidogrel Bisulfate (plaVIX 75MG) 75 mg DAILY PO 10/28/24 21:00 11/27/24 20:59 10/29/24 09:24 75 MG Dexmedetomidine/ Sodium Chloride (PRECEdex 400MCG/ 100ML-NS) 400 mcg PROTOCOL IV 10/23/24 17:00 10/24/24 16:59 DC Dextrose (D50w) 50 ml AD PRN IV HYPOGLYCEMIA PROTOCOL 10/23/24 17:00 11/22/24 16:59 Docusate Sodium (COLace 100MG CAP) 100 mg BID PO 10/23/24 21:00 11/22/24 20:59 10/29/24 09:23 100 MG Enoxaparin Sodium (Lovenox) 30 mg DAILY SQ 10/26/24 09:00 11/25/24 08:59 10/29/24 09:23 30 MG Epinephrine HCl 10 mg/Sodium Chloride 250 ml @ 0 mls/hr AD PRN IV TITRATE 10/17/24 07:00 10/23/24 10:13 DC Epinephrine HCl 10 mg/Sodium Chloride 250 ml @ 0 mls/hr AD PRN IV TITRATE 10/23/24 10:30 10/25/24 19:25 DC Epinephrine HCl 10 mg/Sodium Chloride 250 ml @ 0 mls/hr AD PRN IV POST-OP CARDIOVASCULAR ORDERS 10/23/24 17:00 10/23/24 17:33 DC Famotidine (Pepcid 20mg Vial) 20 mg BID IV 10/23/24 21:00 10/25/24 08:09 DC 10/24/24 20:23 20 MG Famotidine (Pepcid 20mg Vial) 20 mg DAILY IV 10/17/24 09:00 10/23/24 17:00 DC 10/23/24 11:19 20 MG Famotidine (Pepcid 20mg Tab) 20 mg HS PO 10/25/24 21:00 11/24/24 20:59 10/28/24 20:26 20 MG Furosemide (LASix 20MG TAB) 20 mg Q12H PO 10/25/24 09:00 10/27/24 13:45 DC 10/27/24 08:32 20 MG Furosemide (LASix 20MG VIAL) 20 mg BID IV 10/17/24 13:00 10/20/24 15:34 DC 10/20/24 09:37 20 MG Furosemide (LASix 20MG VIAL) 20 mg Q12H IV 10/24/24 09:00 10/25/24 08:59 DC 10/24/24 20:23 20 MG Furosemide (LASix 20MG VIAL) 40 mg BID IV 10/20/24 21:00 10/23/24 09:51 DC 10/22/24 22:06 40 MG Furosemide (LASix 40MG TAB) 40 mg Q12H PO 10/27/24 21:00 11/26/24 20:59 10/29/24 09:24 40 MG Furosemide (LASix 40MG VIAL) 40 mg BID IV 10/23/24 21:00 10/23/24 17:00 DC Glucagon (Glucagon 1mg Kit) 1 mg AD PRN IM HYPOGLYCEMIA PROTOCOL 10/23/24 17:00 11/22/24 16:59 Heparin Sodium (Porcine) (HEParin 5,000 UNIT VIAL) *calculation based on ACTUAL B... AD PRN IV HEPARIN PROTOCOL 10/16/24 18:00 10/23/24 17:00 DC 10/17/24 16:00 3,000 UNIT Heparin Sodium/ Dextrose 250 ml @ 0 mls/hr Q6H IV 10/16/24 18:00 10/23/24 09:45 DC 10/22/24 11:41 14.9 MLS/HR Hydroxyzine HCl (ATArax 25MG TAB) 12.5 mg TID PRN PO ITCHING 10/16/24 17:30 10/23/24 17:00 DC 10/20/24 20:54 12.5 MG Insulin Glargine (LANtus 100 UNITS/ML 10 ML VIAL) 15 units HS SQ 10/16/24 21:00 10/23/24 17:00 DC 10/22/24 22:09 15 UNITS Insulin Human Lispro (HumaLOG LISpro 100 UNIT/ML 3ML) 5 unit TIDAC SQ 10/17/24 07:30 10/23/24 17:00 DC 10/22/24 16:47 5 UNIT Insulin Human Lispro (HumaLOG LISpro 100 UNIT/ML 3ML) INSULIN SLIDING SCAL... ACHS SQ 10/16/24 21:00 10/23/24 17:00 DC 10/22/24 22:08 5 UNIT Insulin Human Regular (humuLIN R 100 UNIT/ML 3ML) INSULIN SLIDING SCAL... ACHS SQ 10/25/24 07:30 11/24/24 07:29 10/29/24 12:13 3 UNIT Insulin Human Regular 100 unit/ Sodium Chloride 100 ml @ 0 mls/hr AD IV 10/23/24 17:00 10/25/24 06:45 DC 10/23/24 19:16 5 MLS/HR Lactulose (Constulose 20gm/ 30ml Udcup) 20 gm BID PRN PO CONSTIPATION 10/22/24 10:00 10/23/24 17:00 DC 10/22/24 11:41 20 GM Lactulose (Constulose 20gm/ 30ml Udcup) 20 gm BID PRN PO CONSTIPATION 10/23/24 17:00 11/22/24 16:59 10/26/24 19:01 20 GM Lidocaine (Lidocaine Patch 4%) 1 each DAILY TP 10/16/24 21:20 11/15/24 21:19 10/29/24 09:24 1 EACH Lisinopril (Prinivil 5mg) 5 mg DAILY PO 10/17/24 09:00 10/23/24 17:00 DC 10/22/24 09:48 5 MG Magnesium Hydroxide (Milk Of Magnesium 30ml) 30 ml DAILY PRN PO CONSTIPATION 10/23/24 17:00 11/22/24 16:59 Magnesium Sulfate 50 ml @ 12.5 mls/hr AD PRN IV MAG LEVEL LESS THAN 2.0 10/23/24 17:00 11/22/24 16:59 10/24/24 04:52 12.5 MLS/HR Metoprolol Tartrate (loprESSOR) 12.5 mg BID PO 10/16/24 21:00 10/23/24 17:00 DC 10/23/24 09:43 12.5 MG Metoprolol Tartrate (loprESSOR) 12.5 mg BID PO 10/26/24 09:00 10/27/24 09:12 DC 10/27/24 08:32 12.5 MG Metoprolol Tartrate (loprESSOR) 25 mg BID PO 10/27/24 21:00 10/29/24 09:29 DC 10/29/24 09:24 25 MG Metoprolol Tartrate (loprESSOR) 50 mg BID PO 10/30/24 09:00 11/29/24 08:59 Morphine Sulfate (morPHINE 2MG SYG) 0.5 mg Q2H PRN IV MODERATE PAIN (4-6) 10/23/24 17:00 10/24/24 16:59 DC Morphine Sulfate (morPHINE 2MG SYG) 1 mg Q2H PRN IV SEVERE PAIN (7-10) 10/23/24 17:00 10/24/24 16:59 DC Nitroglycerin (Nitrostat) 0.4 mg PROTOCOL PRN SL CHEST PAIN 10/16/24 20:00 10/23/24 17:00 DC Nitroglycerin/ Dextrose 0 ml @ 0 mls/hr AD IV 10/23/24 17:00 10/25/24 19:25 DC Norepinephrine Bitartrate 250 ml @ 0 mls/hr AD PRN IV TITRATE 10/17/24 07:00 10/23/24 10:13 DC Norepinephrine Bitartrate 250 ml @ 0 mls/hr AD PRN IV TITRATE 10/23/24 10:30 10/25/24 19:25 DC Norepinephrine Bitartrate 8 mg/ Dextrose 250 ml @ 0 mls/hr AD PRN IV POST-OP CARDIOVASCULAR ORDERS 10/23/24 17:00 10/23/24 17:33 DC Ondansetron HCl (zoFRAN 4MG INJ) 4 mg Q12H PRN IVP NAUSEA/VOMITING 10/16/24 17:30 10/17/24 08:13 DC Ondansetron HCl (zoFRAN 4MG INJ) 4 mg Q6H PRN IV NAUSEA/VOMITING 10/16/24 20:00 10/23/24 17:00 DC Ondansetron HCl (zoFRAN 4MG INJ) 4 mg Q6H PRN IV NAUSEA/VOMITING 10/23/24 17:00 11/22/24 16:59 10/24/24 08:42 4 MG Potassium Phosphate 250 ml @ 42 mls/hr AD PRN IV LOW PHOS LEVEL 10/23/24 17:00 11/22/24 16:59 10/24/24 04:58 42 MLS/HR Potassium Chloride 100 ml @ 100 mls/hr AD PRN IV HYPOKALEMIA 10/23/24 17:00 11/22/24 16:59 10/24/24 00:12 100 MLS/HR Potassium Chloride (K-Dur/Klor-Con 20meq) 20 meq AD PRN PO POTASSIUM PROTOCOL 10/25/24 19:30 11/24/24 19:29 10/29/24 05:43 20 MEQ Potassium Chloride (KCl 10% Elixir 20meq/15ml) 20 meq AD PRN PO POTASSIUM PROTOCOL 10/25/24 19:30 11/24/24 19:29 Propofol 100 ml @ 0 mls/hr AD PRN IV SEDATION 10/23/24 17:00 10/25/24 08:09 DC Sodium Bicarbonate (Sodium Bicarb 50meq 50ml Vial) 50 meq AD PRN IV OTHER[SEE DOSING INSTRUCTIONS] 10/23/24 17:00 10/26/24 16:59 DC 10/23/24 22:14 50 MEQ Sodium Chloride 500 ml @ 0 mls/hr AD IV 10/23/24 17:00 10/25/24 19:25 DC Sodium Chloride 1,000 ml @ 10 mls/hr ONCE IV 10/23/24 17:00 10/24/24 16:59 DC 10/23/24 19:36 10 MLS/HR Sodium Chloride (NS Flush 10ml) 10 ml Q8H PRN IVP IV LINE FLUSH 10/23/24 17:00 11/22/24 16:59 Tramadol HCl (UltRAM) 25 mg Q6H PRN PO MODERATE PAIN (4-6) 10/23/24 17:00 10/28/24 16:59 DC Tramadol HCl (UltRAM) 50 mg Q6H PRN PO SEVERE PAIN (7-10) 10/23/24 17:00 10/28/24 16:59 DC 10/27/24 20:41 50 MG DIAGNOSTICS / RADIOLOGY: [ ] ASSESSMENT: NSTEMI POA Multivessel Coronary artery disease, status post CABG (10/23/24) POA Chronic pulmonary edema, resolved POA Acute respiratory failure, resolved POA Bilateral carotid stenosis > 70%, POA Hypertension POA Uncontrolled diabetes last A1C 8.4, POA Nicotine dependence POA Hyperlipidemia POA Obesity POA Bilateral pneumonia POA PLAN: Continue famotidine 20 mg IV daily for GI prophylaxis Hold aspirin 81 mg p.o. daily Continue metoprolol 12.5 mg p.o. b.i.d. Continue Rocephin 2 g IV and azithromycin IV for broad-spectrum coverage Continue furosemide 20mg BID Continue lisinopril 5mg q24h Continue metoprolol 12.5 mg twice daily Continue Lovenox 30 mg Q 24 hours Aggressive incentive spirometry Physical therapy to work with the patient daily Continue oxygen supplementation to keep saturation between 88-92% Continue insulin sliding scale AC & HS with hypoglycemia protocol IR thoracentesis on Wednesday CV surgery consulted, appreciate recommendations Cardiology consulted, appreciate recommendations Disposition: Pending post op course, PT/OT, placement FLAKITA BENNETT MD October 29, 2024 14:35
--- NOTE | 2024-10-29 16:32 | PN ---
[facility] PROGRESS NOTE Date Patient Seen: October 29, 2024 Time of Visit: 16:30 Supervising Physician: Dr. Shaw Primary Care Physician: Self referred Outpatient Specialists: [ ] Inpatient Consults: [ ] PROBLEM LIST: NSTEMI/multivessel CAD s/p LHC/coronary angiogram done on 10/16/[address] 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 Bilateral ICA stenosis (>70% by Doppler done 10/17/2024) POA. Concern for left-sided pleural effusion, no need for thoracentesis Hypertension POA Uncontrolled diabetes last A1C 8.4, POA Hyperlipidemia POA Bilateral pneumonia POA Tobacco abuse POA Obesity POA INTERVAL HISTORY: 10/28/2024: At the time of my evaluation, the patient was lying bed. His main complaint is cough. On the monitor, the patient is hemodynamically stable. Laboratory data showed improved WBC count now 10.2 H&H and platelet count is stable. History showed no changes of concern. Imaging shows a chest x-ray with small left pleural effusion. Complaint. 10/29/2024: At the time of my evaluation, the patient is lying in bed. He reports feeling much better today but was unable to sleep last night. On the monitor, the patient is hemodynamically stable and remains on room air. Laboratory data today, shows no derangement of concern. No new imaging for review today. The patient continues on Lasix 40 q.12, metoprolol, aspirin, Plavix, Lovenox and atorvastatin. No other complaint. REVIEW OF SYSTEMS: 12 point ROS reviewed with patient. Pertinent positives mentioned above. Otherwise negative. PHYSICAL EXAM: GENERAL: alert, weak, awake oriented x 3 HEENT: EOMI, Sclera non icteric, moist mucosa NECK: Supple, no JVD, trachea midline LUNGS: Diminished breath sounds bilaterally. No wheezes HEART: Regular rate and rhythm. Normal S1 and S2, without murmurs ABD: Abdomen soft, nontender. Bowel sounds present EXT: No clubbing cyanosis or edema NEURO: Alert and oriented to person, follows commands Vital Signs (last 8hr) Date Time Temp Pulse Resp B/P (MAP) Pulse Ox O2 Delivery O2 Flow Rate FiO2 10/29/24 12:00 98.1 87 17 106/64 97 Room Air LABS: Hematology Labs: Test 10/29/24 03:10 Range/Units White Blood Count 10.6 4.8-10.8 K/uL Red Blood Count 3.24 L 4.50-6.20 MIL/uL Hemoglobin 9.2 L 14.0-18.0 g/dL Hematocrit 28.0 L 42-54 % Mean Corpuscular Volume 86.4 79-99 fL Mean Corpuscular Hemoglobin 28.4 27.0-33.0 pg Mean Corpuscular Hemoglobin Concent 32.9 32.0-36.0 g/dL Red Cell Distribution Width 12.4 11.0-15.5 % Platelet Count 537 H 130-400 K/uL Mean Platelet Volume 9.3 7.5-10.5 fL Immature Granulocyte % (Auto) 2.9 H 0-1 % Neutrophils (%) (Auto) 64.5 40.0-77.0 % Lymphocytes (%) (Auto) 16.1 L 21.0-51.0 % Monocytes (%) (Auto) 14.8 H 3.0-13.0 % Eosinophils (%) (Auto) 1.1 0.0-8.0 % Basophils (%) (Auto) 0.6 0.0-5.0 % Neutrophils # (Auto) 6.8 1.8-7.7 K/uL Lymphocytes # (Auto) 1.7 1.0-4.8 K/uL Monocytes # (Auto) 1.6 H 0.1-1.0 K/uL Eosinophils # (Auto) 0.12 0.00-0.70 K/uL Basophils # (Auto) 0.06 0.00-0.20 K/uL Absolute Immature Granulocyte (auto 0.31 0-1 K/uL Nucleated Red Blood Cells 0.2 H 0.0-0.19 % Chemistry Labs: Test 10/29/24 16:17 10/29/24 03:10 Range/Units Whole Blood Glucose 216 H 70-110 MG/DL Sodium Level 133 L 136-145 mmol/L Potassium Level 3.5 3.5-5.1 mmol/L Chloride Level 96 L 101-111 mmol/L Carbon Dioxide Level 35 H 21-32 mmol/L Blood Urea Nitrogen 14 7-18 mg/dL Creatinine 0.8 0.5-1.3 mg/dL Glomerular Filtration Rate Calc 101 >90 mL/min Random Glucose 139 H 70-105 mg/dL Total Calcium 8.6 8.5-10.1 mg/dL DIAGNOSTICS / RADIOLOGY RESULTS: [ ] PLAN Pulmonology was consulted for assistance in the management of left pleural effusion and possible thoracentesis. POCUS was performed and minimal fluid was seen and with no safe window for thoracentesis. Recommend to continue with diuresis. We will continue following the patient with you and repeat chest imaging in a.m.. I appreciate the opportunity provided to participate in patient care. We will continue to provide general supportive care, GI and DVT prophylaxis. Further orders per attending MD and hospital course. 10/28/2024: For now, we are going to continue current management for the patient. We will continue diuretic therapy as ordered. We will monitor the respiratory events and we will adjust as necessary. Patient will continue on c ardiac management per the Cardiology team/[facility]. We will repeat surveillance labs in morning. We will follow the recommendation of the CTS and we will intervene if necessary. We will continue to provide general supportive care, GI and DVT prophylaxis. Further orders per attending MD and hospital course. 10/29/2024: For now, going to continue current management for the patient. He is going to continue diuretic therapy as ordered for management of the pleural effusion. No plans for thoracentesis. Patient will continue on cardiac management per the Cardiology team/[facility]. We will repeat surveillance labs in morning. We will follow the recommendation of the [facility] and we will intervene if necessary. We will continue to provide general supportive care, GI and DVT prophylaxis. Further orders per attending MD and hospital course. Dispo per primary. NEURO: Minimize central acting medications as possible. Maintain fall precautions, adequate lighting during the day PULMONARY: Supplemental 02 as needed. Maintain aspiration precautions at all times CARDIOVASCULAR: Follow hemodynamics. Vital signs per facility protocol GI & NUTRITION: Continue with nutritional support. Continue stool softeners and laxatives as needed. KIDNEYS & ELECTROLYTES: Strict monitoring of intake, output and overall fluid balance. Avoid nephrotoxic medications to the extent possible. Medications to be dosed according to renal function. Monitor electrolytes and replace as needed ENDOCRINE: Maintain blood glucose between 100-180 at all times. Hypoglycemia protocol in place INFECTIOUS DISEASE: Trend temperature, WBC and procalcitonin level Follow cultures, deescalate antibiotics as soon as possible. Panculture if new onset fever ONCOLOGY/HEMATOLOGY/COAGULATION: Monitor for s/s of bleeding Monitor hemoglobin, coagulation studies as needed SKIN: Pressure ulcer prevention per facility protocol Specialty mattress ORTHO/REHAB: Continue PT/OT Prophylaxis: Continue GI and DVT prophylaxis Code Status: Full Resuscitation Disposition: TBD Other: Patient was seen and case discussed with river LOZANO. The plan of care was discussed and agreed upon. IRAIDA ROQUE RESIDENTIAL MONITOR October 29, 2024 16:32
[2024-10-29] MEDS: metoPROLOL tartRATE 25 MG TAB PO ONE (17:17)
[2024-10-30] VITALS (8 sets, daily range): BP systolic 102–130; BP diastolic 61–81; PULSE 94–105; RESP 18–20; TEMP 98–98.9; O2SAT 93–97
[2024-10-30 03:41] LABS: BASOPHILS # (AUTO) 0.05 K/uL (0.00-0.20); BASOPHILS % (AUTO) 0.4 % (0.0-5.0); EOSINOPHILS # (AUTO) 0.12 K/uL (0.00-0.70); EOSINOPHILS % (AUTO) 0.8 % (0.0-8.0); HEMATOCRIT 29.1 % (42-54); IMMATURE GRANULOCYTE ABSOLUTE 0.39 K/uL (0-1); LYMPHOCYTES # (AUTO) 1.7 K/uL (1.0-4.8); LYMPHOCYTES % (AUTO) 12.2 % (21.0-51.0); MEAN CORPUSCULAR HEMOGLOBIN 28.2 pg (27.0-33.0); MEAN CORPUSCULAR HGB CONC 32.6 g/dL (32.0-36.0); MEAN CORPUSCULAR VOLUME 86.4 fL (79-99); MONOCYTES # (AUTO) 1.5 K/uL (0.1-1.0); MONOCYTES % (AUTO) 10.7 % (3.0-13.0); NEUTROPHILS # (AUTO) 10.4 K/uL (1.8-7.7); NEUTROPHILS % (AUTO) 73.1 % (40.0-77.0); NUCLEATED RED BLOOD CELLS 0.3 % (0.0-0.19); PLATELET COUNT (AUTO) 555 K/uL (130-400); RED BLOOD CELL COUNT(AUTO) 3.37 MIL/uL (4.50-6.20); RED CELL DISTRIBUTION WIDTH 12.6 % (11.0-15.5); WHITE BLOOD COUNT (AUTO) 14.2 K/uL (4.8-10.8)
[2024-10-30 03:48] LABS: CREATININE 0.9 mg/dL (0.5-1.3); POTASSIUM 3.4 mmol/L (3.5-5.1)
--- NOTE | 2024-10-30 09:36 | PN ---
[facility] PROGRESS NOTE Date of Service: October 30, 2024 Time of Service: 09:35 SUBJECTIVE: 10/17 patient seen at bedside, no acute events overnight. He has been afebrile, hemodynamically stable saturating well on 5 L nasal cannula. Echocardiogram pending, we will follow up. Bilateral carotid Dopplers showing severe stenosis in both internal carotid arteries, we will follow up with CV surgery. Patient initially transferred for CABG, chest x-ray showing bilateral infiltrates, we will continue with diuresis and continue antibiotics to treat for possible underlying pneumonia. 10/18 patient seen at bedside, no acute events overnight. Patient has no complaints today at bedside. CABG is on hold while patient being treated for pneumonia. He was given a lab holiday today, we will repeat labs tomorrow . Repeat chest x-ray shows improvement in infiltrates bilaterally, we will continue with antibiotics and diuresis. Proximally 4 L urine output in the last 24 hours. 10/19 patient seen at bedside, no acute events overnight. His chest x-ray windows continue to improve with further diuresis. He has been afebrile, hemodynamically stable saturating 96% on 4 L nasal cannula. We will follow up with CV surgery on optimal timing for CABG. Proximally 2.9 L urine output in the last 24 hours. Labs are relatively unremarkable. 10/20 patient seen at bedside, no acute events overnight. CABG is still pending, we will follow up with CV surgery on timing. Vitals and labs relatively unremarkable. 10/21 patient seen at bedside, no acute events overnight. CABG is still pending, CV surgery planning on next week. Vitals and labs relatively unremarkable. 10/22 patient seen at bedside, no acute events overnight. CABG is still pending, CV surgery planning on next week. Vitals and labs relatively unremarkable. 10/23 patient seen at bedside, no acute events overnight. CABG is still pending, likely later tdoay. LFT mildly elevated, remainder of his labs are relatively unremarkable. 10/24 patient seen at bedside, no acute events overnight. Status post CABG postop day one, he has been extubated. Cordis and chest tubes are in place, to be managed by CV surgery. Start aggressive incentive spirometry. Mildly tachycardic, heart rate ranging between 103 up to 126, WBC improved from 25.0 down to 15.7, hemoglobin decreased from 10.8 down to 9.0, platelets improved from 535 down to 469, remainder of his labs are relatively unremarkable. 10/25 patient seen at bedside, no acute events overnight. He is status post CABG postop day two, Cordis and chest tube are still in place, we will defer to CV surgery for management. Patient's only complaint is some inck-incisional pain, well controlled with current pain management. He has been mildly tachycardic with heart rate ranging from 101 up to 104, hemodynamically stable saturating well on 2 L nasal cannula. WBC improved from 15.7 down to 15.2, hemoglobin decreased from 9.0 down to 8.6, platelets decreased from 469 down to 324, remainder of his labs are relatively unremarkable. Continue with spirometry and physical therapy 10/26 patient seen at bedside, no acute events overnight. He is status post CABG postop day three, chest tube and Cordis have been removed. CV surgery recommending transitioned to rehab, case management has been consulted for assistance. WBC increased from 15.2 up to 16.1, hemoglobin decreased from 8.6 down to 8.4, remainder of his labs are relatively unremarkable. Patient showing poor inspiratory effort with IS, he has been drained once again and encouraged to increase his use of the spirometry. He will continue to work with physical therapy. 10/27 patient seen at bedside, no acute events overnight. He is status post CABG postop day four, she is showing better effort with incentive spirometry. Patient has been scheduled for left-sided thoracentesis, it has been rescheduled to Wednesday by IR so that any blood thinners can be held for the procedure. WBC decreased from 16.1 down to 14.4, hemoglobin decreased from 8.4 down to 8.0, CO2 mildly elevated at 36, patient has been encouraged to increase his usage of spirometry, remainder of his labs are relatively unremarkable. Patient is pending placement once he has been optimized. 10/28 patient seen at bedside, no acute events overnight. He is status post CABG postop day five, he continues to practice incentive spirometry. Left-sided thoracentesis has been scheduled for Wednesday, currently holding aspirin in anticipation. We will defer to the pulmonology, if no enough fluid for the procedure we will resume aspirin. Continue with PT/OT 10/29 patient seen at bedside, no acute events overnight. He is status post CABG postop day six, he continues to practice incentive spirometry. Left-sided thoracentesis canceled by pulmonology, not enough fluid appreciate for procedure, aspirin and plavix resumed. Pending rehab placement 10/30 patient is seen and examined at bedside, case discussed with the RN, no acute events overnight, sitting comfortable in the chair, currently patient is status post CABG postoperative day # 7., awaiting rehab. REVIEW OF SYSTEMS 12 point review of systems negative unless noted in HPI PHYSICAL EXAM GENERAL APPEARANCE: The patient is awake, alert, and oriented, in no acute cardiopulmonary distress. NEUROLOGICAL: Cranial nerves II-XII grossly intact. Motor is 5/5 in bilateral upper and lower extremities proximal to distal. No sensory deficits. HEENT: Face is symmetric. Pupils are equal and reactive. Extraocular movements are intact. NECK: Supple. No JVD. No thyromegaly. No submental, submandibular, pre- /postauricular, occipital or supraclavicular lymphadenopathy. CHEST: Normal chest expansion. No Telemetry. LUNGS: Absence of any rales, rhonchi or any wheezing. CARDIOVASCULAR: Regular. S1 and S2 normal. No appreciable rubs, murmurs or gallops. ABDOMEN: Soft, nontender, and nondistended. There is no rebound, voluntary guarding, or rigidity. : Deferred. No Henao. EXTREMITIES: Non-edematous and not cyanotic. No clubbing. Good capillary refill. SKIN: No skin breakdown. Vital Signs (last 8hr) Date Time Temp Pulse Resp B/P (MAP) Pulse Ox O2 Delivery O2 Flow Rate FiO2 10/30/24 08:06 98.2 97 18 102/69 96 Room Air 10/30/24 07:00 94 20 N/A Room Air 21 10/30/24 04:48 98.4 96 18 130/69 95 Room Air LABS: Laboratory: Test 10/30/24 05:19 10/30/24 03:11 Range/Units Whole Blood Glucose 164 H 70-110 MG/DL White Blood Count 14.2 H 4.8-10.8 K/uL Red Blood Count 3.37 L 4.50-6.20 MIL/uL Hemoglobin 9.5 L 14.0-18.0 g/dL Hematocrit 29.1 L 42-54 % Mean Corpuscular Volume 86.4 79-99 fL Mean Corpuscular Hemoglobin 28.2 27.0-33.0 pg Mean Corpuscular Hemoglobin Concent 32.6 32.0-36.0 g/dL Red Cell Distribution Width 12.6 11.0-15.5 % Platelet Count 555 H 130-400 K/uL Mean Platelet Volume 9.1 7.5-10.5 fL Immature Granulocyte % (Auto) 2.8 H 0-1 % Neutrophils (%) (Auto) 73.1 40.0-77.0 % Lymphocytes (%) (Auto) 12.2 L 21.0-51.0 % Monocytes (%) (Auto) 10.7 3.0-13.0 % Eosinophils (%) (Auto) 0.8 0.0-8.0 % Basophils (%) (Auto) 0.4 0.0-5.0 % Neutrophils # (Auto) 10.4 H 1.8-7.7 K/uL Lymphocytes # (Auto) 1.7 1.0-4.8 K/uL Monocytes # (Auto) 1.5 H 0.1-1.0 K/uL Eosinophils # (Auto) 0.12 0.00-0.70 K/uL Basophils # (Auto) 0.05 0.00-0.20 K/uL Absolute Immature Granulocyte (auto 0.39 0-1 K/uL Nucleated Red Blood Cells 0.3 H 0.0-0.19 % Sodium Level 132 L 136-145 mmol/L Potassium Level 3.4 L 3.5-5.1 mmol/L Chloride Level 97 L 101-111 mmol/L Carbon Dioxide Level 32 21-32 mmol/L Blood Urea Nitrogen 13 7-18 mg/dL Creatinine 0.9 0.5-1.3 mg/dL Glomerular Filtration Rate Calc 98 >90 mL/min Random Glucose 152 H 70-105 mg/dL Total Calcium 8.7 8.5-10.1 mg/dL Current Medications Medications (Trade) Dose Ordered Sig/Meagan Route PRN Reason Start Time Stop Time Status Last Admin Dose Admin Acetaminophen (TYLenol 325MG TAB) 650 mg Q4H PRN PO MILD PAIN (1-3) 10/16/24 20:00 10/17/24 08:13 DC Acetaminophen (TYLenol 325MG TAB) 650 mg Q4H PRN PO Temp >38.3C(AFTER EXTUBATION) 10/23/24 17:00 11/22/24 16:59 Acetaminophen (TYLenol 325MG TAB) 650 mg Q6H PRN PO MILD PAIN (1-3) 10/16/24 17:30 10/24/24 14:21 DC 10/16/24 21:31 650 MG Acetaminophen (TYLenol 325MG TAB) 650 mg Q6H PRN PO TEMPERATURE GREATER THAN 101.5 10/16/24 20:00 10/24/24 14:21 DC Acetaminophen (TYLenol 325MG TAB) 650 mg Q6H PRN PO MILD PAIN (1-3) 10/23/24 17:00 11/22/24 16:59 10/28/24 19:15 650 MG Acetaminophen (TYLenol 650MG SUPPOSITORY) 650 mg Q4H PRN RC Temp >38.3C WHILE INTUBATED 10/23/24 17:00 10/25/24 08:09 DC Acetaminophen (acetaMINOPHEN) 1,000 mg Q6H6 IV 10/23/24 20:00 10/24/24 19:59 DC 10/24/24 20:22 1,000 MG Albumin Human 250 ml @ 0 mls/hr AD PRN IV IF HEMODYNAMICALLY UNSTABLE 10/23/24 17:00 10/23/24 20:25 DC 10/23/24 20:24 250 MLS/HR Albuterol Sulfate (Proventil 0.083% 2.5mg/3ml) 0.63 mg Q6H6 PRN IH SHORTNESS OF BREATH 10/16/24 18:00 11/15/24 17:59 Aminocaproic Acid 97586 mg/Sodium Chloride 310 ml @ 25 mls/hr AD IV 10/23/24 17:00 10/23/24 17:33 DC Aminocaproic Acid 71249 mg/Sodium Chloride 480 ml @ 0 mls/hr AD PRN IV BLEEDING CONTROL 10/17/24 07:00 10/23/24 10:13 DC Aminocaproic Acid 14414 mg/Sodium Chloride 480 ml @ 0 mls/hr AD PRN IV BLEEDING CONTROL 10/23/24 10:30 10/25/24 08:09 DC Aspirin (Aspirin 81mg Chew Tab) 81 mg DAILY PO 10/29/24 09:00 10/28/24 12:38 DC Aspirin (Aspirin 81mg Ec Tab) 81 mg DAILY PO 10/17/24 09:00 10/28/24 06:55 DC 10/27/24 08:32 81 MG Aspirin (Aspirin 81mg Ec Tab) 81 mg DAILY PO 10/29/24 09:00 11/28/24 08:59 10/29/24 09:23 81 MG Atorvastatin Calcium (LIPItor 40MG) 80 mg HS PO 10/17/24 21:00 11/16/24 20:59 10/29/24 21:35 80 MG Azithromycin 250 ml @ 250 mls/hr Q24H IVPB 10/16/24 21:00 10/25/24 23:59 DC 10/25/24 20:39 250 MLS/HR Benzocaine (Cepacol Sore Throat Lozenge) 1 each Q4H PRN MM SORE THROAT 10/27/24 15:00 11/26/24 14:59 10/27/24 20:40 1 EACH Benzonatate (Tessalon 100mg Caps) 100 mg Q8H PRN PO COUGH/COLD SYMPTOMS 10/27/24 15:00 11/26/24 14:59 10/28/24 20:36 100 MG Calcium Carbonate (Tums 500 Mg Chew Tab) 500 tab ONCE PO 10/22/24 13:00 10/23/24 17:00 DC 10/22/24 12:56 500 TAB Calcium Carbonate (Tums 500 Mg Chew Tab) 500 tab TIDAC PO 10/22/24 17:00 10/22/24 12:57 DC Calcium Gluconate 1 gm/Sodium Chloride 60 ml @ 200 mls/hr AD PRN IV HYPOCALCEMIA 10/23/24 17:00 10/25/24 19:25 DC Cefazolin Sodium (Ancef) 2 gm ONCALL IVP 10/16/24 23:00 10/18/24 22:59 DC 10/16/24 23:21 2 GM Cefazolin Sodium (Ancef) 2 gm ONCALL IVP 10/22/24 21:30 10/24/24 09:22 DC Cefazolin Sodium (Ancef) 2 gm Q8H IVPB 10/23/24 22:00 10/24/24 14:01 DC 10/24/24 14:33 2 GM Ceftriaxone Sodium (Rocephin 2gm Inj) 2 gm Q24H IVPB 10/17/24 09:30 10/26/24 12:29 DC 10/26/24 09:23 2 GM Clopidogrel Bisulfate (plaVIX 75MG) 75 mg DAILY PO 10/28/24 21:00 11/27/24 20:59 10/29/24 09:24 75 MG Dexmedetomidine/ Sodium Chloride (PRECEdex 400MCG/ 100ML-NS) 400 mcg PROTOCOL IV 10/23/24 17:00 10/24/24 16:59 DC Dextrose (D50w) 50 ml AD PRN IV HYPOGLYCEMIA PROTOCOL 10/23/24 17:00 11/22/24 16:59 Docusate Sodium (COLace 100MG CAP) 100 mg BID PO 10/23/24 21:00 11/22/24 20:59 10/29/24 21:36 100 MG Enoxaparin Sodium (Lovenox) 30 mg DAILY SQ 10/26/24 09:00 11/25/24 08:59 10/29/24 09:23 30 MG Epinephrine HCl 10 mg/Sodium Chloride 250 ml @ 0 mls/hr AD PRN IV TITRATE 10/17/24 07:00 10/23/24 10:13 DC Epinephrine HCl 10 mg/Sodium Chloride 250 ml @ 0 mls/hr AD PRN IV TITRATE 10/23/24 10:30 10/25/24 19:25 DC Epinephrine HCl 10 mg/Sodium Chloride 250 ml @ 0 mls/hr AD PRN IV POST-OP CARDIOVASCULAR ORDERS 10/23/24 17:00 10/23/24 17:33 DC Famotidine (Pepcid 20mg Vial) 20 mg BID IV 10/23/24 21:00 10/25/24 08:09 DC 10/24/24 20:23 20 MG Famotidine (Pepcid 20mg Vial) 20 mg DAILY IV 10/17/24 09:00 10/23/24 17:00 DC 10/23/24 11:19 20 MG Famotidine (Pepcid 20mg Tab) 20 mg HS PO 10/25/24 21:00 11/24/24 20:59 10/29/24 21:35 20 MG Furosemide (LASix 20MG TAB) 20 mg Q12H PO 10/25/24 09:00 10/27/24 13:45 DC 10/27/24 08:32 20 MG Furosemide (LASix 20MG VIAL) 20 mg BID IV 10/17/24 13:00 10/20/24 15:34 DC 10/20/24 09:37 20 MG Furosemide (LASix 20MG VIAL) 20 mg Q12H IV 10/24/24 09:00 10/25/24 08:59 DC 10/24/24 20:23 20 MG Furosemide (LASix 20MG VIAL) 40 mg BID IV 10/20/24 21:00 10/23/24 09:51 DC 10/22/24 22:06 40 MG Furosemide (LASix 40MG TAB) 40 mg Q12H PO 10/27/24 21:00 11/26/24 20:59 10/29/24 21:36 40 MG Furosemide (LASix 40MG VIAL) 40 mg BID IV 10/23/24 21:00 10/23/24 17:00 DC Glucagon (Glucagon 1mg Kit) 1 mg AD PRN IM HYPOGLYCEMIA PROTOCOL 10/23/24 17:00 11/22/24 16:59 Heparin Sodium (Porcine) (HEParin 5,000 UNIT VIAL) *calculation based on ACTUAL B... AD PRN IV HEPARIN PROTOCOL 10/16/24 18:00 10/23/24 17:00 DC 10/17/24 16:00 3,000 UNIT Heparin Sodium/ Dextrose 250 ml @ 0 mls/hr Q6H IV 10/16/24 18:00 10/23/24 09:45 DC 10/22/24 11:41 14.9 MLS/HR Hydroxyzine HCl (ATArax 25MG TAB) 12.5 mg TID PRN PO ITCHING 10/16/24 17:30 10/23/24 17:00 DC 10/20/24 20:54 12.5 MG Insulin Glargine (LANtus 100 UNITS/ML 10 ML VIAL) 15 units HS SQ 10/16/24 21:00 10/23/24 17:00 DC 10/22/24 22:09 15 UNITS Insulin Human Lispro (HumaLOG LISpro 100 UNIT/ML 3ML) 5 unit TIDAC SQ 10/17/24 07:30 10/23/24 17:00 DC 10/22/24 16:47 5 UNIT Insulin Human Lispro (HumaLOG LISpro 100 UNIT/ML 3ML) INSULIN SLIDING SCAL... ACHS SQ 10/16/24 21:00 10/23/24 17:00 DC 10/22/24 22:08 5 UNIT Insulin Human Regular (humuLIN R 100 UNIT/ML 3ML) INSULIN SLIDING SCAL... ACHS SQ 10/25/24 07:30 11/24/24 07:29 10/29/24 21:56 3 UNIT Insulin Human Regular 100 unit/ Sodium Chloride 100 ml @ 0 mls/hr AD IV 10/23/24 17:00 10/25/24 06:45 DC 10/23/24 19:16 5 MLS/HR Lactulose (Constulose 20gm/ 30ml Udcup) 20 gm BID PRN PO CONSTIPATION 10/22/24 10:00 10/23/24 17:00 DC 10/22/24 11:41 20 GM Lactulose (Constulose 20gm/ 30ml Udcup) 20 gm BID PRN PO CONSTIPATION 10/23/24 17:00 11/22/24 16:59 10/26/24 19:01 20 GM Lidocaine (Lidocaine Patch 4%) 1 each DAILY TP 10/16/24 21:20 11/15/24 21:19 10/29/24 09:24 1 EACH Lisinopril (Prinivil 5mg) 5 mg DAILY PO 10/17/24 09:00 10/23/24 17:00 DC 10/22/24 09:48 5 MG Magnesium Hydroxide (Milk Of Magnesium 30ml) 30 ml DAILY PRN PO CONSTIPATION 10/23/24 17:00 11/22/24 16:59 Magnesium Sulfate 50 ml @ 12.5 mls/hr AD PRN IV MAG LEVEL LESS THAN 2.0 10/23/24 17:00 11/22/24 16:59 10/24/24 04:52 12.5 MLS/HR Metoprolol Tartrate (loprESSOR) 12.5 mg BID PO 10/16/24 21:00 10/23/24 17:00 DC 10/23/24 09:43 12.5 MG Metoprolol Tartrate (loprESSOR) 12.5 mg BID PO 10/26/24 09:00 10/27/24 09:12 DC 10/27/24 08:32 12.5 MG Metoprolol Tartrate (loprESSOR) 25 mg BID PO 10/27/24 21:00 10/29/24 09:29 DC 10/29/24 09:24 25 MG Metoprolol Tartrate (loprESSOR) 50 mg BID PO 10/30/24 09:00 11/29/24 08:59 Morphine Sulfate (morPHINE 2MG SYG) 0.5 mg Q2H PRN IV MODERATE PAIN (4-6) 10/23/24 17:00 10/24/24 16:59 DC Morphine Sulfate (morPHINE 2MG SYG) 1 mg Q2H PRN IV SEVERE PAIN (7-10) 10/23/24 17:00 10/24/24 16:59 DC Nitroglycerin (Nitrostat) 0.4 mg PROTOCOL PRN SL CHEST PAIN 10/16/24 20:00 10/23/24 17:00 DC Nitroglycerin/ Dextrose 0 ml @ 0 mls/hr AD IV 10/23/24 17:00 10/25/24 19:25 DC Norepinephrine Bitartrate 250 ml @ 0 mls/hr AD PRN IV TITRATE 10/17/24 07:00 10/23/24 10:13 DC Norepinephrine Bitartrate 250 ml @ 0 mls/hr AD PRN IV TITRATE 10/23/24 10:30 10/25/24 19:25 DC Norepinephrine Bitartrate 8 mg/ Dextrose 250 ml @ 0 mls/hr AD PRN IV POST-OP CARDIOVASCULAR ORDERS 10/23/24 17:00 10/23/24 17:33 DC Ondansetron HCl (zoFRAN 4MG INJ) 4 mg Q12H PRN IVP NAUSEA/VOMITING 10/16/24 17:30 10/17/24 08:13 DC Ondansetron HCl (zoFRAN 4MG INJ) 4 mg Q6H PRN IV NAUSEA/VOMITING 10/16/24 20:00 10/23/24 17:00 DC Ondansetron HCl (zoFRAN 4MG INJ) 4 mg Q6H PRN IV NAUSEA/VOMITING 10/23/24 17:00 11/22/24 16:59 10/24/24 08:42 4 MG Potassium Phosphate 250 ml @ 42 mls/hr AD PRN IV LOW PHOS LEVEL 10/23/24 17:00 11/22/24 16:59 10/24/24 04:58 42 MLS/HR Potassium Chloride 100 ml @ 100 mls/hr AD PRN IV HYPOKALEMIA 10/23/24 17:00 11/22/24 16:59 10/24/24 00:12 100 MLS/HR Potassium Chloride (K-Dur/Klor-Con 20meq) 20 meq AD PRN PO POTASSIUM PROTOCOL 10/25/24 19:30 11/24/24 19:29 10/29/24 05:43 20 MEQ Potassium Chloride (KCl 10% Elixir 20meq/15ml) 20 meq AD PRN PO POTASSIUM PROTOCOL 10/25/24 19:30 11/24/24 19:29 Propofol 100 ml @ 0 mls/hr AD PRN IV SEDATION 10/23/24 17:00 10/25/24 08:09 DC Sodium Bicarbonate (Sodium Bicarb 50meq 50ml Vial) 50 meq AD PRN IV OTHER[SEE DOSING INSTRUCTIONS] 10/23/24 17:00 10/26/24 16:59 DC 10/23/24 22:14 50 MEQ Sodium Chloride 500 ml @ 0 mls/hr AD IV 10/23/24 17:00 10/25/24 19:25 DC Sodium Chloride 1,000 ml @ 10 mls/hr ONCE IV 10/23/24 17:00 10/24/24 16:59 DC 10/23/24 19:36 10 MLS/HR Sodium Chloride (NS Flush 10ml) 10 ml Q8H PRN IVP IV LINE FLUSH 10/23/24 17:00 11/22/24 16:59 Tramadol HCl (UltRAM) 25 mg Q6H PRN PO MODERATE PAIN (4-6) 10/23/24 17:00 10/28/24 16:59 DC Tramadol HCl (UltRAM) 50 mg Q6H PRN PO SEVERE PAIN (7-10) 10/23/24 17:00 10/28/24 16:59 DC 10/27/24 20:41 50 MG DIAGNOSTICS / RADIOLOGY: [ ] ASSESSMENT: NSTEMI POA Multivessel Coronary artery disease, status post CABG (10/23/24) POA Chronic pulmonary edema, resolved POA Acute respiratory failure, resolved POA Bilateral carotid stenosis > 70%, POA Hypertension POA Uncontrolled diabetes last A1C 8.4, POA Nicotine dependence POA Hyperlipidemia POA Obesity POA Bilateral pneumonia POA PLAN: Continue famotidine 20 mg IV daily for GI prophylaxis Hold aspirin 81 mg p.o. daily Continue metoprolol 12.5 mg p.o. b.i.d. Continue Rocephin 2 g IV and azithromycin IV for broad-spectrum coverage Continue furosemide 20mg BID Continue lisinopril 5mg q24h Continue metoprolol 12.5 mg twice daily Continue Lovenox 30 mg Q 24 hours Aggressive incentive spirometry Physical therapy to work with the patient daily Continue oxygen supplementation to keep saturation between 88-92% Continue insulin sliding scale AC & HS with hypoglycemia protocol IR thoracentesis on Wednesday CV surgery consulted, appreciate recommendations Cardiology consulted, appreciate recommendations Disposition: Pending post op course, PT/OT, placement pending. CHIP ROOT MD October 30, 2024 09:36
--- NOTE | 2024-10-30 09:38 | HMCIMG ---
Exam Type: CHEST 1VW Clinical Information: sob Comparison: None Findings: Pulmonary pattern is as before. No worrisome interval changes have taken place. Impression: Stable exam.
[2024-10-30] MEDS: metoPROLOL tartRATE 50 MG TAB PO SCH (09:44)
[2024-10-30] MEDS: PoTASSium chloRIDE 20MEQ ER 20 MEQ ERTAB PO ONE (09:50)
--- NOTE | 2024-10-30 12:07 | PN ---
Cardiology Progress Note Date of Service: 10/30/2024 Attending Nut Culler: Dr. Ketan Naylor Primary Nut Culler: Dr. Hilario Ward ([place], [place]) Reason for Consult: NSTEMI, pending CABG Problem List: -ACS-NSTEMI s/p 3V CABG (COBOS-LAD, SVG-OM, SVG-RPDA) with CHRISTIAN clip done on 10/23/[address] Caballero -mrEF (LVEF: 45% by echo done 10/17/2024) -Postoperative acute blood loss anemia -Bilateral CAP -Bilateral ICA stenosis (>70% by Doppler done 10/17/2024) -HTN -HLP -DM2 -Tobacco abuse Subjective: This is a 59y/o male who was seen and evaluated at the bedside today. The patient denies any active complaints including chest pain, chest pressure, palpitations, or shortness of breath. As per the nurse, there were no overnight events. He is pending placement/acceptance to an IRU in the [place], [place] area. Vitals/Labs Vital Signs Date Time Temp Pulse Resp B/P (MAP) Pulse Ox O2 Delivery O2 Flow Rate FiO2 10/30/24 08:06 98.2 97 18 102/69 96 Room Air 10/30/24 07:00 21 10/29/24 20:00 0 General: Alert and oriented x 3. NAD. Chronically ill appearing. HEENT: NC/AT. Oral mucosa is moist. Neck: No masses or JVD. Lungs: NRD. SCM. Bilateral air entry. Diminished breath sounds noted to the bilateral lower lung shi. Cardio: Regular rate. Normal S1 and S2. +S4. No obvious murmurs, gallops, or rubs noted. Midline incision to the chest. Abdomen: Soft. NT. ND. Normal active bowel sounds x 4 quadrants. Extremities: Diminished throughout. No edema, clubbing, or cyanosis. Neuro: CN II-XII were grossly intact. No obvious focal deficits. Laboratory Tests 10/30/24 03:11 Assessment: -ACS-NSTEMI s/p 3V CABG (COBOS-LAD, SVG-OM, SVG-RPDA) with CHRISTIAN clip done on 10/23/[address] Caballero -HFmrEF (LVEF: 45% by echo done 10/17/2024) -Postoperative acute blood loss anemia -Bilateral CAP -Bilateral ICA stenosis (>70% by Doppler done 10/17/2024) -HTN -HLP -DM2 -Tobacco abuse Plan: 1. ACS-NSTEMI s/p 3V CABG (COBOS-LAD, SVG-OM, SVG-RPDA) with CHRISTIAN clip done on 10/23/[address] Caballero -Stable -The patient will continue on goal directed ACS therapy which includes aspirin 81 mg daily, clopidogrel 75 mg daily, metoprolol tartrate 50 mg BID, and atorvastatin 80 mg QHS. The patient will remain on DAPT for a minimum of 1 year as per ACS guidelines. -Further management per CTS. 2. HFmrEF (LVEF: 45% by echo done 10/17/2024) -Stable -Continue furosemide 40 mg BID and metoprolol tartrate 50 mg BID. -Please record strict I/O's, daily weights, and restrict fluids to less than 2.0L/day. 3. Bilateral ICA stenosis (>70% by Doppler done 10/17/2024) -Continue aspirin 81 mg daily and atorvastatin 80 mg QHS. The patient can be discharged to IRU when accepted and should follow up with Cardiology, Dr. Hilario Ward ([place], [place]), 1-2 weeks after discharge. This consult was seen and discussed with my Supervising Physician, Dr. Ketan Naylor, and the above mentioned plan was formulated and agreed upon. -Progress Note written by Damaris Goncalves, MSN, PEDICURIST, AGACNP-BC DAMARIS GONCALVES NP October 30, 2024 12:07
--- NOTE | 2024-10-30 17:34 | PN ---
[facility] PROGRESS NOTE Date Patient Seen: October 30, 2024 Time of Visit: 17:34 Supervising Physician: Dr. Shaw Primary Care Physician: Self referred Outpatient Specialists: [ ] Inpatient Consults: [ ] PROBLEM LIST: NSTEMI/multivessel CAD s/p LHC/coronary angiogram done on 10/16/[address] 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 Bilateral ICA stenosis (>70% by Doppler done 10/17/2024) POA. Concern for left-sided pleural effusion, no need for thoracentesis Hypertension POA Uncontrolled diabetes last A1C 8.4, POA Hyperlipidemia POA Bilateral pneumonia POA Tobacco abuse POA Obesity POA INTERVAL HISTORY: 10/28/2024: At the time of my evaluation, the patient was lying bed. His main complaint is cough. On the monitor, the patient is hemodynamically stable. Laboratory data showed improved WBC count now 10.2 H&H and platelet count is stable. History showed no changes of concern. Imaging shows a chest x-ray with small left pleural effusion. Complaint. 10/29/2024: At the time of my evaluation, the patient is lying in bed. He reports feeling much better today but was unable to sleep last night. On the monitor, the patient is hemodynamically stable and remains on room air. Laboratory data today, shows no derangement of concern. No new imaging for review today. The patient continues on Lasix 40 q.12, metoprolol, aspirin, Plavix, Lovenox and atorvastatin. No other complaint. 10/30/2024: At the time of my evaluation, the patient is sitting up to the bedside chair. He reports his main complaint is difficulty sleeping. He is on room air and is hemodynamically stable on the monitor. Laboratory data today these show interval increase in WBC to 14.2 H&H and platelet count are stable. Chemistry panel was notable for a sodium of 132, potassium of 3.4, chloride of 97. Chest x-ray today showed no acute pulmonary changes. No other complaint. REVIEW OF SYSTEMS: 12 point ROS reviewed with patient. Pertinent positives mentioned above. Otherwise negative. PHYSICAL EXAM: GENERAL: alert, weak, awake oriented x 3 HEENT: EOMI, Sclera non icteric, moist mucosa NECK: Supple, no JVD, trachea midline LUNGS: Diminished breath sounds bilaterally. No wheezes HEART: Regular rate and rhythm. Normal S1 and S2, without murmurs ABD: Abdomen soft, nontender. Bowel sounds present EXT: No clubbing cyanosis or edema NEURO: Alert and oriented to person, follows commands Vital Signs (last 8hr) Date Time Temp Pulse Resp B/P (MAP) Pulse Ox O2 Delivery O2 Flow Rate FiO2 10/30/24 16:33 98.1 99 18 122/70 94 Room Air 10/30/24 13:04 98.1 96 18 109/61 93 Room Air LABS: Hematology Labs: Test 10/30/24 03:11 Range/Units White Blood Count 14.2 H 4.8-10.8 K/uL Red Blood Count 3.37 L 4.50-6.20 MIL/uL Hemoglobin 9.5 L 14.0-18.0 g/dL Hematocrit 29.1 L 42-54 % Mean Corpuscular Volume 86.4 79-99 fL Mean Corpuscular Hemoglobin 28.2 27.0-33.0 pg Mean Corpuscular Hemoglobin Concent 32.6 32.0-36.0 g/dL Red Cell Distribution Width 12.6 11.0-15.5 % Platelet Count 555 H 130-400 K/uL Mean Platelet Volume 9.1 7.5-10.5 fL Immature Granulocyte % (Auto) 2.8 H 0-1 % Neutrophils (%) (Auto) 73.1 40.0-77.0 % Lymphocytes (%) (Auto) 12.2 L 21.0-51.0 % Monocytes (%) (Auto) 10.7 3.0-13.0 % Eosinophils (%) (Auto) 0.8 0.0-8.0 % Basophils (%) (Auto) 0.4 0.0-5.0 % Neutrophils # (Auto) 10.4 H 1.8-7.7 K/uL Lymphocytes # (Auto) 1.7 1.0-4.8 K/uL Monocytes # (Auto) 1.5 H 0.1-1.0 K/uL Eosinophils # (Auto) 0.12 0.00-0.70 K/uL Basophils # (Auto) 0.05 0.00-0.20 K/uL Absolute Immature Granulocyte (auto 0.39 0-1 K/uL Nucleated Red Blood Cells 0.3 H 0.0-0.19 % Chemistry Labs: Test 10/30/24 12:34 10/30/24 03:11 Range/Units Whole Blood Glucose 281 #H 70-110 MG/DL Sodium Level 132 L 136-145 mmol/L Potassium Level 3.4 L 3.5-5.1 mmol/L Chloride Level 97 L 101-111 mmol/L Carbon Dioxide Level 32 21-32 mmol/L Blood Urea Nitrogen 13 7-18 mg/dL Creatinine 0.9 0.5-1.3 mg/dL Glomerular Filtration Rate Calc 98 >90 mL/min Random Glucose 152 H 70-105 mg/dL Total Calcium 8.7 8.5-10.1 mg/dL Magnesium Level 1.70 L 1.80-2.40 mg/dL DIAGNOSTICS / RADIOLOGY RESULTS: [ ] PLAN Pulmonology was consulted for assistance in the management of left pleural effusion and possible thoracentesis. POCUS was performed and minimal fluid was seen and with no safe window for thoracentesis. Recommend to continue with diuresis. We will continue following the patient with you and repeat chest imaging in a.m.. I appreciate the opportunity provided to participate in patient care. We will continue to provide general supportive care, GI and DVT prophylaxis. Further orders per attending MD and hospital course. 10/28/2024: For now, we are going to continue current management for the patient. We will continue diuretic therapy as ordered. We will monitor the respiratory events and we will adjust as necessary. Patient will continue on cardiac management per the Cardiology team/[facility]VS. We will repeat surveillance labs in morning. We will follow the recommendation of the CTS and we will intervene if necessary. We will continue to provide general supportive care, GI and DVT prophylaxis. Further orders per attending MD and hospital course. 10/29/2024: For now, going to continue current management for the patient. He is going to continue diuretic therapy as ordered for management of the pleural effusion. No plans for thoracentesis. Patient will continue on cardiac management per the Cardiology team/CTVS. We will repeat surveillance labs in morning. We will follow the recommendation of the [facility]VS and we will intervene if necessary. We will continue to provide general supportive care, GI and DVT prophylaxis. Further orders per attending MD and hospital course. Dispo per primary. 10/30/2024: For now, we are going to continue current management the patient. We will start the patient on melatonin for sleep. We will repeat surveillance labs in morning. He is going to continue diuretic therapy as ordered for manage ment of the pleural effusion. We will follow the recommendation of the CTS and we will intervene if necessary. We will continue to provide general supportive care, GI and DVT prophylaxis. Further orders per attending MD and hospital course. Dispo per primary. NEURO: Minimize central acting medications as possible. Maintain fall precautions, adequate lighting during the day PULMONARY: Supplemental 02 as needed. Maintain aspiration precautions at all times CARDIOVASCULAR: Follow hemodynamics. Vital signs per facility protocol GI & NUTRITION: Continue with nutritional support. Continue stool softeners and laxatives as needed. KIDNEYS & ELECTROLYTES: Strict monitoring of intake, output and overall fluid balance. Avoid nephrotoxic medications to the extent possible. Medications to be dosed according to renal function. Monitor electrolytes and replace as needed ENDOCRINE: Maintain blood glucose between 100-180 at all times. Hypoglycemia protocol in place INFECTIOUS DISEASE: Trend temperature, WBC and procalcitonin level Follow cultures, deescalate antibiotics as soon as possible. Panculture if new onset fever ONCOLOGY/HEMATOLOGY/COAGULATION: Monitor for s/s of bleeding Monitor hemoglobin, coagulation studies as needed SKIN: Pressure ulcer prevention per facility protocol Specialty mattress ORTHO/REHAB: Continue PT/OT Prophylaxis: Continue GI and DVT prophylaxis Code Status: Full Resuscitation Disposition: TBD Other: Patient was seen and case discussed with river LOZANO. The plan of care was discussed and agreed upon. IRAIDA ROQUE NP October 30, 2024 17:34
--- NOTE | 2024-10-30 21:39 | PN ---
[facility] PROGRESS NOTE Date Patient Seen: October 30, 2024 Time of Visit: 21:37 Supervising Physician: Dr. Shaw Primary Care Physician: Self referred Outpatient Specialists: [ ] Inpatient Consults: [ ] PROBLEM LIST: NSTEMI/multivessel CAD s/p LHC/coronary angiogram done on 10/16/[address] 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 Bilateral ICA stenosis (>70% by Doppler done 10/17/2024) POA. Concern for left-sided pleural effusion, no need for thoracentesis Hypertension POA Uncontrolled diabetes last A1C 8.4, POA Hyperlipidemia POA Bilateral pneumonia POA Tobacco abuse POA Obesity POA INTERVAL HISTORY: 10/28/2024: At the time of my evaluation, the patient was lying bed. His main complaint is cough. On the monitor, the patient is hemodynamically stable. Laboratory data showed improved WBC count now 10.2 H&H and platelet count is stable. History showed no changes of concern. Imaging shows a chest x-ray with small left pleural effusion. Complaint. 10/29/2024: At the time of my evaluation, the patient is lying in bed. He reports feeling much better today but was unable to sleep last night. On the monitor, the patient is hemodynamically stable and remains on room air. Laboratory data today, shows no derangement of concern. No new imaging for review today. The patient continues on Lasix 40 q.12, metoprolol, aspirin, Plavix, Lovenox and atorvastatin. No other complaint. 10/30/2024: At the time of my evaluation, the patient is sitting up to the bedside chair. He reports his main complaint is difficulty sleeping. He is on room air and is hemodynamically stable on the monitor. Laboratory data today these show interval increase in WBC to 14.2 H&H and platelet count are stable. Chemistry panel was notable for a sodium of 132, potassium of 3.4, chloride of 97. Chest x-ray today showed no acute pulmonary changes. No other complaint. REVIEW OF SYSTEMS: 12 point ROS reviewed with patient. Pertinent positives mentioned above. Otherwise negative. PHYSICAL EXAM: GENERAL: alert, weak, awake oriented x 3 HEENT: EOMI, Sclera non icteric, moist mucosa NECK: Supple, no JVD, trachea midline LUNGS: Diminished breath sounds bilaterally. No wheezes HEART: Regular rate and rhythm. Normal S1 and S2, without murmurs ABD: Abdomen soft, nontender. Bowel sounds present EXT: No clubbing cyanosis or edema NEURO: Alert and oriented to person, follows commands Vital Signs (last 8hr) Date Time Temp Pulse Resp B/P (MAP) Pulse Ox O2 Delivery O2 Flow Rate FiO2 10/30/24 19:28 104 20 N/A Room Air 21 10/30/24 19:25 99.0 95 20 121/81 104 Room Air 10/30/24 16:33 98.1 99 18 122/70 94 Room Air LABS: Hematology Labs: Test 10/30/24 03:11 Range/Units White Blood Count 14.2 H 4.8-10.8 K/uL Red Blood Count 3.37 L 4.50-6.20 MIL/uL Hemoglobin 9.5 L 14.0-18.0 g/dL Hematocrit 29.1 L 42-54 % Mean Corpuscular Volume 86.4 79-99 fL Mean Corpuscular Hemoglobin 28.2 27.0-33.0 pg Mean Corpuscular Hemoglobin Concent 32.6 32.0-36.0 g/dL Red Cell Distribution Width 12.6 11.0-15.5 % Platelet Count 555 H 130-400 K/uL Mean Platelet Volume 9.1 7.5-10.5 fL Immature Granulocyte % (Auto) 2.8 H 0-1 % Neutrophils (%) (Auto) 73.1 40.0-77.0 % Lymphocytes (%) (Auto) 12.2 L 21.0-51.0 % Monocytes (%) (Auto) 10.7 3.0-13.0 % Eosinophils (%) (Auto) 0.8 0.0-8.0 % Basophils (%) (Auto) 0.4 0.0-5.0 % Neutrophils # (Auto) 10.4 H 1.8-7.7 K/uL Lymphocytes # (Auto) 1.7 1.0-4.8 K/uL Monocytes # (Auto) 1.5 H 0.1-1.0 K/uL Eosinophils # (Auto) 0.12 0.00-0.70 K/uL Basophils # (Auto) 0.05 0.00-0.20 K/uL Absolute Immature Granulocyte (auto 0.39 0-1 K/uL Nucleated Red Blood Cells 0.3 H 0.0-0.19 % Chemistry Labs: Test 10/30/24 20:46 10/30/24 03:11 Range/Units Whole Blood Glucose 182 H 70-110 MG/DL Sodium Level 132 L 136-145 mmol/L Potassium Level 3.4 L 3.5-5.1 mmol/L Chloride Level 97 L 101-111 mmol/L Carbon Dioxide Level 32 21-32 mmol/L Blood Urea Nitrogen 13 7-18 mg/dL Creatinine 0.9 0.5-1.3 mg/dL Glomerular Filtration Rate Calc 98 >90 mL/min Random Glucose 152 H 70-105 mg/dL Total Calcium 8.7 8.5-10.1 mg/dL Magnesium Level 1.70 L 1.80-2.40 mg/dL DIAGNOSTICS / RADIOLOGY RESULTS: [ ] PLAN Pulmonology was consulted for assistance in the management of left pleural effusion and possible thoracentesis. POCUS was performed and minimal fluid was seen and with no safe window for thoracentesis. Recommend to continue with diuresis. We will continue following the patient with you and repeat chest imaging in a.m.. I appreciate the opportunity provided to participate in patient care. We will continue to provide general supportive care, GI and DVT prophylaxis. Further orders per attending MD and hospital course. 10/28/2024: For now, we are going to continue current management for the patient. We will continue diuretic therapy as ordered. We will monitor the respiratory events and we will adjust as necessary. Patient will continue on cardiac management per the Cardiology team/CTVS. We will repeat surveillance labs in morning. We will follow the recommendation of the CTS and we will intervene if necessary. We will continue to provide general supportive care, GI and DVT prophylaxis. Further orders per attending MD and hospital course. 10/29/2024: For now, going to continue current management for the patient. He is going to continue diuretic therapy as ordered for management of the pleural effusion. No plans for thoracentesis. Patient will continue on cardiac manag ement per the Cardiology team/CTVS. We will repeat surveillance labs in morning. We will follow the recommendation of the CTVS and we will intervene if necessary. We will continue to provide general supportive care, GI and DVT prophylaxis. Further orders per attending MD and hospital course. Dispo per primary. 10/30/2024: For now, we are going to continue current management the patient. We will start the patient on melatonin for sleep. We will repeat surveillance labs in morning. He is going to continue diuretic therapy as ordered for management of the pleural effusion. We will follow the recommendation of the CTS and we will intervene if necessary. We will continue to provide general supportive care, GI and DVT prophylaxis. Further orders per attending MD and hospital course. Dispo per primary. NEURO: Minimize central acting medications as possible. Maintain fall precautions, adequate lighting during the day PULMONARY: Supplemental 02 as needed. Maintain aspiration precautions at all times CARDIOVASCULAR: Follow hemodynamics. Vital signs per facility protocol GI & NUTRITION: Continue with nutritional support. Continue stool softeners and laxatives as needed. KIDNEYS & ELECTROLYTES: Strict monitoring of intake, output and overall fluid balance. Avoid nephrotoxic medications to the extent possible. Medications to be dosed according to renal function. Monitor electrolytes and replace as needed ENDOCRINE: Maintain blood glucose between 100-180 at all times. Hypoglycemia protocol in place INFECTIOUS DISEASE: Trend temperature, WBC and procalcitonin level Follow cultures, deescalate antibiotics as soon as possible. Panculture if new onset fever ONCOLOGY/HEMATOLOGY/COAGULATION: Monitor for s/s of bleeding Monitor hemoglobin, coagulation studies as needed SKIN: Pressure ulcer prevention per facility protocol Specialty mattress ORTHO/REHAB: Continue PT/OT Prophylaxis: Continue GI and DVT prophylaxis Code Status: Full Resuscitation Disposition: TBD Other: Patient was seen and case discussed with river LOZANO. The plan of care was dis cussed and agreed upon. IRAIDA ROQUE NP October 30, 2024 21:39
[2024-10-30] MEDS ORDERED: MELATONIN 5 MG TABLET PO ONE (22:00)
--- NOTE | 2024-10-30 22:04 | NUR ---
EMS arrival Pt aax3, no distress, denies any discomfort/needs. Pt sitting in chair and was walking around. Paperwork given to EMS with all required paperwork for facility. VS stable and SR per tele. IV removed. Tele removed and returned. All belongings collected. Pt taken safely by EMS to [facility].
--- NOTE | 2024-10-31 08:37 | DS ---
Discharge Summary Hospital Course Summary: Date of service 10/30/24 This is a 58-year-old Filipino-speaking male with past medical history of diabetes, hypertension and hyperlipidemia who was transferred from [facility] with NSTEMI and multivessel CAD for a possible surgical revascularization and patient is on heparin drip. Patient showed up at [facility] for complaints of shortness of breath and fatigue as per patient an he was found to have NSTEMI and underwent a left heart cath via right radial artery where he was found to have multiple CAD. As per patient he stopped taking all his medications 1 month ago because he was feeling better already he said. Daughter Paula was at bedside during my evaluation and states patient smokes 2 packs per week and denied alcohol and recreational drug use. Seen and examined patient in room 203,awake,alert and coherent.Patient denies fever,chills,cough,chest pain,palpitation and shortness of breath. In the ER Latest vital signs temperature 98.4, heart rate 101, blood pressure 135/66 saturation 90% on 3 L nasal cannula. Patient admitted for further medical management. 10/17 patient seen at bedside, no acute events overnight. He has been afebrile, hemodynamically stable saturating well on 5 L nasal cannula. Echocardiogram pending, we will follow up. Bilateral carotid Dopplers showing severe stenosis in both internal carotid arteries, we will follow up with CV surgery. Patient initially transferred for CABG, chest x-ray showing bilateral infiltrates, we will continue with diuresis and continue antibiotics to treat for possible underlying pneumonia. 10/18 patient seen at bedside, no acute events overnight. Patient has no complaints today at bedside. CABG is on hold while patient being treated for pneumonia. He was given a lab holiday today, we will repeat labs tomorrow . Repeat chest x-ray shows improvement in infiltrates bilaterally, we will continue with antibiotics and diuresis. Proximally 4 L urine output in the last 24 hours. 10/19 patient seen at bedside, no acute events overnight. His chest x-ray windows continue to improve with further diuresis. He has been afebrile, hemodynamically stable saturating 96% on 4 L nasal cannula. We will follow up with CV surgery on optimal timing for CABG. Proximally 2.9 L urine output in the last 24 hours. Labs are relatively unremarkable. 10/20 patient seen at bedside, no acute events overnight. CABG is still pending, we will follow up with CV surgery on timing. Vitals and labs relatively unremarkable. 10/21 patient seen at bedside, no acute events overnight. CABG is still pending, CV surgery planning on next week. Vitals and labs relatively unremarkable. 10/22 patient seen at bedside, no acute events overnight. CABG is still pending, CV surgery planning on next week. Vitals and labs relatively unremarkable. 10/23 patient seen at bedside, no acute events overnight. CABG is still pending, likely later tdoay. LFT mildly elevated, remainder of his labs are relatively unremarkable. 10/24 patient seen at bedside, no acute events overnight. Status post CABG postop day one, he has been extubated. Cordis and chest tubes are in place, to be managed by CV surgery. Start aggressive incentive spirometry. Mildly tachycardic, heart rate ranging between 103 up to 126, WBC improved from 25.0 down to 15.7, hemoglobin decreased from 10.8 down to 9.0, platelets improved from 535 down to 469, remainder of his labs are relatively unremarkable. 10/25 patient seen at bedside, no acute events overnight. He is status post CABG postop day two, Cordis and chest tube are still in place, we will defer to CV surgery for management. Patient's only complaint is some nick-incisional pain, well controlled with current pain management. He has been mildly tachycardic with heart rate ranging from 101 up to 104, hemodynamically stable saturating well on 2 L nasal cannula. WBC improved from 15.7 down to 15.2, hemoglobin decreased from 9.0 down to 8.6, platelets decreased from 469 down to 324, remainder of his labs are relatively unremarkable. Continue with spirometry and physical therapy 10/26 patient seen at bedside, no acute events overnight. He is status post CABG postop day three, chest tube and Cordis have been removed. CV surgery recommending transitioned to rehab, case management has been consulted for assistance. WBC increased from 15.2 up to 16.1, hemoglobin decreased from 8.6 down to 8.4, remainder of his labs are relatively unremarkable. Patient showing poor inspiratory effort with IS, he has been drained once again and encouraged to increase his use of the spirometry. He will continue to work with physical therapy. 10/27 patient seen at bedside, no acute events overnight. He is status post CABG postop day four, she is showing better effort with incentive spirometry. Patient has been scheduled for left-sided thoracentesis, it has been rescheduled to Wednesday by IR so that any blood thinners can be held for the procedure. WBC decreased from 16.1 down to 14.4, hemoglobin decreased from 8.4 down to 8.0, CO2 mildly elevated at 36, patient has been encouraged to increase his usage of spirometry, remainder of his labs are relatively unremarkable. Patient is pending placement once he has been optimized. 10/28 patient seen at bedside, no acute events overnight. He is status post CABG postop day five, he continues to practice incentive spirometry. Left-sided thoracentesis has been scheduled for Wednesday, currently holding aspirin in anticipation. We will defer to the pulmonology, if no enough fluid for the procedure we will resume aspirin. Continue with PT/OT 10/29 patient seen at bedside, no acute events overnight. He is status post CABG postop day six, he continues to practice incentive spirometry. Left-sided thoracentesis canceled by pulmonology, not enough fluid appreciate for procedure, aspirin and plavix resumed. Pending rehab placement 10/30 patient is seen and examined at bedside, case discussed with the RN, no acute events overnight, sitting comfortable in the chair, currently patient is status post CABG postoperative day # 7., awaiting rehab. Civil Technician(s): Cardiothoracic surgery Procedure(s): CABG 10/23/24 Assessment/Plan: FINAL DIAGNOSIS NSTEMI POA Multivessel Coronary artery disease, status post CABG (10/23/24) POA Chronic pulmonary edema, resolved POA Acute respiratory failure, resolved POA Bilateral carotid stenosis > 70%, POA Hypertension POA Uncontrolled diabetes last A1C 8.4, POA Nicotine dependence POA Hyperlipidemia POA Obesity POA Bilateral pneumonia POA Discharge Instructions: PATIENT TO BE DISCHARGED TO INPATIENT REHAB FOR CONTINUATION OF MEDICAL CARE. PATIENT TO RETURN TO THE HOSPITAL IF CONDITION CHANGES. PATIENT ADVISED TO BE COMPLIANT WITH MEDICATIONS. PATIENT AGREED WITH THE PLAN AND UNDERSTOOD THE I NFORMATION PROVIDED. Home Medications: No Active Prescriptions or Reported Meds Time spent arranging discharge: 31-60 minutes CHIP ROOT MD October 31, 2024 08:37
== END 2024-10-30 22:05 | DRG 235 ==
LOC: 2AH 16:48 → 2CV 10-23 14:30 → 2BH 10-24 17:40 → 2DH 10-26 02:52
PROVIDERS: ADMIT Internal Medicine; ATTEND Internal Medicine
PROC: B24BZZ4 Ultrasonography of Heart with Aorta, Transesophageal (ICD-10-PCS; 2024-10-23)
PROC: 021109W Bypass Coronary Artery, Two Arteries from Aorta with Autologous Venous Tissue, Open Approach (ICD-10-PCS; principal; 2024-10-23 15:15)
PROC: 06BQ4ZZ Excision of Left Saphenous Vein, Percutaneous Endoscopic Approach (ICD-10-PCS; 2024-10-23 15:15)
PROC: 02100Z9 Bypass Coronary Artery, One Artery from Left Internal Mammary, Open Approach (ICD-10-PCS; 2024-10-23 15:15)
PROC: 02L70CK Occlusion of Left Atrial Appendage with Extraluminal Device, Open Approach (ICD-10-PCS; 2024-10-23 15:15)
DX: I25.10 Atherosclerotic heart disease of native coronary artery without angina pectoris (principal); I21.4 Non-ST elevation (NSTEMI) myocardial infarction; J18.9 Pneumonia, unspecified organism; J96.00 Acute respiratory failure, unspecified whether with hypoxia or hypercapnia; J95.2 Acute pulmonary insufficiency following nonthoracic surgery; I50.20 Unspecified systolic (congestive) heart failure; D62 Acute posthemorrhagic anemia; Y83.8 Other surgical procedures as the cause of abnormal reaction of the patient, or of later complication, without mention of misadventure at the time of the procedure; E78.5 Hyperlipidemia, unspecified; E66.9 Obesity, unspecified; E78.00 Pure hypercholesterolemia, unspecified; F17.210 Nicotine dependence, cigarettes, uncomplicated; I11.0 Hypertensive heart disease with heart failure; I25.5 Ischemic cardiomyopathy; I65.23 Occlusion and stenosis of bilateral carotid arteries; Z71.6 Tobacco abuse counseling; Z75.1 Person awaiting admission to adequate facility elsewhere; Z79.82 Long term (current) use of aspirin; Z82.49 Family history of ischemic heart disease and other diseases of the circulatory system; I25.2 Old myocardial infarction; Z83.3 Family history of diabetes mellitus; Z91.128 Patient's intentional underdosing of medication regimen for other reason; Z79.899 Other long term (current) drug therapy; Z68.22 Body mass index [BMI] 22.0-22.9, adult
CPT/HCPCS: 36415; 36600; 71045; 80048; 80053; 80061; 82330; 82435; 82803; 82947; 82948; 83036; 83605; 83735; 83880; 84100; 84132; 84295; 85018; 85025; 85027; 85347; 85610; 85730; 86850; 86900; 86901; 86923; 87641; 93005; 93306; 93312; 93325; 93880; 94002; 94003; 94010; 94150; 94664; A4450; A7048; G0378; J0456; J0690; J0696; J1644; J1650; J1815; J1940; J2003; J2250; J2405; J2440; J2704; J2720; J3010; J3475; J3480; J3490; J7030; J7040; J7120; P9045; A4215; A4216; A4222; A4223; A4649; A5120; A6204; C1713; C1776; C1887